=== PATIENT | male | born 1970 | race Caucasian/White ===

== ENCOUNTER 2017-01-25 17:32 | Emergency (ER) | payer MEDICARE, BC ==
[2017-01-25 17:41] VITALS: BP 148/63; PULSE 100; RESP 20; TEMP 98.4
--- NOTE | 2017-01-25 18:03 | ED ---
General Adult HPI - General Chief complaint: Recheck/Abnormal Lab/Rx Stated complaint: vomiting Time Seen by Provider: 01/25/17 17:42 Source: patient, RN notes reviewed Mode of arrival: ambulatory Limitations: no limitations - History of Present Illness Initial comments: Patient 46-year-old male who presents emergency room today with a chief complaint of bleeding coming from the dialysis site. Patient does admit that he had a dialysis port put in 4 days ago. States he had episode of vomiting this morning because he tried to eat something past. He states the dialysis site began bleeding. She does admit that he put extra gauze on top. Came here to the emergency room. Patient denies any other complaints or symptoms states nausea was only because he try to eat too fast vomiting. States he is not nauseous at this time. Denies abdominal pain. Denies any other symptoms. Patient denies any recent fever, chills, shortness of breath, chest pain, back pain, abdominal pain, numbness or tingling, dysuria or hematuria, constipation or diarrhea, headaches or visual changes, or any other complaints. - Related Data Home Medications Medication Instructions Recorded Confirmed ALPRAZolam [Xanax] 0.25 mg PO HS 09/20/16 01/25/17 Clopidogrel [Plavix] 75 mg PO HS 09/20/16 01/25/17 Furosemide [Lasix] 80 mg PO HS 09/20/16 01/25/17 HYDROcodone/APAP 7.5-325MG [[place] 1 tab PO DIRECTED PRN 09/20/16 01/25/17 7.5-325] Levothyroxine Sodium [Synthroid] 100 mcg PO HS 09/20/16 01/25/17 Warfarin [Coumadin] 7.5 mg PO DAILY 09/20/16 01/25/17 Metoprolol Tartrate [Lopressor] 25 mg PO DIRECTED 09/24/16 01/25/17 Simvastatin [Zocor] 80 mg PO HS 09/24/16 01/25/17 Previous Rx's Medication Instructions Recorded Nitroglycerin Sl Tabs [Nitrostat] 0.4 mg SUBLINGUAL Q5M PRN #100 tab 09/24/16 Allergies Allergy/AdvReac Type Severity Reaction Status Date / Time grapefruit Allergy Rash/Hives Verified 01/25/17 17:41 shellfish derived [Shellfish] Allergy Swelling Verified 01/25/17 17:41 Review of Systems ROS Statement: Those systems with pertinent positive or pertinent negative responses have been documented in the HPI. ROS Other: All systems not noted in ROS Statement are negative. Past Medical History Past Medical History: Renal Disease Additional Past Medical History / Comment(s): SEE DR ANDERSON'S H&P, DIALYSIS MWF, STATES BEING EVALUATED FOR KIDNEY TRANSPLANT History of Any Multi-Drug Resistant Organisms: None Reported Past Surgical History: Heart Catheterization Additional Past Surgical History / Comment(s): FISTULA/GRAFT RT ARM Past Anesthesia/Blood Transfusion Reactions: No Reported Reaction Past Psychological History: No Psychological Hx Reported Smoking Status: Former smoker Past Alcohol Use History: None Reported Additional Past Alcohol Use History / Comment(s): QUIT SMOKING 1999, SMOKED 1/2 PPD FROM AGE 17 Past Drug Use History: None Reported - Past Family History Mother Family Medical History: Cancer Father Family Medical History: Myocardial Infarction ([place]) Additional Family Medical History / Comment(s): AT AGE 46 General Exam - General Exam Comments Initial Comments: General: The patient is awake and alert, in no distress, and does not appear acutely ill. Eye: Pupils are equal, round and reactive to light, extra-ocular movements are intact. No nystagmus. There is normal conjunctiva bilaterally. No signs of icterus. Ears, nose, mouth and throat: There are moist mucous membranes and no oral lesions. Neck: The neck is supple, there is no tenderness or JVD. Cardiovascular: There is a regular rate and rhythm. No murmur, rub or gallop is appreciated. Respiratory: Lungs are clear to auscultation, respirations are non-labored, breath sounds are equal. No wheezes, stridor, rales, or rhonchi. Musculoskeletal: Normal ROM, no tenderness. Strength 5/5. Sensation intact. Pulses equal bilaterally 2+. Neurological: A&O x 3. CN II-XII intact, There are no obvious motor or sensory deficits. Coordination appears grossly intact. Speech is normal. Skin: Skin is warm and dry and no rashes or lesions are noted. No active bleeding coming from dialysis site. Psychiatric: Cooperative, appropriate mood & affect, normal judgment. Limitations: no limitations Course Vital Signs 01/25/17 17:39 Temperature 98.4 F Pulse Rate 100 Respiratory 20 Rate Blood Pressure 148/63 O2 Sat by Pulse 100 Oximetry Medical Decision Making - Medical Decision Making Patient's urinalysis site was cleaned here in the emergency room saline. There is no active bleeding. Patient's site was redressed by nursing staff. Patient discharged home. Disposition Clinical Impression: Encounter for wound re-check Disposition: HOME SELF-CARE Condition: Good Instructions: Acute Wound Care (ED) Additional Instructions: Please return to emergency room if any increase or worsening symptoms as discussed. Time of Disposition: 18:02
[2017-01-25] MEDS ORDERED: GELATIN SPONGE,ABSORB (SMALL) 1 EACH SPONGE TOPICAL STA (18:22)
== END 2017-01-25 18:25 | disposition home or self-care (01) ==
LOC: EC 17:32
DX: Z48.01 Encounter for change or removal of surgical wound dressing (principal); R11.10 Vomiting, unspecified; N28.9 Disorder of kidney and ureter, unspecified; Z87.891 Personal history of nicotine dependence; Z79.01 Long term (current) use of anticoagulants; Z79.899 Other long term (current) drug therapy; Z91.013 Allergy to seafood; Z91.018 Allergy to other foods
CPT/HCPCS: 99283

== ENCOUNTER → 2017-09-22 | Outpatient (CLI) | payer MEDICARE, BC | END | disposition home or self-care (01) | LOC: LABWHC1 06:49 | PROVIDERS: ATTEND Nurse Practitioner | DX: Z94.0 Kidney transplant status (principal) | CPT/HCPCS: 36415 ==

== ENCOUNTER → 2018-01-26 | Outpatient (CLI) | payer MEDICARE, BC ==
[2018-01-26 10:11] LABS: Basophils % (A) 0 %; Eosinophils # (A) 0.1 k/uL (0-0.7); Eosinophils % (A) 1 %; HCT 43.1 % (39.0-53.0); HGB 13.2 gm/dL (13.0-17.5); Hypochromasia Slight; Lymphocytes # (A) 0.6 k/uL (1.0-4.8); Lymphocytes % (A) 7 %; MCH 27.3 pg (25.0-35.0); MCHC 30.6 g/dL (31.0-37.0); MCV 89.2 fL (80.0-100.0); Mean Platelet Volume 7.9; Monocytes % (A) 11 %; Neutrophils % (A) 79 %; Platelet Count 306 k/uL (150-450); RBC 4.83 m/uL (4.30-5.90); WBC 8.9 k/uL (3.8-10.6)
[2018-01-26 10:28] LABS: Potassium 4.8 mmol/L (3.5-5.1)
[2018-01-26 21:58] LABS: Hemoglobin A1C 6.8 % (4.0-6.0)
== END | disposition home or self-care (01) ==
LOC: LABWHC1 08:27
PROVIDERS: ATTEND Nurse Practitioner
DX: E09.9 Drug or chemical induced diabetes mellitus without complications (principal)
CPT/HCPCS: 36415; 82043; 82565; 82570; 82947; 83036; 84132; 85025

== ENCOUNTER → 2018-02-04 | Outpatient (CLI) | payer MEDICARE, BC ==
[2018-02-04 09:12] LABS: Basophils % (A) 1 %; Eosinophils # (A) 0.2 k/uL (0-0.7); Eosinophils % (A) 3 %; HCT 42.8 % (39.0-53.0); HGB 13.4 gm/dL (13.0-17.5); Hypochromasia Slight; Lymphocytes # (A) 0.8 k/uL (1.0-4.8); Lymphocytes % (A) 11 %; MCH 27.8 pg (25.0-35.0); MCHC 31.4 g/dL (31.0-37.0); MCV 88.7 fL (80.0-100.0); Mean Platelet Volume 7.8; Monocytes # (A) 0.6 k/uL (0-1.0); Monocytes % (A) 9 %; Neutrophils # (A) 5.4 k/uL (1.3-7.7); Neutrophils % (A) 75 %; Platelet Count 270 k/uL (150-450); RBC 4.82 m/uL (4.30-5.90); RDW 15.8 % (11.5-15.5); WBC 7.1 k/uL (3.8-10.6)
[2018-02-04 09:15] LABS: INR 1.1 (<1.2); Partial Thromboplastin Time 23.9 sec (22.0-30.0); Prothrombin Time 10.3 sec (9.0-12.0)
[2018-02-04 09:27] LABS: Calcium 10.5 mg/dL (8.4-10.2); Magnesium 1.8 mg/dL (1.6-2.3); Phosphorus 3.2 mg/dL (2.5-4.5); Potassium 4.7 mmol/L (3.5-5.1)
== END ==
LOC: LABWHC1 08:39
PROVIDERS: ATTEND Internal Medicine Nephrology
DX: Z94.0 Kidney transplant status (principal); Z79.01 Long term (current) use of anticoagulants
CPT/HCPCS: 36415; 80048; 80197; 83735; 84100; 85025; 85610; 85730; 87799

== ENCOUNTER → 2018-05-04 | Outpatient (CLI) | payer MEDICARE, BC ==
[2018-05-04 08:56] LABS: Basophils % (A) 1 %; Eosinophils # (A) 0.3 k/uL (0-0.7); Eosinophils % (A) 4 %; HCT 39.3 % (39.0-53.0); HGB 12.6 gm/dL (13.0-17.5); Lymphocytes # (A) 0.5 k/uL (1.0-4.8); Lymphocytes % (A) 7 %; MCHC 32.1 g/dL (31.0-37.0); MCV 90.5 fL (80.0-100.0); Mean Platelet Volume 7.4; Monocytes # (A) 0.7 k/uL (0-1.0); Monocytes % (A) 8 %; Neutrophils # (A) 6.5 k/uL (1.3-7.7); Neutrophils % (A) 79 %; Platelet Count 232 k/uL (150-450); RBC 4.34 m/uL (4.30-5.90); WBC 8.3 k/uL (3.8-10.6)
[2018-05-04 09:24] LABS: Potassium 4.9 mmol/L (3.5-5.1)
[2018-05-04 21:23] LABS: Hemoglobin A1C 6.4 % (4.0-6.0)
== END | disposition home or self-care (01) ==
LOC: LABWHC1 11:12
PROVIDERS: ATTEND Nurse Practitioner
DX: E09.9 Drug or chemical induced diabetes mellitus without complications (principal); E03.9 Hypothyroidism, unspecified
CPT/HCPCS: 36415; 82043; 82565; 82570; 82947; 83036; 84132; 84443; 85025

== ENCOUNTER → 2018-06-01 | Outpatient (CLI) | payer MEDICARE, BC | END | disposition home or self-care (01) | LOC: LABWHC1 08:26 | DX: Z48.22 Encounter for aftercare following kidney transplant (principal); Z94.0 Kidney transplant status ==

== ENCOUNTER → 2019-03-30 | Outpatient (CLI) | payer MEDICARE, BC | END | disposition home or self-care (01) | LOC: LABWHC1 08:36 | DX: Z53.9 Procedure and treatment not carried out, unspecified reason (principal) ==

== ENCOUNTER → 2019-04-10 | Outpatient (CLI) | payer MEDICARE, BC ==
[2019-04-10 08:40] LABS: Basophils # (A) 0.1 k/uL (0-0.2); Basophils % (A) 1 %; Eosinophils # (A) 0.3 k/uL (0-0.7); Eosinophils % (A) 4 %; HCT 46.6 % (39.0-53.0); HGB 14.5 gm/dL (13.0-17.5); Lymphocytes # (A) 0.9 k/uL (1.0-4.8); Lymphocytes % (A) 13 %; MCH 28.4 pg (25.0-35.0); MCHC 31.2 g/dL (31.0-37.0); MCV 91.1 fL (80.0-100.0); Mean Platelet Volume 7.3; Monocytes # (A) 0.5 k/uL (0-1.0); Monocytes % (A) 7 %; Neutrophils # (A) 5.1 k/uL (1.3-7.7); Neutrophils % (A) 72 %; Platelet Count 260 k/uL (150-450); RBC 5.11 m/uL (4.30-5.90); RDW 13.7 % (11.5-15.5)
[2019-04-10 17:10] LABS: African American GFR (CKD) 50.8 (60.0-200.0); Potassium 4.6 mmol/L (3.5-5.5)
== END | disposition home or self-care (01) ==
LOC: LABWHC1 08:06
DX: D84.9 Immunodeficiency, unspecified (principal); Z94.0 Kidney transplant status; Z79.899 Other long term (current) drug therapy
CPT/HCPCS: 36415; 82565; 82947; 84132; 85025

== ENCOUNTER → 2019-06-01 | Outpatient (CLI) | payer MEDICARE, BC ==
[2019-06-01 09:20] LABS: Basophils # (A) 0.1 k/uL (0-0.2); Basophils % (A) 1 %; Eosinophils # (A) 0.4 k/uL (0-0.7); Eosinophils % (A) 6 %; HCT 47.8 % (39.0-53.0); HGB 15.1 gm/dL (13.0-17.5); Lymphocytes % (A) 14 %; MCH 28.9 pg (25.0-35.0); MCHC 31.6 g/dL (31.0-37.0); MCV 91.5 fL (80.0-100.0); Mean Platelet Volume 7.3; Monocytes # (A) 0.7 k/uL (0-1.0); Monocytes % (A) 10 %; Neutrophils % (A) 68 %; Platelet Count 286 k/uL (150-450); RBC 5.23 m/uL (4.30-5.90); WBC 7.3 k/uL (3.8-10.6)
[2019-06-01 15:39] LABS: African American GFR (CKD) 54.4 (60.0-200.0); Potassium 4.9 mmol/L (3.5-5.5)
== END | disposition home or self-care (01) ==
LOC: LABWHC1 08:19
PROVIDERS: ATTEND Nurse Practitioner Primary Care
DX: D84.9 Immunodeficiency, unspecified (principal); Z94.0 Kidney transplant status; Z79.899 Other long term (current) drug therapy
CPT/HCPCS: 36415; 82565; 82947; 84132; 85025

== ENCOUNTER → 2019-08-04 | Outpatient (CLI) | payer MEDICARE, BC ==
[2019-08-04 09:43] LABS: Basophils # (A) 0.1 k/uL (0-0.2); Basophils % (A) 1 %; Eosinophils # (A) 0.2 k/uL (0-0.7); Eosinophils % (A) 2 %; HCT 49.2 % (39.0-53.0); HGB 15.4 gm/dL (13.0-17.5); Lymphocytes # (A) 0.8 k/uL (1.0-4.8); Lymphocytes % (A) 9 %; MCH 28.8 pg (25.0-35.0); MCHC 31.3 g/dL (31.0-37.0); MCV 92.2 fL (80.0-100.0); Monocytes # (A) 0.7 k/uL (0-1.0); Monocytes % (A) 8 %; Neutrophils # (A) 6.7 k/uL (1.3-7.7); Neutrophils % (A) 79 %; Platelet Count 287 k/uL (150-450); RBC 5.34 m/uL (4.30-5.90); RDW 13.6 % (11.5-15.5); WBC 8.5 k/uL (3.8-10.6)
[2019-08-04 16:10] LABS: African American GFR (CKD) 58.2 (60.0-200.0); Potassium 4.6 mmol/L (3.5-5.5)
== END | disposition home or self-care (01) ==
LOC: LABWHC1 08:42
PROVIDERS: ATTEND Nurse Practitioner Primary Care
DX: D84.9 Immunodeficiency, unspecified (principal); Z94.0 Kidney transplant status; Z79.899 Other long term (current) drug therapy
CPT/HCPCS: 36415; 82565; 82947; 84132; 85025

== ENCOUNTER → 2020-04-17 | Outpatient (CLI) | payer MEDICARE, BC ==
[2020-04-17 09:18] LABS: Basophils # (A) 0.1 k/uL (0-0.2); Basophils % (A) 1 %; Eosinophils # (A) 0.3 k/uL (0-0.7); Eosinophils % (A) 4 %; HCT 46.4 % (39.0-53.0); HGB 15.1 gm/dL (13.0-17.5); Lymphocytes # (A) 0.9 k/uL (1.0-4.8); Lymphocytes % (A) 9 %; MCH 30.4 pg (25.0-35.0); MCHC 32.6 g/dL (31.0-37.0); MCV 93.2 fL (80.0-100.0); Monocytes # (A) 0.8 k/uL (0-1.0); Monocytes % (A) 8 %; Neutrophils # (A) 7.1 k/uL (1.3-7.7); Neutrophils % (A) 77 %; Platelet Count 260 k/uL (150-450); RBC 4.99 m/uL (4.30-5.90); RDW 13.2 % (11.5-15.5); WBC 9.2 k/uL (3.8-10.6)
[2020-04-17 15:35] LABS: African American GFR (CKD) 54.1 (60.0-200.0); Non-African American GFR(CKD) 46.6 (60.0-200.0); Potassium 4.6 mmol/L (3.5-5.5)
[2020-04-17 18:15] LABS: Urine Creatinine 71.4 mg/dL
== END | disposition home or self-care (01) ==
LOC: LABWHC1 08:12
PROVIDERS: ATTEND Nurse Practitioner Primary Care
DX: D84.9 Immunodeficiency, unspecified (principal); Z94.0 Kidney transplant status; Z79.899 Other long term (current) drug therapy
CPT/HCPCS: 36415; 82043; 82565; 82570; 82947; 84132; 85025

== ENCOUNTER → 2020-07-20 | Outpatient (CLI) | payer MEDICARE, BC ==
[2020-07-20 09:11] LABS: Basophils # (A) 0.1 k/uL (0-0.2); Basophils % (A) 1 %; Eosinophils # (A) 0.3 k/uL (0-0.7); Eosinophils % (A) 3 %; HCT 45.1 % (39.0-53.0); Lymphocytes # (A) 1.1 k/uL (1.0-4.8); Lymphocytes % (A) 12 %; MCH 29.1 pg (25.0-35.0); MCHC 31.1 g/dL (31.0-37.0); MCV 93.7 fL (80.0-100.0); Mean Platelet Volume 7.6; Monocytes # (A) 0.7 k/uL (0-1.0); Monocytes % (A) 8 %; Neutrophils # (A) 7.1 k/uL (1.3-7.7); Neutrophils % (A) 75 %; Platelet Count 293 k/uL (150-450); RBC 4.81 m/uL (4.30-5.90); RDW 13.6 % (11.5-15.5); WBC 9.5 k/uL (3.8-10.6)
[2020-07-20 16:10] LABS: African American GFR (CKD) 50.5 (60.0-200.0); Non-African American GFR(CKD) 43.5 (60.0-200.0); Potassium 4.5 mmol/L (3.5-5.5)
[2020-07-20 18:54] LABS: Urine Creatinine 62.8 mg/dL
== END | disposition home or self-care (01) ==
LOC: LABWHC1 07:57
PROVIDERS: ATTEND Nurse Practitioner Primary Care
DX: D84.9 Immunodeficiency, unspecified (principal); Z79.899 Other long term (current) drug therapy; Z94.0 Kidney transplant status
CPT/HCPCS: 36415; 82043; 82565; 82570; 82947; 84132; 85025

== ENCOUNTER → 2020-11-10 | Outpatient (CLI) | payer BC, MEDICARE | END | disposition home or self-care (01) | LOC: LABWHC1 08:29 | PROVIDERS: ATTEND Nurse Practitioner Primary Care | DX: Z53.9 Procedure and treatment not carried out, unspecified reason (principal) ==

== ENCOUNTER → 2020-12-19 | Outpatient (CLI) | payer BC, MEDICARE ==
[2020-12-19 15:13] LABS: Basophils # (A) 0.06 X 10*3/uL (0.00-0.10); Basophils % (A) 0.9 %; Eosinophils # (A) 0.24 X 10*3/uL (0.04-0.35); Eosinophils % (A) 3.5 %; HCT 47.7 % (39.6-50.0); HGB 14.8 g/dL (13.0-17.0); Lymphocytes # (A) 0.94 X 10*3/uL (0.90-5.00); Lymphocytes % (A) 13.7 %; MCH 27.6 pg (27.0-32.0); Mean Platelet Volume 10.4 fL (9.5-12.2); Monocytes # (A) 0.89 X 10*3/uL (0.20-1.00); Neutrophils % (A) 68.5 %; Platelet Count 240 X 10*3/uL (140-440); RBC 5.36 X 10*6/uL (4.40-5.60); RDW 14.4 % (11.5-14.5); WBC 6.86 X 10*3/uL (4.50-10.00)
[2020-12-19 16:20] LABS: African American GFR (CKD) 53.7 (60.0-200.0); Albumin 4.8 g/dL (3.80-4.90); Albumin/Globulin Ratio 2.4 (1.60-3.17); Anion Gap 8.4 mmol/L (4.00-12.00); BUN/Creat Ratio 17.06 Ratio (12.00-20.00); Calcium 10.6 mg/dL (8.7-10.3); Carbon Dioxide 20.6 mmol/L (21.6-31.8); Chol/HDL Ratio 2.83; LDL Cholesterol,Calculated 54.6 mg/dL (0.0-131.0); Magnesium 1.6 mg/dL (1.5-2.4); Non-African American GFR(CKD) 46.3 (60.0-200.0); Potassium 4.5 mmol/L (3.5-5.5); Total Bilirubin 0.7 mg/dL (0.3-1.2); Total Protein 6.8 g/dL (6.2-8.2); VLDL Calculation 31.4 mg/dL (5.00-40.00)
[2020-12-19 20:41] LABS: Hemoglobin A1C 7.8 % (4.0-6.0)
== END | disposition home or self-care (01) ==
LOC: LABWHC1 07:59
PROVIDERS: ATTEND Nurse Practitioner Primary Care
DX: D84.9 Immunodeficiency, unspecified (principal); Z79.899 Other long term (current) drug therapy; Z94.0 Kidney transplant status
CPT/HCPCS: 36415; 80053; 80061; 82306; 83036; 83735; 83970; 85025

== ENCOUNTER → 2021-02-02 | Outpatient (CLI) | payer BC, MEDICARE ==
[2021-02-03 03:04] LABS: African American GFR (CKD) 37.3 (60.0-200.0); Albumin 4.7 g/dL (3.80-4.90); Albumin/Globulin Ratio 2.04 (1.60-3.17); BUN/Creat Ratio 17.83 Ratio (12.00-20.00); Calcium 9.6 mg/dL (8.7-10.3); Globulin 2.3 g/dL (1.6-3.3); Non-African American GFR(CKD) 32.1 (60.0-200.0); Potassium 4.8 mmol/L (3.5-5.5); Total Bilirubin 0.4 mg/dL (0.3-1.2)
== END | disposition home or self-care (01) ==
LOC: LABWHC1 08:08
PROVIDERS: ATTEND Nurse Practitioner Family
DX: I10 Essential (primary) hypertension (principal); E09.9 Drug or chemical induced diabetes mellitus without complications
CPT/HCPCS: 36415; 80053; 83036

== ENCOUNTER → 2021-06-23 | Outpatient (CLI) | payer BC, MEDICARE ==
[2021-06-23 22:09] LABS: African American GFR (CKD) 53.7 (60.0-200.0); Albumin 4.7 g/dL (3.80-4.90); Albumin/Globulin Ratio 2.04 (1.60-3.17); BUN/Creat Ratio 19.41 Ratio (12.00-20.00); Calcium 10.2 mg/dL (8.7-10.3); Globulin 2.3 g/dL (1.6-3.3); Non-African American GFR(CKD) 46.3 (60.0-200.0); Potassium 4.3 mmol/L (3.5-5.5); Total Bilirubin 0.4 mg/dL (0.3-1.2)
== END | disposition home or self-care (01) ==
LOC: LABWHC1 09:00
PROVIDERS: ATTEND Nurse Practitioner Family
DX: N17.9 Acute kidney failure, unspecified (principal); N18.32 Chronic kidney disease, stage 3b; D63.1 Anemia in chronic kidney disease; N25.81 Secondary hyperparathyroidism of renal origin; D84.9 Immunodeficiency, unspecified; E55.9 Vitamin D deficiency, unspecified; Z94.0 Kidney transplant status
CPT/HCPCS: 36415; 80053

== ENCOUNTER → 2021-12-12 | Outpatient (CLI) | payer MEDICARE, OTHER ==
--- NOTE | 2021-12-12 22:16 | CT ---
EXAMINATION TYPE: High-resolution CT chest wo con DATE OF EXAM: 12/12/2021 INDICATION: SOB, h/o covid CT DLP: 1030.2 mGy.cm Automated Exposure Control for Dose Reduction was Utilized. TECHNIQUE AND CONTRAST: CT scan of the chest as per high-resolution protocol without IV contrast administration in the supine and prone positions. COMPARISON: CT dated 10/30/2017 FINDINGS: Scattered bilateral areas of groundglass opacities most evident seen in the upper and midlung zones w ith minimal scattered peripheral fibrotic changes (mainly seen in the right upper lung lobe. Thick at electasis is seen in the lateral aspect of the left lower lung zone. No definite centrilobular nodule s, septal thickening, bronchiectasis, basal subpleural pulmonary reticulations, cystic changes or hon eycombing. Patent trachea and main bronchi. No pleural or pericardial effusion. No gross cardiomegaly. The pulmo nary trunk measures up to 3.5 cm suggestive of pulmonary hypertension. Scattered arterial and coronar y atherosclerotic calcifications. No pathologically enlarged lymph nodes in the chest. Right-sided venous catheter, likely representing dialysis catheter with the tip is seen at the superi or aspect of the right atrium. Gastric band seen at the gastroesophageal junction. Markedly atrophic [place] kidneys. Degenerative changes of the thoracic spine. No aggressive bone lesion. IMPRESSION: Interstitial lung disease demonstrating features suggestive of alternative diagnosis other than UIP. This could represent sequela of previous infection, connective-tissue disorder, hypersensitivity pneu monitis or less likely sarcoidosis among other pulmonary abnormalities. Recommend clinical correlatio n, correlation with pulmonary function tests and further workup. Further pulmonology consultation can be also considered. The described pulmonary changes were not appreciated in 2018 CT scan.
== END | disposition home or self-care (01) ==
LOC: RADCTMAIN 17:08
PROVIDERS: ATTEND Internal Medicine Critical Care Medicine
DX: J84.9 Interstitial pulmonary disease, unspecified (principal)
CPT/HCPCS: 71250

== ENCOUNTER → 2023-03-26 | Outpatient (CLI) | payer BC, MEDICARE ==
[2023-03-26 09:37] LABS: African American GFR (CKD) 29 (>60 ml/min/1.73 sqM); Anion Gap 12 mmol/L; Blood Urea Nitrogen 52 mg/dL (9-20); Calcium 10.3 mg/dL (8.4-10.2); Carbon Dioxide 18 mmol/L (22-30); Chloride 109 mmol/L (98-107); Glucose 192 mg/dL (74-99); Non-African American GFR(CKD) 25 (>60 ml/min/1.73 sqM); Potassium 5.6 mmol/L (3.5-5.1); Sodium 139 mmol/L (137-145)
[2023-03-26 10:31] LABS: Basophils % (A) 0 %; Eosinophils # (A) 0.1 k/uL (0-0.7); Eosinophils % (A) 1 %; HGB 15.6 gm/dL (13.0-17.5); Hypochromasia Marked; Lymphocytes # (A) 0.7 k/uL (1.0-4.8); Lymphocytes % (A) 9 %; MCH 27.4 pg (25.0-35.0); MCHC 29.9 g/dL (31.0-37.0); MCV 91.6 fL (80.0-100.0); Mean Platelet Volume 9.8; Monocytes # (A) 0.5 k/uL (0-1.0); Monocytes % (A) 7 %; Neutrophils # (A) 6.1 k/uL (1.3-7.7); Neutrophils % (A) 81 %; Platelet Count 178 k/uL (150-450); RBC 5.68 m/uL (4.30-5.90); RDW 15.8 % (11.5-15.5); WBC 7.5 k/uL (3.8-10.6)
[2023-03-27 14:30] LABS: Tacrolimus (FK506) 7.6 ng/mL (5.0-20.0)
== END | disposition home or self-care (01) ==
LOC: LABWHC1 08:18
PROVIDERS: ATTEND Family Medicine
DX: D84.821 Immunodeficiency due to drugs (principal); Z94.0 Kidney transplant status; Z79.899 Other long term (current) drug therapy
CPT/HCPCS: 36415; 80048; 80197; 82043; 82570; 82784; 85025

== ENCOUNTER → 2023-05-09 | Outpatient (CLI) | payer BC, MEDICARE ==
[2023-05-09 16:09] LABS: Basophils # (A) 0.07 X 10*3/uL (0.00-0.10); Basophils % (A) 0.8 %; Eosinophils # (A) 0.23 X 10*3/uL (0.04-0.35); Eosinophils % (A) 2.6 %; HCT 53.8 % (37.2-46.3); HGB 16.6 d/dL (12.0-15.0); Lymphocytes # (A) 0.98 X 10*3/uL (0.90-5.00); Lymphocytes % (A) 10.9 %; MCH 28.1 pg (27.0-32.0); MCHC 30.9 d/dL (32.0-37.0); MCV 91.2 FL (80.0-97.0); Mean Platelet Volume 10.5 FL (9.5-12.2); Monocytes % (A) 12.2 %; NRBC Per 100 WBC 0 X 10*3/uL (0.00-0.01); Neutrophils # (A) 6.58 X 10*3/uL (1.80-7.70); Neutrophils % (A) 73.1 %; Platelet Count 190 X 10*3/uL (140-440); RDW 16.7 % (11.5-14.5)
[2023-05-09 17:07] LABS: BUN/Creat Ratio 11.96 Ratio (12.00-20.00); Blood Urea Nitrogen 33.5 mg/dL (9.0-27.0); Calcium 10.6 mg/dL (8.7-10.3); Carbon Dioxide 14.6 mmol/L (21.6-31.8); Chloride 113 mmol/L (96-109); Glucose 67 mg/dL (70-110); Potassium 4.9 mmol/L (3.5-5.5); Sodium 142 mmol/L (135-145)
[2023-05-09 18:48] LABS: Urine Creatinine 91.6 mg/dL (28.0-217.0)
[2023-05-12 13:14] LABS: BK Virus DNA PCR, Qualitative DETECTED (Not detected); BKV DNA (PCR), Quant <125 Copies/mL (<125); LOG BKV Copies/mL <2.10 (<2.10)
[2023-05-12 13:27] LABS: Tacrolimus (FK506) 8.5 ng/mL (5.0-20.0)
== END | disposition home or self-care (01) ==
LOC: LABWHC1 08:05
PROVIDERS: ATTEND Nurse Practitioner Family
DX: Z51.81 Encounter for therapeutic drug level monitoring (principal); D84.821 Immunodeficiency due to drugs; Z79.899 Other long term (current) drug therapy; Z94.0 Kidney transplant status
CPT/HCPCS: 36415; 80048; 80197; 82043; 82570; 82784; 85025

== ENCOUNTER → 2023-10-29 | Outpatient (CLI) | payer BC, MEDICARE ==
[2023-10-30 13:14] LABS: BK Virus DNA PCR, Qualitative DETECTED (Not detected); LOG BKV Copies/mL 3.26 (<2.10)
== END | disposition home or self-care (01) ==
LOC: LABWHC1 15:14
DX: D84.821 Immunodeficiency due to drugs (principal); Z94.0 Kidney transplant status; Z79.899 Other long term (current) drug therapy
CPT/HCPCS: 36415

== ENCOUNTER 2023-12-14 14:51 | Emergency (ER) | payer BC, MEDICARE ==
--- NOTE | 2023-12-14 15:07 | ED ---
Syncope HPI - General Chief Complaint: Syncope Stated Complaint: light headed/faint Time Seen by Provider: 12/14/23 15:05 Source: patient, RN notes reviewed, old records reviewed, Caregiver Mode of arrival: ambulatory Limitations: no limitations - History of Present Illness Initial Comments: This is a 53-year-old male to the ER for evaluation of a syncopal event. This event occurred just prior to arrival. Patient been having some increasing shortness of breath requiring more oxygen patient is on oxygen secondary to lung damage from coronavirus. Patient also has a renal transplant history of renal transplant with some increasing shortness of breath especially with exertion. His patient does admit to lower extremity swelling and edema. Patient is denying any fevers. He does admit to shortness of breath here in the emergency department and occasional chest pain MD Complaint: loss of consciousness, collapsed -: hour(s) Prodromal Symptoms: none Description of Event: tonic-clonic movements, post-event confusion -: second(s) Witnessed: yes - by bystander Injuries Sustained Associated with Event: None Current Symptoms: none History: previous syncopal episode Context: during exertion Treatments Prior to Arrival: none - Related Data Home Medications Medication Instructions Recorded Confirmed Levothyroxine Sodium [Synthroid] 100 mcg PO HS 09/20/16 12/16/23 Acetaminophen [Tylenol] 1,000 mg PO Q6H PRN 10/30/17 12/16/23 mycophenolate mofetiL [Cellcept] 250 mg PO BID 10/30/17 12/16/23 predniSONE 5 mg PO DAILY 10/30/17 12/16/23 Cetirizine HCl [Zyrtec] 10 mg PO DAILY 12/14/23 12/16/23 Insulin Glargine,Hum.rec.anlog 50 units SQ HS 12/14/23 12/16/23 [Lantus Solostar Pen] Losartan [Cozaar] 50 mg PO HS 12/14/23 12/16/23 Montelukast [Singulair] 10 mg PO HS 12/14/23 12/16/23 Rosuvastatin Calcium [Crestor] 40 mg PO HS 12/14/23 12/16/23 Semaglutide [Rybelsus] 7 mg PO DAILY 12/14/23 12/16/23 Sertraline [Zoloft] 25 mg PO HS 12/14/23 12/16/23 Tacrolimus [Prograf] 1 mg PO BID 12/14/23 12/16/23 Amoxicillin 500mg Tab 2,000 mg PO ONCE 12/16/23 12/16/23 Isosorbide Mononitrate ER [Imdur] 30 mg PO DIRECTED 12/16/23 12/16/23 Nitroglycerin Sl Tabs [Nitrostat] 0.4 mg SL Q5M PRN 12/16/23 12/16/23 Previous Rx's Medication Instructions Recorded Apixaban [Eliquis] 2.5 mg PO BID #60 tab 12/19/23 Sodium Bicarbonate Tab 650 mg PO BID #30 tab 12/19/23 Allergies Allergy/AdvReac Type Severity Reaction Status Date / Time grapefruit Allergy Rash/Hives Verified 12/16/23 12:36 shellfish derived [Shellfish] Allergy Swelling Verified 12/16/23 12:36 Review of Systems ROS Statement: Those systems with pertinent positive or pertinent negative responses have been documented in the HPI. ROS Other: All systems not noted in ROS Statement are negative. Past Medical History Past Medical History: Coronary Artery Disease (CAD), Renal Disease, Thyroid Disorder Additional Past Medical History / Comment(s): Renal failure post-kidney transplantation, previous history of dialysis for a total of 12 years followed by kidney transplantation, hypothyroidism, chronic stage III kidney failure post transplantation, nonocclusive coronary artery disease and the patient a cardiac catheterization on 09/24/2016 that showed 40-50% lesion in the distal circumflex otherwise the rest of the coronary arteries were all within normal limits. History of Any Multi-Drug Resistant Organisms: None Reported Past Surgical History: Heart Catheterization, Orthopedic Surgery Additional Past Surgical History / Comment(s): FISTULA/GRAFT RT ARM, kidney transplant in July of 2017, Left hip Past Anesthesia/Blood Transfusion Reactions: No Reported Reaction Past Psychological History: No Psychological Hx Reported Smoking Status: Former smoker Past Alcohol Use History: None Reported Past Drug Use History: None Reported - Past Family History Mother Family Medical History: Cancer Father Family Medical History: Myocardial Infarction ([place]) Additional Family Medical History / Comment(s): AT AGE 46 General Exam Limitations: no limitations General appearance: alert, in no apparent distress Head exam: Present: atraumatic, normocephalic, normal inspection Eye exam: Present: normal appearance, PERRL, EOMI. Absent: scleral icterus, conjunctival injection, periorbital swelling ENT exam: Present: normal exam, mucous membranes moist Neck exam: Present: normal inspection. Absent: tenderness, meningismus, lymphadenopathy Respiratory exam: Present: normal lung sounds bilaterally. Absent: respiratory distress, wheezes, rales, rhonchi, stridor Cardiovascular Exam: Present: regular rate, normal rhythm, normal heart sounds. Absent: systolic murmur, diastolic murmur, rubs, gallop, clicks GI/Abdominal exam: Present: soft, normal bowel sounds. Absent: distended, tenderness, guarding, rebound, rigid Extremities exam: Present: normal inspection, full ROM, normal capillary refill. Absent: tenderness, pedal edema, joint swelling, calf tenderness Back exam: Present: normal inspection Neurological exam: Present: alert, oriented X3, CN II-XII intact Psychiatric exam: Present: normal affect, normal mood Skin exam: Present: warm, dry, intact, normal color. Absent: rash Course Vital Signs 12/14/23 12/14/23 12/14/23 15:00 15:12 16:04 Temperature 97.8 F Pulse Rate 71 90 71 Respiratory 22 16 16 Rate Blood Pressure 93/55 115/68 O2 Sat by Pulse 85 L 92 L 92 L Oximetry 12/14/23 12/14/23 12/14/23 17:00 17:21 17:31 Temperature Pulse Rate 68 76 68 Respiratory 12 Rate Blood Pressure 115/68 O2 Sat by Pulse 91 L Oximetry 12/14/23 18:00 Temperature Pulse Rate 79 Respiratory 21 Rate Blood Pressure 116/78 O2 Sat by Pulse 91 L Oximetry - Reevaluation(s) Reevaluation #1: 12/14/23 18:25 Medical records reviewed Reevaluation #2: 12/14/23 18:25 Patient symptoms improved with supplemental oxygen Reevaluation #3: 12/14/23 18:25 Patient informed of results and questions answered Patient refused further evaluation in the hospital at this time Reevaluation #4: Was pt. sent in by a medical professional or institution (, PA, OWNER ORAL SURGEON, urgent care, hospital, or snf...) When possible be specific @ -no Did you speak to anyone other than the patient for history (EMS, parent, family, police, friend...)? What history was obtained from this source @ -no Did you review nursing and triage notes (agree or disagree)? Why? @ -agree Are old charts reviewed (outside hosp., previous admission, EMS record, old EKG, old radiological studies, urgent care reports/EKG's, snf records)? Re port findings @ -yes Differential Diagnosis (chest pain, altered mental status, abdominal pain women, abdominal pain men, vaginal bleeding, weakness, fever, dyspnea, syncope, headache, dizziness, GI bleed, back pain, seizure, CVA, palpatations, mental health, musculoskeletal)? @ -prior EKG interpreted by me (3pts min.). @ -yes X-rays interpreted by me (1pt min.). @ -yes n positive for CHF CT interpreted by me (1pt min.). @ -no U/S interpreted by me (1pt. min.). @ -no What testing was considered but not performed or refused? (CT, X-rays, U/S, labs)? Why? @ -none What meds were considered but not given or refused? Why? @ -none Did you discuss the management of the patient with other professionals (professionals i.e. , PA, OWNER ORAL SURGEON, lab, RT, psych nurse, social director, workforce staffing advisor, teacher, aeronautical engineering officer, case specialist)? Give summary @ -no Was smoking cessation discussed for >3mins.? @ -no Was critical care preformed (if so, how long)? @ -yes31 Were there social determinants of health that impacted care today? How? (Homelessness, low income, unemployed, alcoholism, drug addiction, transportation, low edu. Level, literacy, decrease access to med. care, penitentiary, rehab)? @ -none Was there de-escalation of care discussed even if they declined (Discuss DNR or withdrawal of care, Hospice)? DNR status @ -no What co-morbidities impacted this encounter? (DM, HTN, Smoking, COPD, CAD, Ca ncer, CVA, ARF, Chemo, Hep., AIDS, mental health diagnosis, sleep apnea, morbid obesity)? @ -none Was patient admitted / discharged? Hospital course, mention meds given and route, prescriptions, significant lab abnormalities, going to OR and other pertinent info. @ - 53 male to the ER for evaluation patient will be admitted for syncopal event, CHF contributing to hypoxia as well as underlying lung damage from coronavirus. Patient will continue supplemental oxygen admit for cardiology evaluation regarding elevated troponin with chronic renal failure renal transplant and CHF Discharge Undiagnosed new problem with uncertain prognosis? @ -no Drug Therapy requiring intensive monitoring for toxicity (Heparin, Nitro, Insulin, Cardizem)? @ -no Were any procedures done? @ -no Diagnosis/symptom? @ -Syncope hypoxia chest pain Acute, or Chronic, or Acute on Chronic? @ -Acute Uncomplicated (without systemic symptoms) or Complicated (systemic symptoms)? @ -Complicated Side effects of treatment? @ -no Exacerbation, Progression, or Severe Exacerbation? @ -exacerbation Poses a threat to life or bodily function? How? (Chest pain, [place], [place], pneumonia, PE, COPD, DKA, ARF, appy, cholecystitis, CVA, Diverticulitis, Homicidal, Suicidal, threat to staff... and all critical care pts) @ -yes with significant hypoxia Reevaluation #5: Differential Syncope: Valvular disease, hypertrophic cardiomyopathy, pulmonary embolism, tamponade, tachycardia, bradycardia, [place], hypovolemia, hemorrhage, dissection, anemia, intracranial hemorrhage, seizure, hypoglycemia, carbon monoxide poisoning, this is not meant to be an all-inclusive list. Differential Dyspnea: Coronary syndrome, arrhythmia, tamponade, asthma, COPD, pulmonary embolism, pneumonia, pneumothorax, pulmonary effusion, anaphylaxis, diabetic ketoacidosis, flailed chest, pulmonary contusion, diaphragmatic rupture, anemia, neuromuscular, this is not meant to be an all-inclusive list. - Consultations Consultation #1: Spoke with admitting who agrees to admit this patient EKG Findings - EKG Comments: EKG Findings:: EKG is sinus 86 CO 170 QRS 104 QTc 408 - EKG Results: EKG: interpreted by ERMD Medical Decision Making - Medical Decision Making 53 male to the ER for evaluation patient will be admitted for syncopal event, CHF contributing to hypoxia as well as underlying lung damage from coronavirus. Patient will continue supplemental oxygen admit for cardiology evaluation regarding elevated troponin with chronic renal failure renal transplant and CHF - Lab Data Result diagrams: 12/14/23 16:45 12/14/23 16:45 Lab Results 12/14/23 12/14/23 12/14/23 Range/Units 15:11 15:11 16:45 WBC 10.4 (3.8-10.6) k/uL RBC 5.79 (4.30-5.90) m/uL Hgb 17.1 (13.0-17.5) gm/dL Hct 56.0 H (39.0-53.0) % MCV 96.7 (80.0-100.0) fL MCH 29.4 (25.0-35.0) pg MCHC 30.5 L (31.0-37.0) g/dL RDW 15.4 (11.5-15.5) % Plt Count 125 L (150-450) k/uL MPV 9.1 Neutrophils % 84 % Lymphocytes % 7 % Monocytes % 7 % Eosinophils % 1 % Basophils % 1 % Neutrophils # 8.8 H (1.3-7.7) k/uL Lymphocytes # 0.7 L (1.0-4.8) k/uL Monocytes # 0.7 (0-1.0) k/uL Eosinophils # 0.1 (0-0.7) k/uL Basophils # 0.1 (0-0.2) k/uL Hypochromasia Moderate PT 13.3 H (10.0-12.5) sec INR 1.3 H (<1.2) APTT 25.9 (22.0-30.0) sec Sodium (137-145) mmol/L Potassium (3.5-5.1) mmol/L Chloride (98-107) mmol/L Carbon Dioxide (22-30) mmol/L Anion Gap mmol/L BUN (9-20) mg/dL Creatinine (0.66-1.25) mg/dL Est GFR (CKD-EPI)AfAm (>60 ml/min/1.73 sqM) Est GFR (CKD-EPI)NonAf (>60 ml/min/1.73 sqM) Glucose (74-99) mg/dL Calcium (8.4-10.2) mg/dL Magnesium (1.6-2.3) mg/dL Total Bilirubin (0.2-1.3) mg/dL AST (17-59) U/L ALT (4-49) U/L Alkaline Phosphatase (38-126) U/L Troponin I 0.085 H* (0.000-0.034) ng/mL NT-Pro-B Natriuret Pep pg/mL Total Protein (6.3-8.2) g/dL Albumin (3.5-5.0) g/dL 12/14/23 Range/Units 16:45 WBC (3.8-10.6) k/uL RBC (4.30-5.90) m/uL Hgb (13.0-17.5) gm/dL Hct (39.0-53.0) % MCV (80.0-100.0) fL MCH (25.0-35.0) pg MCHC (31.0-37.0) g/dL RDW (11.5-15.5) % Plt Count (150-450) k/uL MPV Neutrophils % % Lymphocytes % % Monocytes % % Eosinophils % % Basophils % % Neutrophils # (1.3-7.7) k/uL Lymphocytes # (1.0-4.8) k/uL Monocytes # (0-1.0) k/uL Eosinophils # (0-0.7) k/uL Basophils # (0-0.2) k/uL Hypochromasia PT (10.0-12.5) sec INR (<1.2) APTT (22.0-30.0) sec Sodium 142 (137-145) mmol/L Potassium 5.6 H (3.5-5.1) mmol/L Chloride 116 H (98-107) mmol/L Carbon Dioxide 15 L (22-30) mmol/L Anion Gap 11 mmol/L BUN 45 H (9-20) mg/dL Creatinine 3.01 H (0.66-1.25) mg/dL Est GFR (CKD-EPI)AfAm 26 (>60 ml/min/1.73 sqM) Est GFR (CKD-EPI)NonAf 23 (>60 ml/min/1.73 sqM) Glucose 99 (74-99) mg/dL Calcium 10.8 H (8.4-10.2) mg/dL Magnesium 1.8 (1.6-2.3) mg/dL Total Bilirubin 1.3 (0.2-1.3) mg/dL AST 39 (17-59) U/L ALT 28 (4-49) U/L Alkaline Phosphatase 107 (38-126) U/L Troponin I (0.000-0.034) ng/mL NT-Pro-B Natriuret Pep 27985 pg/mL Total Protein 7.3 (6.3-8.2) g/dL Albumin 4.6 (3.5-5.0) g/dL - EKG Data -: EKG Interpreted by Me (EKG repeat sinus 81 CO 131 QRS 104 QTc 420) - Radiology Data Radiology results: report reviewed (Chest x-ray is positive for CHF), image reviewed Critical Care Time Critical Care Time: Yes Total Critical Care Time: 31 Disposition Clinical Impression: Syncope, Hypoxia, ARF (acute renal failure) Disposition: HOME SELF-CARE Condition: Fair Is patient prescribed a controlled substance at d/c from ED?: No Referrals: Nonstaff,Physician [Primary Care Provider] - 1-2 days Time of Disposition: 18:25
[2023-12-14 15:26] VITALS: TEMP 97.8
[2023-12-14] MEDS: methylPREDNISolone SOD SUCCI 125 MG/2 ML VIAL IV STA (16:18)
[2023-12-14] MEDS: SODIUM CHLORIDE 0.9% 1,000 ML IV STA (16:19)
--- NOTE | 2023-12-14 16:22 | XR ---
EXAMINATION TYPE: XR chest 1V portable DATE OF EXAM: 12/14/2023 Comparison: 01/28/2022 Clinical History: 53-year-old male sob Findings: Right-sided large bore hemodialysis catheter with tip at the cavoatrial junction. Heart mildly enlarg ed. Mild interstitial density. There is a trace left pleural effusion suggested. Lap band device note d. Impression: Correlate for mild pulmonary vascular congestion/fluid overload state. Trace left pleural effusion. N o pulmonary edema.
[2023-12-14 16:32] LABS: INR 1.3 (<1.2); Partial Thromboplastin Time 25.9 sec (22.0-30.0); Prothrombin Time 13.3 sec (10.0-12.5)
[2023-12-14 17:03] LABS: Basophils # (A) 0.1 k/uL (0-0.2); Basophils % (A) 1 %; Eosinophils # (A) 0.1 k/uL (0-0.7); Eosinophils % (A) 1 %; HGB 17.1 gm/dL (13.0-17.5); Hypochromasia Moderate; Lymphocytes # (A) 0.7 k/uL (1.0-4.8); Lymphocytes % (A) 7 %; MCH 29.4 pg (25.0-35.0); MCHC 30.5 g/dL (31.0-37.0); MCV 96.7 fL (80.0-100.0); Mean Platelet Volume 9.1; Monocytes # (A) 0.7 k/uL (0-1.0); Monocytes % (A) 7 %; Neutrophils # (A) 8.8 k/uL (1.3-7.7); Neutrophils % (A) 84 %; Platelet Count 125 k/uL (150-450); RBC 5.79 m/uL (4.30-5.90); RDW 15.4 % (11.5-15.5); WBC 10.4 k/uL (3.8-10.6)
[2023-12-14 17:13] LABS: ALT 28 U/L (4-49); AST 39 U/L (17-59); African American GFR (CKD) 26 (>60 ml/min/1.73 sqM); Albumin 4.6 g/dL (3.5-5.0); Alkaline Phosphatase 107 U/L (38-126); Anion Gap 11 mmol/L; Blood Urea Nitrogen 45 mg/dL (9-20); Calcium 10.8 mg/dL (8.4-10.2); Carbon Dioxide 15 mmol/L (22-30); Chloride 116 mmol/L (98-107); Glucose 99 mg/dL (74-99); Magnesium 1.8 mg/dL (1.6-2.3); Non-African American GFR(CKD) 23 (>60 ml/min/1.73 sqM); Potassium 5.6 mmol/L (3.5-5.1); Sodium 142 mmol/L (137-145); Total Bilirubin 1.3 mg/dL (0.2-1.3); Total Protein 7.3 g/dL (6.3-8.2)
[2023-12-14] MEDS: IPRATROPIUM-ALBUTEROL 3 ML NEB INHALATION STA (17:21)
[2023-12-14 17:22] LABS: NT-Pro-B-Type Natriuretic Pept 11900 pg/mL
[2023-12-14] MEDS ORDERED: NALOXONE 0.4 MG/ML 1 ML VIAL IV PRN (18:15)
[2023-12-14] MEDS ORDERED: ONDANSETRON 4 MG/2 ML VIAL IVP PRN (18:15)
[2023-12-14] MEDS ORDERED: MORPHINE SULFATE 4 MG/ML SYRINGE IV PRN (18:15)
[2023-12-14] MEDS: SODIUM CHLORIDE 0.9% 1,000 ML IV SCH (19:13)
[2023-12-14 19:40] VITALS: BP 116/78; PULSE 79; RESP 21
== END 2023-12-14 19:25 | disposition home or self-care (01) ==
LOC: EC 14:51 → 3SCARD 18:24 → UNDOADMIN 18:24 → EC 19:25
DX: N17.9 Acute kidney failure, unspecified (principal); R09.02 Hypoxemia; R55 Syncope and collapse; Z87.891 Personal history of nicotine dependence; Z91.013 Allergy to seafood; Z88.8 Allergy status to other drugs, medicaments and biological substances
CPT/HCPCS: 99285; 96374; 96361; 36415; 94640; 93005; 83880; 80053; 83735; 84484; 85025; 85610; 85730; 71045; J2930

== ENCOUNTER 2023-12-16 09:10 | Inpatient (IN) | payer BC, MEDICARE ==
[2023-12-16 10:21] LABS: Basophils # (A) 0.1 k/uL (0-0.2); Basophils % (A) 1 %; Eosinophils # (A) 0.2 k/uL (0-0.7); Eosinophils % (A) 2 %; HCT 54.9 % (39.0-53.0); HGB 17.6 gm/dL (13.0-17.5); Hypochromasia Moderate; Lymphocytes % (A) 10 %; MCH 30.7 pg (25.0-35.0); MCV 95.7 fL (80.0-100.0); Mean Platelet Volume 9.5; Monocytes % (A) 10 %; Neutrophils # (A) 7.7 k/uL (1.3-7.7); Neutrophils % (A) 75 %; Platelet Count 137 k/uL (150-450); RBC 5.74 m/uL (4.30-5.90); RDW 15.7 % (11.5-15.5); WBC 10.3 k/uL (3.8-10.6)
[2023-12-16 10:31] LABS: INR 1.2 (<1.2); Prothrombin Time 12.9 sec (10.0-12.5)
--- NOTE | 2023-12-16 10:31 | ED ---
General Adult HPI - General Chief complaint: Shortness of Breath Stated complaint: sent by PCP-Heart related Time Seen by Provider: 12/16/23 09:22 Source: patient, RN notes reviewed, old records reviewed Mode of arrival: ambulatory Limitations: no limitations - History of Present Illness Initial comments: Patient is a 53-year-old male who presents emergency department complaining of shortness of breath. Patient has also had chest tightness. Currently has no chest tightness but has been on and off over the last week or so. Patient has been on 3 L nasal cannula cannula chronically since COVID infection and typically saturates between 88 and 91%. Has noticed increased shortness of breath and had a syncopal episode on Friday. Left AGAINST MEDICAL ADVICE at that time despite ischemic findings on EKG as well as troponin elevation. Had already had a follow-up appoint with cardiology today, and Dr. Cabrera evaluated the patient and sent him here for inpatient workup. EKG today at the office was unchanged from the EKG from Friday, with slight ST segment depressions in III, aVF is too close to T wave inversions throughout the precordial leads. Patient also had slight ST segment elevation in aVL and minimal in I. This was all seen on EKGs from [address] Cabrera contacted me and sent the patient in for admission for cardiology evaluation, initiation of heparin, echo, as well as pulmonology and nephrology consult. Currently patient is resting comfortably. Has a history of kidney transplant. Has no chest tightness currently. Has his normal shortness of breath. No other acute complaints at this time. Presents for admission at cardiology's request, Dr. Cheng. - Related Data Home Medications Medication Instructions Recorded Confirmed Levothyroxine Sodium [Synthroid] 100 mcg PO HS 09/20/16 12/16/23 Acetaminophen [Tylenol] 1,000 mg PO Q6H PRN 10/30/17 12/16/23 mycophenolate mofetiL [Cellcept] 250 mg PO BID 10/30/17 12/16/23 predniSONE 5 mg PO DAILY 10/30/17 12/16/23 Cetirizine HCl [Zyrtec] 10 mg PO DAILY 12/14/23 12/16/23 Insulin Glargine,Hum.rec.anlog 50 units SQ HS 12/14/23 12/16/23 [Lantus Solostar Pen] Losartan [Cozaar] 50 mg PO HS 12/14/23 12/16/23 Montelukast [Singulair] 10 mg PO HS 12/14/23 12/16/23 Rosuvastatin Calcium [Crestor] 40 mg PO HS 12/14/23 12/16/23 Semaglutide [Rybelsus] 7 mg PO DAILY 12/14/23 12/16/23 Sertraline [Zoloft] 25 mg PO HS 12/14/23 12/16/23 Tacrolimus [Prograf] 1 mg PO BID 12/14/23 12/16/23 Amoxicillin 500mg Tab 2,000 mg PO ONCE 12/16/23 12/16/23 Isosorbide Mononitrate ER [Imdur] 30 mg PO DIRECTED 12/16/23 12/16/23 Nitroglycerin Sl Tabs [Nitrostat] 0.4 mg SL Q5M PRN 12/16/23 12/16/23 Allergies Allergy/AdvReac Type Severity Reaction Status Date / Time grapefruit Allergy Rash/Hives Verified 12/16/23 12:36 shellfish derived [Shellfish] Allergy Swelling Verified 12/16/23 12:36 Review of Systems ROS Statement: Those systems with pertinent positive or pertinent negative responses have been documented in the HPI. Review of Systems: CONST: Denies fever EYES: Denies blurry vision ENT: Denies nasal congestion C/V: Denies Chest pain RESP: Denies shortness of breath GI: Denies abdominal pain : Denies dysuria SKIN: Denies rash. MSK: Denies joint pain. NEURO: Denies headache ROS Other: All systems not noted in ROS Statement are negative. Past Medical History Past Medical History: Coronary Artery Disease (CAD), Renal Disease, Thyroid Disorder Additional Past Medical History / Comment(s): Renal failure post-kidney transplantation, previous history of dialysis for a total of 12 years followed by kidney transplantation, hypothyroidism, chronic stage III kidney failure post transplantation, nonocclusive coronary artery disease and the patient a cardiac catheterization on 09/24/2016 that showed 40-50% lesion in the distal cir cumflex otherwise the rest of the coronary arteries were all within normal limits. History of Any Multi-Drug Resistant Organisms: None Reported Past Surgical History: Heart Catheterization, Orthopedic Surgery Additional Past Surgical History / Comment(s): FISTULA/GRAFT RT ARM, kidney transplant in July of 2017, Left hip Past Anesthesia/Blood Transfusion Reactions: No Reported Reaction Past Psychological History: No Psychological Hx Reported Smoking Status: Former smoker Past Alcohol Use History: None Reported Past Drug Use History: None Reported - Past Family History Mother Family Medical History: Cancer Father Family Medical History: Myocardial Infarction ([place]) Additional Family Medical History / Comment(s): AT AGE 46 General Exam - General Exam Comments Initial Comments: General: Appears in no acute distress. HEAD: Normal with no signs of head trauma. EYES: PERRLA, EOMI, conjunctiva normal, no discharge. ENT: Hearing grossly intact, normal oropharynx. RESPIRATORY: Mildly coarse breath sounds. Chronic hypoxia on baseline 3 L nasal cannula. No significant increased work of breathing. C/V: Regular rate and rhythm. S1 and S2 auscultated, mild symmetrical lower extremity pitting edema, peripheral pulses 2+ and intact throughout ABD: Abd is soft, nontender, nondistended EXT: Normal range of motion, no obvious deformity SKIN: No rashes or lesions observed on exposed skin. NEURO: Alert and oriented x 4. Limitations: no limitations Course Vital Signs 12/16/23 12/16/23 12/16/23 09:12 09:14 12:07 Temperature 97.9 F Pulse Rate 92 71 Respiratory 22 20 Rate Blood Pressure 122/72 104/73 O2 Sat by Pulse 84 L 91 L 93 L Oximetry Medical Decision Making - Medical Decision Making Was pt. sent in by a medical professional or institution (, PA, HOME HEALTH PHYSICAL THERAPIST, urgent care, hospital, or senior living...) When possible be specific @ -Yes, sent in by cardiology Dr. Cheng. Did you speak to anyone other than the patient for history (EMS, parent, family, police, friend...)? What history was obtained from this source @ -Spoke with Dr. Cheng of cardiology. We reviewed recent EKGs that showed the slight ST segment elevations in aVL as well as I as well as T wave inversions in the inferior and lateral leads that appear to be unchanged from EKGs from December 14, 2023. He is requesting pulmonology, nephrology, cardiology consult with heparin initiation for ACS as well as stat echo. Did you review nursing and triage notes (agree or disagree)? Why? @ -I reviewed and agree with nursing and triage notes Were old charts reviewed (outside hosp., previous admission, EMS record, old EKG, old radiological studies, urgent care reports/EKG's, senior living records)? Report findings @ -Old charts reviewed Differential Diagnosis (chest pain, altered mental status, abdominal pain women, abdominal pain men, vaginal bleeding, weakness, fever, dyspnea, syncope, headache, dizziness, GI bleed, back pain, seizure, CVA, palpatations, mental health, musculoskeletal)? @ -Differential Chest Pain: Stable Angina, Unstable Angina, STEMI, NSTEMI Aortic Dissection, Pneumothorax, Musculoskeletal, Esophageal Spasm GERD, Cholecystitis, Pancreatitis, Zoster, thi s is not meant to be an all-inclusive list. EKG interpreted by me (3pts min.). @ -As above X-rays interpreted by me (1pt min.). @ -Chest x-ray shows cardiomegaly and pulmonary vascular congestion. CT interpreted by me (1pt min.). @ -Brain CT reveals no obvious acute intracranial process. U/S interpreted by me (1pt. min.). @ -None done What testing was considered but not performed or refused? (CT, X-rays, U/S, labs)? Why? @ -None What meds were considered but not given or refused? Why? @ -None Did you discuss the management of the patient with other professionals (professionals i.e. , PA, HOME HEALTH PHYSICAL THERAPIST, lab, RT, psych nurse, social media content specialist, dining manager, teacher, sanitation officer, outsole caser)? Give summary @ -Spoke with Dr. Cheng of cardiology who called ahead for the patient to discuss plan.I did call him back to compare EKG findings today to compare to what he saw at the office this morning. We reviewed recent EKGs that showed the slight ST segment elevations in aVL as well as I as well as T wave inversions in the inferior and lateral leads that appear to be unchanged from EKGs from December 14, 2023. He is requesting pulmonology, nephrology, cardiology consult with heparin initiation for ACS as well as stat echo. Was smoking cessation discussed for >3mins.? @ -No Was critical care preformed (if so, how long)? @ -Yes, 36 minutes Were there social determinants of health that impacted care today? How? (Homelessness, low income, unemployed, alcoholism, drug addiction, transportati on, low edu. Level, literacy, decrease access to med. care, custodial, rehab)? @ -No Was there de-escalation of care discussed even if they declined (Discuss DNR or withdrawal of care, Hospice)? DNR status @ -No What co-morbidities impacted this encounter? (DM, HTN, Smoking, COPD, CAD, Cancer, CVA, ARF, Chemo, Hep., AIDS, mental health diagnosis, sleep apnea, morbid obesity)? @ -CKD, kidney transplant, chronic hypoxic respiratory failure on 3 L nasal cannula oxygen Was patient admitted / discharged? Hospital course, mention meds given and route, prescriptions, significant lab abnormalities, going to OR and other pertinent info. @ -Based on the patient's presentation and physical exam, presents emergency department for admission. Was sent in by his bulldozer mechanic, Dr. Cabrera for cardiac workup over concern for possible blockage. Has been having intermittent chest tightness as well as shortness of breath over the last week or so. Was seen on December 13 and had an elevated troponin, elevated BNP, as well as ischemic findings on EKG. Patient left AMA at that time. Ischemic findings at that time and EKG consisted of slight ST segment elevation in I, aVL, as well as slight depression in III. Patient also had T wave inversion in the inferior leads and lateral precordial leads. Presented to his bulldozer mechanic this morning and Dr. Cabrera saw similar changes on EKG there, and after we obtained EKG here I spoke with Dr. Philip over the phone to compare those findings he was in agreement that t his seems stable from findings seen on Friday with no acute or dynamic changes since Friday but this does appear to be more acute as most recent EKGs are from before 2019 in our chart. He is requesting admission for the patient with initiation of IV heparin, stat echo, cardiology, nephrology, pulmonology consults. I discussed this with patient he was in agreement this plan. Will repeat cardiopulmonary labs. Due to the syncopal episode on Friday we will also obtain a CT brain prior to initiation of heparin and aspirin. Patient was in agreement this plan. Currently asymptomatic and resting comfortably. Patient has chronic hypoxia on 3 L nasal cannula from 88 to 91% where he is at curren tly. As stated above, EKG redemonstrates changes seen from December 13 with ischemic changes but no dynamic changes from December 13 or earlier this morning after comparison and discussion with cardiology Dr. Cheng. Brain CT showed no obvious acute intracranial process or bleed and therefore heparin and aspirin were initiated. Chest x-ray shows no obvious acute cardiopulmonary process. Patient's laboratory studies remarkable for an elevated troponin of 0.631. BNP is 17,000. Creatinine is 3.29 with a history of CKD. Slightly worse than previous baseline from December 13. At this time, patient is resting comfortably with stable vital signs at his normal baseline on 3 L nasal cannula he will be admitted to the hospital for cardiology evaluation. Echo is still pending. Patient in agreement with this plan. I spoke with the admitting physician, Dr. Jama who accepted the admission. Dr. Cheng did call nursing staff and he was updated the patient's troponin. Cardiology Dr. Cheng consulted, as well as nephrology and pulmonology as was requested. Stat echo is still pending at time of admission. Undiagnosed new problem with uncertain prognosis? @ -No Drug Therapy requiring intensive monitoring for toxicity (Heparin, Nitro, Insulin, Cardizem)? @ -No Were any procedures done? @ -No Diagnosis/symptom? @ -Elevated troponin, ACS, CKD with history of renal transplant Acute, or Chronic, or Acute on Chronic? @ -Acute Uncomplicated (without systemic symptoms) or Complicated (systemic symptoms)? @ -Complicated Side effects of treatment? @ -None Exacerbation, Progression, or Severe Exacerbation] @ -No Poses a threat to life or bodily function? @ -Potentially, yes Diagnosis/symptom? @ -Chronic hypoxic respiratory failure Acute, or Chronic, or Acute on Chronic? @ -Chronic Uncomplicated (without systemic symptoms) or Complicated (systemic symptoms)? @ -Complicated Side effects of treatment? @ -None Exacerbation, Progression, or Severe Exacerbation] @ -No Poses a threat to life or bodily function? @ -No - Lab Data Result diagrams: 12/16/23 09:47 12/16/23 11:19 Lab Results 12/16/23 12/16/23 12/16/23 Range/Units 09:47 09:47 09:47 WBC 10.3 (3.8-10.6) k/uL RBC 5.74 (4.30-5.90) m/uL Hgb 17.6 H (13.0-17.5) gm/dL Hct 54.9 H (39.0-53.0) % MCV 95.7 (80.0-100.0) fL MCH 30.7 (25.0-35.0) pg MCHC 32.0 (31.0-37.0) g/dL RDW 15.7 H (11.5-15.5) % Plt Count 137 L (150-450) k/uL MPV 9.5 Neutrophils % 75 % Lymphocytes % 10 % Monocytes % 10 % Eosinophils % 2 % Basophils % 1 % Neutrophils # 7.7 (1.3-7.7) k/uL Lymphocytes # 1.0 (1.0-4.8) k/uL Monocytes # 1.0 (0-1.0) k/uL Eosinophils # 0.2 (0-0.7) k/uL Basophils # 0.1 (0-0.2) k/uL Hypochromasia Moderate PT 12.9 H (10.0-12.5) sec INR 1.2 H (<1.2) APTT 23.9 (22.0-30.0) sec Troponin I 0.631 H* (0.000-0.034) ng/mL - EKG Data -: EKG Interpreted by Me EKG Comments: 12-lead Electrocardiogram Interpretation Note EKG was reviewed and interpreted by myself. 12-lead ECG performed at 0921 is interpreted by me as revealing normal sinus rhythm at a rate of 80 beats per minute. Right axis deviation. Right bundle branch block. [place] interval is 157 ms, QRS duration is 121 ms, QTc is 399 ms. Patient has redemonstrated T wave inversions in leads III, aVF as well as the precordial leads. Has redemonstrated ST segment mild depression in lead III as well as slight ST segment elevations in aVL and I.. There were no obvious acute ST or T wave abnormalities to suggest myocardial ischemia or injury. R wave progression across the precordium was satisfactory. Compared with EKG from December 13 as well as compared with EKG over the phone with Dr. Cheng from earlier today. Unchanged from those times. Does seem to be more acute as we have no recent EKGs in the system, however no obvious dynamic changes the last 2 days. Critical Care Time Critical Care Time: Yes Total Critical Care Time: 36 Disposition Clinical Impression: ACS (acute coronary syndrome), Chronic hypoxic respiratory failure, Elevated troponin, CKD (chronic kidney disease) Disposition: ADMITTED IP TO THIS HOSP Condition: Stable Time of Disposition: 11:25
[2023-12-16 10:32] LABS: Partial Thromboplastin Time 23.9 sec (22.0-30.0)
--- NOTE | 2023-12-16 10:32 | CT ---
EXAMINATION TYPE: CT brain wo con CT DLP: 1186.4 mGycm, Automated exposure control for dose reduction was used. DATE OF EXAM: 12/16/2023 10:24 AM COMPARISON: None. CLINICAL INDICATION:Male, 53 years old with history of recent fall, clearance for heparin, Recent fal l, clearance for Heparin TECHNIQUE: Brain: Axial CT images of the brain were obtained with coronal and sagittal reformats created and rev iewed. Contrast used: None. Oral contrast used: None. FINDINGS: Brain: Extra-axial spaces: No abnormal extra-axial fluid collections. Ventricular system: Within normal limits Cerebral parenchyma: No acute intraparenchymal hemorrhage or mass effect. The leon-white junction is well differentiated. Cerebellum: Unremarkable. Mass effect: No evidence of midline shift. Intracranial vasculature: unremarkable Soft tissues: Normal. Calvarium/osseous structures: No depressed skull fracture. Paranasal sinuses and mastoid air cells: Mild scattered paranasal sinus disease. Visualized orbits: Orbital contents are intact. IMPRESSION: No acute intracranial process.
[2023-12-16] MEDS ORDERED: NALOXONE 0.4 MG/ML 1 ML VIAL IV PRN ×2 (11:19→11:21)
[2023-12-16 11:33] LABS: ALT 47 U/L (4-49); AST 58 U/L (17-59); African American GFR (CKD) 24 (>60 ml/min/1.73 sqM); Albumin 4.2 g/dL (3.5-5.0); Alkaline Phosphatase 95 U/L (38-126); Anion Gap 11 mmol/L; Blood Urea Nitrogen 60 mg/dL (9-20); Calcium 10.3 mg/dL (8.4-10.2); Carbon Dioxide 15 mmol/L (22-30); Chloride 116 mmol/L (98-107); Glucose 124 mg/dL (74-99); Lipase 465 U/L (23-300); Magnesium 1.9 mg/dL (1.6-2.3); Non-African American GFR(CKD) 20 (>60 ml/min/1.73 sqM); Potassium 5.1 mmol/L (3.5-5.1); Sodium 142 mmol/L (137-145); Total Bilirubin 0.8 mg/dL (0.2-1.3); Total Protein 6.8 g/dL (6.3-8.2)
--- NOTE | 2023-12-16 11:38 | XR ---
EXAMINATION TYPE: XR chest 2V DATE OF EXAM: 12/16/2023 COMPARISON: 12/14/2023 HISTORY: 53-year-old male with heart breathing, chest pain TECHNIQUE: PA and lateral views FINDINGS: Right-sided hemodialysis catheter with tip at the cavoatrial junction. Heart mildly enlarged. Mild va scular dominance and interstitial density along with a small left pleural effusion. IMPRESSION: Mild cardiomegaly and possible mild pulmonary vascular congestion. Small left pleural effusion.
[2023-12-16 11:42] LABS: NT-Pro-B-Type Natriuretic Pept 17500 pg/mL
[2023-12-16] MEDS: ASPIRIN 81 MG PO STA (12:01)
[2023-12-16] MEDS: HEPARIN SODIUM 1,000 UN/ML (10ML VL) IV ONE (12:05)
[2023-12-16] MEDS: HEPARIN SOD,PORK IN 0.45% NACL 25,000 UNIT in 0.45% NACL 1 250ML.BAG IV SCH (12:06)
[2023-12-16] MEDS: FUROSEMIDE 10 MG/ML 4 ML VIAL IV STA (12:10)
--- NOTE | 2023-12-16 12:34 | CA ---
Transthoracic Echo Report Name: Abdoul Soliz Age: 53 Gender: M : 1970 Exam Date: 12/16/2023 11:29 Exam Location: [facility] Ht (in): 67 Wt (lb): 233 Ordering Physician: Tolu Rich MD Attending/Referring Phys: Digital Marketing Executive Deidra Rico RDCS Procedure CPT: Indications: ACS. Stat per Dr. Cheng Cardiac Hx: Technical Quality: Fair Contrast 1: Total Dose (mL): Contrast 2: Total Dose (mL): MEASUREMENTS (Male / Female) Normal Values 2D ECHO LV Diastolic Diameter PLAX 3.8 cm 4.2 - 5.9 / 3.9 - 5.3 cm LV Systolic Diameter PLAX 2.6 cm IVS Diastolic Thickness 1.4 cm 0.6 - 1.0 / 0.6 - 0.9 cm LVPW Diastolic Thickness 1.2 cm 0.6 - 1.0 / 0.6 - 0.9 cm LV Relative Wall Thickness 0.7 RV Internal Dim ED PLAX 4.7 cm M-MODE Aortic Root Diameter MM 3.3 cm DOPPLER AV Peak Velocity 128.4 cm/s AV Peak Gradient 6.6 mmHg Mitral E Point Velocity 88.7 cm/s Mitral A Point Velocity 66.1 cm/s Mitral E to A Ratio 1.3 MV Deceleration Time 187.3 ms MV E' Velocity 4.2 cm/s Mitral E to MV E' Ratio 21.0 TR Peak Velocity 288.4 cm/s TR Peak Gradient 33.3 mmHg Right Ventricular Systolic Press 43.7 mmHg FINDINGS Left Ventricle Left ventricular ejection fraction is estimated at 60-65 %. Small left ventricular cavity. Moderately increased septal wall thickness. Right Ventricle Severe right ventricular dilatation. Mild pulmonary hypertension. Reduced right ventricular global systolic function. Right Atrium Right atrium not well visualized. Left Atrium Normal left atrial size. Mitral Valve Mitral annular calcification. No mitral stenosis, regurgitation or prolapse. Aortic Valve Trileaflet aortic valve. No aortic valve stenosis or regurgitation. Tricuspid Valve Tricuspid valve not well visualized. Mild tricuspid regurgitation. Pulmonic Valve Pulmonic valve not well visualized. No pulmonic regurgitation. Pericardium No pericardial effusion. Aorta Normal size aortic root and proximal ascending aorta. CONCLUSIONS Hyperdynamic LV systolic function with EF between 60-65% and left ventricular hypertrophy Severe RV dilated patient with decreased RV systolic function as well Mild pulmonary hypertension. Poorly visualized intracardiac valves The study overall technically is very difficult No pericardial effusion Previewed by: Dr. Aldo Raya MD (Electronically Signed) Final Date: 16 December 2023 12:33
[2023-12-16] MEDS ORDERED: ACETAMINOPHEN TAB 500 MG TAB PO PRN (12:58)
--- NOTE | 2023-12-16 13:12 | P.NPCON ---
History of Present Illness - Reason for Consult chronic renal failure - History of Present Illness Reason for consultation: Renal transplant management and chronic kidney disease History of present illness: Patient is a 53-year-old male seen in renal consultation for chronic kidney disease and renal transplant management. Patient received kidney transplant in July 2017 at [facility]. Patient states his antirejection medications and renal functions were monitored closely by [facility]. Patient was on dialysis for over 10 years prior to receiving kidney transplant. He is currently maintained on tacrolimus, mycophenolate as well as prednisone outpatient. Patient also sees urologist for hematuria. Patient states about a month ago his dose of losartan was increased and since then he has been feeling progressively short of breath. He denies history of coronary artery disease. Denies nausea vomiting or diarrhea. Patient states he was diagnosed with COVID in 2021 and at that time required temporary hemodialysis. Patient was seen by cardiology and was sent to the hospital due to concern for acute coronary syndrome. Cardiac catheterization is being considered. Patient has history of diabetes which she developed after receiving kidney transplant. Blood pressure stable. He is cu rrently on 2 L nasal cannula. Oral intake fair. Vital signs are stable. General: No acute distress. HEENT: Head exam is unremarkable. On nasal cannula. LUNGS: No audible rhonchi or wheezes. HEART: Rate and Rhythm are regular. ABDOMEN: Obese. EXTREMITITES: No edema. Past Medical History Past Medical History: Coronary Artery Disease (CAD), Renal Disease, Thyroid Disorder Additional Past Medical History / Comment(s): Renal failure post-kidney transplantation, previous history of dialysis for a total of 12 years followed by kidney transplantation, hypothyroidism, chronic stage III kidney failure post transplantation, nonocclusive coronary artery disease and the patient a cardiac catheterization on 09/24/2016 that showed 40-50% lesion in the distal circumflex otherwise the rest of the coronary arteries were all within normal limits. History of Any Multi-Drug Resistant Organisms: None Reported Past Surgical History: Heart Catheterization, Orthopedic Surgery Additional Past Surgical History / Comment(s): FISTULA/GRAFT RT ARM, kidney transplant in July of 2017, Left hip Past Anesthesia/Blood Transfusion Reactions: No Reported Reaction Past Psychological History: No Psychological Hx Reported Smoking Status: Former smoker Past Alcohol Use History: None Reported Past Drug Use History: None Reported - Past Family History Mother Family Medical History: Cancer Father Family Medical History: Myocardial Infarction ([place]) Additional Family Medical History / Comment(s): AT AGE 46 Medications and Allergies Home Medications Medication Instructions Recorded Confirmed Type Levothyroxine Sodium [Synthroid] 100 mcg PO HS 09/20/16 12/16/23 History Acetaminophen [Tylenol] 1,000 mg PO Q6H PRN 10/30/17 12/16/23 History mycophenolate mofetiL [Cellcept] 250 mg PO BID 10/30/17 12/16/23 History predniSONE 5 mg PO DAILY 10/30/17 12/16/23 History Cetirizine HCl [Zyrtec] 10 mg PO DAILY 12/14/23 12/16/23 History Insulin Glargine,Hum.rec.anlog 50 units SQ HS 12/14/23 12/16/23 History [Lantus Solostar Pen] Losartan [Cozaar] 50 mg PO HS 12/14/23 12/16/23 History Montelukast [Singulair] 10 mg PO HS 12/14/23 12/16/23 History Rosuvastatin Calcium [Crestor] 40 mg PO HS 12/14/23 12/16/23 History Semaglutide [Rybelsus] 7 mg PO DAILY 12/14/23 12/16/23 History Sertraline [Zoloft] 25 mg PO HS 12/14/23 12/16/23 History Tacrolimus [Prograf] 1 mg PO BID 12/14/23 12/16/23 History Amoxicillin 500mg Tab 2,000 mg PO ONCE 12/16/23 12/16/23 History Isosorbide Mononitrate ER [Imdur] 30 mg PO DIRECTED 12/16/23 12/16/23 History Nitroglycerin Sl Tabs [Nitrostat] 0.4 mg SL Q5M PRN 12/16/23 12/16/23 History Allergies Allergy/AdvReac Type Severity Reaction Status Date / Time grapefruit Allergy Rash/Hives Verified 12/16/23 12:36 shellfish derived [Shellfish] Allergy Swelling Verified 12/16/23 12:36 Physical Exam Vitals: Vital Signs Temp Pulse Resp BP Pulse Ox 12/16/23 12:07 71 20 104/73 93 L 12/16/23 09:14 91 L 12/16/23 09:12 97.9 F 92 22 122/72 84 L Intake and Output 12/15/23 12/16/23 12/16/23 22:59 06:59 14:59 Other: Weight 105.687 kg Results - Lab Results Most recent lab results Calcium 10.3 mg/dL (8.4-10.2) H 12/16/23 11:19 Magnesium 1.9 mg/dL (1.6-2.3) 12/16/23 11:19 12/16/23 09:47 12/16/23 11:19 Assessment and Plan Plan: Assessment: 1. Chronic kidney disease stage IV with baseline creatinine near 3. Patient follows at [facility]. Etiology is long-term CNI use as well as ATN requiring renal replacement therapy in 2021. 2. Status post renal transplant in July 2017 at [facility]. 3. Acute coronary syndrome maintained on heparin drip. 4. Metabolic acidosis secondary to chronic kidney disease. 5. Diabetes mellitus. 6. Mild hypercalcemia. Likely from vitamin D supplementation and milk intake. 7. Preserved ejection fraction with severe RV dilation and mild pulmonary hypertension noted on echocardiogram. 8. Mild volume overload. Status post IV Lasix given today. Plan: Decrease dose of losartan to 25 mg once daily. Hold for systolic blood pressure less than 115. Check urinalysis. Check renal ultrasound. 2 g sodium bicarb IV push now. Add oral bicarb. Maintain home antirejection medications. Check a.m. Prograf level. Continue to monitor renal function and urine output. Discussed risk of worsening renal function, potentially requiring renal replacement therapy postcardiac catheterization. Patient understands and is agreeable to proceed. Will start IV hydration with normal saline at 75 cc an hour 6 to 8 hours prior to cardiac catheterization and continue for 6 to 8 hours post catheterization. Monitor volume status closely. Thank you for the consultation. I will continue to follow the patient with you during his hospital stay.
[2023-12-16] MEDS ORDERED: DEXTROSE 50% SYRINGE 50 ML IVP PRN (13:17)
[2023-12-16] MEDS ORDERED: CALCIUM CARBONATE 500 MG CHEWABLE PO PRN (13:20)
[2023-12-16] MEDS ORDERED: ALPRAZolam 0.25 MG TAB PO PRN ×2 (13:20→13:44)
[2023-12-16] MEDS ORDERED: LACTULOSE 20 GM/30 ML CUP PO PRN (13:20)
[2023-12-16] MEDS ORDERED: MELATONIN 3 MG TABLET PO PRN (13:20)
[2023-12-16] MEDS ORDERED: ONDANSETRON 4 MG/2 ML VIAL IVP PRN (13:20)
[2023-12-16] MEDS ORDERED: NITROGLYCERIN SL TABS 0.4 MG TAB SUBLINGUAL PRN (13:44)
[2023-12-16] MEDS ORDERED: ALPRAZolam 0.5 MG TAB PO PRN (13:44)
[2023-12-16 14:02] LABS: Glucose,Whole Blood 97 mg/dL (70-110)
[2023-12-16] MEDS: INSULIN ASPART (NovoLOG) 100 UNIT/ML VIAL SQ SCH (14:02)
[2023-12-16] MEDS: ISOSORBIDE MONONITRATE ER 30 MG TAB.ER.24H PO SCH (14:07)
[2023-12-16] MEDS: SODIUM BICARBONATE TAB 650 MG TAB PO SCH (14:26)
[2023-12-16] MEDS: SODIUM BICARB 8.4% 50 ML SYR (1 MEQ/ML) IV STA (14:42)
[2023-12-16 16:14] LABS: Appearance,Urine Clear (Clear); Bilirubin,Urine Negative (Negative); Blood,Urine Trace (Negative); Color,Urine Colorless; Glucose,Urine (UA) Negative (Negative); Ketones,Urine Negative (Negative); Leukocyte Esterase,Urine Negative (Negative); Mucus,Urine Rare /hpf; Nitrite,Urine Negative (Negative); Protein,Urine Negative (Negative); RBC,Urine <1 /hpf (0-5); Specific Gravity,Urine 1.007 (1.001-1.035); Squamous Epithelial Cell,Urine <1 /hpf (0-4); Urobilinogen,Urine <2.0 mg/dL (<2.0); WBC,Urine 2 /hpf (0-5)
--- NOTE | 2023-12-16 16:59 | P.HPIM ---
History of Present Illness H&P Date: 12/16/23 Chief Complaint: Chest pressure Pleasant 53-year-old patient who follows with Dr. Ballard. Patient is accompanied by his in the ER. In 2017 patient underwent renal transplant at [facility]. Follows up with the transplant physician there. Does not remember the name. Patient previously had cardiac catheterization, in 2016 was told has had about 40 to 50% lesion in dist al circumflex. About a month ago patient's dose of losartan was changed. Patient also has 3 L of oxygen at home. From COVID. And has been told he also has long COVID. Patient's baseline creatinine runs around 3.2. Patient for last few days been having chest pressure off and on. Accompanied by some shortness of breath. 2 days ago patient had and the had gone to see an RV show. He also felt some pressure that she made him sit down. When they were walking out she turned around patient had passed out. At that time blood pressure was noted to be low. Patient did not appointment with search and rescue officer Dr. Zuleika Cheng. Will send the patient to the ER for further workup. Review of systems: GEN.: Tired EYES: None HEENT: None NECK: None RESPIRATORY: None CARDIOVASCULAR: As above e GASTROINTESTINAL: None GENITOURINARY: None MUSCULOSKELETAL: None LYMPHATICS: None HEMATOLOGICAL: None PSYCHIATRY: None NEUROLOGICAL: None Social history: Lives with . Smoked half a pack a day from age 17 and stopped in 1998. No alcohol. Physical examination: VITAL SIGNS: 97.9, 92, 22, 122 x 72, 93% on 2 L GENERAL: BMI 36.5, reclining bed awake not in distress. EYES: Pupils equal. Conjunctiva nicole l. HEENT: External appearance of nose and ears normal, oral cavity grossly normal. NECK: JVD not raised; masses not palpable. HEART: First and second heart sounds are normal; no edema. LUNGS: Respiratory rate normal; decreased breath sounds n. ABDOMEN: Soft, nontender, liver spleen not palpable, no masses palpable. PSYCH: Alert and oriented x3; mood and affect nicole l. MUSCULOSKELETAL:No Clubbing/cyanosis;muscles-grossly intact NEUROLOGICAL: Cranial nerves grossly intact; no facial asymmetry, power and sensation grossly intact. LYMPHATICS: No lymph nodes palpable in the axilla and neck INVESTIGATIONS, reviewed in the clinical context: December 16, 2023: White count 10.3 hemoglobin 7.6 platelets 137 sodium 142 potassium 5.1 chloride 116 bicarb 15 BUN 60 creatinine 3.29 Troponin I 0.631, 0.849 EKG tracing personally reviewed by me-normal sinus rhythm. Right bundle marya block pattern. ST/T wave changes in inferolateral leads. Chest x-ray film personally reviewed by me-cardiomegaly 2D echocardiogram: EF 60 to 65%. Severe right ventricle dilatation. Assessment plan: -Recurrent anterior chest wall pain. EKG changes of left T waves in leads inferolateral. Troponin positive though in the setting of renal failure. Telemetry. Cardiology consulted. -Chronic kidney disease in a renal transplant patient. Stage III Baseline creatinine runs in 3.2 -Renal transplant in 2017 at [facility]. Prednisone 5 mg a day. CellCept to 50 mg twice daily. Prograf 1 mg p.o. twice daily. -Coronary artery disease, known to be nonobstructive from a cardiac cath in 2015. -Metabolic acidosis from chronic kidney disease Add sodium bicarbonate -Chronic hypoxic respiratory failure, from previous COVID infection 3 L of oxygen at home -Hypothyroid Synthroid 100 mcg a day -Diabetes mellitus type 2, chronically on insulin Insulin Lantus 15 subcu nightly. Follow sliding scale with sliding scale insulin. Semaglutide -Hyperlipidemia Crestor -Depression otherwise specified Zoloft 25 mg nightly Care was discussed with the patient and at the bedside. Questions answe red. Consultation to nephrology, cardiology, pulmonary. Past Medical History Past Medical History: Coronary Artery Disease (CAD), Renal Disease, Thyroid Disorder Additional Past Medical History / Comment(s): Renal failure post-kidney transplantation, previous history of dialysis for a total of 12 years followed by kidney transplantation, hypothyroidism, chronic stage III kidney failure post transplantation, nonocclusive coronary artery disease and the patient a cardiac catheterization on 09/24/2016 that showed 40-50% lesion in the distal circumflex otherwise the rest of the coronary arteries were all within normal limits. History of Any Multi-Drug Resistant Organisms: None Reported Past Surgical History: Heart Catheterization, Orthopedic Surgery Additional Past Surgical History / Comment(s): FISTULA/GRAFT RT ARM, kidney transplant in July of 2017, Left hip Past Anesthesia/Blood Transfusion Reactions: No Reported Reaction Past Psychological History: No Psychological Hx Reported Smoking Status: Former smoker Past Alcohol Use History: None Reported Past Drug Use History: None Reported - Past Family History Mother Family Medical History: Cancer Father Family Medical History: Myocardial Infarction ([place]) Additional Family Medical History / Comment(s): AT AGE 46 Medications and Allergies Home Medications Medication Instructions Recorded Confirmed Type Levothyroxine Sodium [Synthroid] 100 mcg PO HS 09/20/16 12/16/23 History Acetaminophen [Tylenol] 1,000 mg PO Q6H PRN 10/30/17 12/16/23 History mycophenolate mofetiL [Cellcept] 250 mg PO BID 10/30/17 12/16/23 History predniSONE 5 mg PO DAILY 10/30/17 12/16/23 History Cetirizine HCl [Zyrtec] 10 mg PO DAILY 12/14/23 12/16/23 History Insulin Glargine,Hum.rec.anlog 50 units SQ HS 12/14/23 12/16/23 History [Lantus Solostar Pen] Losartan [Cozaar] 50 mg PO HS 12/14/23 12/16/23 History Montelukast [Singulair] 10 mg PO HS 12/14/23 12/16/23 History Rosuvastatin Calcium [Crestor] 40 mg PO HS 12/14/23 12/16/23 History Semaglutide [Rybelsus] 7 mg PO DAILY 12/14/23 12/16/23 History Sertraline [Zoloft] 25 mg PO HS 12/14/23 12/16/23 History Tacrolimus [Prograf] 1 mg PO BID 12/14/23 12/16/23 History Amoxicillin 500mg Tab 2,000 mg PO ONCE 12/16/23 12/16/23 History Isosorbide Mononitrate ER [Imdur] 30 mg PO DIRECTED 12/16/23 12/16/23 History Nitroglycerin Sl Tabs [Nitrostat] 0.4 mg SL Q5M PRN 12/16/23 12/16/23 History Allergies Allergy/AdvReac Type Severity Reaction Status Date / Time grapefruit Allergy Rash/Hives Verified 12/16/23 12:36 shellfish derived [Shellfish] Allergy Swelling Verified 12/16/23 12:36 Physical Exam Vitals: Vital Signs Temp Pulse Resp BP Pulse Ox 12/16/23 15:48 64 16 119/64 97 12/16/23 12:07 71 20 104/73 93 L 12/16/23 09:14 91 L 12/16/23 09:12 97.9 F 92 22 122/72 84 L Intake and Output 12/16/23 12/16/23 12/16/23 06:59 14:59 22:59 Other: Weight 105.687 kg Results CBC & Chem 7: 12/16/23 09:47 12/16/23 11:19 Labs: Abnormal Lab Results - Last 24 Hours (Table) 12/16/23 12/16/23 12/16/23 Range/Units 09:47 09:47 09:47 Hgb 17.6 H (13.0-17.5) gm/dL Hct 54.9 H (39.0-53.0) % RDW 15.7 H (11.5-15.5) % Plt Count 137 L (150-450) k/uL PT 12.9 H (10.0-12.5) sec INR 1.2 H (<1.2) Chloride (98-107) mmol/L Carbon Dioxide (22-30) mmol/L BUN (9-20) mg/dL Creatinine (0.66-1.25) mg/dL Glucose (74-99) mg/dL Calcium (8.4-10.2) mg/dL Troponin I 0.631 H* (0.000-0.034) ng/mL Lipase (23-300) U/L Urine Blood (Negative) Urine Mucus (None) /hpf 12/16/23 12/16/23 12/16/23 Range/Units 11:19 12:07 14:50 Hgb (13.0-17.5) gm/dL Hct (39.0-53.0) % RDW (11.5-15.5) % Plt Count (150-450) k/uL PT (10.0-12.5) sec INR (<1.2) Chloride 116 H (98-107) mmol/L Carbon Dioxide 15 L (22-30) mmol/L BUN 60 H (9-20) mg/dL Creatinine 3.29 H (0.66-1.25) mg/dL Glucose 124 H (74-99) mg/dL Calcium 10.3 H (8.4-10.2) mg/dL Troponin I 0.849 H* (0.000-0.034) ng/mL Lipase 465 H (23-300) U/L Urine Blood Trace H (Negative) Urine Mucus Rare H (None) /hpf
[2023-12-16 17:10] LABS: Glucose,Whole Blood 174 mg/dL (70-110)
[2023-12-16 20:26] LABS: Glucose,Whole Blood 127 mg/dL (70-110)
[2023-12-16] MEDS ORDERED: LOSARTAN 50 MG TAB PO SCH (21:00)
[2023-12-16] MEDS: LEVOTHYROXINE 100 MCG TAB PO SCH (21:49)
[2023-12-16] MEDS: ATORVASTATIN 80 MG TAB PO SCH (21:49)
[2023-12-16] MEDS: SERTRALINE 25 MG TAB PO SCH (21:49)
[2023-12-16] MEDS: MONTELUKAST 10 MG TAB PO SCH (21:49)
[2023-12-16] MEDS: INSULIN DETEMIR (LEVEMIR) 100 UNIT/ML SYR SQ SCH (21:49)
[2023-12-16] MEDS: TACROLIMUS 1 MG CAP PO SCH (21:52)
[2023-12-16] MEDS: LOSARTAN 25 MG TAB PO SCH (21:53)
[2023-12-17] MEDS: SODIUM CHLORIDE 0.9% 1,000 ML IV SCH (00:12)
[2023-12-17] MEDS ORDERED: IPRATROPIUM-ALBUTEROL 3 ML NEB INHALATION PRN (03:10)
--- NOTE | 2023-12-17 03:16 | P.CNPUL ---
History of Present Illness Consult date: 12/17/23 Requesting physician: Tolu Rich Reason for consult: dyspnea Chief complaint: Intermittent chest pain/pressure and associated acute on chronic dyspnea History of present illness: I am seeing this patient, a 53-year-old white male, in new consultation today 12/17/2023 after he presented with complaints of intermittent chest pressure/substernal pain over the last week. He had associated acute on chronic shortness of breath. He is chronically maintained on 3 L/min nasal cannula while at home. He has had a history of COVID-pneumonia and post-inflammatory pulmonary fibrosis. Patient does follow in the pulmonary office with Dr. Caldwell. His primary care provider is a nurse practitioner, Jaye Watson, out of Dr. Ballard office. Patient also has other medical comorbidities including n onocclusive coronary artery disease, hypertension, hyperlipidemia, renal failure requiring hemodialysis for 12 years followed by a kidney transplant, hypothyroidism. Of note, the patient did have a ER visit 3 days ago for syncopal episode. The patient may have left AGAINST MEDICAL ADVICE, however, patient denies this.. He returns to the emergency room yesterday morning after being directed by his job order clerk. He reports substernal chest pressure that has been intermittent over the last week. Chest pain typically lasts 5 to 30 minutes. It is nonradiating. It happens without predilection to activity or at rest. No associated nausea or diaphoresis. Serial troponins are elevated and trending up, most recent result 1. EKG on arrival shows normal sinus rhythm with T wave inversion in the precordial leads and minimal ST depression in III, aVF. He was started on a heparin infusion per protocol. Denies any further episodes of syncope. Denies heart palpitations. Cardiology was consulted. He does become short of breath with these events. He denies any infectious symptoms such as change in his chronic cough, sputum production, fevers, myalgias. Echocardiogram done on arrival shows a preserved left ventricular ejection fraction estimated at 60 to 65%, LVH, and there is severe RV dilation with mild pulmonary hypertension. He is currently sitting up in bed, on 2 L/min nasal cannula, in no acute distress. Chest x-ray on arrival mild cardiomegaly, possible mild pulmonary vascular congestion is difficult to exclude with chronic changes. There is a small left pleural effusion. Patient denies any orthopnea, PND, or lower extremity swelling. CBC on arrival unremarkable. No leukocytosis. BMP on arrival: Sodium 142, potassium 5.1, chloride 116, serum bicarb 15, BUN 60, creatinine 3.29, glucose 124. Patient is maintained on a combination of Prograf, CellCept, and prednisone 5 mg daily to prevent renal rejection. Baseline creatinine appears to be around 2.5-2.7. Normal saline is infusing at 75 mL/h. NT proBNP was elevated at 17,500. Vital signs are stable. Review of Systems REVIEW OF SYSTEMS: CONSTITUTIONAL: Denies any recent significant weight loss or weight gain, fatigue, malaise, fevers. EYES: Denies change in vision. EARS, NOSE, MOUTH, THROAT: Denies headaches, denies sore throat. CARDIOVASCULAR: See HPI. RESPIRATORY: See HPI GASTROINTESTINAL: Denies change in appetite, abdominal pain, nausea and vomiting, or diarrhea GENITOURINARY: Denies hematuria, denies infections. MUSKULOSKELETAL: Denies pain, denies swelling. INTEGUMENTARY: Denies rash, denies eczema. NEUROLOGICAL: Denies recent memory loss, no recent seizure activity. PSYCHIATRIC: Denies anxiety, denies depression. HEMATOLOGIC/LYMPHATIC: Denies anemia, denies enlarged lymph node Past Medical History Past Medical History: Coronary Artery Disease (CAD), Renal Disease, Thyroid Disorder Additional Past Medical History / Comment(s): Renal failure post-kidney transplantation, previous history of dialysis for a total of 12 years followed by kidney transplantation, hypothyroidism, chronic stage III kidney failure post transplantation, nonocclusive coronary artery disease and the patient a cardiac catheterization on 09/24/2016 that showed 40-50% lesion in the distal circumflex otherwise the rest of the coronary arteries were all within normal limits. History of Any Multi-Drug Resistant Organisms: None Reported Past Surgical History: Heart Catheterization, Orthopedic Surgery Additional Past Surgical History / Comment(s): FISTULA/GRAFT RT ARM, kidney transplant in July of 2017, Left hip Past Anesthesia/Blood Transfusion Reactions: No Reported Reaction Past Psychological History: No Psychological Hx Reported Smoking Status: Former smoker Past Alcohol Use History: None Reported Additional Past Alcohol Use History / Comment(s): QUIT SMOKING 1998, SMOKED 1/2 PPD FROM AGE 17 Past Drug Use History: None Reported - Past Family History Mother Family Medical History: Cancer Father Family Medical History: Myocardial Infarction ([place]) Additional Family Medical History / Comment(s): AT AGE 46 Medications and Allergies Home Medications Medication Instructions Recorded Confirmed Type Levothyroxine Sodium [Synthroid] 100 mcg PO HS 09/20/16 12/16/23 History Acetaminophen [Tylenol] 1,000 mg PO Q6H PRN 10/30/17 12/16/23 History mycophenolate mofetiL [Cellcept] 250 mg PO BID 10/30/17 12/16/23 History predniSONE 5 mg PO DAILY 10/30/17 12/16/23 History Cetirizine HCl [Zyrtec] 10 mg PO DAILY 12/14/23 12/16/23 History Insulin Glargine,Hum.rec.anlog 50 units SQ HS 12/14/23 12/16/23 History [Lantus Solostar Pen] Losartan [Cozaar] 50 mg PO HS 12/14/23 12/16/23 History Montelukast [Singulair] 10 mg PO HS 12/14/23 12/16/23 History Rosuvastatin Calcium [Crestor] 40 mg PO HS 12/14/23 12/16/23 History Semaglutide [Rybelsus] 7 mg PO DAILY 12/14/23 12/16/23 History Sertraline [Zoloft] 25 mg PO HS 12/14/23 12/16/23 History Tacrolimus [Prograf] 1 mg PO BID 12/14/23 12/16/23 History Amoxicillin 500mg Tab 2,000 mg PO ONCE 12/16/23 12/16/23 History Isosorbide Mononitrate ER [Imdur] 30 mg PO DIRECTED 12/16/23 12/16/23 History Nitroglycerin Sl Tabs [Nitrostat] 0.4 mg SL Q5M PRN 12/16/23 12/16/23 History Allergies Allergy/AdvReac Type Severity Reaction Status Date / Time grapefruit Allergy Rash/Hives Verified 12/16/23 12:36 shellfish derived [Shellfish] Allergy Swelling Verified 12/16/23 12:36 Physical Exam Vitals: Vital Signs Temp Pulse Pulse Pulse Resp BP BP 12/16/23 23:03 85 18 114/74 12/16/23 21:59 97.3 F L 85 18 100/72 12/16/23 19:49 97.5 F L 70 18 120/80 12/16/23 18:59 98.1 F 81 16 124/81 12/16/23 17:55 86 18 105/65 12/16/23 15:48 64 16 119/64 12/16/23 12:07 71 20 104/73 12/16/23 09:14 12/16/23 09:12 97.9 F 92 22 122/72 Pulse Ox 12/16/23 23:03 90 L 12/16/23 21:59 91 L 12/16/23 19:49 93 L 12/16/23 18:59 92 L 12/16/23 17:55 89 L 12/16/23 15:48 97 12/16/23 12:07 93 L 12/16/23 09:14 91 L 12/16/23 09:12 84 L Intake and Output 12/16/23 12/16/23 12/17/23 14:59 22:59 06:59 Other: Voiding Method Toilet Urinal Weight 105.687 kg 105.687 kg GENERAL EXAM: Alert, 53-year-old obese white male, comfortable in no apparent distress. HEAD: Normocephalic and atraumatic EYES: Normal reaction of pupils, equal size. NOSE: Clear with pink turbinates. THROAT: No erythema or exudates. NECK: No masses, no JVD. CHEST: No chest wall deformity. LUNGS: Equal air entry with no crackles, wheeze, rhonchi or dullness. On 2 L/min nasal cannula. No conversational dyspnea or accessory muscle use while at rest. CVS: S1 and S2 normal with no audible murmur, regular rhythm. No extra heart sounds ABDOMEN: No hepatosplenomegaly, active bowel sounds, no guarding or rigidity. SPINE: No scoliosis or deformity SKIN: No rashes CENTRAL NERVOUS SYSTEM: No focal deficits, tone is normal in all 4 extremities. EXTREMITIES: There is no peripheral edema, clubbing, or cyanosis. Peripheral pulses are intact. Results - Laboratory Findings CBC and BMP: 12/16/23 09:47 12/16/23 11:19 PT/INR, D-dimer PT 12.9 sec (10.0-12.5) H 12/16/23 09:47 INR 1.2 (<1.2) H 12/16/23 09:47 Abnormal lab findings: Abnormal Labs 12/16/23 12/16/23 12/16/23 09:47 09:47 09:47 Hgb 17.6 H Hct 54.9 H RDW 15.7 H Plt Count 137 L PT 12.9 H INR 1.2 H APTT Chloride Carbon Dioxide BUN Creatinine Glucose POC Glucose (mg/dL) Calcium Troponin I 0.631 H* Lipase Urine Blood Urine Mucus 12/16/23 12/16/23 12/16/23 11:19 12:07 14:50 Hgb Hct RDW Plt Count PT INR APTT Chloride 116 H Carbon Dioxide 15 L BUN 60 H Creatinine 3.29 H Glucose 124 H POC Glucose (mg/dL) Calcium 10.3 H Troponin I 0.849 H* Lipase 465 H Urine Blood Trace H Urine Mucus Rare H 12/16/23 12/16/23 12/16/23 17:02 18:00 18:00 Hgb Hct RDW Plt Count PT INR APTT 49.3 H Chloride Carbon Dioxide BUN Creatinine Glucose POC Glucose (mg/dL) 174 H Calcium Troponin I 1.010 H* Lipase Urine Blood Urine Mucus 12/16/23 20:24 Hgb Hct RDW Plt Count PT INR APTT Chloride Carbon Dioxide BUN Creatinine Glucose POC Glucose (mg/dL) 127 H Calcium Troponin I Lipase Urine Blood Urine Mucus - Diagnostic Findings Chest x-ray: image reviewed Assessment and Plan Assessment: Chest pain and elevated troponins, rule out non-ST elevation [place] Recent syncopal episode History of COVID-pneumonia and postinflammatory pulmonary fibrosis Chronic hypoxemic respiratory failure, secondary to above, normally maintained on 3 L/min nasal cannula. Acute on chronic kidney disease History of previous renal transplant, maintained on a combination of Prograf, CellCept, and prednisone outpatient History of end-stage renal disease, requiring hemodialysis in the past History of coronary artery disease, with previous cardiac catheterization showing a 40% nonocclusive lesion in the circumflex coronary artery History of hyperlipidemia History of hypertension History of diabetes mellitus, insulin-dependent History of hypothyroidism Obesity, with a BMI of 36.5 kg/m Plan: Patient's medications, labs, chest x-ray reviewed Continue supplemental oxygen, currently on 2 L/min nasal cannula Will add as needed DuoNebs. Patient is currently on IV heparin per protocol. No current chest pain. Serial troponins noted. Awaiting further recommendations from cardiology. Patient is receiving IV hydration in the form of normal saline at 75 mL/h. Antirejection medications have been resumed. Avoid nephrotoxic agents. Nephrology is also following. We will continue to follow, and additional recommendations are forthcoming I have personally seen and examined the patient, performed the documentation and the assessment and plan as written. Number of minutes spent on the visit:20 Time with Patient: Greater than 30
[2023-12-17] MEDS: ATORVASTATIN 80 MG TAB PO ONE (05:27)
[2023-12-17] MEDS: ASPIRIN 325 MG TAB PO ONE (05:27)
[2023-12-17] MEDS: predniSONE 5 MG TAB PO SCH (05:27)
[2023-12-17 06:19] LABS: Glucose,Whole Blood 54 mg/dL (70-110)
[2023-12-17] MEDS: DEXTROSE 50% SYRINGE 50 ML IVP PRN (06:28)
[2023-12-17 06:50] LABS: Glucose,Whole Blood 99 mg/dL (70-110)
[2023-12-17] MEDS ORDERED: HEPARIN SODIUM,PORCINE 10,000 UNIT in SODIUM CHLORIDE 0.9% 1,000 ML IRRIGATION PRN (07:00)
[2023-12-17] MEDS ORDERED: HEPARIN SODIUM,PORCINE (1 ML) 2,500 UNIT in SODIUM CHLORIDE 0.9% 250 ML IRRIGATION PRN (07:00)
[2023-12-17] MEDS ORDERED: VERAPAMIL 2.5 MG/ML 2 ML AMP ONE (07:19)
[2023-12-17] MEDS ORDERED: LIDOCAINE 1% INJ 10MG/ML (20 ML MDV) ONE (07:19)
[2023-12-17] MEDS ORDERED: fentaNYL (PF) 50 MCG/ML 2 ML AMP ONE (07:19)
[2023-12-17] MEDS ORDERED: HEPARIN SODIUM 1,000 UN/ML (10ML VL) ONE (07:19)
[2023-12-17] MEDS: LIDOCAINE 2% (PF) 20 MG/ML 5 ML VIAL SQ ONE (07:35)
[2023-12-17] MEDS: IOPAMIDOL-370 100ML BTL INTRATHECA ONE (07:51)
[2023-12-17] MEDS: SODIUM CHLORIDE 0.9% 1,000 ML IV ONE (07:53)
[2023-12-17] MEDS ORDERED: RX INFO: IV CONTRAST WAS GIVEN 1 EACH MISC MISCELLANE PRN (08:06)
--- NOTE | 2023-12-17 09:00 | CC ---
CARDIAC CATHETERIZATION REPORT INDICATIONS: Abdoul is a 53-year-old gentleman, who presented to us recently with acute non-ST- segment elevation AK and had extensive ST-T wave changes suggestive of ischemia. The patient was admitted to hospital with a diagnosis of unstable angina and was advised to undergo cardiac catheterization. He has history of end-stage renal disease and has had kidney transplant and is currently on immunosuppressants. The patient has severe underlying lung disease and is on home O2. An echocardiogram revealed normal LV systolic function with severely dilated right ventricle and RV systolic dysfunction. PROCEDURE NOTE: After obtaining informed consent, left heart catheterization and coronary angiogram were performed via the right femoral artery using standard Sameera catheters. The patient tolerated the procedure well without any obvious immediate complications. A femoral angiogram was performed and Angio-Seal was deployed for hemostasis. The patient had conscious sedation. Total sedation time was 20 minutes. FINDINGS: Hemodynamics: 1. Left ventricular end-diastolic pressure is 15 mm. There is no significant gradient across the aortic valve. 2. Left ventriculogram: Left ventriculogram is not performed. 3. Angiographic data: a.Right coronary artery: Right coronary artery is a large dominant vessel that has diffuse disease involving PLV branch, which seems unchanged compared to prior echocardiogram. Left main coronary artery is a short vessel and is free of stenosis, divides into circumflex coronary artery and LAD, circumflex coronary artery and its branches. Left anterior descending coronary artery and its branches are free of significant stenosis. CONCLUSIONS: No new significant obstructive disease is noted in these coronary arteries. The angiographic data does not explain the patient's clinical presentation or EKG changes. I am going to obtain a V/Q scan to rule out pulmonary embolism if a D-dimer is elevated. MMODL / IJN: [id number] /
--- NOTE | 2023-12-17 09:05 | US ---
EXAMINATION TYPE: US kidneys/renal and bladder DATE OF EXAM: 12/16/2023 COMPARISON: US 2015 CLINICAL INDICATION: Male, 53 years old with history of ERIN; EXAM MEASUREMENTS: Right Kidney: 6.4 x 3.3 x 3.5 cm Left Kidney: 8.4 x 3.7 x 4.0 cm Right Kidney: atrophic Left Kidney: atrophic Bladder: wnl Bilateral Jets seen: no Right pelvis transplant kidney: wnl, no hydronephrosis. IMPRESSION: 1. Atrophied [place] kidneys. 2. Right pelvic transplant kidney shows no specific abnormality.
[2023-12-17 09:57] LABS: Basophils % (A) 0 %; Eosinophils # (A) 0.2 k/uL (0-0.7); Eosinophils % (A) 2 %; HCT 50.6 % (39.0-53.0); HGB 15.9 gm/dL (13.0-17.5); Hypochromasia Slight; Lymphocytes # (A) 0.6 k/uL (1.0-4.8); Lymphocytes % (A) 7 %; MCH 29.7 pg (25.0-35.0); MCHC 31.4 g/dL (31.0-37.0); MCV 94.7 fL (80.0-100.0); Mean Platelet Volume 9.3; Monocytes # (A) 0.9 k/uL (0-1.0); Monocytes % (A) 10 %; Neutrophils # (A) 7.5 k/uL (1.3-7.7); Neutrophils % (A) 80 %; Platelet Count 119 k/uL (150-450); RBC 5.35 m/uL (4.30-5.90); RDW 15.6 % (11.5-15.5); WBC 9.4 k/uL (3.8-10.6)
[2023-12-17 10:13] LABS: ALT 38 U/L (4-49); AST 52 U/L (17-59); African American GFR (CKD) 24 (>60 ml/min/1.73 sqM); Albumin 3.9 g/dL (3.5-5.0); Alkaline Phosphatase 95 U/L (38-126); Anion Gap 13 mmol/L; Blood Urea Nitrogen 66 mg/dL (9-20); Carbon Dioxide 15 mmol/L (22-30); Chloride 115 mmol/L (98-107); Glucose 71 mg/dL (74-99); Magnesium 1.7 mg/dL (1.6-2.3); Non-African American GFR(CKD) 20 (>60 ml/min/1.73 sqM); Potassium 4.4 mmol/L (3.5-5.1); Sodium 143 mmol/L (137-145); Total Bilirubin 1.2 mg/dL (0.2-1.3); Total Protein 6.4 g/dL (6.3-8.2)
[2023-12-17 10:15] LABS: INR 1.2 (<1.2); Prothrombin Time 12.9 sec (10.0-12.5)
[2023-12-17 11:20] LABS: Glucose,Whole Blood 248 mg/dL (70-110)
[2023-12-17] MEDS: SODIUM BICARB 8.4% 50 ML SYR (1 MEQ/ML) IV STA (11:56)
--- NOTE | 2023-12-17 12:09 | P.PN ---
Subjective Patient is seen in follow-up for renal transplant management and chronic kidney disease. Renal function stable. Underwent cardiac catheterization this morning with no intervention. Denies chest pain or shortness of breath. Vital signs are stable. General: No acute distress. HEENT: Head exam is unremarkable. On nasal cannula. LUNGS: No audible rhonchi or wheezes. HEART: Rate and Rhythm are regular. ABDOMEN: Obese, nontender. EXTREMITITES: No edema. Objective - Vital Signs Vital signs: Vital Signs Temp 97.5 F L 12/17/23 08:00 Pulse 80 12/17/23 08:00 Resp 18 12/17/23 08:00 BP 126/65 12/17/23 08:00 Pulse Ox 90 L 12/17/23 08:18 FiO2 Intake & Output 12/16/23 12/17/23 12/17/23 18:59 06:59 18:59 Intake Total 100 Output Total 1100 Balance -1100 100 Weight 105.687 kg 104.5 kg Intake: IV 100 Output: Urine 1100 Other: Voiding Method Toilet Urinal - Labs CBC & Chem 7: 12/17/23 09:31 12/17/23 09:31 Labs: Abnormal Lab Results - Last 24 Hours (Table) 12/16/23 12/16/23 12/16/23 Range/Units 12:07 14:50 17:02 RDW (11.5-15.5) % Plt Count (150-450) k/uL Lymphocytes # (1.0-4.8) k/uL PT (10.0-12.5) sec INR (<1.2) APTT (22.0-30.0) sec D-Dimer (<0.60) mg/L FEU Chloride (98-107) mmol/L Carbon Dioxide (22-30) mmol/L BUN (9-20) mg/dL Creatinine (0.66-1.25) mg/dL Glucose (74-99) mg/dL POC Glucose (mg/dL) 174 H (70-110) mg/dL Troponin I 0.849 H* (0.000-0.034) ng/mL Urine Blood Trace H (Negative) Urine Mucus Rare H (None) /hpf 12/16/23 12/16/23 12/16/23 Range/Units 18:00 18:00 20:24 RDW (11.5-15.5) % Plt Count (150-450) k/uL Lymphocytes # (1.0-4.8) k/uL PT (10.0-12.5) sec INR (<1.2) APTT 49.3 H (22.0-30.0) sec D-Dimer (<0.60) mg/L FEU Chloride (98-107) mmol/L Carbon Dioxide (22-30) mmol/L BUN (9-20) mg/dL Creatinine (0.66-1.25) mg/dL Glucose (74-99) mg/dL POC Glucose (mg/dL) 127 H (70-110) mg/dL Troponin I 1.010 H* (0.000-0.034) ng/mL Urine Blood (Negative) Urine Mucus (None) /hpf 12/17/23 12/17/23 12/17/23 Range/Units 06:17 09:31 09:31 RDW 15.6 H (11.5-15.5) % Plt Count 119 L (150-450) k/uL Lymphocytes # 0.6 L (1.0-4.8) k/uL PT 12.9 H (10.0-12.5) sec INR 1.2 H (<1.2) APTT (22.0-30.0) sec D-Dimer 1.56 H (<0.60) mg/L FEU Chloride (98-107) mmol/L Carbon Dioxide (22-30) mmol/L BUN (9-20) mg/dL Creatinine (0.66-1.25) mg/dL Glucose (74-99) mg/dL POC Glucose (mg/dL) 54 L (70-110) mg/dL Troponin I (0.000-0.034) ng/mL Urine Blood (Negative) Urine Mucus (None) /hpf 12/17/23 12/17/23 Range/Units 09:31 11:17 RDW (11.5-15.5) % Plt Count (150-450) k/uL Lymphocytes # (1.0-4.8) k/uL PT (10.0-12.5) sec INR (<1.2) APTT (22.0-30.0) sec D-Dimer (<0.60) mg/L FEU Chloride 115 H (98-107) mmol/L Carbon Dioxide 15 L (22-30) mmol/L BUN 66 H (9-20) mg/dL Creatinine 3.29 H (0.66-1.25) mg/dL Glucose 71 L (74-99) mg/dL POC Glucose (mg/dL) 248 H (70-110) mg/dL Troponin I (0.000-0.034) ng/mL Urine Blood (Negative) Urine Mucus (None) /hpf Assessment and Plan Plan: Assessment: 1. Chronic kidney disease stage IV with baseline creatinine near 3. Patient follows at [facility]. Etiology is long-term CNI use as well as ATN requiring renal replacement therapy in 2021. UA benign. No hydronephrosis noted on kidney ultrasound. 2. Status post renal transplant in July 2017 at [facility]. 3. Acute coronary syndrome status postcardiac catheterization today with no intervention. VQ scan pending. 4. Metabolic acidosis secondary to chronic kidney disease and IV fluids. On oral bicarb. 5. Diabetes mellitus. 6. Mild hypercalcemia. Likely from vitamin D supplementation and milk intake. Improved. 7. Preserved ejection fraction with severe RV dilation and mild pulmonary hypertension noted on echocardiogram. 8. Mild volume overload. Improved. Plan: Hold losartan for systolic blood pressure less than 115. Hep-Lock IV fluids at 1 PM. 2 A of sodium bicarb IV push today. Maintain home antirejection medications. Check a.m. Prograf level. The 1 drawn this morning is not accurate as it was given after patient received the medication. Continue to monitor renal function and urine output. Continue to monitor for contrast associated acute kidney injury.
--- NOTE | 2023-12-17 13:10 | P.PN ---
Subjective Progress Note Date: 12/17/23 Pleasant 53-year-old patient who follows with Dr. Ballard. Patient is accompanied by his in the ER. In 2017 patient underwent renal transplant at [facility]. Follows up with the transplant physician there. Does not remember the name. Patient previously had cardiac catheterization, in 2016 was told has had about 40 to 50% lesion in distal circumflex. About a month ago patient's dose of losartan was changed. Patient also has 3 L of oxygen at home. From COVID. And has been told he also has long COVID. Patient's baseline creatinine runs around 3.2. Patient for last few days been having chest pressure off and on. Accompanied by some shortness of breath. 2 days ago patient had and the had gone to see an RV show. He also felt some pressure that she made him sit down. When they were walking out she turned around patient had passed out. At that time blood pressure was noted to be low. Patient did not appointment with baseball club manager Dr. Zuleika Cheng. Will send the patient to the ER for further workup. 12/16. Patient seen and examined. Currently laying comfortably in the bed. Patient seen after cardiac cath. Denies any chest pain at this time. Denies any nausea or vomiting REVIEW OF SYSTEMS: CONSTITUTIONAL: No fever, no malaise,. CARDIOVASCULAR: No chest pain, no palpitations, no syncope. PULMONARY: No shortness of breath, no cough, GASTROINTESTINAL: No diarrhea, no nausea, no vomiting, no abdominal pain. NEUROLOGICAL: No headaches, no weakness, PHYSICAL EXAMINATION: GENERAL: The patient is alert and oriented x3, not in any acute distress. Well developed, well nourished. HEENT: Pupils are round and equally reacting to light. EOMI. No scleral icterus. No conjunctival pallor. Normocephalic, atraumatic. No pharyngeal erythema. No thyromegaly. CARDIOVASCULAR: S1 and S2 present. No murmurs, rubs, or gallops. PULMONARY: Chest is clear to auscultation, no wheezing or crackles. ABDOMEN: Soft, nontender, nondistended, normoactive bowel sounds. No palpable or ganomegaly. MUSCULOSKELETAL: No joint swelling or deformity. EXTREMITIES: No cyanosis, clubbing, or pedal edema. NEUROLOGICAL: Gross neurological examination did not reveal any focal deficits. SKIN: No rashes. Assessment and plan Chest pain and elevated troponins, rule out non-ST elevation [place] syncopal episode History of COVID-pneumonia and postinflammatory pulmonary fibrosis Chronic hypoxemic respiratory failure Acute on chronic kidney disease History of previous renal transplant, maintained on a combination of Prograf, CellCept, and prednisone outpatient History of end-stage renal disease, requiring hemodialysis in the past History of coronary artery disease, with previous cardiac catheterization showing a 40% nonocclusive lesion in the circumflex coronary artery hyperlipidemia hypertension History of diabetes mellitus, insulin-dependent History of hypothyroidism Obesity, with a BMI of 36.5 kg/m Monitor vital signs Monitor CBC Monitor CMP Continue telemetry monitoring Continue oxygen supplementation Continue breathing treatments Continue pharmacy to dose heparin S/p cardiac cath showing no new significant obstructive coronary disease, cardiology ordered VQ scan Continue CellCept, Prograf, prednisone. Continue IV hydration Continue oral sodium bicarb Cardiology following Nephrology following Labs and medication were reviewed.. Continue same treatment. Continue with symptomatic treatment. Resume home medication. Monitor labs and vitals. DVT and GI prophylaxis. Further recommendations as per clinical course of the patient Dictation was produced using [employer] dictation software. please excuse any grammatical, word or spelling errors. Objective - Vital Signs Vital signs: Vital Signs Temp 97.6 F 12/17/23 04:24 Pulse 73 12/17/23 04:24 Resp 18 12/17/23 04:24 BP 131/82 12/17/23 04:24 Pulse Ox 90 L 12/17/23 08:18 FiO2 Intake & Output 12/16/23 12/17/23 12/17/23 18:59 06:59 18:59 Intake Total 100 Output Total 1100 Balance -1100 100 Weight 105.687 kg 104.5 kg Intake: IV 100 Output: Urine 1100 Other: Voiding Method Toilet Urinal - Labs CBC & Chem 7: 12/17/23 09:31 12/17/23 09:31 Labs: Abnormal Lab Results - Last 24 Hours (Table) 12/16/23 12/16/23 12/16/23 Range/Units 09:47 09:47 09:47 Hgb 17.6 H (13.0-17.5) gm/dL Hct 54.9 H (39.0-53.0) % RDW 15.7 H (11.5-15.5) % Plt Count 137 L (150-450) k/uL PT 12.9 H (10.0-12.5) sec INR 1.2 H (<1.2) APTT (22.0-30.0) sec Chloride (98-107) mmol/L Carbon Dioxide (22-30) mmol/L BUN (9-20) mg/dL Creatinine (0.66-1.25) mg/dL Glucose (74-99) mg/dL POC Glucose (mg/dL) (70-110) mg/dL Calcium (8.4-10.2) mg/dL Troponin I 0.631 H* (0.000-0.034) ng/mL Lipase (23-300) U/L Urine Blood (Negative) Urine Mucus (None) /hpf 12/16/23 12/16/23 12/16/23 Range/Units 11:19 12:07 14:50 Hgb (13.0-17.5) gm/dL Hct (39.0-53.0) % RDW (11.5-15.5) % Plt Count (150-450) k/uL PT (10.0-12.5) sec INR (<1.2) APTT (22.0-30.0) sec Chloride 116 H (98-107) mmol/L Carbon Dioxide 15 L (22-30) mmol/L BUN 60 H (9-20) mg/dL Creatinine 3.29 H (0.66-1.25) mg/dL Glucose 124 H (74-99) mg/dL POC Glucose (mg/dL) (70-110) mg/dL Calcium 10.3 H (8.4-10.2) mg/dL Troponin I 0.849 H* (0.000-0.034) ng/mL Lipase 465 H (23-300) U/L Urine Blood Trace H (Negative) Urine Mucus Rare H (None) /hpf 12/16/23 12/16/23 12/16/23 Range/Units 17:02 18:00 18:00 Hgb (13.0-17.5) gm/dL Hct (39.0-53.0) % RDW (11.5-15.5) % Plt Count (150-450) k/uL PT (10.0-12.5) sec INR (<1.2) APTT 49.3 H (22.0-30.0) sec Chloride (98-107) mmol/L Carbon Dioxide (22-30) mmol/L BUN (9-20) mg/dL Creatinine (0.66-1.25) mg/dL Glucose (74-99) mg/dL POC Glucose (mg/dL) 174 H (70-110) mg/dL Calcium (8.4-10.2) mg/dL Troponin I 1.010 H* (0.000-0.034) ng/mL Lipase (23-300) U/L Urine Blood (Negative) Urine Mucus (None) /hpf 12/16/23 12/17/23 Range/Units 20:24 06:17 Hgb (13.0-17.5) gm/dL Hct (39.0-53.0) % RDW (11.5-15.5) % Plt Count (150-450) k/uL PT (10.0-12.5) sec INR (<1.2) APTT (22.0-30.0) sec Chloride (98-107) mmol/L Carbon Dioxide (22-30) mmol/L BUN (9-20) mg/dL Creatinine (0.66-1.25) mg/dL Glucose (74-99) mg/dL POC Glucose (mg/dL) 127 H 54 L (70-110) mg/dL Calcium (8.4-10.2) mg/dL Troponin I (0.000-0.034) ng/mL Lipase (23-300) U/L Urine Blood (Negative) Urine Mucus (None) /hpf
--- NOTE | 2023-12-17 14:12 | P.PN ---
Subjective Progress Note Date: 12/17/23 History of present illness: This is a 53-year-old male patient of Dr. Zuleika Cheng with past medical history of mild nonobstructive coronary artery disease on cardiac catheterization 2014, end-stage renal disease status post kidney transplant at [facility], hypertension, dyslipidemia. Patient presented for an appointment with Dr. Zuleika Cheng on 12/16/2023. Patient suffers from COVID in 2020 and developed respi ratory failure after that currently on home O2 because of pulmonary fibrosis. He had been having on and off episodes of chest pain for the past 4 weeks. EKG performed in the office revealed T wave inversions in the inferior lateral leads and right ventricular hypertrophy. Due to patient's symptoms and EKG changes, patient was directly sent to the emergency center to be admitted to the hospital started on IV heparin and consult with nephrology with plan for cardiac catheterization. Cardiac catheterization was performed this morning which revealed no obstructive coronary artery disease. Stat D-dimer was then ordered which came back elevated at 1.56 and a stat VQ scan ordered. Laboratory studies today revealed INR 1.2, platelet count 119. BUN 66 creatinine 3.29, sodium 143, potassium 4.4, CO2 15. Troponins were 0.631, 0.849, 1.01. Echocardiogram reveals EF of 60 to 65%. Hyperdynamic LV systolic function. Severe RV dilated decreased RV systolic function. Mild pulmonary hypertension. Poorly visualized intracardiac valves. Physical examination: Gen: This is a 53-year-old male in no acute distress. VS: reviewed HEENT: Head is atraumatic, normocephalic. Pupils equal, round. Sclerae is anicteric. NECK: Supple. No JVD. LUNGS: Clear to auscultation. No wheezes or rhonchi. No intercostal retractions. HEART: Regular rate and rhythm. No murmur. ABDOMEN: Soft No tenderness. Right groin no hematoma. EXTREMITIES: No pedal edema. No calf tenderness. NEUROLOGICAL: Patient is awake, alert and oriented x3. Assessment: Chest pain, abnormal EKG, elevated troponins of unclear etiology Elevated D-dimer, rule out pulmonary embolism Hypertension Hyperlipidemia End-stage renal disease status post transplant Chronic kidney disease stage IV Metabolic acidosis Diabetes mellitus type 2 Thrombocytopenia Plan: Continue current cardiac medications Patient will be resumed on heparin until results of V/Q VQ scan has been reported Further recommendations to follow based upon clinical course Thank you kindly for this consultation. Nurse practitioner note has been reviewed, I agree with documented findings and plan of care. Patient was seen and examined. Objective - Vital Signs Vital signs: Vital Signs Temp 97.5 F L 12/17/23 08:00 Pulse 80 12/17/23 08:00 Resp 18 12/17/23 08:00 BP 126/65 12/17/23 08:00 Pulse Ox 90 L 12/17/23 08:18 FiO2 Intake & Output 12/16/23 12/17/23 12/17/23 18:59 06:59 18:59 Intake Total 100 Output Total 1100 Balance -1100 100 Weight 105.687 kg 104.5 kg Intake: IV 100 Output: Urine 1100 Other: Voiding Method Toilet Urinal - Labs CBC & Chem 7: 12/17/23 09:31 12/17/23 09:31 Labs: Abnormal Lab Results - Last 24 Hours (Table) 12/16/23 12/16/23 12/16/23 Range/Units 12:07 14:50 17:02 RDW (11.5-15.5) % Plt Count (150-450) k/uL Lymphocytes # (1.0-4.8) k/uL PT (10.0-12.5) sec INR (<1.2) APTT (22.0-30.0) sec D-Dimer (<0.60) mg/L FEU Chloride (98-107) mmol/L Carbon Dioxide (22-30) mmol/L BUN (9-20) mg/dL Creatinine (0.66-1.25) mg/dL Glucose (74-99) mg/dL POC Glucose (mg/dL) 174 H (70-110) mg/dL Troponin I 0.849 H* (0.000-0.034) ng/mL Urine Blood Trace H (Negative) Urine Mucus Rare H (None) /hpf 12/16/23 12/16/23 12/16/23 Range/Units 18:00 18:00 20:24 RDW (11.5-15.5) % Plt Count (150-450) k/uL Lymphocytes # (1.0-4.8) k/uL PT (10.0-12.5) sec INR (<1.2) APTT 49.3 H (22.0-30.0) sec D-Dimer (<0.60) mg/L FEU Chloride (98-107) mmol/L Carbon Dioxide (22-30) mmol/L BUN (9-20) mg/dL Creatinine (0.66-1.25) mg/dL Glucose (74-99) mg/dL POC Glucose (mg/dL) 127 H (70-110) mg/dL Troponin I 1.010 H* (0.000-0.034) ng/mL Urine Blood (Negative) Urine Mucus (None) /hpf 12/17/23 12/17/23 12/17/23 Range/Units 06:17 09:31 09:31 RDW 15.6 H (11.5-15.5) % Plt Count 119 L (150-450) k/uL Lymphocytes # 0.6 L (1.0-4.8) k/uL PT 12.9 H (10.0-12.5) sec INR 1.2 H (<1.2) APTT (22.0-30.0) sec D-Dimer 1.56 H (<0.60) mg/L FEU Chloride (98-107) mmol/L Carbon Dioxide (22-30) mmol/L BUN (9-20) mg/dL Creatinine (0.66-1.25) mg/dL Glucose (74-99) mg/dL POC Glucose (mg/dL) 54 L (70-110) mg/dL Troponin I (0.000-0.034) ng/mL Urine Blood (Negative) Urine Mucus (None) /hpf 12/17/23 12/17/23 Range/Units 09:31 11:17 RDW (11.5-15.5) % Plt Count (150-450) k/uL Lymphocytes # (1.0-4.8) k/uL PT (10.0-12.5) sec INR (<1.2) APTT (22.0-30.0) sec D-Dimer (<0.60) mg/L FEU Chloride 115 H (98-107) mmol/L Carbon Dioxide 15 L (22-30) mmol/L BUN 66 H (9-20) mg/dL Creatinine 3.29 H (0.66-1.25) mg/dL Glucose 71 L (74-99) mg/dL POC Glucose (mg/dL) 248 H (70-110) mg/dL Troponin I (0.000-0.034) ng/mL Urine Blood (Negative) Urine Mucus (None) /hpf
--- NOTE | 2023-12-17 15:39 | NM ---
EXAMINATION TYPE: NM pul vent and perfuse DATE OF EXAM: 12/17/2023 CLINICAL INDICATION: Male, 53 years old with history of EKG changes, elevated trops, normal Coronarie s; Comparison: Prior radiograph TECHNIQUE: Utilizing inhalation of 40.3 mCi Tc 99m DTPA aerosol and intravenous injection of 4.1 mCi of Tc 99m MAA, ventilation and perfusion images are acquired post injection in multiple projections. FINDINGS: Mild heterogeneity of ventilation and perfusion in the lungs. However, there is a moderate sized mism atched perfusion defect involving the lateral base of the left lung on the LPO perfusion image. No ot her mismatched perfusion defect is seen. IMPRESSION: Intermediate probability for pulmonary embolus by PIOPED criteria.
[2023-12-17 16:12] LABS: Glucose,Whole Blood 91 mg/dL (70-110)
[2023-12-17] MEDS ORDERED: HEPARIN SODIUM 1,000 UN/ML (10ML VL) IV PRN (17:26)
[2023-12-17] MEDS: Semaglutide [Rybelsus] 7 MG Tablet PO SCH (17:39)
[2023-12-17] MEDS: HEPARIN SOD,PORK IN 0.45% NACL 25,000 UNIT in 0.45% NACL 1 250ML.BAG IV SCH (18:09)
[2023-12-17 20:18] LABS: Glucose,Whole Blood 93 mg/dL (70-110)
[2023-12-17] MEDS: HEPARIN SODIUM 1,000 UN/ML (10ML VL) IV PRN (20:25)
[2023-12-18 06:03] LABS: Glucose,Whole Blood 59 mg/dL (70-110)
[2023-12-18 06:25] LABS: Glucose,Whole Blood 64 mg/dL (70-110)
[2023-12-18 06:39] LABS: Glucose,Whole Blood 98 mg/dL (70-110)
[2023-12-18 08:33] LABS: Basophils # (A) 0.1 k/uL (0-0.2); Basophils % (A) 1 %; Eosinophils # (A) 0.4 k/uL (0-0.7); Eosinophils % (A) 6 %; HCT 47.7 % (39.0-53.0); HGB 15.1 gm/dL (13.0-17.5); Hypochromasia Slight; Lymphocytes % (A) 16 %; MCH 30.1 pg (25.0-35.0); MCHC 31.7 g/dL (31.0-37.0); MCV 94.9 fL (80.0-100.0); Mean Platelet Volume 9.2; Monocytes # (A) 0.7 k/uL (0-1.0); Monocytes % (A) 10 %; Neutrophils # (A) 4.3 k/uL (1.3-7.7); Neutrophils % (A) 65 %; Platelet Count 119 k/uL (150-450); RBC 5.03 m/uL (4.30-5.90); RDW 15.6 % (11.5-15.5); WBC 6.6 k/uL (3.8-10.6)
[2023-12-18 08:46] LABS: ALT 32 U/L (4-49); AST 43 U/L (17-59); African American GFR (CKD) 25 (>60 ml/min/1.73 sqM); Albumin 3.5 g/dL (3.5-5.0); Alkaline Phosphatase 88 U/L (38-126); Anion Gap 9 mmol/L; Blood Urea Nitrogen 60 mg/dL (9-20); Calcium 9.4 mg/dL (8.4-10.2); Carbon Dioxide 17 mmol/L (22-30); Chloride 114 mmol/L (98-107); Glucose 117 mg/dL (74-99); Magnesium 1.6 mg/dL (1.6-2.3); Non-African American GFR(CKD) 22 (>60 ml/min/1.73 sqM); Potassium 4.1 mmol/L (3.5-5.1); Sodium 140 mmol/L (137-145); Total Bilirubin 0.9 mg/dL (0.2-1.3); Total Protein 5.8 g/dL (6.3-8.2)
[2023-12-18 11:18] LABS: Glucose,Whole Blood 97 mg/dL (70-110)
--- NOTE | 2023-12-18 12:14 | P.PN ---
Subjective Progress Note Date: 12/18/23 I am seeing this patient, a 53-year-old white male, in new consultation today 12/17/2023 after he presented with complaints of intermittent chest pressure/substernal pain over the last week. He had associated acute on chronic shortness of breath. He is chronically maintained on 3 L/min nasal cannula whi le at home. He has had a history of COVID-pneumonia and post-inflammatory pulmonary fibrosis. Patient does follow in the pulmonary office with Dr. Caldwell. His primary care provider is a nurse practitioner, Jaye Watson, out of Dr. Ballard office. Patient also has other medical comorbidities including nonocclusive coronary artery disease, hypertension, hyperlipidemia, renal failure requiring hemodialysis for 12 years followed by a kidney transplant, hypothyroidism. Of note, the patient did have a ER visit 3 days ago for syncopal episode. The patient may have left AGAINST MEDICAL ADVICE, however, patient denies this.. He returns to the emergency room yesterday morning after being directed by his fuel cell builder. He reports substernal chest pressure that has been intermittent over the last week. Chest pain typically lasts 5 to 30 minutes. It is nonradiating. It happens without predilection to activity or at rest. No associated nausea or diaphoresis. Serial troponins are elevated and trending up, most recent result 1. EKG on arrival shows normal sinus rhythm with T wave inversion in the precordial leads and minimal ST depression in III, aVF. He was started on a heparin infusion per protocol. Denies any further episodes of syncope. Denies heart palpitations. Cardiology was consulted. He does become short of breath with these events. He denies any infectious symptoms such as change in his chronic cough, sputum production, fevers, myalgias. Echocardiogram done on arrival shows a preserved left ventricular ejection fraction estimated at 60 to 65%, LVH, and there is severe RV dilation with mild pulmonary hypertension. He is currently sitting up in bed, on 2 L/min nasal cannula, in no acute distress. Chest x-ray on arrival mild cardiomegaly, possible mild pulmonary vascular congestion is difficult to exclude with chronic changes. There is a small left pleural effusion. Patient denies any orthopnea, PND, or lower extremity swelling. CBC on arrival unremarkable. No leukocytosis. BMP on arrival: Sodium 142, potassium 5.1, chloride 116, serum bicarb 15, BUN 60, creatinine 3.29, glucose 124. Patient is maintained on a combination of Prograf, CellCept, and prednisone 5 mg daily to prevent renal rejection. Baseline creatinine appears to be around 2.5-2.7. Normal saline is infusing at 75 mL/h. NT proBNP was elevated at 17,500. Vital signs are stable. The patient is seen today December 18, 2023 in follow-up on the selective care unit. He is currently resting comfortably in bed. Awake and alert in no acute distress. Maintaining O2 saturations in the 90s on 4 L/min per nasal cannula. He is continued on a heparin drip. VQ scan was read as intermediate probability for pulmonary embolus. White count 6.6. Hemoglobin 15.1. Platelets 119. Sodium 140. Potassium 4.1. Bicarb 17. BUN 60. Creatinine 3.10. Glucose 117. Objective - Vital Signs Vital signs: Vital Signs Temp 97.4 F L 12/18/23 09:14 Pulse 71 12/18/23 12:06 Resp 18 12/18/23 12:06 BP 113/74 12/18/23 12:06 Pulse Ox 90 L 12/18/23 12:06 FiO2 Intake & Output 12/17/23 12/18/23 12/18/23 18:59 06:59 18:59 Intake Total 210 94.598 768 Output Total 300 500 450 Balance -90 -405.402 318 Intake: IV 100 Intake, IV Titration 94.598 Amount Heparin Sod,Pork in 0.45% 94.598 NaCl 25,000 unit In 0.45 % NaCl 1 250ml.bag @ 9. 569 UNITS/KG/HR 10 mls/hr IV .Q24H [facility] Rx#: [id number] Oral 110 768 Output: Urine 300 500 450 Other: Voiding Method Toilet Urinal Urinal - Exam GENERAL EXAM: Alert, very pleasant 53-year-old male, on 4 L nasal cannula, comfortable in no apparent distress. HEAD: Normocephalic and atraumatic EYES: Normal reaction of pupils, equal size. NOSE: Clear with pink turbinates. THROAT: No erythema or exudates. NECK: No masses, no JVD. CHEST: No chest wall deformity. LUNGS: Equal air entry with no crackles, wheeze, rhonchi or dullness. No conversational dyspnea. CVS: S1 and S2 normal with no audible murmur, regular rhythm. No extra heart sounds ABDOMEN: No hepatosplenomegaly, active bowel sounds, no guarding or rigidity. SPINE: No scoliosis or deformity SKIN: No rashes CENTRAL NERVOUS SYSTEM: No focal deficits, tone is normal in all 4 extremities. EXTREMITIES: There is no peripheral edema, clubbing, or cyanosis. Peripheral p ulses are intact. - Labs CBC & Chem 7: 12/18/23 08:20 12/18/23 08:20 Labs: Abnormal Lab Results - Last 24 Hours (Table) 12/17/23 12/18/23 12/18/23 Range/Units 19:11 00:01 06:01 RDW (11.5-15.5) % Plt Count (150-450) k/uL APTT 32.7 H 125.7 H* (22.0-30.0) sec Chloride (98-107) mmol/L Carbon Dioxide (22-30) mmol/L BUN (9-20) mg/dL Creatinine (0.66-1.25) mg/dL Glucose (74-99) mg/dL POC Glucose (mg/dL) 59 L (70-110) mg/dL Total Protein (6.3-8.2) g/dL 12/18/23 12/18/23 12/18/23 Range/Units 06:20 08:20 08:20 RDW 15.6 H (11.5-15.5) % Plt Count 119 L (150-450) k/uL APTT (22.0-30.0) sec Chloride 114 H (98-107) mmol/L Carbon Dioxide 17 L (22-30) mmol/L BUN 60 H (9-20) mg/dL Creatinine 3.10 H (0.66-1.25) mg/dL Glucose 117 H (74-99) mg/dL POC Glucose (mg/dL) 64 L (70-110) mg/dL Total Protein 5.8 L (6.3-8.2) g/dL 12/18/23 Range/Units 08:20 RDW (11.5-15.5) % Plt Count (150-450) k/uL APTT 64.0 H (22.0-30.0) sec Chloride (98-107) mmol/L Carbon Dioxide (22-30) mmol/L BUN (9-20) mg/dL Creatinine (0.66-1.25) mg/dL Glucose (74-99) mg/dL POC Glucose (mg/dL) (70-110) mg/dL Total Protein (6.3-8.2) g/dL Assessment and Plan Assessment: Chest pain and elevated troponins, rule out non-ST elevation MO. Cardiac catheterization revealed no new significant obstructive disease noted in the coronary arteries Recent syncopal episode History of COVID-pneumonia and postinflammatory pulmonary fibrosis Chronic hypoxemic respiratory failure, secondary to above, normally maintained on 3 L/min nasal cannula. Acute on chronic kidney disease History of previous renal transplant, maintained on a combination of Prograf, CellCept, and prednisone outpatient History of end-stage renal disease, requiring hemodialysis in the past History of coronary artery disease, with previous cardiac catheterization showing a 40% nonocclusive lesion in the circumflex coronary artery History of hyperlipidemia History of hypertension History of diabetes mellitus, insulin-dependent History of hypothyroidism Obesity, with a BMI of 36.5 kg/m Plan: The patient was seen and evaluated VQ scan, labs and medications reviewed Obtain Doppler of the bilateral lower extremities Continue heparin drip for now Titrate down the FiO2 as tolerated Increase his activity as tolerated We will continue to follow I have personally seen and examined the patient, performed the documentation and the assessment and plan as written. Number of minutes spent on the visit: 10.
--- NOTE | 2023-12-18 12:23 | P.PN ---
Subjective Patient is seen in follow-up for renal transplant management and chronic kidney disease. Renal function stable. Underwent cardiac catheterization December 17, 2023 with no intervention. Denies chest pain or shortness of breath. No active complaints at this time. Vital signs are stable. General: No acute distress. HEENT: Head exam is unremarkable. On nasal cannula. LUNGS: No audible rhonchi or wheezes. HEART: Rate and Rhythm are regular. ABDOMEN: Obese, nontender. EXTREMITITES: No edema. Objective - Vital Signs Vital signs: Vital Signs Temp 97.4 F L 12/18/23 09:14 Pulse 71 12/18/23 12:06 Resp 18 12/18/23 12:06 BP 113/74 12/18/23 12:06 Pulse Ox 90 L 12/18/23 12:06 FiO2 Intake & Output 12/17/23 12/18/23 12/18/23 18:59 06:59 18:59 Intake Total 210 94.598 768 Output Total 300 500 450 Balance -90 -405.402 318 Intake: IV 100 Intake, IV Titration 94.598 Amount Heparin Sod,Pork in 0.45% 94.598 NaCl 25,000 unit In 0.45 % NaCl 1 250ml.bag @ 9. 569 UNITS/KG/HR 10 mls/hr IV .Q24H [facility] Rx#: [id number] Oral 110 768 Output: Urine 300 500 450 Other: Voiding Method Toilet Urinal Urinal - Labs CBC & Chem 7: 12/18/23 08:20 12/18/23 08:20 Labs: Abnormal Lab Results - Last 24 Hours (Table) 12/17/23 12/18/23 12/18/23 Range/Units 19:11 00:01 06:01 RDW (11.5-15.5) % Plt Count (150-450) k/uL APTT 32.7 H 125.7 H* (22.0-30.0) sec Chloride (98-107) mmol/L Carbon Dioxide (22-30) mmol/L BUN (9-20) mg/dL Creatinine (0.66-1.25) mg/dL Glucose (74-99) mg/dL POC Glucose (mg/dL) 59 L (70-110) mg/dL Total Protein (6.3-8.2) g/dL 12/18/23 12/18/23 12/18/23 Range/Units 06:20 08:20 08:20 RDW 15.6 H (11.5-15.5) % Plt Count 119 L (150-450) k/uL APTT (22.0-30.0) sec Chloride 114 H (98-107) mmol/L Carbon Dioxide 17 L (22-30) mmol/L BUN 60 H (9-20) mg/dL Creatinine 3.10 H (0.66-1.25) mg/dL Glucose 117 H (74-99) mg/dL POC Glucose (mg/dL) 64 L (70-110) mg/dL Total Protein 5.8 L (6.3-8.2) g/dL 12/18/23 Range/Units 08:20 RDW (11.5-15.5) % Plt Count (150-450) k/uL APTT 64.0 H (22.0-30.0) sec Chloride (98-107) mmol/L Carbon Dioxide (22-30) mmol/L BUN (9-20) mg/dL Creatinine (0.66-1.25) mg/dL Glucose (74-99) mg/dL POC Glucose (mg/dL) (70-110) mg/dL Total Protein (6.3-8.2) g/dL Assessment and Plan Plan: Assessment: 1. Chronic kidney disease stage IV with baseline creatinine near 3. Patient follows at [facility]. Etiology is long-term CNI use as well as ATN requiring renal replacement therapy in 2021. UA benign. No hydronephrosis noted on kidney ultrasound. 2. Status post renal transplant in July 2017 at [facility]. 3. Acute coronary syndrome status postcardiac catheterization today with no in tervention. VQ scan pending. 4. Metabolic acidosis secondary to chronic kidney disease and IV fluids. On oral bicarb. 5. Diabetes mellitus. 6. Mild hypercalcemia. Likely from vitamin D supplementation and milk intake. Improved. 7. Preserved ejection fraction with severe RV dilation and mild pulmonary hypertension noted on echocardiogram. 8. Mild volume overload. Improved. Plan: Hold losartan for systolic blood pressure less than 115. Increase bicarb frequency to 3 times daily. Maintain home antirejection medications. Follow-up a.m. Prograf level. Level drawn December 17, 2023 not accurate as it was drawn after the medication was given. Will wait for this morning's lab to result. Continue to monitor renal function and urine output. Continue to monitor for contrast associated acute kidney injury. Patient and family wish to avoid any further IV contrast at this time unless absolutely necessary. Discussed with primary team.
--- NOTE | 2023-12-18 13:17 | P.PN ---
Subjective Progress Note Date: 12/18/23 Pleasant 53-year-old patient who follows with Dr. Ballard. Patient is accompanied by his in the ER. In 2017 patient underwent renal transplant at [facility]. Follows up with the transplant physician there. Does not remember the name. Patient previously had cardiac catheterization, in 2016 was told has had about 40 to 50% lesion in distal circumflex. About a month ago patient's dose of losartan was changed. Patient also has 3 L of oxygen at home. From COVID. And has been told he also has long COVID. Patient's baseline creatinine runs around 3.2. Patient for last few days been having chest pressure off and on. Accompanied by some shortness of breath. 2 days ago patient had and the had gone to see an RV show. He also felt some pressure that she made him sit down. When they were walking out she turned around patient had passed out. At that time blood pressure was noted to be low. Patient did not appointment with analysis engineer Dr. Zuleika Cheng. Will send the patient to the ER for further workup. 12/16. Patient seen and examined. Currently laying comfortably in the bed. Patient seen after cardiac cath. Denies any chest pain at this time. Denies any nausea or vomiting 12/17. Patient seen and examined. Lab work done today showed WBC 8.6, hemoglobin 15.5, platelet count 119, sodium 140, potassium 4.1, BUN 60, creatinine 3.1. Denies any chest pain. Complaining of epistaxis this morning REVIEW OF SYSTEMS: CONSTITUTIONAL: No fever, no malaise,. CARDIOVASCULAR: No chest pain, no palpitations, no syncope. PULMONARY: No shortness of breath, no cough, GASTROINTESTINAL: No diarrhea, no nausea, no vomiting, no abdominal pain. NEUROLOGICAL: No headaches, no weakness, PHYSICAL EXAMINATION: GENERAL: The patient is alert and oriented x3, not in any acute distress. Well developed, well nourished. HEENT: Pupils are round and equally reacting to light. EOMI. No scleral icterus. No conjunctival pallor. Normocephalic, atraumatic. No pharyngeal erythema. No thyromegaly. CARDIOVASCULAR: S1 and S2 present. No murmurs, rubs, or gallops. PULMONARY: Chest is clear to auscultation, no wheezing or crackles. ABDOMEN: Soft, nontender, nondistended, normoactive bowel sounds. No palpable organomegaly. MUSCULOSKELETAL: No joint swelling or deformity. EXTREMITIES: No cyanosis, clubbing, or pedal edema. NEUROLOGICAL: Gross neurological examination did not reveal any focal deficits. SKIN: No rashes. Assessment and plan Chest pain and elevated troponins, rule out non-ST elevation NE syncopal episode History of COVID-pneumonia and postinflammatory pulmonary fibrosis Chronic hypoxemic respiratory failure Acute on chronic kidney disease History of previous renal transplant, maintained on a combination of Prograf, CellCept, and prednisone outpatient History of end-stage renal disease, requiring hemodialysis in the past History of coronary artery disease, with previous cardiac catheterization showing a 40% nonocclusive lesion in the circumflex coronary artery hyperlipidemia hypertension History of diabetes mellitus, insulin-dependent History of hypothyroidism Obesity, with a BMI of 36.5 kg/m Monitor vital signs Monitor CBC Monitor CMP Continue telemetry monitoring Continue oxygen supplementation Continue breathing treatments VQ scan done showed intermediate probability for PE S/p cardiac cath showing no new significant obstructive coronary disease Ultrasound of lower extremities ordered. Continue pharmacy with heparin for now Continue CellCept, Prograf, prednisone. Continue oral sodium bicarb Cardiology following Nephrology following Pulmonary following Labs and medication were reviewed.. Continue same treatment. Continue with symptomatic treatment. Resume home medication. Monitor labs and vitals. DVT and GI prophylaxis. Further recommendations as per clinical course of the patient Dictation was produced using [employer] dictation software. please excuse any grammatical, word or spelling errors. Objective - Vital Signs Vital signs: Vital Signs Temp 97.4 F L 12/18/23 09:14 Pulse 77 12/18/23 09:14 Resp 15 12/18/23 09:14 BP 110/52 12/18/23 09:14 Pulse Ox 92 L 12/18/23 10:15 FiO2 Intake & Output 12/17/23 12/18/23 12/18/23 18:59 06:59 18:59 Intake Total 210 94.598 110 Output Total 300 500 Balance -90 -405.402 110 Intake: IV 100 Intake, IV Titration 94.598 Amount Heparin Sod,Pork in 0.45% 94.598 NaCl 25,000 unit In 0.45 % NaCl 1 250ml.bag @ 9. 569 UNITS/KG/HR 10 mls/hr IV .Q24H [facility] Rx#: [id number] Oral 110 110 Output: Urine 300 500 Other: Voiding Method Toilet Urinal Urinal - Labs CBC & Chem 7: 12/18/23 08:20 12/18/23 08:20 Labs: Abnormal Lab Results - Last 24 Hours (Table) 12/17/23 12/17/23 12/18/23 Range/Units 11:17 19:11 00:01 RDW (11.5-15.5) % Plt Count (150-450) k/uL APTT 32.7 H 125.7 H* (22.0-30.0) sec Chloride (98-107) mmol/L Carbon Dioxide (22-30) mmol/L BUN (9-20) mg/dL Creatinine (0.66-1.25) mg/dL Glucose (74-99) mg/dL POC Glucose (mg/dL) 248 H (70-110) mg/dL Total Protein (6.3-8.2) g/dL 12/18/23 12/18/23 12/18/23 Range/Units 06:01 06:20 08:20 RDW (11.5-15.5) % Plt Count (150-450) k/uL APTT (22.0-30.0) sec Chloride 114 H (98-107) mmol/L Carbon Dioxide 17 L (22-30) mmol/L BUN 60 H (9-20) mg/dL Creatinine 3.10 H (0.66-1.25) mg/dL Glucose 117 H (74-99) mg/dL POC Glucose (mg/dL) 59 L 64 L (70-110) mg/dL Total Protein 5.8 L (6.3-8.2) g/dL 12/18/23 12/18/23 Range/Units 08:20 08:20 RDW 15.6 H (11.5-15.5) % Plt Count 119 L (150-450) k/uL APTT 64.0 H (22.0-30.0) sec Chloride (98-107) mmol/L Carbon Dioxide (22-30) mmol/L BUN (9-20) mg/dL Creatinine (0.66-1.25) mg/dL Glucose (74-99) mg/dL POC Glucose (mg/dL) (70-110) mg/dL Total Protein (6.3-8.2) g/dL
--- NOTE | 2023-12-18 14:12 | P.PN ---
Subjective Progress Note Date: 12/18/23 History of present illness: This is a 53-year-old male patient of Dr. Zuleika Cheng with past medical history of mild nonobstructive coronary artery disease on cardiac catheterization 2014, end-stage renal disease status post kidney transplant at [facility], hypertension, dyslipidemia. Patient presented for an appointment with Dr. Zuleika Cheng on 12/16/2023. Patient suffers from COVID in 2020 and developed respi ratory failure after that currently on home O2 because of pulmonary fibrosis. He had been having on and off episodes of chest pain for the past 4 weeks. EKG performed in the office revealed T wave inversions in the inferior lateral leads and right ventricular hypertrophy. Due to patient's symptoms and EKG changes, patient was directly sent to the emergency center to be admitted to the hospital started on IV heparin and consult with nephrology with plan for cardiac catheterization. Cardiac catheterization was performed this morning which revealed no obstructive coronary artery disease. Stat D-dimer was then ordered which came back elevated at 1.56 and a stat VQ scan ordered. Laboratory studies today revealed INR 1.2, platelet count 119. BUN 66 creatinine 3.29, sodium 143, potassium 4.4, CO2 15. Troponins were 0.631, 0.849, 1.01. Echocardiogram reveals EF of 60 to 65%. Hyperdynamic LV systolic function. Severe RV dilated decreased RV systolic function. Mild pulmonary hypertension. Poorly visualized intracardiac valves. 12/17 VQ scan reveals intermediate risk. Duplex ordered of the bilateral lower extremities and report remains pending. Blood pressure 113/74, heart rate 71, pulse ox 90 to 92% on 4 L nasal cannula. Repeat blood work reveals WBC 6.6, hemoglobin 15.1, platelet count 119. BUN 60 creatinine 3.1. Patient is also followed by pulmonary medicine and nephrology. Physical examination: Gen: This is a 53-year-old male in no acute distress. VS: reviewed HEENT: Head is atraumatic, normocephalic. Pupils equal, round. Sclerae is anicteric. NECK: Supple. No JVD. LUNGS: Clear to auscultation. No wheezes or rhonchi. No intercostal retractions. HEART: Regular rate and rhythm. No murmur. ABDOMEN: Soft No tenderness. Right groin no hematoma. EXTREMITIES: No pedal edema. No calf tenderness. NEUROLOGICAL: Patient is awake, alert and oriented x3. Assessment: Chest pain, abnormal EKG, elevated troponins of unclear etiology Elevated D-dimer, rule out pulmonary embolism Hypertension Hyperlipidemia End-stage renal disease status post transplant Chronic kidney disease stage IV Metabolic acidosis Diabetes mellitus type 2 Thrombocytopenia Plan: Continue current cardiac medications Parameters in place for holding losartan for systolic blood pressure less than 115 per nephrology Discontinue heparin drip and start patient on Eliquis 2.5 mg twice daily Patient is cleared for discharge cardiology and may follow-up with Dr. Cheng in 1 to 2 weeks. Nurse practitioner note has been reviewed, I agree with documented findings and plan of care. Patient was seen and examined. Objective - Vital Signs Vital signs: Vital Signs Temp 97.4 F L 12/18/23 09:14 Pulse 71 12/18/23 12:06 Resp 18 12/18/23 12:06 BP 113/74 12/18/23 12:06 Pulse Ox 90 L 12/18/23 12:06 FiO2 Intake & Output 12/17/23 12/18/23 12/18/23 18:59 06:59 18:59 Intake Total 210 94.598 768 Output Total 300 500 450 Balance -90 -405.402 318 Intake: IV 100 Intake, IV Titration 94.598 Amount Heparin Sod,Pork in 0.45% 94.598 NaCl 25,000 unit In 0.45 % NaCl 1 250ml.bag @ 9. 569 UNITS/KG/HR 10 mls/hr IV .Q24H [facility] Rx#: [id number] Oral 110 768 Output: Urine 300 500 450 Other: Voiding Method Toilet Urinal Urinal - Labs CBC & Chem 7: 12/18/23 08:20 12/18/23 08:20 Labs: Abnormal Lab Results - Last 24 Hours (Table) 12/17/23 12/18/23 12/18/23 Range/Units 19:11 00:01 06:01 RDW (11.5-15.5) % Plt Count (150-450) k/uL APTT 32.7 H 125.7 H* (22.0-30.0) sec Chloride (98-107) mmol/L Carbon Dioxide (22-30) mmol/L BUN (9-20) mg/dL Creatinine (0.66-1.25) mg/dL Glucose (74-99) mg/dL POC Glucose (mg/dL) 59 L (70-110) mg/dL Total Protein (6.3-8.2) g/dL 12/18/23 12/18/23 12/18/23 Range/Units 06:20 08:20 08:20 RDW 15.6 H (11.5-15.5) % Plt Count 119 L (150-450) k/uL APTT (22.0-30.0) sec Chloride 114 H (98-107) mmol/L Carbon Dioxide 17 L (22-30) mmol/L BUN 60 H (9-20) mg/dL Creatinine 3.10 H (0.66-1.25) mg/dL Glucose 117 H (74-99) mg/dL POC Glucose (mg/dL) 64 L (70-110) mg/dL Total Protein 5.8 L (6.3-8.2) g/dL 12/18/23 Range/Units 08:20 RDW (11.5-15.5) % Plt Count (150-450) k/uL APTT 64.0 H (22.0-30.0) sec Chloride (98-107) mmol/L Carbon Dioxide (22-30) mmol/L BUN (9-20) mg/dL Creatinine (0.66-1.25) mg/dL Glucose (74-99) mg/dL POC Glucose (mg/dL) (70-110) mg/dL Total Protein (6.3-8.2) g/dL
--- NOTE | 2023-12-18 14:45 | US ---
EXAMINATION TYPE: US venous doppler duplex LE DATE OF EXAM: 12/18/2023 9:49 AM COMPARISON: US 2018 CLINICAL INDICATION: Male, 53 years old with history of ? PE; Patient on blood thinners SIDE PERFORMED: Bilateral TECHNIQUE: The lower extremity deep venous system is examined utilizing real time linear array sonog lloyd with graded compression, doppler sonography and color-flow sonography. Ssrs Report Developer notes: Exam done portable VESSELS IMAGED: Common Femoral Vein Deep Femoral Vein Greater Saphenous Vein * Femoral Vein Popliteal Vein Small Saphenous Vein * Proximal Calf Veins (* superficial vessels) Right Leg: Appears negative for DVT Left Leg: Appears negative for DVT IMPRESSION: No evidence for DVT within the bilateral lower extremities imaged from the groin to the upper calves.
[2023-12-18] MEDS: APIXABAN 2.5 MG TABLET PO SCH (14:46)
[2023-12-18 16:17] LABS: Glucose,Whole Blood 114 mg/dL (70-110)
[2023-12-18 19:50] LABS: Glucose,Whole Blood 133 mg/dL (70-110)
[2023-12-19 06:20] LABS: Glucose,Whole Blood 41 mg/dL (70-110)
[2023-12-19 06:37] LABS: Glucose,Whole Blood 75 mg/dL (70-110)
[2023-12-19 09:46] VITALS: BP 108/67; PULSE 84; RESP 16; TEMP 97.4
--- NOTE | 2023-12-19 10:00 | P.PN ---
Subjective Patient is seen in follow-up for renal transplant management and chronic kidney disease. Renal function stable this admission. Underwent cardiac c atheterization December 17, 2023 with no intervention. Denies chest pain or shortness of breath. No active complaints at this time. Vital signs are stable. General: No acute distress. HEENT: Head exam is unremarkable. On nasal cannula. LUNGS: No audible rhonchi or wheezes. HEART: Rate and Rhythm are regular. ABDOMEN: Obese, nontender. EXTREMITITES: No edema. Objective - Vital Signs Vital signs: Vital Signs Temp 97.4 F L 12/19/23 09:16 Pulse 84 12/19/23 09:16 Resp 16 12/19/23 09:16 BP 108/67 12/19/23 09:16 Pulse Ox 89 L 12/19/23 09:16 FiO2 Intake & Output 12/18/23 12/19/23 12/19/23 18:59 06:59 18:59 Intake Total 1078 550 0 Output Total 950 Balance 128 550 0 Intake: IV 10 Invasive Line 2 10 Oral 1078 540 0 Output: Urine 950 Other: Voiding Method Urinal Urinal # Voids 2 - Labs CBC & Chem 7: 12/18/23 08:20 12/18/23 08:20 Labs: Abnormal Lab Results - Last 24 Hours (Table) 12/18/23 12/18/23 12/19/23 Range/Units 16:16 19:49 06:15 POC Glucose (mg/dL) 114 H 133 H 41 L (70-110) mg/dL Assessment and Plan Plan: Assessment: 1. Chronic kidney disease stage IV with baseline creatinine near 3. Patient follows at [facility]. Etiology is long-term CNI use as well as ATN requiring renal replacement therapy in 2021. UA benign. No hydronephrosis noted on kidney ultrasound. 2. Status post renal transplant in July 2017 at [facility]. 3. Acute coronary syndrome status postcardiac catheterization today with no intervention. VQ scan pending. 4. Metabolic acidosis secondary to chronic kidney disease and IV fluids. On oral bicarb. 5. Diabetes mellitus. 6. Mild hypercalcemia. Likely from vitamin D supplementation and milk intake. Improved. 7. Preserved ejection fraction with severe RV dilation and mild pulmonary hypertension noted on echocardiogram. 8. Mild volume overload. Improved. Plan: Hold losartan for systolic blood pressure less than 115. Maintain home antirejection medications. Follow-up a.m. Prograf level. Level of 10.8 drawn December 17, 2023 not accurate as it was drawn after the medication was given. Will wait for December 17 tacrolimus level to result. Continue to monitor renal function and urine output. Continue to monitor for contrast associated acute kidney injury. Started on Eliquis due to intermediate probability of PE. Patient refused IV contrast dye exposure to undergo CTA.
--- NOTE | 2023-12-19 10:08 | P.DS ---
Providers Date of admission: 12/16/23 11:19 Expected date of discharge: 12/19/23 Attending physician: Tad Jama Consults: 12/16/23 11:19 Consult Physician Urgent Consulting Provider: Jose M Cheng Consult Reason/Comments: ACS Do you want consulting provider notified?: Already Contacted 12/16/23 11:21 Consult Physician Routine Consulting Provider: Chavo Caldwell Consult Reason/Comments: chronic hypoxic resp failure Do you want consulting provider notified?: Yes Consult Physician Routine Consulting Provider: Warren Chavez Consult Reason/Comments: CKD Do you want consulting provider notified?: Yes Primary care physician: [facility] Course: Discharge diagnoses; Chest pain and elevated troponins, rule out non-ST elevation IN syncopal episode History of COVID-pneumonia and postinflammatory pulmonary fibrosis Chronic hypoxemic respiratory failure Acute on chronic kidney disease History of previous renal transplant, maintained on a combination of Prograf, CellCept, and prednisone outpatient History of end-stage renal disease, requiring hemodialysis in the past History of coronary artery disease, with previous cardiac catheterization showing a 40% nonocclusive lesion in the circumflex coronary artery hyperlipidemia hypertension History of diabetes mellitus, insulin-dependent History of hypothyroidism Obesity, with a BMI of 36.5 kg/m Hospital course; Pleasant 53-year-old patient who follows with Dr. Ballard. Patient is accompanied by his in the ER. In 2016 patient underwent renal transplant at [facility]. Follows up with the transplant physician there. Does not remember the name. Patient previously had cardiac catheterization, in 2016 was told has had about 40 to 50% lesion in distal circumflex. About a month ago patient's dose of losartan was changed. Patient also has 3 L of oxygen at home. From COVID. And has been told he also has long COVID. Patient's baseline creatinine runs around 3.2. Patient for last few days been having chest pressure off and on. Accompanied by some shortness of breath. 2 days ago patient had and the had gone to see an RV show. He also felt some pressure that she made him sit down. When they were walking out she turned around patient had passed out. At that time blood pressure was noted to be low. Patient did not appointment with television equipment operator Dr. Zuleika Cheng. Will send the patient to the ER for further workup. 12/16. Patient seen and examined. Currently laying comfortably in the bed. Patient seen after cardiac cath. Denies any chest pain at this time. Denies any nausea or vomiting 12/17. Patient seen and examined. Lab work done today showed WBC 8.6, hemoglobin 15.5, platelet count 119, sodium 140, potassium 4.1, BUN 60, creatinine 3.1. Denies any chest pain. Complaining of epistaxis this morning. VQ scan done showed intermediate probability for PE.S/p cardiac cath showing no new significant obstructive coronary disease.Ultrasound of lower extremities ordered. 12/18. Patient seen and examined. Ultrasound lower extremity negative for DVT. Cardiology stopped heparin and started patient on Eliquis 2.5 twice daily. Outpatient follow-up with cardiology, pulmonary and nephrology. Being discharged stable condition PHYSICAL EXAMINATION: GENERAL: The patient is alert and oriented x3, not in any acute distress. Well developed, well nourished. HEENT: Pupils are round and equally reacting to light. EOMI. No scleral icterus. No conjunctival pallor. Normocephalic, atraumatic. No pharyngeal erythema. No thyromegaly. CARDIOVASCULAR: S1 and S2 present. No murmurs, rubs, or gallops. PULMONARY: Chest is clear to auscultation, no wheezing or crackles. ABDOMEN: Soft, nontender, nondistended, normoactive bowel sounds. No palpable organomegaly. MUSCULOSKELETAL: No joint swelling or deformity. EXTREMITIES: No cyanosis, clubbing, or pedal edema. NEUROLOGICAL: Gross neurological examination did not reveal any focal deficits. SKIN: No rashes. Dictation was produced using e[employer] dictation software. please excuse any grammatical, word or spelling errors. Patient Condition at Discharge: Stable Plan - Discharge Summary Discharge Rx Participant: No New Discharge Prescriptions: New Apixaban [Eliquis] 2.5 mg PO BID #60 tab Sodium Bicarbonate Tab 650 mg PO BID #30 tab Continue Levothyroxine Sodium [Synthroid] 100 mcg PO HS Acetaminophen [Tylenol] 1,000 mg PO Q6H PRN PRN Reason: Fever And/ Or Pain mycophenolate mofetiL [Cellcept] 250 mg PO BID predniSONE 5 mg PO DAILY Montelukast [Singulair] 10 mg PO HS Losartan [Cozaar] 50 mg PO HS Cetirizine HCl [Zyrtec] 10 mg PO DAILY Rosuvastatin Calcium [Crestor] 40 mg PO HS Isosorbide Mononitrate ER [Imdur] 30 mg PO DIRECTED Nitroglycerin Sl Tabs [Nitrostat] 0.4 mg SL Q5M PRN PRN Reason: Chest Pain Sertraline [Zoloft] 25 mg PO HS Semaglutide [Rybelsus] 7 mg PO DAILY Insulin Glargine,Hum.rec.anlog [Lantus Solostar Pen] 50 units SQ HS Tacrolimus [Prograf] 1 mg PO BID Amoxicillin 500mg Tab 2,000 mg PO ONCE Discharge Medication List Levothyroxine Sodium [Synthroid] 100 mcg PO HS 09/20/16 [History] Acetaminophen [Tylenol] 1,000 mg PO Q6H PRN 10/30/17 [History] mycophenolate mofetiL [Cellcept] 250 mg PO BID 10/30/17 [History] predniSONE 5 mg PO DAILY 10/30/17 [History] Cetirizine HCl [Zyrtec] 10 mg PO DAILY 12/14/23 [History] Insulin Glargine,Hum.rec.anlog [Lantus Solostar Pen] 50 units SQ HS 12/14/23 [History] Losartan [Cozaar] 50 mg PO HS 12/14/23 [History] Montelukast [Singulair] 10 mg PO HS 12/14/23 [History] Rosuvastatin Calcium [Crestor] 40 mg PO HS 12/14/23 [History] Semaglutide [Rybelsus] 7 mg PO DAILY 12/14/23 [History] Sertraline [Zoloft] 25 mg PO HS 12/14/23 [History] Tacrolimus [Prograf] 1 mg PO BID 12/14/23 [History] Amoxicillin 500mg Tab 2,000 mg PO ONCE 12/16/23 [History] Isosorbide Mononitrate ER [Imdur] 30 mg PO DIRECTED 12/16/23 [History] Nitroglycerin Sl Tabs [Nitrostat] 0.4 mg SL Q5M PRN 12/16/23 [History] Apixaban [Eliquis] 2.5 mg PO BID #60 tab 12/19/23 [Rx] Sodium Bicarbonate Tab 650 mg PO BID #30 tab 12/19/23 [Rx] Follow up Appointment(s)/Referral(s): Og Ballard MD [Primary Care Provider] - 1-2 days Chavo Caldwell DO [Doctor of Osteopathic Medicine] - 1 Week Jose M Cheng MD [STAFF PHYSICIAN] - 1 Week Discharge Disposition: HOME SELF-CARE
[2023-12-19 11:23] LABS: African American GFR (CKD) 25 (>60 ml/min/1.73 sqM); Anion Gap 12 mmol/L; Blood Urea Nitrogen 59 mg/dL (9-20); Calcium 10.1 mg/dL (8.4-10.2); Carbon Dioxide 19 mmol/L (22-30); Chloride 110 mmol/L (98-107); Glucose 134 mg/dL (74-99); Non-African American GFR(CKD) 22 (>60 ml/min/1.73 sqM); Potassium 3.9 mmol/L (3.5-5.1); Sodium 141 mmol/L (137-145)
--- NOTE | 2023-12-19 11:35 | P.PN ---
Subjective Progress Note Date: 12/19/23 Principal diagnosis: Shortness of breath and chest pain. I am seeing this patient, a 53-year-old white male, in new consultation today 12/17/2023 after he presented with complaints of intermittent chest pressure/substernal pain over the last week. He had associated acute on chronic shortness of breath. He is chronically maintained on 3 L/min nasal cannula while at home. He has had a history of COVID-pneumonia and post-inflammatory pulmonary fibrosis. Patient does follow in the pulmonary office with Dr. Caldwell. His primary care provider is a nurse practitioner, Jaye Watson, out of Dr. Ballard office. Patient also has other medical comorbidities including nonocclusive coronary artery disease, hypertension, hyperlipidemia, renal failure requiring hemodialysis for 12 years followed by a kidney transplant, hypothyroidism. Of note, the patient did have a ER visit 3 days ago for syncopal episode. The patient may have left AGAINST MEDICAL ADVICE, however, patient denies this.. He returns to the emergency room yesterday morning after being directed by his coo. He reports substernal chest pressure that has been intermittent over the last week. Chest pain typically lasts 5 to 30 minutes. It is nonradiating. It happens without predilection to activity or at rest. No associated nausea or diaphoresis. Serial troponins are elevated and trending up, most recent result 1. EKG on arrival shows normal sinus rhythm with T wave inversion in the precordial leads and minimal ST depression in III, aVF. He was started on a heparin infusion per protocol. Denies any further episodes of syncope. Denies heart palpitations. Cardiology was consulted. He does become short of breath with these events. He denies any infectious symptoms such as change in his chronic cough, sputum production, fevers, myalgias. Echocardiogram done on arrival shows a preserved left ventricular ejection fraction estimated at 60 to 65%, LVH, and there is severe RV dilation w ith mild pulmonary hypertension. He is currently sitting up in bed, on 2 L/min nasal cannula, in no acute distress. Chest x-ray on arrival mild cardiomegaly, possible mild pulmonary vascular congestion is difficult to exclude with chronic changes. There is a small left pleural effusion. Patient denies any orthopnea, PND, or lower extremity swelling. CBC on arrival unremarkable. No leukocytosi s. BMP on arrival: Sodium 142, potassium 5.1, chloride 116, serum bicarb 15, BUN 60, creatinine 3.29, glucose 124. Patient is maintained on a combination of Prograf, CellCept, and prednisone 5 mg daily to prevent renal rejection. Baseline creatinine appears to be around 2.5-2.7. Normal saline is infusing at 75 mL/h. NT proBNP was elevated at 17,500. Vital signs are stable. The patient is seen today December 18, 2023 in follow-up on the selective care unit. He is currently resting comfortably in bed. Awake and alert in no acute distress. Maintaining O2 saturations in the 90s on 4 L/min per nasal cannula. He is continued on a heparin drip. VQ scan was read as intermediate probability for pulmonary embolus. White count 6.6. Hemoglobin 15.1. Platelets 119. Sodium 140. Potassium 4.1. Bicarb 17. BUN 60. Creatinine 3.10. Glucose 117. Progress note dated December 19, 2023. This is a 53-year-old male who is seen today in room 384. The patient was admitted with a diagnosis of chest pain, rule out acute chest syndrome. His catheterization, revealed no obstructive disease, and, the patient had a ventilation/perfusion scan that was indeterminate. There was an area of mismat ch noted on the VQ scan. Dopplers of the lower extremities were negative. He continues on 3 L of oxygen. He was on IV heparin yesterday. He has been transitioned to Eliquis, today, at 2.5 mg twice a day. He has an appointment to see me in the office this next . Unfortunately, I do not believe that we have proven pulmonary embolism, nor have we ruled that out. We should treat him for about 3 months, on the Eliquis. Current laboratory data includes a sodium 141, potassium 3.9, chlorides 110, CO2 19, BUN 59, creatinine 3.12. Glucose is 134. Calcium is 10.1. Objective - Vital Signs Vital signs: Vital Signs Temp 97.4 F L 12/19/23 09:16 Pulse 84 12/19/23 09:16 Resp 16 12/19/23 09:16 BP 108/67 12/19/23 09:16 Pulse Ox 89 L 12/19/23 09:16 FiO2 Intake & Output 12/18/23 12/19/23 12/19/23 18:59 06:59 18:59 Intake Total 1078 550 0 Output Total 950 Balance 128 550 0 Intake: IV 10 Invasive Line 2 10 Oral 1078 540 0 Output: Urine 950 Other: Voiding Method Urinal Urinal # Voids 2 - Exam No acute distress, oriented 3. Currently on 3 L of oxygen. No conversational dyspnea or use of accessory muscles. HEENT examination is grossly unremarkable. Mucous membranes are moist. No oral lesions. Neck supple. Full range of motion. No adenopathy thyromegaly or neck vein di stention. Cardiovascular examination reveals regular rhythm rate. S1-S2 normal. No S3 or S4. No discernible murmur noted. Heart rate 84 bpm. Lungs reveal mild scattered wheezes. No rhonchi or crackles. Breath sounds are equal. 3 L saturation is 90 to 91%. Abdomen soft bowel sounds are heard. No masses or tenderness. Extremities are intact. No cyanosis clubbing or edema. Skin is without rash or lesion. Neurologic examination is brief but nonfocal. - Labs CBC & Chem 7: 12/18/23 08:20 12/19/23 10:26 Labs: Abnormal Lab Results - Last 24 Hours (Table) 12/18/23 12/18/23 12/19/23 Range/Units 16:16 19:49 06:15 Chloride (98-107) mmol/L Carbon Dioxide (22-30) mmol/L BUN (9-20) mg/dL Creatinine (0.66-1.25) mg/dL Glucose (74-99) mg/dL POC Glucose (mg/dL) 114 H 133 H 41 L (70-110) mg/dL 12/19/23 Range/Units 10:26 Chloride 110 H (98-107) mmol/L Carbon Dioxide 19 L (22-30) mmol/L BUN 59 H (9-20) mg/dL Creatinine 3.12 H (0.66-1.25) mg/dL Glucose 134 H (74-99) mg/dL POC Glucose (mg/dL) (70-110) mg/dL Assessment and Plan Assessment: Chest pain and elevated troponins, rule out non-ST elevation MA. Cardiac catheterization revealed no new significant obstructive disease noted in the coronary arteries. Recent syncopal episode. Possible pulmonary embolism, based on his indeterminate ventilation/perfusion lung scan. History of COVID-pneumonia and postinflammatory pulmonary fibrosis. Chronic hypoxemic respiratory failure, secondary to above, normally maintained on 3 L/min nasal cannula. Acute on chronic kidney disease. History of previous renal transplant, maintained on a combination of Prograf, CellCept, and prednisone. History of end-stage renal disease, requiring hemodialysis. History of coronary artery disease, with previous cardiac catheterization showing a 40% nonocclusive lesion in the circumflex coronary artery. History of hyperlipidemia. History of hypertension. History of diabetes mellitus, insulin-dependent. History of hypothyroidism. Obesity, with a BMI of 36.5 kg/m. Plan: Plan dated December 19, 2023. The patient was on IV heparin yesterday. Dopplers of the lower extremities were negative. The patient's ventilation/perfusion lung scan, was indeterminate, for pulmonary embolism. I told the patient today that we have not proven pulmonary embolism, nor have we ruled it out. The patient will stay on Eliquis for 3 months. Additional recommendations and suggestions are forthcoming. Labs, x- rays, and medications are reviewed. The patient's prognosis is guarded. We well see him in the office, later next week. Time with Patient: Less than 30
--- NOTE | 2023-12-19 14:08 | P.PN ---
Subjective Progress Note Date: 12/19/23 History of present illness: This is a 53-year-old male patient of Dr. Zuleika Cheng with past medical history of mild nonobstructive coronary artery disease on cardiac catheterization 2014, end-stage renal disease status post kidney transplant at [facility], hypertension, dyslipidemia. Patient presented for an appointment with Dr. Zuleika Cheng on 12/16/2023. Patient suffers from COVID in 2020 and developed respi ratory failure after that currently on home O2 because of pulmonary fibrosis. He had been having on and off episodes of chest pain for the past 4 weeks. EKG performed in the office revealed T wave inversions in the inferior lateral leads and right ventricular hypertrophy. Due to patient's symptoms and EKG changes, patient was directly sent to the emergency center to be admitted to the hospital started on IV heparin and consult with nephrology with plan for cardiac catheterization. Cardiac catheterization was performed this morning which revealed no obstructive coronary artery disease. Stat D-dimer was then ordered which came back elevated at 1.56 and a stat VQ scan ordered. Laboratory studies today revealed INR 1.2, platelet count 119. BUN 66 creatinine 3.29, sodium 143, potassium 4.4, CO2 15. Troponins were 0.631, 0.849, 1.01. Echocardiogram reveals EF of 60 to 65%. Hyperdynamic LV systolic function. Severe RV dilated decreased RV systolic function. Mild pulmonary hypertension. Poorly visualized intracardiac valves. 12/17 VQ scan reveals intermediate risk. Duplex ordered of the bilateral lower extremities and report remains pending. Blood pressure 113/74, heart rate 71, pulse ox 90 to 92% on 4 L nasal cannula. Repeat blood work reveals WBC 6.6, hemoglobin 15.1, platelet count 119. BUN 60 creatinine 3.1. Patient is also followed by pulmonary medicine and nephrology. 12/18 Venous Doppler of the lower extremities negative for DVT. Yesterday, we started patient on Eliquis and discontinued heparin drip. He denies having any chest pain or shortness of breath today. Blood pressure 108/67, heart rate 84, pulse ox 89% on 3 L nasal cannula. Repeat blood work reveals sodium 141, potassium 3.9, BUN 59, creatinine 3.12. Physical examination: Gen: This is a 53-year-old male in no acute distress. VS: reviewed HEENT: Head is atraumatic, normocephalic. Pupils equal, round. Sclerae is anicteric. NECK: Supple. No JVD. LUNGS: Clear to auscultation. No wheezes or rhonchi. No intercostal retractions. HEART: Regular rate and rhythm. No murmur. ABDOMEN: Soft No tenderness. Right groin no hematoma. EXTREMITIES: No pedal edema. No calf tenderness. NEUROLOGICAL: Patient is awake, alert and oriented x3. Assessment: Chest pain, abnormal EKG, elevated troponins of unclear etiology Elevated D-dimer, rule out pulmonary embolism Hypertension Hyperlipidemia End-stage renal disease status post transplant Chronic kidney disease stage IV Metabolic acidosis Diabetes mellitus type 2 Thrombocytopenia Plan: Continue current cardiac medications Continue patient on Eliquis 2.5 mg twice daily Patient is cleared for discharge cardiology and may follow-up with Dr. Cheng in 1 to 2 weeks. Nurse practitioner note has been reviewed, I agree with documented findings and plan of care. Patient was seen and examined. Objective - Vital Signs Vital signs: Vital Signs Temp 97.4 F L 12/19/23 09:16 Pulse 84 12/19/23 09:16 Resp 16 12/19/23 09:16 BP 108/67 12/19/23 09:16 Pulse Ox 89 L 12/19/23 09:16 FiO2 Intake & Output 12/18/23 12/19/23 12/19/23 18:59 06:59 18:59 Intake Total 1078 550 0 Output Total 950 Balance 128 550 0 Intake: IV 10 Invasive Line 2 10 Oral 1078 540 0 Output: Urine 950 Other: Voiding Method Urinal Urinal # Voids 2 - Labs CBC & Chem 7: 12/18/23 08:20 12/19/23 10:26 Labs: Abnormal Lab Results - Last 24 Hours (Table) 12/18/23 12/18/23 12/19/23 Range/Units 16:16 19:49 06:15 POC Glucose (mg/dL) 114 H 133 H 41 L (70-110) mg/dL
--- NOTE | 2023-12-23 12:35 | CDI ---
Documentation Clarification Form Date: 12/23/2023 12:12:31 PM From: Georgette Allison Admit Date: 12/16/2023 11:19:00 AM Patient Name: Abdoul Soliz Visit Number: [id number] Discharge Date: 12/19/2023 11:38:00 AM ATTENTION: The Clinical Documentation Specialists (CDI) and [facility] Coding Staff appreciate your assistance in clarifying documentation. Please respond to the clarification below the line at the bottom and electronically sign. The CDI & [facility] Coding staff will review the response and follow-up if needed. Please note: Queries are made part of the Legal Health Record. If you have any questions, please contact the author of this message via ITS. Dr. Stanislav Monahan Conflicting documentation has been found in the medical record. As discharging physician, please provide clarification regarding the following conditions being ruled in or ruled out. Patient was sent over by his PCP for shortness of breath and a heart related condition. Per Dr Rich He has been experiencing chest tightness on and off for over a week. He is on 3L NC chronically since he had COVID. He recently had a syncopal episode. EKG had a slight ST segment depression in III, aVF is too close to T wave inversions throughout the precordial leads. He also had a slight ST segment elevation in aVL and minimal in I. ED physician diagnosed the patient with Acute Coronary syndrome, Chronic Hypoxic Respiratory Failure, CKD, and elevated troponins. Nephrology: acute coronary syndrome - underwent cardiac cath 12/17/23 with no intervention Pulmonology: chest pain and elevated troponins, rule out NSTEMI. Cardiac cath revealed no new significant obstructive disease noted in the coronary arteries Cardiology: chest pain, abnormal EKG, elevated trops of unclear etiology Per the Discharge Summary: the patient has chest pain and elevated troponins, rule out non-ST elevation DC Clinical Indicators: Dopplers of the lower extremities were negative. The patients ventilation/perfusion lung scan was indeterminate for pulmonary embolism. It was suggested per Dr Caldwell to treat the patient with 3 months of Eliquis due to PE not being proven, but not being ruled out. Trops 12/15: 0.631, 0.849, 1.010 Treatment: initiated on IV heparin Please rule in or rule out the following diagnosis most appropriate: [ ] Elevated troponins due to [ ] NSTEMI POA [ x] NSTEMI type 2 secondary to Pulmonary Embolism [ ] NSTEMI ruled out [ ] Other (please specify) [ ] Unable to determine MTDD
== END 2023-12-19 11:38 | disposition home or self-care (01) | DRG 175 ==
LOC: EC 09:10 → SUPCPDRO 09:10 → 3SCARD 11:19
PROVIDERS: ADMIT Hospitalist; ATTEND Hospitalist
PROC: 05HF33Z Insertion of Infusion Device into Left Cephalic Vein, Percutaneous Approach (ICD-10-PCS; principal; 2023-12-17 07:30)
PROC: B2111ZZ Fluoroscopy of Multiple Coronary Arteries using Low Osmolar Contrast (ICD-10-PCS; principal; 2023-12-17 07:30)
PROC: 4A023N7 Measurement of Cardiac Sampling and Pressure, Left Heart, Percutaneous Approach (ICD-10-PCS; principal; 2023-12-17 07:30)
DX: I26.99 Other pulmonary embolism without acute cor pulmonale (principal); I21.A1 Myocardial infarction type 2; N17.0 Acute kidney failure with tubular necrosis; E87.20 Acidosis, unspecified; J96.11 Chronic respiratory failure with hypoxia; Z94.0 Kidney transplant status; N18.4 Chronic kidney disease, stage 4 (severe); I25.110 Atherosclerotic heart disease of native coronary artery with unstable angina pectoris; J84.10 Pulmonary fibrosis, unspecified; U09.9 Post COVID-19 condition, unspecified; E78.5 Hyperlipidemia, unspecified; E03.9 Hypothyroidism, unspecified; Z68.36 Body mass index [BMI] 36.0-36.9, adult; E83.52 Hypercalcemia; I27.20 Pulmonary hypertension, unspecified; R04.0 Epistaxis; I45.10 Unspecified right bundle-branch block; Z79.4 Long term (current) use of insulin; R79.89 Other specified abnormal findings of blood chemistry; E66.9 Obesity, unspecified; R31.9 Hematuria, unspecified; F32.A Depression, unspecified; E87.70 Fluid overload, unspecified; D69.6 Thrombocytopenia, unspecified; E11.22 Type 2 diabetes mellitus with diabetic chronic kidney disease; J44.9 Chronic obstructive pulmonary disease, unspecified; I12.9 Hypertensive chronic kidney disease with stage 1 through stage 4 chronic kidney disease, or unspecified chronic kidney disease; Z87.01 Personal history of pneumonia (recurrent); Z79.899 Other long term (current) drug therapy; Z99.81 Dependence on supplemental oxygen; Z87.891 Personal history of nicotine dependence; Z79.890 Hormone replacement therapy; Z79.624 Long term (current) use of inhibitors of nucleotide synthesis; Z79.52 Long term (current) use of systemic steroids
CPT/HCPCS: 36410; 36415; 70450; 71046; 76770; 76937; 78582; 80048; 80053; 80197; 81001; 83690; 83735; 83880; 84484; 85025; 85379; 85610; 85730; 93005; 93306; 93458; 93970; 94760; 96374; 96375; 99291

== ENCOUNTER 2024-03-31 11:19 | Inpatient (IN) | payer BC, MEDICARE ==
--- NOTE | 2024-03-31 12:18 | ED ---
General Adult HPI - General Chief complaint: Skin/Abscess/Foreign Body Stated complaint: Abd Pain Time Seen by Provider: 03/31/24 11:39 Source: patient Mode of arrival: wheelchair Limitations: no limitations - History of Present Illness Initial comments: Dictation was produced using [employer] dictation software. please excuse any grammatical, word or spelling errors. Chief Complaint: 53-year-old male with history of kidney transplant presents emergency department with fever and right lower quadrant plain History of Present Illness: Patient is a 53-year-old male he has past medical history of CAD kidney transplant performed several years ago at [facility] in [place]. Patient on multiple immunosuppressive medications. States that he is here today for several hours of right lower quadrant abdominal pain. Patient transplant working to some degree. He does not get dialysis. States that he feels a little febrile. Denies any nausea. No vomiting. No history of appendectomy. The ROS documented in this emergency department record has been reviewed and confirmed by me. Those systems with pertinent positive or negative responses have been documented in the HPI. All other systems are other negative and/or noncontributory. - Related Data Home Medications Medication Instructions Recorded Confirmed Levothyroxine Sodium [Synthroid] 100 mcg PO DAILY 09/20/16 03/31/24 Acetaminophen [Tylenol] 1,000 mg PO Q6H PRN 10/30/17 03/31/24 mycophenolate mofetiL [Cellcept] 250 mg PO BID 10/30/17 03/31/24 predniSONE 5 mg PO DAILY 10/30/17 03/31/24 Insulin Glargine,Hum.rec.anlog 1 dose SQ DIRECTED PRN 12/14/23 03/31/24 [Lantus Solostar Pen] Losartan [Cozaar] 50 mg PO HS 12/14/23 03/31/24 Montelukast [Singulair] 10 mg PO HS 12/14/23 03/31/24 Rosuvastatin Calcium [Crestor] 40 mg PO HS 12/14/23 03/31/24 Semaglutide [Rybelsus] 7 mg PO DAILY 12/14/23 03/31/24 Sertraline [Zoloft] 25 mg PO HS 12/14/23 03/31/24 Tacrolimus [Prograf] 1 mg PO DAILY 12/14/23 03/31/24 Nitroglycerin Sl Tabs [Nitrostat] 0.4 mg SL Q5M PRN 12/16/23 03/31/24 Cyanocobalamin [Vitamin B-12] 500 mcg PO DAILY 03/31/24 03/31/24 INSULIN ASPART (NovoLOG) [NovoLOG See Protocol SQ ACHS PRN 03/31/24 03/31/24 (formulary)] Sildenafil Citrate [Viagra] 100 mg PO DAILY PRN 03/31/24 03/31/24 Sodium Bicarbonate Tab 650 mg PO TID 03/31/24 03/31/24 Tacrolimus [Prograf] 0.5 mg PO HS 03/31/24 03/31/24 Previous Rx's Medication Instructions Recorded Apixaban [Eliquis] 2.5 mg PO BID #60 tab 12/19/23 Allergies Allergy/AdvReac Type Severity Reaction Status Date / Time grapefruit Allergy Rash/Hives Verified 03/31/24 13:09 shellfish derived [Shellfish] Allergy Swelling Verified 03/31/24 13:09 Review of Systems ROS Statement: Those systems with pertinent positive or pertinent negative responses have been documented in the HPI. ROS Other: All systems not noted in ROS Statement are negative. Past Medical History Past Medical History: Coronary Artery Disease (CAD), Renal Disease, Thyroid Disorder Additional Past Medical History / Comment(s): Renal failure post-kidney transplantation, previous history of dialysis for a total of 12 years followed by kidney transplantation, hypothyroidism, chronic stage III kidney failure post transplantation, nonocclusive coronary artery disease and the patient a cardiac catheterization on 09/24/2016 that showed 40-50% lesion in the distal cir cumflex otherwise the rest of the coronary arteries were all within normal limits. History of Any Multi-Drug Resistant Organisms: None Reported Past Surgical History: Heart Catheterization, Orthopedic Surgery Additional Past Surgical History / Comment(s): FISTULA/GRAFT RT ARM, kidney transplant in July of 2017, Left hip Past Anesthesia/Blood Transfusion Reactions: No Reported Reaction Past Psychological History: No Psychological Hx Reported Smoking Status: Former smoker Past Alcohol Use History: None Reported Past Drug Use History: None Reported - Past Family History Mother Family Medical History: Cancer Father Family Medical History: Myocardial Infarction ([place]) Additional Family Medical History / Comment(s): AT AGE 46 General Exam - General Exam Comments Initial Comments: PHYSICAL EXAM: General Impression: Alert and oriented x3, not in acute distress HEENT: Normocephalic atraumatic, extra-ocular movements intact, pupils equal and reactive to light bilaterally, mucous membranes moist. Cardiovascular: Heart regular rate and rhythm Chest: Able to complete full sentences, no retractions, no tachypnea Abdomen: abdomen soft, pain in McBurney's point, non-distended, no organomegaly Musculoskeletal: Pulses present and equal in all extremities, no peripheral edema Motor: no focal deficits noted Neurological: CN II-XII grossly intact, no focal motor or sensory deficits noted Skin: Intact with no visualized rashes Psych: Normal affect and mood Limitations: no limitations Course Vital Signs 03/31/24 03/31/24 11:35 11:50 Temperature 97.9 F Pulse Rate 75 73 Respiratory 16 20 Rate Blood Pressure 84/57 100/60 O2 Sat by Pulse 93 L Oximetry EKG Findings - EKG Comments: EKG Findings:: My EKG interpretation: Ventricular rate 77, sinus rhythm,. 160, QRS 108, QTc 399. No MT prolongation, no QTC prolongation, no ST or T-wave changes noted. EKG compared to December 18, 2023 showing no changes. Overall, this EKG is unremarkable Medical Decision Making - Medical Decision Making Was pt. sent in by a medical professional or institution (, PA, [employer], urgent care, hospital, or correction...) When possible be specific @ -No Did you speak to anyone other than the patient for history (EMS, parent, family, police, friend...)? What history was obtained from this source @ -Some history obtained from at the bedside states that patient has history of diverticulitis Did you review nursing and triage notes (agree or disagree)? Why? @ -I reviewed and agree with nursing and triage notes Were old charts reviewed (outside hosp., previous admission, EMS record, old EKG, old radiological studies, urgent care reports/EKG's, correction records)? Report findings @ -No old charts were reviewed Differential Diagnosis (chest pain, altered mental status, abdominal pain women, abdominal pain men, vaginal bleeding, musculoskeletal, weakness, fever, dyspnea, syncope, headache, dizziness, GI bleed, back pain, seizure, CVA, palpatations, mental health)? @ -Differential Abdominal Pain Men: Appendicitis, cholecystitis, diverticulosis, ischemic bowel, pancreatitis, hepatitis, UTI, gastroenteritis, AAA, incarcerated hernia, bowel obstruction, constipation, inflammatory bowel, hepatitis, peptic ulcer disease, splenic infarction, perforated viscus, testicular torsion, this is not meant to be an all-inclusive list EKG interpreted by me (3pts min.). @ -See above X-rays interpreted by me (1pt min.). @ -None done CT interpreted by me (1pt min.). @ -CT scan of the abdomen pelvis shows acute diverticulitis at the junction of the descending and sigmoid colon. No complicating factors noted. Possible ileus of the small bowel U/S interpreted by me (1pt. min.). @ -None done What testing was considered but not performed or refused? (CT, X-rays, U/S, labs)? Why? @ -None What meds were considered but not given or refused? Why? @ -None Was smoking cessation discussed for >3mins.? @ -No Were there social determinants of health that impacted care today? How? (Homelessness, low income, unemployed, alcoholism, drug addiction, transportation, low edu. Level, literacy, decrease access to med. care, usp, rehab)? @ -No Was there de-escalation of care discussed even if they declined (Discuss DNR or withdrawal of care, Hospice)? DNR status @ -No What co-morbidities impacted this encounter? (DM, HTN, Smoking, COPD, CAD, Cancer, CVA, ARF, Chemo, Hep., AIDS, mental health diagnosis, sleep apnea, morbid obesity)? @ -None Was patient admitted / discharged? Hospital course, mention meds given and route, prescriptions, significant lab abnormalities, going to OR and other pertinent info. @ -53-year-old male presents to the emergency department for acute onset abdominal pain. He has a history of diverticulitis. Patient is immunosuppressed taking multiple immunosuppressive medications for kidney transplant. Vital signs upon arrival shows initial blood pressure of 8457. Patient given IV fluids blood pressure 100/60. Patient states that his blood pressure is usually a little on the low side. Laboratory evaluation obtained. Leukocytosis 12.3. Hematocrit of 59.4. Metabolic panel shows acidosis with bicarb of 13. Creatinine of 3.04 with BUN of 44. Magnesium level 1.5. CT shows diverticulitis and ileus. Patient has history of renal suppression. Given his risk factors patient be admitted to the hospital for inpatient management of diverticulitis. Did you discuss the management of the patient with other professionals (professionals i.e. , PA, [employer], lab, RT, psych nurse, sexual assault social worker, hoop maker helper machine, teacher, risk control officer, keycase assembler)? Give summary @ -No Was critical care preformed (if so, how long)? @ -No Undiagnosed new problem with uncertain prognosis? @ -No Drug Therapy requiring intensive monitoring for toxicity (Heparin, Nitro, Insulin, Cardizem)? @ -No Were any procedures done? @ -No Diagnosis/symptom? Acute, or Chronic, or Acute on Chronic? Uncomplicated (without systemic symptoms) or Complicated (systemic symptoms)? @ -Diverticulitis Side effects of treatment? @ -No Exacerbation, Progression, or Severe Exacerbation? @ -No Poses a threat to life or bodily function? How? (Chest pain, [place], [place], pneumonia, PE, COPD, DKA, ARF, appy, cholecystitis, CVA, Diverticulitis, Homicidal, Suicidal, threat to staff... and all critical care pts) @ -yes - Lab Data Result diagrams: 03/31/24 11:57 03/31/24 11:57 Lab Results 03/31/24 03/31/24 03/31/24 Range/Units 11:57 11:57 11:57 WBC 12.3 H (3.8-10.6) k/uL RBC 5.95 H (4.30-5.90) m/uL Hgb 17.4 (13.0-17.5) gm/dL Hct 59.4 H* (39.0-53.0) % MCV 99.8 (80.0-100.0) fL MCH 29.2 (25.0-35.0) pg MCHC 29.2 L (31.0-37.0) g/dL RDW 15.1 (11.5-15.5) % Plt Count 124 L (150-450) k/uL MPV 10.0 Neutrophils % 85 % Lymphocytes % 4 % Monocytes % 8 % Eosinophils % 1 % Basophils % 1 % Neutrophils # 10.4 H (1.3-7.7) k/uL Lymphocytes # 0.5 L (1.0-4.8) k/uL Monocytes # 1.0 (0-1.0) k/uL Eosinophils # 0.2 (0-0.7) k/uL Basophils # 0.1 (0-0.2) k/uL Hypochromasia Marked Macrocytosis Slight Sodium 138 (137-145) mmol/L Potassium 5.6 H (3.5-5.1) mmol/L Chloride 113 H (98-107) mmol/L Carbon Dioxide 13 L (22-30) mmol/L Anion Gap 12 mmol/L BUN 44 H (9-20) mg/dL Creatinine 3.04 H (0.66-1.25) mg/dL Est GFR (CKD-EPI)AfAm 26 (>60 ml/min/1.73 sqM) Est GFR (CKD-EPI)NonAf 23 (>60 ml/min/1.73 sqM) Glucose 132 H (74-99) mg/dL Plasma Lactic Acid Lakhwinder 1.2 (0.7-2.0) mmol/L Calcium 11.1 H (8.4-10.2) mg/dL Magnesium 1.5 L (1.6-2.3) mg/dL Total Bilirubin 2.4 H (0.2-1.3) mg/dL AST 35 (17-59) U/L ALT 23 (4-49) U/L Alkaline Phosphatase 130 H (38-126) U/L Total Protein 7.4 (6.3-8.2) g/dL Albumin 4.9 (3.5-5.0) g/dL Disposition Clinical Impression: Diverticulitis Disposition: ADMITTED IP TO THIS [facility] Condition: Fair Referrals: None,Stated [REFERRING] - 1-2 days Decision Time: 13:49
[2024-03-31] MEDS: SODIUM CHLORIDE 0.9% 1,000 ML IV STA (12:19)
[2024-03-31 12:37] LABS: Basophils # (A) 0.1 k/uL (0-0.2); Basophils % (A) 1 %; Eosinophils # (A) 0.2 k/uL (0-0.7); Eosinophils % (A) 1 %; HGB 17.4 gm/dL (13.0-17.5); Hypochromasia Marked; Lymphocytes # (A) 0.5 k/uL (1.0-4.8); Lymphocytes % (A) 4 %; MCH 29.2 pg (25.0-35.0); MCHC 29.2 g/dL (31.0-37.0); MCV 99.8 fL (80.0-100.0); Macrocytosis Slight; Monocytes % (A) 8 %; Neutrophils # (A) 10.4 k/uL (1.3-7.7); Neutrophils % (A) 85 %; Platelet Count 124 k/uL (150-450); RBC 5.95 m/uL (4.30-5.90); RDW 15.1 % (11.5-15.5); WBC 12.3 k/uL (3.8-10.6)
--- NOTE | 2024-03-31 12:49 | CT ---
EXAMINATION TYPE: CT abdomen pelvis wo con DATE OF EXAM: 03/31/2024 COMPARISON: None HISTORY: 53-year-old male RLQ abdominal pain. Hx of renal disease and kidney transplant. CT DLP: 888.7 mGycm. Automated exposure control for dose reduction was used. TECHNIQUE: Contiguous axial scanning of the abdomen and pelvis without IV contrast. Coronal and sagit wilbert reconstructions performed. FINDINGS: Heart upper limits of normal in size with trace anterior basilar pericardial effusion. There is some patchy opacity at the periphery of the left base along with small effusion. Lap band device noted. Mild abdominal and moderate pelvic ascites. Nodular hepatic contour suggesting underlying cirrhosis. Tiny gallstone. No abnormal gallbladder dist ention. Mild generalized anasarca change. Adrenal glands, spleen, and pancreas show no gross abdomen body. No dilated small bowel or free air. Some prominent fluid-filled small bowel loops throughout the left side of the abdomen and lower abdomen. Transplant right lower quadrant kidney noted. Left-sided colonic diverticulosis. There is focal wall thickening and [id number] surrounding in flammatory fat stranding at the junction of the descending and sigmoid colon, axial image 94. Mild circumferential bladder wall thickening may be chronic for the patient. Moderate pelvic ascites. No pelvic lymphadenopathy seen. Bones: Moderate degenerative disc disease lower thoracic spine. IMPRESSION: 1. Exam positive for acute diverticulitis at the junction of the descending and sigmoid colon. Mild t o moderate inflammation. No abscess or free air. 2. The mild abdominal and moderate pelvic free fluid probably relates to fluid overload state given s ome generalized anasarca, cirrhotic morphology of the liver, and patient's right lower quadrant trans plant kidney. 3. Fluid-filled small bowel loops left side of the abdomen as well as the lower abdomen may reflect a mild secondary ileus. 4. Small left pleural effusion; fluid may be communicating with the abdominal space. Some adjacent pa tchy atelectasis versus infiltrate.
[2024-03-31 12:54] LABS: ALT 23 U/L (4-49); AST 35 U/L (17-59); African American GFR (CKD) 26 (>60 ml/min/1.73 sqM); Albumin 4.9 g/dL (3.5-5.0); Alkaline Phosphatase 130 U/L (38-126); Anion Gap 12 mmol/L; Blood Urea Nitrogen 44 mg/dL (9-20); Calcium 11.1 mg/dL (8.4-10.2); Carbon Dioxide 13 mmol/L (22-30); Chloride 113 mmol/L (98-107); Glucose 132 mg/dL (74-99); Magnesium 1.5 mg/dL (1.6-2.3); Non-African American GFR(CKD) 23 (>60 ml/min/1.73 sqM); Potassium 5.6 mmol/L (3.5-5.1); Sodium 138 mmol/L (137-145); Total Bilirubin 2.4 mg/dL (0.2-1.3); Total Protein 7.4 g/dL (6.3-8.2)
[2024-03-31 12:57] LABS: HCT 59.4 % (39.0-53.0)
[2024-03-31] MEDS: MORPHINE SULFATE 4 MG/ML SYRINGE IVP STA (13:33)
[2024-03-31] MEDS ORDERED: NALOXONE 0.4 MG/ML 1 ML VIAL IV PRN (13:46)
[2024-03-31 13:48] LABS: INR 1.3 (<1.2); Partial Thromboplastin Time 26.3 sec (22.0-30.0); Prothrombin Time 13.8 sec (10.0-12.5)
[2024-03-31 15:16] LABS: Glucose,Whole Blood 129 mg/dL (70-110)
[2024-03-31] MEDS: SODIUM CHLORIDE 0.9% 1,000 ML IV SCH (15:24)
[2024-03-31] MEDS: PIPERACILLIN-TAZOBACTAM 3.375 GM in SODIUM CHLORIDE 0.9% 100 ML IVPB SCH (15:25)
[2024-03-31] MEDS ORDERED: NON FORMULARY DRUG (Sildenafil Citrate [Viagra] 100 MG Tablet) PO PRN (16:21)
[2024-03-31] MEDS ORDERED: HYDROcodone/APAP 5-325MG 1 EACH TAB PO PRN (16:24)
--- NOTE | 2024-03-31 16:59 | XR ---
EXAMINATION TYPE: XR chest 1V portable DATE OF EXAM: 03/31/2024 Comparison: 12/16/2023 Clinical History: 53-year-old male CHF Findings: Heart mildly enlarged. Large bore hemodialysis catheter on the right side with tip at the cavoatrial junction. I'm going small left pleural effusion. No breann consolidation. Impression: Ongoing small left pleural effusion. There is mild cardiomegaly but no pulmonary edema.
[2024-03-31 17:18] LABS: Glucose,Whole Blood 151 mg/dL (70-110)
[2024-03-31] MEDS: ACETAMINOPHEN TAB 325 MG TAB PO PRN (17:33)
[2024-03-31] MEDS: APIXABAN 2.5 MG TABLET PO SCH (20:40)
[2024-03-31] MEDS: SERTRALINE 25 MG TAB PO SCH (20:41)
[2024-03-31] MEDS: MONTELUKAST 10 MG TAB PO SCH (20:41)
[2024-03-31] MEDS: ATORVASTATIN 80 MG TAB PO SCH (20:41)
[2024-03-31] MEDS: LOSARTAN 50 MG TAB PO SCH (20:42)
[2024-03-31] MEDS: TACROLIMUS 0.5 MG CAP PO SCH (20:42)
[2024-03-31] MEDS: SODIUM BICARBONATE TAB 650 MG TAB PO SCH (21:22)
[2024-03-31 21:53] LABS: Glucose,Whole Blood 178 mg/dL (70-110)
--- NOTE | 2024-03-31 22:45 | P.CONS ---
History of Present Illness - Reason for Consult Consult date: 03/31/24 Acute diverticulitis Requesting physician: Kortney Castillo - Chief Complaint Abdominal pain x 1 day - History of Present Illness Patient is a 53-year-old male with a past medical history significant for coronary artery disease renal failure post kidney transplant hypothyroidism former smoker presenting to the hospital with the left lower quadrant abdominal pain that apparently started the night before presentation to the hospital patient pain has been mostly sharp about 7 out of 10 without radiation associated nausea but no vomiting and patient did have some diarrhea with the symptoms the patient presented to hospital on arrival to the ER patient was afebrile and no fever have recorded subsequently patient was not tachycardic or hypotensive did have white count of 12.3 with a left shift BUN/creatinine has been mildly elevated liver enzymes are normal patient did have abdominal pelvis CT did shows diverticulitis at the junction of descending and sigmoid colon mild to moderate inflammation no abscess or free air patient was started on Zosyn admitted to the hospital infectious disease was consulted for further management of antibiotic therapy Past Medical History Past Medical History: Coronary Artery Disease (CAD), Renal Disease, Thyroid Disorder Additional Past Medical History / Comment(s): Renal failure post-kidney transplantation, previous history of dialysis for a total of 12 years followed by kidney transplantation, hypothyroidism, chronic stage III kidney failure post transplantation, nonocclusive coronary artery disease and the patient a cardiac catheterization on 09/24/2016 that showed 40-50% lesion in the distal circumflex otherwise the rest of the coronary arteries were all within normal limits. History of Any Multi-Drug Resistant Organisms: None Reported Past Surgical History: Heart Catheterization, Orthopedic Surgery Additional Past Surgical History / Comment(s): FISTULA/GRAFT RT ARM, kidney transplant in July of 2017, Left hip Past Anesthesia/Blood Transfusion Reactions: No Reported Reaction Past Psychological History: No Psychological Hx Reported Smoking Status: Former smoker Past Alcohol Use History: None Reported Past Drug Use History: None Reported - Past Family History Mother Family Medical History: Cancer Father Family Medical History: Myocardial Infarction ([place]) Additional Family Medical History / Comment(s): AT AGE 46 Medications and Allergies Home Medications Medication Instructions Recorded Confirmed Type Levothyroxine Sodium [Synthroid] 100 mcg PO DAILY 09/20/16 03/31/24 History Acetaminophen [Tylenol] 1,000 mg PO Q6H PRN 10/30/17 03/31/24 History mycophenolate mofetiL [Cellcept] 250 mg PO BID 10/30/17 03/31/24 History predniSONE 5 mg PO DAILY 10/30/17 03/31/24 History Insulin Glargine,Hum.rec.anlog 1 dose SQ DIRECTED PRN 12/14/23 03/31/24 History [Lantus Solostar Pen] Losartan [Cozaar] 50 mg PO HS 12/14/23 03/31/24 History Montelukast [Singulair] 10 mg PO HS 12/14/23 03/31/24 History Rosuvastatin Calcium [Crestor] 40 mg PO HS 12/14/23 03/31/24 History Semaglutide [Rybelsus] 7 mg PO DAILY 12/14/23 03/31/24 History Sertraline [Zoloft] 25 mg PO HS 12/14/23 03/31/24 History Tacrolimus [Prograf] 1 mg PO DAILY 12/14/23 03/31/24 History Nitroglycerin Sl Tabs [Nitrostat] 0.4 mg SL Q5M PRN 12/16/23 03/31/24 History Apixaban [Eliquis] 2.5 mg PO BID #60 tab 12/19/23 03/31/24 Rx Cyanocobalamin [Vitamin B-12] 500 mcg PO DAILY 03/31/24 03/31/24 History INSULIN ASPART (NovoLOG) [NovoLOG See Protocol SQ ACHS PRN 03/31/24 03/31/24 History (formulary)] Sildenafil Citrate [Viagra] 100 mg PO DAILY PRN 03/31/24 03/31/24 History Sodium Bicarbonate Tab 650 mg PO TID 03/31/24 03/31/24 History Tacrolimus [Prograf] 0.5 mg PO HS 03/31/24 03/31/24 History Allergies Allergy/AdvReac Type Severity Reaction Status Date / Time grapefruit Allergy Rash/Hives Verified 03/31/24 13:09 shellfish derived [Shellfish] Allergy Swelling Verified 03/31/24 13:09 Physical Exam Vitals: Vital Signs Temp Pulse Resp BP Pulse Ox 03/31/24 14:00 73 23 112/59 03/31/24 13:30 72 16 107/86 03/31/24 11:50 73 20 100/60 03/31/24 11:35 97.9 F 75 16 84/57 93 L Intake and Output 03/31/24 03/31/24 03/31/24 06:59 14:59 22:59 Other: Weight 97.976 kg Results CBC & Chem 7: 03/31/24 11:57 03/31/24 11:57 Labs: Abnormal Lab Results - Last 24 Hours (Table) 03/31/24 03/31/24 03/31/24 Range/Units 11:57 11:57 13:30 WBC 12.3 H (3.8-10.6) k/uL RBC 5.95 H (4.30-5.90) m/uL Hct 59.4 H* (39.0-53.0) % MCHC 29.2 L (31.0-37.0) g/dL Plt Count 124 L (150-450) k/uL Neutrophils # 10.4 H (1.3-7.7) k/uL Lymphocytes # 0.5 L (1.0-4.8) k/uL PT 13.8 H (10.0-12.5) sec INR 1.3 H (<1.2) Potassium 5.6 H (3.5-5.1) mmol/L Chloride 113 H (98-107) mmol/L Carbon Dioxide 13 L (22-30) mmol/L BUN 44 H (9-20) mg/dL Creatinine 3.04 H (0.66-1.25) mg/dL Glucose 132 H (74-99) mg/dL POC Glucose (mg/dL) (70-110) mg/dL Calcium 11.1 H (8.4-10.2) mg/dL Magnesium 1.5 L (1.6-2.3) mg/dL Total Bilirubin 2.4 H (0.2-1.3) mg/dL Alkaline Phosphatase 130 H (38-126) U/L 03/31/24 Range/Units 15:15 WBC (3.8-10.6) k/uL RBC (4.30-5.90) m/uL Hct (39.0-53.0) % MCHC (31.0-37.0) g/dL Plt Count (150-450) k/uL Neutrophils # (1.3-7.7) k/uL Lymphocytes # (1.0-4.8) k/uL PT (10.0-12.5) sec INR (<1.2) Potassium (3.5-5.1) mmol/L Chloride (98-107) mmol/L Carbon Dioxide (22-30) mmol/L BUN (9-20) mg/dL Creatinine (0.66-1.25) mg/dL Glucose (74-99) mg/dL POC Glucose (mg/dL) 129 H (70-110) mg/dL Calcium (8.4-10.2) mg/dL Magnesium (1.6-2.3) mg/dL Total Bilirubin (0.2-1.3) mg/dL Alkaline Phosphatase (38-126) U/L Assessment and Plan (1) Acute diverticulitis Current Visit: Yes Status: Acute Code(s): K57.92 - DVTRCLI OF INTEST, PART UNSP, W/O PERF OR ABSCESS W/O BLEED SNOMED Code(s): 253027519 (2) History of renal transplant Current Visit: No Status: Acute Code(s): Z94.0 - KIDNEY TRANSPLANT STATUS SNOMED Code(s): 641618801 (3) Immunocompromised Current Visit: No Status: Acute Code(s): D84.9 - IMMUNODEFICIENCY, UNSPECIFIED SNOMED Code(s): 881843725 (4) Leukocytosis Current Visit: No Status: Acute Code(s): D72.829 - ELEVATED WHITE BLOOD CELL COUNT, UNSPECIFIED SNOMED Code(s): 619298947 Plan: 1patient presented hospital with the left lower quadrant abdominal pain of 1 day duration in this patient has been diagnosed with acute diverticulitis did not mention any evidence of perforation or abscess we will need to cover for the enteric gram-negative to be the likely pathogen 2-patient with renal sufficiency high risk of nephrotoxicity 3-patient also immunocompromise because of his immunosuppressive medication posttransplant 4-we will recommend Zosyn 3.375 g every 8 hours along with bowel rest We will follow on clinical condition and cultures to further adjust medication if needed Thank you for this consultation we will follow the patient along with you Dictation was produced using [employer] software. please excuse any grammatical, word or spelling errors.
--- NOTE | 2024-04-01 00:34 | HP ---
HISTORY AND PHYSICAL CHIEF COMPLAINT: Fever and right lower quadrant abdominal pain. HISTORY OF PRESENT ILLNESS: This is a 53-year-old gentleman with a past medical history of multiple medical problems including kidney transplant, history of hemodialysis, stage III kidney failure, and post COVID pulmonary fibrosis necessitating oxygen, was complaining of fever and right lower quadrant abdominal pain. The patient came to [facility], was found to have elevated white count, and CT scan of the abdomen and pelvis showed features of acute diverticulitis at the junction of the descending and sigmoid colon and some pelvic fluid was also noted. Patient was admitted to further evaluation and treatment. There is no history of any fever, rigors, chills at this time. PAST MEDICAL HISTORY: History of renal failure, dialysis, and as well as transplantation as mentioned earlier, the rest of the history and chart also reviewed. HOME MEDICATIONS: Reviewed and include Zoloft, dose and rest of medications noted. ALLERGIES: Grape fruit. FAMILY HISTORY: History of cancer in the family. SOCIAL HISTORY: Previous history of smoking. REVIEW OF SYSTEMS: Fourteen-point review is negative except as mentioned earlier. PHYSICAL EXAMINATION: VITAL SIGNS: Pulse 73, blood pressure 112/59, respirations 20. HEENT: Conjunctivae normal. NECK: No jugular venous distention. CARDIOVASCULAR: S1, S2. RESPIRATIONS: Diminished at the bases. No rhonchi. No crackles. ABDOMEN: Soft, obese. Mild diffuse tenderness in the lower part present. No guarding. No rigidity. No mass palpable. No ascites. LEGS: No swelling. LABS: Reviewed. ASSESSMENT: 1. Acute diverticulitis involving the descending and sigmoid colon. 2. Mild to moderate pelvic fluid, possibly secondary to fluid overload. 3. Chronic kidney disease, stage III. 4. History of renal failure and transplantation. 5. Hypomagnesemia. 6. Elevated WBC. 7. History of CAD. 8. Multiple complex medical issues. RECOMMENDATIONS AND DISCUSSION: This 53-year-old gentleman presented with multiple complex medical issues. We will monitor the patient closely. I would recommend broad-spectrum IV antibiotics, cultures, and surgical evaluation, otherwise, resume the home medications once they are confirmed. The prognosis is guarded because of multiple complex medical issues. I would also recommend nephrology consultation also. Further recommendations to follow. See orders for details. MMODL / IJN: [id number] /
[2024-04-01] MEDS: HYDROmorphone 0.5 MG/0.5 ML SYRINGE IVP PRN (04:22)
[2024-04-01] MEDS: LEVOTHYROXINE 100 MCG TAB PO SCH (05:32)
[2024-04-01 07:28] LABS: Glucose,Whole Blood 123 mg/dL (70-110)
[2024-04-01] MEDS: CYANOCOBALAMIN 500 MCG TAB PO SCH (08:52)
[2024-04-01] MEDS: predniSONE 5 MG TAB PO SCH (08:52)
[2024-04-01] MEDS: TACROLIMUS 1 MG CAP PO SCH (08:53)
[2024-04-01] MEDS: Semaglutide [Rybelsus] 7 MG Tablet PO SCH (08:54)
[2024-04-01] MEDS ORDERED: ONDANSETRON 4 MG/2 ML VIAL IVP PRN (09:30)
[2024-04-01 10:30] LABS: Basophils # (A) 0.04 X 10*3/uL (0.00-0.10); Basophils % (A) 0.3 %; Eosinophils # (A) 0.09 X 10*3/uL (0.04-0.35); Eosinophils % (A) 0.7 %; HCT 52.1 % (37.2-46.3); HGB 15.4 g/dL (12.0-15.0); Lymphocytes # (A) 0.59 X 10*3/uL (0.90-5.00); Lymphocytes % (A) 4.5 %; MCH 29.1 pg (27.0-32.0); MCHC 29.6 g/dL (32.0-37.0); MCV 98.3 FL (80.0-97.0); Mean Platelet Volume 12.7 FL (9.5-12.2); Monocytes # (A) 1.54 X 10*3/uL (0.20-1.00); Monocytes % (A) 11.9 %; NRBC Per 100 WBC 0 X 10*3/uL (0.00-0.01); Neutrophils # (A) 10.66 X 10*3/uL (1.80-7.70); Neutrophils % (A) 82.1 %; Platelet Count 140 X 10*3/uL (140-440); RDW 15.9 % (11.5-14.5); WBC 12.98 X 10*3/uL (4.50-10.00)
[2024-04-01 10:47] LABS: BUN/Creat Ratio 14.16 Ratio (12.00-20.00); Blood Urea Nitrogen 52.4 mg/dL (9.0-27.0); Carbon Dioxide 13.3 mmol/L (21.6-31.8); Chloride 110 mmol/L (96-109); Glucose 131 mg/dL (70-110); Potassium 6.3 mmol/L (3.5-5.5); Sodium 137 mmol/L (135-145)
[2024-04-01 12:06] LABS: Glucose,Whole Blood 182 mg/dL (70-110)
--- NOTE | 2024-04-01 13:05 | P.NPCON ---
History of Present Illness - Reason for Consult acute renal failure - History of Present Illness Patient is a 53-year-old male with history of end-stage renal disease status post donor transplant at [facility] in July 2017. Currently maintained on tacrolimus CellCept and prednisone. baseline creatinine around 3 mg/dL. Patient is admitted to the hospital with complaints of abdominal pain and diarrhea. Patient has also had nausea and decreased oral intake. Serum creatinine was 3.0 on admission yesterday and has increased to 3.[address] of the abdomen shows evidence of diverticulitis. Blood pressure has been low with systolic in the 90s. Patient states she has been voiding. Review of Systems as per HPI Past Medical History Past Medical History: Coronary Artery Disease (CAD), Renal Disease, Thyroid Disorder Additional Past Medical History / Comment(s): Renal failure post-kidney transpla ntation, previous history of dialysis for a total of 12 years followed by kidney transplantation, hypothyroidism, chronic stage III kidney failure post transplantation, nonocclusive coronary artery disease and the patient a cardiac catheterization on 09/24/2016 that showed 40-50% lesion in the distal circumflex otherwise the rest of the coronary arteries were all within normal limits. History of Any Multi-Drug Resistant Organisms: None Reported Past Surgical History: Heart Catheterization, Orthopedic Surgery Additional Past Surgical History / Comment(s): FISTULA/GRAFT RT ARM, kidney transplant in July of 2017, Left hip Past Anesthesia/Blood Transfusion Reactions: No Reported Reaction Past Psychological History: No Psychological Hx Reported Smoking Status: Former smoker Past Alcohol Use History: None Reported Past Drug Use History: None Reported - Past Family History Mother Family Medical History: Cancer Father Family Medical History: Myocardial Infarction ([place]) Additional Family Medical History / Comment(s): AT AGE 46 Medications and Allergies Home Medications Medication Instructions Recorded Confirmed Type Levothyroxine Sodium [Synthroid] 100 mcg PO DAILY 09/20/16 03/31/24 History Acetaminophen [Tylenol] 1,000 mg PO Q6H PRN 10/30/17 03/31/24 History mycophenolate mofetiL [Cellcept] 250 mg PO BID 10/30/17 03/31/24 History predniSONE 5 mg PO DAILY 10/30/17 03/31/24 History Insulin Glargine,Hum.rec.anlog 1 dose SQ DIRECTED PRN 12/14/23 03/31/24 History [Lantus Solostar Pen] Losartan [Cozaar] 50 mg PO HS 12/14/23 03/31/24 History Montelukast [Singulair] 10 mg PO HS 12/14/23 03/31/24 History Rosuvastatin Calcium [Crestor] 40 mg PO HS 12/14/23 03/31/24 History Semaglutide [Rybelsus] 7 mg PO DAILY 12/14/23 03/31/24 History Sertraline [Zoloft] 25 mg PO HS 12/14/23 03/31/24 History Tacrolimus [Prograf] 1 mg PO DAILY 12/14/23 03/31/24 History Nitroglycerin Sl Tabs [Nitrostat] 0.4 mg SL Q5M PRN 12/16/23 03/31/24 History Apixaban [Eliquis] 2.5 mg PO BID #60 tab 12/19/23 03/31/24 Rx Cyanocobalamin [Vitamin B-12] 500 mcg PO DAILY 03/31/24 03/31/24 History INSULIN ASPART (NovoLOG) [NovoLOG See Protocol SQ ACHS PRN 03/31/24 03/31/24 History (formulary)] Sildenafil Citrate [Viagra] 100 mg PO DAILY PRN 03/31/24 03/31/24 History Sodium Bicarbonate Tab 650 mg PO TID 03/31/24 03/31/24 History Tacrolimus [Prograf] 0.5 mg PO HS 03/31/24 03/31/24 History Allergies Allergy/AdvReac Type Severity Reaction Status Date / Time grapefruit Allergy Rash/Hives Verified 03/31/24 13:09 shellfish derived [Shellfish] Allergy Swelling Verified 03/31/24 13:09 Physical Exam Vitals: Vital Signs Temp Pulse Pulse Resp BP BP Pulse Ox 04/01/24 07:58 98.9 F 67 18 120/88 95 04/01/24 02:00 97.5 F L 63 16 109/57 93 L 03/31/24 21:41 97.6 F 65 16 91/62 92 L 03/31/24 21:08 65 16 03/31/24 21:00 65 18 110/49 89 L 03/31/24 20:00 65 20 110/49 86 L 03/31/24 19:00 74 21 109/64 87 L 03/31/24 17:22 97.6 F 72 20 109/64 91 L 03/31/24 14:00 73 23 112/59 03/31/24 13:30 72 16 107/86 Intake and Output 03/31/24 04/01/24 04/01/24 22:59 06:59 14:59 Intake Total 840 Balance 840 Intake: Intake, IV Titration 300 Amount Piperacillin-Tazobactam 3 100 .375 gm In Sodium Chloride 0.9% 100 ml @ 25 mls/hr IVPB Q8HR JENNY Rx# :[id number] Sodium Chloride 0.9% 1, 200 000 ml @ 20 mls/hr IV . Q24H JENNY Rx#:[id number] Oral 540 Other: Voiding Method Toilet # Voids 2 Weight 97.976 kg patient is awake, comfortable, no acute distress. Examination of the heart S1 and S2 Examination of the lungs bilateral breath sounds are heard Abdomen is soft , mid abdomen tenderness Examination of lower extremities shows no edema [employer] exam grossly intact Results - Lab Results Most recent lab results Calcium 10.0 mg/dL (8.7-10.3) 04/01/24 06:19 Magnesium 1.5 mg/dL (1.6-2.3) L 03/31/24 11:57 04/01/24 06:19 04/01/24 06:19 Assessment and Plan Assessment: 1. 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 2. Status post donor transplant at [facility] in July 2017 maintained on Prograf CellCept and prednisone. 3.hyperkalemia associated with acute kidney injury and metabolic acidosis 4. Acute kidney injury secondary to hypotension and volume depletion and underlying infection. 5. Diverticulitis maintained on antibiotics. 6. Pulmonary fibrosis post Covid pneumonia, maintained on home oxygen Plan: Add IV bicarb DC Cozaar Treat hyperkalemia with insulin and D50. Check Prograf level in a.m. Continue current immunosuppression. Continue with antibiotics. Avoid nephrotoxic agents Repeat labs in a.m. Continue with oral sodium bicarb as well. Thank you for the consultation. We will continue to follow the patient with you during his hospitalization.
[2024-04-01] MEDS: DEXTROSE 5% IN WATER 1,000 ML with SODIUM BICARB (1 MEQ/ML) 150 ML IV SCH (13:29)
[2024-04-01] MEDS: SODIUM CHLORIDE 0.9% 1,000 ML IV ONE ×2 (13:55→17:38)
--- NOTE | 2024-04-01 14:24 | PN ---
PROGRESS NOTE DATE OF SERVICE: 04/01/2024 SUBJECTIVE: This 53-year-old gentleman admitted with acute diverticulitis, is being closely monitored. The patient has significant pelvic fluid also. The patient is immunosuppressed. The patient is on broad spectrum IV antibiotics. Abdomen is still distended. PAST MEDICAL HISTORY: Reviewed. REVIEW OF SYSTEMS: A 14-point review of systems is negative except as mentioned earlier. CURRENT MEDICATIONS: Reviewed include IV Zosyn, dose and rest of medications reviewed. OBJECTIVE: VITAL SIGNS: Pulse is 67, blood pressure 120/80, respirations 18. HEENT: Conjunctivae normal. CARDIOVASCULAR: S1, S2. RESPIRATIONS: Few scattered rhonchi. ABDOMEN: Soft, distended. Flanks are dull. No guarding. No rigidity. No masses palpable. LEGS: No swelling. NERVOUS SYSTEM: No focal deficits. LABORATORY DATA: Potassium 6.3, WBC 12.98, creatinine is 3.7, rest of the labs are noted. ASSESSMENT: 1. Acute diverticulitis involving the descending and sigmoid colon with severe abdominal pain. 2. Immunosuppressed. 3. Asfk-yh-aqzshlid pelvic fluid, possibly secondary to fluid overload. 4. Chronic kidney disease stage III. 5. Hyperkalemia. 6. History of renal failure and transplantation. 7. Hypomagnesemia. 8. Elevated WBC. 9. History of CAD. 10.Multiple complex medical issues. RECOMMENDATIONS: Recommended to continue current medications, continue symptomatic treatment. Otherwise, repeat labs. We will continue to monitor. Low-potassium diet, insulin, glucose regimen has been given. Guarded prognosis because of multiple complex medical issues. Further recommendations to follow. See orders for details. MMODL / IJN: [id number] /
[2024-04-01] MEDS: INSULIN REGULAR 100 UNIT/ML VIAL (IV) IV ONE (14:32)
[2024-04-01] MEDS: SODIUM BICARB 8.4% 50 ML SYR (1 MEQ/ML) IV STA (14:32)
[2024-04-01] MEDS: DEXTROSE 50% SYRINGE 50 ML IVP STA (14:32)
--- NOTE | 2024-04-01 14:47 | P.PN ---
Subjective Progress Note Date: 04/01/24 Principal diagnosis: Reason for follow-up is acute diverticulitis Patient is a 53-year-old male with a past medical history significant for coronary artery disease renal failure post kidney transplant hypothyroidism former smoker presenting to the hospital with the left lower quadrant abdominal pain, patient be diagnosed with acute diverticulitis did not mention any perforation or abscess admit to the hospital for IV antibiotic therapy. On today's evaluation that is 04/01/2024,the patient denies any fever or any chills, patient is breathing comfortably on 4 L current oxygen the patient denies chest pain shortness of breath and no significant cough, patient nausea vomiting or diarrhea and abdominal pain has decreased in intensity. Patient white count is 12.98 creatinine 3.7 potassium 6.3 being addressed by nephrology, cultures pending . Objective - Vital Signs Vital signs: Vital Signs Temp 97.4 F L 04/01/24 12:45 Pulse 65 04/01/24 12:45 Resp 24 04/01/24 12:45 BP 86/51 04/01/24 14:29 Pulse Ox 93 L 04/01/24 12:45 FiO2 Intake & Output 03/31/24 04/01/24 04/01/24 18:59 06:59 18:59 Intake Total 840 Balance 840 Weight 97.976 kg 97.976 kg Intake: Intake, IV Titration 300 Amount Piperacillin-Tazobactam 3 100 .375 gm In Sodium Chloride 0.9% 100 ml @ 25 mls/hr IVPB Q8HR JENNY Rx# :[id number] Sodium Chloride 0.9% 1, 200 000 ml @ 20 mls/hr IV . Q24H JENNY Rx#:[id number] Oral 540 Other: Voiding Method Toilet # Voids 2 - Exam GENERAL DESCRIPTION: Middle-age male lying in bed in no distress RESPIRATORY SYSTEM: Unlabored breathing , decreased breath sounds at bases HEART: S1 S2 regular rate and rhythm , ABDOMEN: Soft , no tenderness EXTREMITIES: No edema feet - Labs CBC & Chem 7: 04/01/24 06:19 04/01/24 06:19 Labs: Abnormal Lab Results - Last 24 Hours (Table) 03/31/24 03/31/24 03/31/24 Range/Units 15:15 17:16 21:52 WBC (4.50-10.00) X 10*3/uL RBC (4.10-5.20) X 10*6/uL Hgb (12.0-15.0) g/dL Hct (37.2-46.3) % MCV (80.0-97.0) FL MCHC (32.0-37.0) g/dL RDW (11.5-14.5) % MPV (9.5-12.2) FL Immature Gran # (0.00-0.04) X 10*3/uL Neutrophils # (1.80-7.70) X 10*3/uL Lymphocytes # (0.90-5.00) X 10*3/uL Monocytes # (0.20-1.00) X 10*3/uL Potassium (3.5-5.5) mmol/L Chloride (96-109) mmol/L Carbon Dioxide (21.6-31.8) mmol/L Anion Gap (4.00-12.00) mmol/L BUN (9.0-27.0) mg/dL Creatinine (0.6-1.5) mg/dL Est GFR (CKD-EPI) (>=60) Glucose (70-110) mg/dL POC Glucose (mg/dL) 129 H 151 H 178 H (70-110) mg/dL 04/01/24 04/01/24 04/01/24 Range/Units 06:19 06:19 07:21 WBC 12.98 H (4.50-10.00) X 10*3/uL RBC 5.30 H (4.10-5.20) X 10*6/uL Hgb 15.4 H (12.0-15.0) g/dL Hct 52.1 H (37.2-46.3) % MCV 98.3 H (80.0-97.0) FL MCHC 29.6 L (32.0-37.0) g/dL RDW 15.9 H (11.5-14.5) % MPV 12.7 H (9.5-12.2) FL Immature Gran # 0.06 H (0.00-0.04) X 10*3/uL Neutrophils # 10.66 H (1.80-7.70) X 10*3/uL Lymphocytes # 0.59 L (0.90-5.00) X 10*3/uL Monocytes # 1.54 H (0.20-1.00) X 10*3/uL Potassium 6.3 A* (3.5-5.5) mmol/L Chloride 110 H (96-109) mmol/L Carbon Dioxide 13.3 L (21.6-31.8) mmol/L Anion Gap 13.70 H (4.00-12.00) mmol/L BUN 52.4 H (9.0-27.0) mg/dL Creatinine 3.7 H (0.6-1.5) mg/dL Est GFR (CKD-EPI) 14 L (>=60) Glucose 131 H (70-110) mg/dL POC Glucose (mg/dL) 123 H (70-110) mg/dL 04/01/24 Range/Units 12:05 WBC (4.50-10.00) X 10*3/uL RBC (4.10-5.20) X 10*6/uL Hgb (12.0-15.0) g/dL Hct (37.2-46.3) % MCV (80.0-97.0) FL MCHC (32.0-37.0) g/dL RDW (11.5-14.5) % MPV (9.5-12.2) FL Immature Gran # (0.00-0.04) X 10*3/uL Neutrophils # (1.80-7.70) X 10*3/uL Lymphocytes # (0.90-5.00) X 10*3/uL Monocytes # (0.20-1.00) X 10*3/uL Potassium (3.5-5.5) mmol/L Chloride (96-109) mmol/L Carbon Dioxide (21.6-31.8) mmol/L Anion Gap (4.00-12.00) mmol/L BUN (9.0-27.0) mg/dL Creatinine (0.6-1.5) mg/dL Est GFR (CKD-EPI) (>=60) Glucose (70-110) mg/dL POC Glucose (mg/dL) 182 H (70-110) mg/dL Assessment and Plan (1) Acute diverticulitis Current Visit: Yes Status: Acute Code(s): K57.92 - DVTRCLI OF INTEST, PART UNSP, W/O PERF OR ABSCESS W/O BLEED SNOMED Code(s): 494000064 (2) History of renal transplant Current Visit: No Status: Acute Code(s): Z94.0 - KIDNEY TRANSPLANT STATUS SNOMED Code(s): 085537538 (3) Immunocompromised Current Visit: No Status: Acute Code(s): D84.9 - IMMUNODEFICIENCY, UNSPECIFIED SNOMED Code(s): 834626031 (4) Leukocytosis Current Visit: No Status: Acute Code(s): D72.829 - ELEVATED WHITE BLOOD CELL COUNT, UNSPECIFIED SNOMED Code(s): 187532892 Plan: 1patient presented hospital with the left lower quadrant abdominal pain of 1 day duration in this patient has been diagnosed with acute diverticulitis did not mention any evidence of perforation or abscess we will need to cover for the enteric gram-negative to be the likely pathogen 2-patient with renal sufficiency high risk of nephrotoxicity 3-patient also immunocompromise because of his immunosuppressive medication p osttransplant 4-patient to continue with Zosyn 3.375 g every 8 hours along with bowel rest and will watch his clinical course closely family the bedside question concern answered Dictation was produced using [employer] dictation software. please excuse any grammatical, word or spelling errors. Time with Patient: Less than 30
[2024-04-01] MEDS: SODIUM CHLORIDE 0.9% 500 ML 500 ML IV ONE (15:11)
[2024-04-01] MEDS: MIDODRINE 5 MG TAB PO SCH (15:31)
[2024-04-01 17:35] LABS: Glucose,Whole Blood 224 mg/dL (70-110)
[2024-04-01] MEDS: MIDODRINE 5 MG TAB PO STA (18:22)
[2024-04-01 20:14] LABS: Glucose,Whole Blood 206 mg/dL (70-110)
[2024-04-01] MEDS: HEPARIN SODIUM,PORCINE 5,000 UNIT/ML 1 ML VIAL SQ SCH (20:43)
--- NOTE | 2024-04-02 02:43 | CONS ---
CONSULTATION CHIEF COMPLAINT: Abdominal pain. HISTORY OF PRESENT ILLNESS: This is a 53-year-old male with a known history of a kidney transplant about 7 years ago and he is on immunosuppressant medications. He presents to the hospital with pain that is across the lower abdomen x7 days. The patient denies any nausea or vomiting. His stools have been loose. Denies any blood in his stools. Denies any fever, chills, or sweats. He does have a known history of diverticulitis about 7 to 8 years ago and it was managed with antibiotics. He reports his last colonoscopy was about 3 months ago and showed diverticulosis. The patient had a CT scan of abdomen and pelvis that had reported diverticulitis in the sigmoid and descending colon. The patient is on antibiotics. Surgical service consulted for diverticulitis. Other past surgical history does include lap band as well as a panniculectomy. He is on Eliquis for PE. REVIEW OF SYSTEMS: Please refer to HPI, otherwise unremarkable. PAST MEDICAL HISTORY: Coronary artery disease, PE, renal failure status post kidney transplant. PAST SURGICAL HISTORY: Lap band, panniculectomy, and kidney transplant. SOCIAL HISTORY: He denies any smoking or alcohol use. PHYSICAL EXAMINATION: VITALS: Stable. GENERAL: No acute distress. ABDOMEN: Soft, nondistended, mild tenderness across the lower abdomen. Looks like the patient has become hypotensive and has actually received 1.5 L fluid bolus. LABORATORY RESULTS: WBC 12.98, HGB 15.4, platelets 140, sodium 137, potassium 6.3, creatinine 3.7. IMAGING: CT scan abdomen and pelvis reports acute diverticulitis at the junction of the descending and sigmoid colon. [id number] inflammation. No abscess or free air. The abdominal and moderate pelvic free fluid probably related to fluid overload state given generalized anasarca. Fluid-filled small bowel loops on left side of the abdomen as well as at the lower abdomen may reflect mild secondary ileus. Small left pleural effusion. ASSESSMENT: 1. Acute diverticulitis of the descending and sigmoid colon. 2. History of kidney transplant. 3. Chronic kidney disease. 4. Hyperkalemia. 5. Pulmonary fibrosis history. PLAN: Downgrade diet to clear liquids. Continue antibiotics. Continue supportive care. Continue IV fluids. Continue to monitor patient closely. MMODL / IJN: [id number] /
[2024-04-02 07:13] LABS: Glucose,Whole Blood 132 mg/dL (70-110)
[2024-04-02 07:33] LABS: Basophils # (A) 0.1 k/uL (0-0.2); Basophils % (A) 1 %; Eosinophils # (A) 0.3 k/uL (0-0.7); Eosinophils % (A) 2 %; HCT 51.9 % (39.0-53.0); HGB 15.2 gm/dL (13.0-17.5); Hypochromasia Moderate; Lymphocytes # (A) 1.1 k/uL (1.0-4.8); Lymphocytes % (A) 9 %; MCH 29.2 pg (25.0-35.0); MCHC 29.2 g/dL (31.0-37.0); MCV 99.8 fL (80.0-100.0); Macrocytosis Slight; Mean Platelet Volume 10.7; Monocytes % (A) 9 %; Neutrophils # (A) 8.8 k/uL (1.3-7.7); Neutrophils % (A) 77 %; Platelet Count 117 k/uL (150-450); RBC 5.19 m/uL (4.30-5.90); RDW 15.1 % (11.5-15.5); WBC 11.5 k/uL (3.8-10.6)
[2024-04-02 10:08] LABS: ALT 18 U/L (8-44); AST 26 U/L (13-35); Albumin 3.8 g/dL (3.8-4.9); Albumin/Globulin Ratio 2.11 Ratio (1.60-3.17); Alkaline Phosphatase 90 U/L (41-126); BUN/Creat Ratio 11.02 Ratio (12.00-20.00); Calcium 9.2 mg/dL (8.7-10.3); Chloride 105 mmol/L (96-109); Globulin 1.8 g/dL (1.6-3.3); Glucose 144 mg/dL (70-110); Potassium 5.7 mmol/L (3.5-5.5); Sodium 134 mmol/L (135-145); Total Bilirubin 1.6 mg/dL (0.3-1.2); Total Protein 5.6 g/dL (6.2-8.2)
[2024-04-02 11:43] LABS: Glucose,Whole Blood 131 mg/dL (70-110)
[2024-04-02 12:28] LABS: Crenated RBC Present; Poikilocytosis (M) Present
[2024-04-02] MEDS: INSULIN REGULAR 100 UNIT/ML VIAL (IV) IV ONE (12:35)
[2024-04-02] MEDS: DEXTROSE 50% SYRINGE 50 ML IVP STA (12:37)
--- NOTE | 2024-04-02 13:44 | P.CNPUL ---
History of Present Illness Consult date: 04/02/24 Requesting physician: Kortney Castillo Reason for consult: dyspnea Chief complaint: Right lower quadrant abdominal pain History of present illness: This is a pleasant 53-year-old male patient with a known history of previous kidney transplant, hypothyroidism, mild coronary artery disease, hypothyroidism who presented here to the emergency room on 03/31/2024 with complaints of right lower quadrant abdominal pain and febrile illness. ET scan of the abdomen and pelvis revealed acute diverticulitis at the junction of the descending and sigmoid colon. Mild to moderate inflammation. No abscess or free air. Mild abdominal and moderate laded to fluid overload state given some generalized anasarca, cirrhotic morphology of the liver and patient's right lower quadrant transplant kidney. Fluid-filled small bowel loops most of the abdomen as well as lower abdomen may reflect mild secondary ileus. Small left pleural effusion. Chest x-ray reveals a small left pleural effusion. Mild cardiomegaly but no pulmonary edema. White count 11.5. Hemoglobin 15.2. Platelets 117. Sodium 134. Potassium 5.7. Bicarb 13. BUN 54. Creatinine 4.9. Issues with hypotension as well. He did have a syncopal episode this morning while up in the bathroom. He is seen today in consultation on the regular medical floor. He is awake and alert in no acute distress. He is maintaining O2 saturations in the 90s on 4 L/min per nasal cannula. He does have home oxygen at 3 L. He is receiving D5W with 3 A of bicarb at 80 MLS per hour. Antibiotics in the form of Zosyn. Review of Systems REVIEW OF SYSTEMS: CONSTITUTIONAL: Denies any recent significant weight loss or weight gain. EYES: Denies change in vision. EARS, NOSE, MOUTH, THROAT: Denies headaches, denies sore throat. CARDIOVASCULAR: Denies chest pain, palpitations or syncopal episodes. RESPIRATORY: Denies shortness of breath, cough, congestion or hemoptysis. GASTROINTESTINAL: Positive for right lower quadrant abdominal pain GENITOURINARY: Denies hematuria, denies infections. MUSKULOSKELETAL: Denies pain, denies swelling. INTEGUMENTARY: Denies rash, denies eczema. NEUROLOGICAL: Denies recent memory loss, no recent seizure activity. PSYCHIATRIC: Denies anxiety, denies depression. HEMATOLOGIC/LYMPHATIC: Denies anemia, denies enlarged lymph nodes. Past Medical History Past Medical History: Coronary Artery Disease (CAD), Renal Disease, Thyroid Disorder Additional Past Medical History / Comment(s): Renal failure post-kidney transplantation, previous history of dialysis for a total of 12 years followed by kidney transplantation, hypothyroidism, chronic stage III kidney failure post transplantation, nonocclusive coronary artery disease and the patient a cardiac catheterization on 09/24/2016 that showed 40-50% lesion in the distal circumflex otherwise the rest of the coronary arteries were all within normal limits. History of Any Multi-Drug Resistant Organisms: None Reported Past Surgical History: Heart Catheterization, Orthopedic Surgery Additional Past Surgical History / Comment(s): FISTULA/GRAFT RT ARM, kidney transplant in July of 2017, Left hip Past Anesthesia/Blood Transfusion Reactions: No Reported Reaction Past Psychological History: No Psychological Hx Reported Smoking Status: Former smoker Past Alcohol Use History: None Reported Past Drug Use History: None Reported - Past Family History Mother Family Medical History: Cancer Father Family Medical History: Myocardial Infarction ([place]) Additional Family Medical History / Comment(s): AT AGE 46 Medications and Allergies Home Medications Medication Instructions Recorded Confirmed Type Levothyroxine Sodium [Synthroid] 100 mcg PO DAILY 09/20/16 03/31/24 History Acetaminophen [Tylenol] 1,000 mg PO Q6H PRN 10/30/17 03/31/24 History mycophenolate mofetiL [Cellcept] 250 mg PO BID 10/30/17 03/31/24 History predniSONE 5 mg PO DAILY 10/30/17 03/31/24 History Insulin Glargine,Hum.rec.anlog 1 dose SQ DIRECTED PRN 12/14/23 03/31/24 History [Lantus Solostar Pen] Losartan [Cozaar] 50 mg PO HS 12/14/23 03/31/24 History Montelukast [Singulair] 10 mg PO HS 12/14/23 03/31/24 History Rosuvastatin Calcium [Crestor] 40 mg PO HS 12/14/23 03/31/24 History Semaglutide [Rybelsus] 7 mg PO DAILY 12/14/23 03/31/24 History Sertraline [Zoloft] 25 mg PO HS 12/14/23 03/31/24 History Tacrolimus [Prograf] 1 mg PO DAILY 12/14/23 03/31/24 History Nitroglycerin Sl Tabs [Nitrostat] 0.4 mg SL Q5M PRN 12/16/23 03/31/24 History Apixaban [Eliquis] 2.5 mg PO BID #60 tab 12/19/23 03/31/24 Rx Cyanocobalamin [Vitamin B-12] 500 mcg PO DAILY 03/31/24 03/31/24 History INSULIN ASPART (NovoLOG) [NovoLOG See Protocol SQ ACHS PRN 03/31/24 03/31/24 History (formulary)] Sildenafil Citrate [Viagra] 100 mg PO DAILY PRN 03/31/24 03/31/24 History Sodium Bicarbonate Tab 650 mg PO TID 03/31/24 03/31/24 History Tacrolimus [Prograf] 0.5 mg PO HS 03/31/24 03/31/24 History Allergies Allergy/AdvReac Type Severity Reaction Status Date / Time grapefruit Allergy Rash/Hives Verified 03/31/24 13:09 shellfish derived [Shellfish] Allergy Swelling Verified 03/31/24 13:09 Physical Exam Vitals: Vital Signs Temp Pulse Resp BP BP BP BP 04/02/24 13:06 135/58 04/02/24 12:32 89/45 04/02/24 11:43 97.4 F L 60 18 84/55 89/28 04/02/24 08:30 97.6 F 59 L 12 130/81 04/02/24 07:12 58 L 18 150/121 04/02/24 06:40 92/49 72/50 90/70 04/02/24 05:52 98.1 F 154 H 20 81/51 04/02/24 01:31 98.0 F 54 L 16 96/56 04/01/24 20:00 98.0 F 71 16 89/57 04/01/24 17:31 115/67 04/01/24 14:49 84/61 04/01/24 14:29 86/51 Pulse Ox 04/02/24 13:06 04/02/24 12:32 04/02/24 11:43 96 04/02/24 08:30 95 04/02/24 07:12 96 04/02/24 06:40 04/02/24 05:52 97 04/02/24 01:31 96 04/01/24 20:00 94 L 04/01/24 17:31 04/01/24 14:49 04/01/24 14:29 Intake and Output 04/01/24 04/02/24 04/02/24 22:59 06:59 14:59 Intake Total 2079 590 Balance 2079 590 Intake: Intake, IV Titration 2080 Amount Dextrose 5% in Water 1, 480 000 ml @ 80 mls/hr IV . [id number] JENNY with Sodium Bicarb (1 Meq/ml) 150 ml Rx#:[id number] Piperacillin-Tazobactam 3 100 .375 gm In Sodium Chloride 0.9% 100 ml @ 25 mls/hr IVPB Q8HR JENNY Rx# :[id number] Sodium Chloride 0.9% 1, 1000 000 ml @ 999 mls/hr IV . Q1H1M ONE Rx#:[id number] Sodium Chloride 0.9% 500 500 ml 500 ml @ 999 mls/hr IV .Q31M ONE Rx#:[id number] Oral 590 Other: Voiding Method Toilet # Voids 1 1 # Bowel Movements 1 1 GENERAL EXAM: Alert, pleasant 53-year-old male resting in bed, on 5 L nasal cannula, fairly comfortable in no apparent distress. HEAD: Normocephalic. EYES: Normal reaction of pupils, equal size. NOSE: Clear with pink turbinates. THROAT: No erythema or exudates. NECK: No masses, no JVD. CHEST: No chest wall deformity. LUNGS: Equal air entry with crackles in the left posterior base. CVS: S1 and S2 normal with no audible murmur, regular rhythm. ABDOMEN: Soft no hepatosplenomegaly, normal bowel sounds, no guarding or rigidi ty. SPINE: No scoliosis or deformity SKIN: No rashes CENTRAL NERVOUS SYSTEM: No focal deficits, tone is normal in all 4 extremities. EXTREMITIES: There is no peripheral edema. No clubbing, no cyanosis. Peripheral pulses are intact. Results - Laboratory Findings CBC and BMP: 04/02/24 06:49 04/02/24 04:30 PT/INR, D-dimer PT 13.8 sec (10.0-12.5) H 03/31/24 13:30 INR 1.3 (<1.2) H 03/31/24 13:30 Abnormal lab findings: Abnormal Labs 03/31/24 03/31/2424 11:57 11:57 13:30 WBC 12.3 H RBC 5.95 H Hgb Hct 59.4 H* MCV MCHC 29.2 L RDW Plt Count 124 L MPV Immature Gran # Neutrophils # 10.4 H Lymphocytes # 0.5 L Monocytes # PT 13.8 H INR 1.3 H Sodium Potassium 5.6 H Chloride 113 H Carbon Dioxide 13 L Anion Gap BUN 44 H Creatinine 3.04 H Est GFR (CKD-EPI) BUN/Creatinine Ratio Glucose 132 H POC Glucose (mg/dL) Calcium 11.1 H Magnesium 1.5 L Total Bilirubin 2.4 H Alkaline Phosphatase 130 H Total Protein 03/31/24 03/31/24 03/31/24 15:15 17:16 21:52 WBC RBC Hgb Hct MCV MCHC RDW Plt Count MPV Immature Gran # Neutrophils # Lymphocytes # Monocytes # PT INR Sodium Potassium Chloride Carbon Dioxide Anion Gap BUN Creatinine Est GFR (CKD-EPI) BUN/Creatinine Ratio Glucose POC Glucose (mg/dL) 129 H 151 H 178 H Calcium Magnesium Total Bilirubin Alkaline Phosphatase Total Protein 04/01/24 04/01/24 04/01/24 06:19 06:19 07:21 WBC 12.98 H RBC 5.30 H Hgb 15.4 H Hct 52.1 H MCV 98.3 H MCHC 29.6 L RDW 15.9 H Plt Count MPV 12.7 H Immature Gran # 0.06 H Neutrophils # 10.66 H Lymphocytes # 0.59 L Monocytes # 1.54 H PT INR Sodium Potassium 6.3 A* Chloride 110 H Carbon Dioxide 13.3 L Anion Gap 13.70 H BUN 52.4 H Creatinine 3.7 H Est GFR (CKD-EPI) 14 L BUN/Creatinine Ratio Glucose 131 H POC Glucose (mg/dL) 123 H Calcium Magnesium Total Bilirubin Alkaline Phosphatase Total Protein 04/01/24 04/01/24 04/01/24 12:05 17:20 20:13 WBC RBC Hgb Hct MCV MCHC RDW Plt Count MPV Immature Gran # Neutrophils # Lymphocytes # Monocytes # PT INR Sodium Potassium Chloride Carbon Dioxide Anion Gap BUN Creatinine Est GFR (CKD-EPI) BUN/Creatinine Ratio Glucose POC Glucose (mg/dL) 182 H 224 H 206 H Calcium Magnesium Total Bilirubin Alkaline Phosphatase Total Protein 04/02/24 04/02/24 04/02/24 04:30 06:49 07:11 WBC 11.5 H RBC Hgb Hct MCV MCHC 29.2 L RDW Plt Count 117 L MPV Immature Gran # Neutrophils # 8.8 H Lymphocytes # Monocytes # PT INR Sodium 134 L Potassium 5.7 H Chloride Carbon Dioxide 13.0 L Anion Gap 16.00 H BUN 54.0 H Creatinine 4.9 H Est GFR (CKD-EPI) 10 L BUN/Creatinine Ratio 11.02 L Glucose 144 H POC Glucose (mg/dL) 132 H Calcium Magnesium Total Bilirubin 1.6 H Alkaline Phosphatase Total Protein 5.6 L 04/02/24 11:41 WBC RBC Hgb Hct MCV MCHC RDW Plt Count MPV Immature Gran # Neutrophils # Lymphocytes # Monocytes # PT INR Sodium Potassium Chloride Carbon Dioxide Anion Gap BUN Creatinine Est GFR (CKD-EPI) BUN/Creatinine Ratio Glucose POC Glucose (mg/dL) 131 H Calcium Magnesium Total Bilirubin Alkaline Phosphatase Total Protein - Diagnostic Findings Chest x-ray: image reviewed Assessment and Plan Assessment: Acute right lower quadrant abdominal pain suspect secondary to mild abdominal and moderate pelvic free fluid possibly related to fluid overload state given some generalized anasarca, cirrhotic morphology liver and patient's right lower quadrant transplant kidney. Acute diverticulitis at the junction of the descending and sigmoid colon. Mild to moderate inflammation. No evidence of free air. Acute on chronic hypoxemic respiratory failure secondary to a small left pleural effusion and fluid accumulated in the abdominal space Acute on chronic chronic stage III kidney disease History of kidney transplant History of renal failure post kidney transplantation Hypothyroidism Mild coronary artery disease Former smoker Chronic obstructive pulmonary disease Hypertension Hyperlipidemia Plan: The patient was seen and evaluated CT scan, chest x-ray, labs and medications reviewed Recommend increase midodrine to 10 mg 3 times daily for hypotension Check a procalcitonin Continue bicarb drip Nephrology is consulted Heparin for DVT prophylaxis Titrate down the FiO2 as tolerated We will continue to follow and make further recommendations based on his clinical status I have personally seen and examined the patient, performed the documentation and the assessment and plan as written. Number of minutes spent on the visit: 20.
--- NOTE | 2024-04-02 14:54 | P.PN ---
Subjective Progress Note Date: 04/02/24 patient [place] stable. His diverticulitis has improved. On exam vital signs appear stable. Abdomen soft. There is mild left-sided pain. Resolving diverticulitis. Patient will remain on and IV antibiotics until Friday. Objective - Vital Signs Vital signs: Vital Signs Temp 97.4 F L 04/02/24 11:43 Pulse 60 04/02/24 11:43 Resp 18 04/02/24 11:43 BP 135/58 04/02/24 13:06 Pulse Ox 96 04/02/24 11:43 FiO2 Intake & Output 04/01/24 04/02/24 04/02/24 18:59 06:59 18:59 Intake Total 208 590 Balance 2079 590 Intake: Intake, IV Titration 2080 Amount Dextrose 5% in Water 1, 480 000 ml @ 80 mls/hr IV . [id number] JENNY with Sodium Bicarb (1 Meq/ml) 150 ml Rx#:[id number] Piperacillin-Tazobactam 3 100 .375 gm In Sodium Chloride 0.9% 100 ml @ 25 mls/hr IVPB Q8HR JENNY Rx# :[id number] Sodium Chloride 0.9% 1, 1000 000 ml @ 999 mls/hr IV . Q1H1M ONE Rx#:[id number] Sodium Chloride 0.9% 500 500 ml 500 ml @ 999 mls/hr IV .Q31M ONE Rx#:[id number] Oral 590 Other: Voiding Method Toilet # Voids 1 1 # Bowel Movements 1 1 - Labs CBC & Chem 7: 04/02/24 06:49 04/02/24 04:30 Labs: Abnormal Lab Results - Last 24 Hours (Table) 04/01/24 04/01/24 04/02/24 Range/Units 17:20 20:13 04:30 WBC (3.8-10.6) k/uL MCHC (31.0-37.0) g/dL Plt Count (150-450) k/uL Neutrophils # (1.3-7.7) k/uL Sodium 134 L (135-145) mmol/L Potassium 5.7 H (3.5-5.5) mmol/L Carbon Dioxide 13.0 L (21.6-31.8) mmol/L Anion Gap 16.00 H (4.00-12.00) mmol/L BUN 54.0 H (9.0-27.0) mg/dL Creatinine 4.9 H (0.6-1.5) mg/dL Est GFR (CKD-EPI) 10 L (>=60) BUN/Creatinine Ratio 11.02 L (12.00-20.00) Ratio Glucose 144 H (70-110) mg/dL POC Glucose (mg/dL) 224 H 206 H (70-110) mg/dL Total Bilirubin 1.6 H (0.3-1.2) mg/dL Total Protein 5.6 L (6.2-8.2) g/dL 04/02/24 04/02/24 04/02/24 Range/Units 06:49 07:11 11:41 WBC 11.5 H (3.8-10.6) k/uL MCHC 29.2 L (31.0-37.0) g/dL Plt Count 117 L (150-450) k/uL Neutrophils # 8.8 H (1.3-7.7) k/uL Sodium (135-145) mmol/L Potassium (3.5-5.5) mmol/L Carbon Dioxide (21.6-31.8) mmol/L Anion Gap (4.00-12.00) mmol/L BUN (9.0-27.0) mg/dL Creatinine (0.6-1.5) mg/dL Est GFR (CKD-EPI) (>=60) BUN/Creatinine Ratio (12.00-20.00) Ratio Glucose (70-110) mg/dL POC Glucose (mg/dL) 132 H 131 H (70-110) mg/dL Total Bilirubin (0.3-1.2) mg/dL Total Protein (6.2-8.2) g/dL Microbiology - Last 24 Hours (Table) 03/31/24 11:45 Blood Culture - Preliminary Blood
--- NOTE | 2024-04-02 16:34 | P.PN ---
Subjective Progress Note Date: 04/02/24 Principal diagnosis: Reason for follow-up is acute diverticulitis Patient is a 53-year-old male with a past medical history significant for coronary artery disease renal failure post kidney transplant hypothyroidism former smoker presenting to the hospital with the left lower quadrant abdominal pain, patient be diagnosed with acute diverticulitis did not mention any perforation or abscess admit to the hospital for IV antibiotic therapy. On today's evaluation that is 04/02/2024,the patient remains to be afebrile, patient is on room air not requiring supplemental oxygen and denies any shortness of breath no chest pain or cough.Patient denies having any nausea or vomiting, patient resolution of abdominal pain did have a bowel movement denies having any diarrhea. Patient white count is 11.5 creatinine is 4.9 Objective - Vital Signs Vital signs: Vital Signs Temp 97.6 F 04/02/24 08:30 Pulse 59 L 04/02/24 08:30 Resp 12 04/02/24 08:30 BP 130/81 04/02/24 08:30 Pulse Ox 95 04/02/24 08:30 FiO2 Intake & Output 04/01/24 04/02/24 04/02/24 18:59 06:59 18:59 Intake Total 2080 590 Balance 0 590 Intake: Intake, IV Titration 2080 Amount Dextrose 5% in Water 1, 480 000 ml @ 80 mls/hr IV . [id number] JENNY with Sodium Bicarb (1 Meq/ml) 150 ml Rx#:[id number] Piperacillin-Tazobactam 3 100 .375 gm In Sodium Chloride 0.9% 100 ml @ 25 mls/hr IVPB Q8HR JENNY Rx# :[id number] Sodium Chloride 0.9% 1, 1000 000 ml @ 999 mls/hr IV . Q1H1M ONE Rx#:[id number] Sodium Chloride 0.9% 500 500 ml 500 ml @ 999 mls/hr IV .Q31M ONE Rx#:[id number] Oral 590 Other: Voiding Method Toilet # Voids 1 1 # Bowel Movements 1 1 - Exam GENERAL DESCRIPTION: Middle-age male lying in bed in no distress RESPIRATORY SYSTEM: Unlabored breathing , decreased breath sounds at bases HEART: S1 S2 regular rate and rhythm , ABDOMEN: Soft , no tenderness EXTREMITIES: No edema feet - Labs CBC & Chem 7: 04/02/24 06:49 06/28/24 04:30 Labs: Abnormal Lab Results - Last 24 Hours (Table) 04/01/24 04/01/24 04/01/24 Range/Units 12:05 17:20 20:13 WBC (3.8-10.6) k/uL MCHC (31.0-37.0) g/dL Plt Count (150-450) k/uL Sodium (135-145) mmol/L Potassium (3.5-5.5) mmol/L Carbon Dioxide (21.6-31.8) mmol/L Anion Gap (4.00-12.00) mmol/L BUN (9.0-27.0) mg/dL Creatinine (0.6-1.5) mg/dL Est GFR (CKD-EPI) (>=60) BUN/Creatinine Ratio (12.00-20.00) Ratio Glucose (70-110) mg/dL POC Glucose (mg/dL) 182 H 224 H 206 H (70-110) mg/dL Total Bilirubin (0.3-1.2) mg/dL Total Protein (6.2-8.2) g/dL 04/02/24 04/02/24 04/02/24 Range/Units 04:30 06:49 07:11 WBC 11.5 H (3.8-10.6) k/uL MCHC 29.2 L (31.0-37.0) g/dL Plt Count 117 L (150-450) k/uL Sodium 134 L (135-145) mmol/L Potassium 5.7 H (3.5-5.5) mmol/L Carbon Dioxide 13.0 L (21.6-31.8) mmol/L Anion Gap 16.00 H (4.00-12.00) mmol/L BUN 54.0 H (9.0-27.0) mg/dL Creatinine 4.9 H (0.6-1.5) mg/dL Est GFR (CKD-EPI) 10 L (>=60) BUN/Creatinine Ratio 11.02 L (12.00-20.00) Ratio Glucose 144 H (70-110) mg/dL POC Glucose (mg/dL) 132 H (70-110) mg/dL Total Bilirubin 1.6 H (0.3-1.2) mg/dL Total Protein 5.6 L (6.2-8.2) g/dL 04/02/24 Range/Units 11:41 WBC (3.8-10.6) k/uL MCHC (31.0-37.0) g/dL Plt Count (150-450) k/uL Sodium (135-145) mmol/L Potassium (3.5-5.5) mmol/L Carbon Dioxide (21.6-31.8) mmol/L Anion Gap (4.00-12.00) mmol/L BUN (9.0-27.0) mg/dL Creatinine (0.6-1.5) mg/dL Est GFR (CKD-EPI) (>=60) BUN/Creatinine Ratio (12.00-20.00) Ratio Glucose (70-110) mg/dL POC Glucose (mg/dL) 131 H (70-110) mg/dL Total Bilirubin (0.3-1.2) mg/dL Total Protein (6.2-8.2) g/dL Microbiology - Last 24 Hours (Table) 03/31/24 11:45 Blood Culture - Preliminary Blood Assessment and Plan (1) Acute diverticulitis Current Visit: Yes Status: Acute Code(s): K57.92 - DVTRCLI OF INTEST, PART UNSP, W/O PERF OR ABSCESS W/O BLEED SNOMED Code(s): 429045199 (2) History of renal transplant Current Visit: No Status: Acute Code(s): Z94.0 - KIDNEY TRANSPLANT STATUS SNOMED Code(s): 423576872 (3) Immunocompromised Current Visit: No Status: Acute Code(s): D84.9 - IMMUNODEFICIENCY, UNSPECIFIED SNOMED Code(s): 188871832 (4) Leukocytosis Current Visit: No Status: Acute Code(s): D72.829 - ELEVATED WHITE BLOOD CELL COUNT, UNSPECIFIED SNOMED Code(s): 375266399 Plan: 1patient presented hospital with the left lower quadrant abdominal pain of 1 day duration in this patient has been diagnosed with acute diverticulitis did not mention any evidence of perforation or abscess we will need to cover for the enteric gram-negative to be the likely pathogen 2-patient with renal sufficiency high risk of nephrotoxicity 3-patient also immunocompromise because of his immunosuppressive medication posttransplant 4-patient did have improvement his abdominal pain remains to be afebrile, to continue with Zosyn 3.375 g every 8 hours along with bowel rest and monitor clinical course closely Dictation was produced using [employer] dictation software. please excuse any grammatical, word or spelling errors. Time with Patient: Less than 30
--- NOTE | 2024-04-02 17:01 | P.PN ---
Subjective Patient is seen for follow-up for acute kidney injury and chronic kidney disease with history of renal transplant. Baseline creatinine is around 3 to 3.3 mg/dL. Patient is admitted to the hospital with complaints of abdominal pain. He is currently being treated for diverticulitis. Patient states that he has not voided much today. Serum creatinine increased to 4.9 today. Blood pressure remains low with systolic in the 80s and 90s. Patient has received about 2 L of fluid bolus. He is maintained on IV bicarb. Objective - Vital Signs Vital signs: Vital Signs Temp 97.4 F L 04/02/24 11:43 Pulse 60 04/02/24 11:43 Resp 18 04/02/24 11:43 BP 135/58 04/02/24 13:06 Pulse Ox 96 04/02/24 11:43 FiO2 Intake & Output 04/01/24 04/02/24 04/02/24 18:59 06:59 18:59 Intake Total 208 590 Balance 2080 590 Intake: Intake, IV Titration 2080 Amount Dextrose 5% in Water 1, 480 000 ml @ 80 mls/hr IV . [id number] JENNY with Sodium Bicarb (1 Meq/ml) 150 ml Rx#:[id number] Piperacillin-Tazobactam 3 100 .375 gm In Sodium Chloride 0.9% 100 ml @ 25 mls/hr IVPB Q8HR JENNY Rx# :[id number] Sodium Chloride 0.9% 1, 1000 000 ml @ 999 mls/hr IV . Q1H1M ONE Rx#:[id number] Sodium Chloride 0.9% 500 500 ml 500 ml @ 999 mls/hr IV .Q31M ONE Rx#:[id number] Oral 590 Other: Voiding Method Toilet # Voids 1 1 # Bowel Movements 1 1 - Exam patient is awake, comfortable, no acute distress. 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 - Labs CBC & Chem 7: 04/02/24 06:49 04/02/24 04:30 Labs: Abnormal Lab Results - Last 24 Hours (Table) 04/01/24 04/01/24 04/02/24 Range/Units 17:20 20:13 04:30 WBC (3.8-10.6) k/uL MCHC (31.0-37.0) g/dL Plt Count (150-450) k/uL Neutrophils # (1.3-7.7) k/uL Sodium 134 L (135-145) mmol/L Potassium 5.7 H (3.5-5.5) mmol/L Carbon Dioxide 13.0 L (21.6-31.8) mmol/L Anion Gap 16.00 H (4.00-12.00) mmol/L BUN 54.0 H (9.0-27.0) mg/dL Creatinine 4.9 H (0.6-1.5) mg/dL Est GFR (CKD-EPI) 10 L (>=60) BUN/Creatinine Ratio 11.02 L (12.00-20.00) Ratio Glucose 144 H (70-110) mg/dL POC Glucose (mg/dL) 224 H 206 H (70-110) mg/dL Total Bilirubin 1.6 H (0.3-1.2) mg/dL Total Protein 5.6 L (6.2-8.2) g/dL 04/02/24 04/02/24 04/02/24 Range/Units 06:49 07:11 11:41 WBC 11.5 H (3.8-10.6) k/uL MCHC 29.2 L (31.0-37.0) g/dL Plt Count 117 L (150-450) k/uL Neutrophils # 8.8 H (1.3-7.7) k/uL Sodium (135-145) mmol/L Potassium (3.5-5.5) mmol/L Carbon Dioxide (21.6-31.8) mmol/L Anion Gap (4.00-12.00) mmol/L BUN (9.0-27.0) mg/dL Creatinine (0.6-1.5) mg/dL Est GFR (CKD-EPI) (>=60) BUN/Creatinine Ratio (12.00-20.00) Ratio Glucose (70-110) mg/dL POC Glucose (mg/dL) 132 H 131 H (70-110) mg/dL Total Bilirubin (0.3-1.2) mg/dL Total Protein (6.2-8.2) g/dL Microbiology - Last 24 Hours (Table) 03/31/24 11:45 Blood Culture - Preliminary Blood Assessment and Plan Assessment: 1. 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 Status post donor transplant at [facility] in July 2017 maintained on Prograf CellCept and prednisone. 3. Hyperkalemia associated with acute kidney injury and metabolic acidosis 4. Acute kidney injury secondary to hypotension and volume depletion and underlying infection. Rule out urine retention. 5. Diverticulitis maintained on antibiotics. 6. Pulmonary fibrosis post Covid pneumonia, maintained on home oxygen Plan: Switch to IV hydrocortisone Continue IV bicarb Repeat fluid bolus Check postvoid bladder scan. If patient remains hypotensive he will need to be transferred to the ICU for pressors. Treat hyperkalemia with insulin and D50. Follow-up on tacrolimus level drawn today. Switch to hydrocortisone IV Continue current immunosuppression. Continue with antibiotics. Avoid nephrotoxic agents Repeat labs in a.m. Continue with oral sodium bicarb as well.
[2024-04-02 17:04] LABS: Glucose,Whole Blood 165 mg/dL (70-110)
[2024-04-02] MEDS: HYDROCORTISONE SUCCINATE 100 MG/2 ML VIAL IV SCH (17:21)
[2024-04-02] MEDS: PIPERACILLIN-TAZOBACTAM 3.375 GM in SODIUM CHLORIDE 0.9% 100 ML IVPB SCH (20:01)
[2024-04-02 20:17] LABS: Glucose,Whole Blood 145 mg/dL (70-110)
--- NOTE | 2024-04-03 02:10 | PN ---
PROGRESS NOTE DATE OF SERVICE: 04/02/2024 SUBJECTIVE: This is a 53-year-old gentleman, who was admitted with acute diverticulitis. He is also immunosuppressed. The patient is on broad-spectrum IV antibiotics. Multiple consultants are following the patient closely. The patient also had hypotension. PAST MEDICAL HISTORY: Reviewed. REVIEW OF SYSTEMS: Fourteen-point review is negative except as mentioned earlier. CURRENT MEDICATIONS: Reviewed. IV Zosyn. PHYSICAL EXAMINATION: VITAL SIGNS: Pulse is 60, blood pressure 84/55, respirations 18. HEENT: Conjunctivae normal. NECK: No JVD. CARDIOVASCULAR: S1, S2. RESPIRATIONS: Breath sounds diminished at the bases. A few scattered rhonchi. ABDOMEN: Soft, nontender. No mass. LEGS: No edema. NERVOUS SYSTEM: Nonfocal. ASSESSMENT: 1. Acute diverticulitis involving the descending and sigmoid colon with severe abdominal pain. 2. Immunosuppressed. 3. Mild to moderate pelvic fluid, possibly secondary to fluid overload. 4. Chronic kidney disease, stage III. 5. Hyperkalemia. 6. History of renal failure and transplantation. 7. Hypomagnesemia. 8. Elevated WBC. 9. History of coronary artery disease. 10.Multiple complex medical issues. RECOMMENDATIONS AND DISCUSSION: Recommended to continue current medications, continue symptomatic treatment. I would recommend repeat labs. Monitor creatinine closely. Currently is 4.9. Monitor blood pressure closely. I would also recommend a followup chest x-ray tomorrow to look for any fluid overload. Strict I's and O's. Closely follow with Nephrology. Prognosis guarded. Further recommendations to follow. See orders for further details. MMODL / IJN: [id number] /
[2024-04-03 05:27] LABS: Glucose,Whole Blood 212 mg/dL (70-110)
[2024-04-03 05:42] LABS: Basophils % (A) 0 %; Eosinophils # (A) 0.1 k/uL (0-0.7); Eosinophils % (A) 1 %; HCT 53.7 % (39.0-53.0); HGB 15.8 gm/dL (13.0-17.5); Hypochromasia Marked; Lymphocytes # (A) 0.5 k/uL (1.0-4.8); Lymphocytes % (A) 5 %; MCH 29.9 pg (25.0-35.0); MCHC 29.5 g/dL (31.0-37.0); MCV 101.3 fL (80.0-100.0); Macrocytosis Slight; Monocytes # (A) 0.3 k/uL (0-1.0); Monocytes % (A) 3 %; Neutrophils # (A) 8.9 k/uL (1.3-7.7); Neutrophils % (A) 90 %; Platelet Count 118 k/uL (150-450); RDW 15.1 % (11.5-15.5); WBC 9.9 k/uL (3.8-10.6)
[2024-04-03 05:48] LABS: ALT 20 U/L (4-49); AST 33 U/L (17-59); African American GFR (CKD) 12 (>60 ml/min/1.73 sqM); Albumin 4.1 g/dL (3.5-5.0); Alkaline Phosphatase 86 U/L (38-126); Anion Gap 15 mmol/L; Blood Urea Nitrogen 58 mg/dL (9-20); Calcium 9.7 mg/dL (8.4-10.2); Carbon Dioxide 14 mmol/L (22-30); Chloride 104 mmol/L (98-107); Glucose 212 mg/dL (74-99); Non-African American GFR(CKD) 10 (>60 ml/min/1.73 sqM); Potassium 5.9 mmol/L (3.5-5.1); Sodium 133 mmol/L (137-145); Total Bilirubin 2.6 mg/dL (0.2-1.3); Total Protein 6.3 g/dL (6.3-8.2)
--- NOTE | 2024-04-03 05:53 | XR ---
EXAMINATION TYPE: XR chest 1V portable DATE OF EXAM: 04/03/2024 CLINICAL HISTORY: Difficulty breathing and CHF progress study. TECHNIQUE: Single AP portable upright view of the chest is obtained. COMPARISON: Chest x-ray from 3 days earlier FINDINGS: Stable large bore right internal jugular dialysis catheter. Diminished inspiration with mo re prominent moderate central vascular congestion on current study. Persistent cardiomegaly. Osseous structures are intact. IMPRESSION: Findings consistent with CHF exacerbation/fluid overload state are present as detailed ab ove and more prominent versus most recent prior.
[2024-04-03] MEDS: INSULIN ASPART (NovoLOG) 100 UNIT/ML VIAL SQ SCH (06:27)
[2024-04-03] MEDS: FUROSEMIDE 10 MG/ML 10 ML VIAL IV STA (07:53)
[2024-04-03] MEDS: SODIUM BICARB 8.4% 50 ML SYR (1 MEQ/ML) IV STA (07:53)
[2024-04-03] MEDS: SODIUM ZIRCONIUM CYCLOSILICATE 10 GM PACKET PO ONE (07:53)
[2024-04-03] MEDS: DEXTROSE 50% SYRINGE 50 ML IVP STA (07:53)
[2024-04-03] MEDS: MIDODRINE 5 MG TAB PO SCH (07:54)
[2024-04-03] MEDS: INSULIN REGULAR 100 UNIT/ML VIAL (IV) IV ONE (07:56)
--- NOTE | 2024-04-03 10:04 | P.PN ---
Subjective Patient is seen in follow-up for acute kidney injury on chronic kidney disease. Renal function worsening. Oliguric. Potassium remains elevated and also remains acidotic despite being on bicarb drip. Admits to loose bowel movements. Denies chest pain or shortness of breath. present at bedside. Vital signs are stable. General: No acute distress. HEENT: Head exam is unremarkable. On nasal cannula. LUNGS: No audible rhonchi or wheezes. HEART: Rate and Rhythm are regular. ABDOMEN: Obese, nontender. EXTREMITITES: No edema. Objective - Vital Signs Vital signs: Vital Signs Temp 97.8 F 04/03/24 07:48 Pulse 67 04/03/24 07:48 Resp 20 04/03/24 07:48 BP 101/53 04/03/24 07:48 Pulse Ox 91 L 04/03/24 07:48 FiO2 Intake & Output 04/02/24 04/03/24 04/03/24 18:59 06:59 18:59 Intake Total 660 Output Total 100 Balance -100 660 Weight 100.9 kg Intake: Oral 660 Output: Urine 100 Other: Voiding Method Toilet # Voids 1 0 # Bowel Movements 1 1 - Labs CBC & Chem 7: 04/03/24 05:00 04/03/24 05:00 Labs: Abnormal Lab Results - Last 24 Hours (Table) 04/02/24 04/02/24 04/02/24 Range/Units 04:30 06:49 11:41 Hct (39.0-53.0) % MCV (80.0-100.0) fL MCHC (31.0-37.0) g/dL Plt Count (150-450) k/uL Neutrophils # 8.8 H (1.3-7.7) k/uL Lymphocytes # (1.0-4.8) k/uL Sodium 134 L (135-145) mmol/L Potassium 5.7 H (3.5-5.5) mmol/L Carbon Dioxide 13.0 L (21.6-31.8) mmol/L Anion Gap 16.00 H (4.00-12.00) mmol/L BUN 54.0 H (9.0-27.0) mg/dL Creatinine 4.9 H (0.6-1.5) mg/dL Est GFR (CKD-EPI) 10 L (>=60) BUN/Creatinine Ratio 11.02 L (12.00-20.00) Ratio Glucose 144 H (70-110) mg/dL POC Glucose (mg/dL) 131 H (70-110) mg/dL Total Bilirubin 1.6 H (0.3-1.2) mg/dL Total Protein 5.6 L (6.2-8.2) g/dL 04/02/24 04/02/24 04/03/24 Range/Units 17:02 20:15 05:00 Hct 53.7 H (39.0-53.0) % MCV 101.3 H (80.0-100.0) fL MCHC 29.5 L (31.0-37.0) g/dL Plt Count 118 L (150-450) k/uL Neutrophils # 8.9 H (1.3-7.7) k/uL Lymphocytes # 0.5 L (1.0-4.8) k/uL Sodium (135-145) mmol/L Potassium (3.5-5.5) mmol/L Carbon Dioxide (21.6-31.8) mmol/L Anion Gap (4.00-12.00) mmol/L BUN (9.0-27.0) mg/dL Creatinine (0.6-1.5) mg/dL Est GFR (CKD-EPI) (>=60) BUN/Creatinine Ratio (12.00-20.00) Ratio Glucose (70-110) mg/dL POC Glucose (mg/dL) 165 H 145 H (70-110) mg/dL Total Bilirubin (0.3-1.2) mg/dL Total Protein (6.2-8.2) g/dL 04/03/24 04/03/24 Range/Units 05:00 05:26 Hct (39.0-53.0) % MCV (80.0-100.0) fL MCHC (31.0-37.0) g/dL Plt Count (150-450) k/uL Neutrophils # (1.3-7.7) k/uL Lymphocytes # (1.0-4.8) k/uL Sodium 133 L (135-145) mmol/L Potassium 5.9 H (3.5-5.5) mmol/L Carbon Dioxide 14 L (21.6-31.8) mmol/L Anion Gap (4.00-12.00) mmol/L BUN 58 H (9.0-27.0) mg/dL Creatinine 5.87 H (0.6-1.5) mg/dL Est GFR (CKD-EPI) (>=60) BUN/Creatinine Ratio (12.00-20.00) Ratio Glucose 212 H (70-110) mg/dL POC Glucose (mg/dL) 212 H (70-110) mg/dL Total Bilirubin 2.6 H (0.3-1.2) mg/dL Total Protein (6.2-8.2) g/dL Microbiology - Last 24 Hours (Table) 03/31/24 11:45 Blood Culture - Preliminary Blood Assessment and Plan Plan: Assessment: 1. Acute kidney injury secondary to ATN secondary to hypotension/severe sepsis. Creatinine 5.87 today. Oliguric. Bladder scan negative for retention. 2. 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 3. Status post donor transplant at [facility] in July 2017 maintained on Prograf, CellCept and prednisone. 4. Hyperkalemia secondary to acute kidney injury and metabolic acidosis. 5. Metabolic acidosis secondary to acute kidney injury and GI losses. 6. Pulmonary fibrosis post COVID-pneumonia maintained on home oxygen. 7. Diverticulitis maintained on antibiotics. 8. Diabetes mellitus. Plan: Maintain bicarb drip. Status post IV insulin with D50, sodium bicarb IV push, IV Lasix as well as Lokelma this morning. Repeat potassium level pending. Discussed at length with patient the need to initiate renal replacement therapy due to oliguria, hyperkalemia and acidosis. Patient and agreeable to start dialysis. Plan for first treatment today. Monitor for renal recovery. Consult vascular surgery for temporary dialysis catheter placement. I also discussed with him at length being transferred to transplant facility but they wish to stay here at this time. Follow-up Prograf level. Insert Garza catheter for strict I's and O's.
--- NOTE | 2024-04-03 10:39 | P.GSCN ---
History of Present Illness History of present illness: 53-year-old gentleman patient history of chronic renal failure. Patient has history of dialysis in the past patient also had a kidney transplant at [facility] patient has a history of COPD coronary artery disease consulted for placement of a dialysis catheter on examination neck is supple no bruit appreciated Chest is clear to the lung bases. Second sound present Abdomen is soft nontender Vascular femorals are 1+ patient had a right upper arm fortis graft placed in [place] which has been occluded Plan is placement of a dialysis catheter risk and complication discussed Past Medical History Past Medical History: Coronary Artery Disease (CAD), Renal Disease, Thyroid Disorder Additional Past Medical History / Comment(s): Renal failure post-kidney transplantation, previous history of dialysis for a total of 12 years followed by kidney transplantation, hypothyroidism, chronic stage III kidney failure post transplantation, nonocclusive coronary artery disease and the patient a cardiac catheterization on 09/24/2016 that showed 40-50% lesion in the distal circumflex otherwise the rest of the coronary arteries were all within normal limits. History of Any Multi-Drug Resistant Organisms: None Reported Past Surgical History: Heart Catheterization, Orthopedic Surgery Additional Past Surgical History / Comment(s): FISTULA/GRAFT RT ARM, kidney transplant in July of 2017, Left hip Past Anesthesia/Blood Transfusion Reactions: No Reported Reaction Past Psychological History: No Psychological Hx Reported Smoking Status: Former smoker Past Alcohol Use History: None Reported Past Drug Use History: None Reported - Past Family History Mother Family Medical History: Cancer Father Family Medical History: Myocardial Infarction ([place]) Additional Family Medical History / Comment(s): AT AGE 46 Medications and Allergies Home Medications Medication Instructions Recorded Confirmed Type Levothyroxine Sodium [Synthroid] 100 mcg PO DAILY 09/20/16 03/31/24 History Acetaminophen [Tylenol] 1,000 mg PO Q6H PRN 10/30/17 03/31/24 History mycophenolate mofetiL [Cellcept] 250 mg PO BID 10/30/17 03/31/24 History predniSONE 5 mg PO DAILY 10/30/17 03/31/24 History Insulin Glargine,Hum.rec.anlog 1 dose SQ DIRECTED PRN 12/14/23 03/31/24 History [Lantus Solostar Pen] Losartan [Cozaar] 50 mg PO HS 12/14/23 03/31/24 History Montelukast [Singulair] 10 mg PO HS 12/14/23 03/31/24 History Rosuvastatin Calcium [Crestor] 40 mg PO HS 12/14/23 03/31/24 History Semaglutide [Rybelsus] 7 mg PO DAILY 12/14/23 03/31/24 History Sertraline [Zoloft] 25 mg PO HS 12/14/23 03/31/24 History Tacrolimus [Prograf] 1 mg PO DAILY 12/14/23 03/31/24 History Nitroglycerin Sl Tabs [Nitrostat] 0.4 mg SL Q5M PRN 12/16/23 03/31/24 History Apixaban [Eliquis] 2.5 mg PO BID #60 tab 12/19/23 03/31/24 Rx Cyanocobalamin [Vitamin B-12] 500 mcg PO DAILY 03/31/24 03/31/24 History INSULIN ASPART (NovoLOG) [NovoLOG See Protocol SQ ACHS PRN 03/31/24 03/31/24 History (formulary)] Sildenafil Citrate [Viagra] 100 mg PO DAILY PRN 03/31/24 03/31/24 History Sodium Bicarbonate Tab 650 mg PO TID 03/31/24 03/31/24 History Tacrolimus [Prograf] 0.5 mg PO HS 03/31/24 03/31/24 History Allergies Allergy/AdvReac Type Severity Reaction Status Date / Time grapefruit Allergy Rash/Hives Verified 03/31/24 13:09 shellfish derived [Shellfish] Allergy Swelling Verified 03/31/24 13:09 Surgical - Exam Vital Signs Temp Pulse Resp BP Pulse Ox 97.9 F 75 16 84/57 93 L 03/31/24 11:35 03/31/24 11:35 03/31/24 11:35 03/31/24 11:35 03/31/24 11:35 Results - Labs 04/03/24 05:00 04/03/24 05:00 Abnormal Lab Results - Last 24 Hours (Table) 04/02/24 04/02/24 04/02/24 Range/Units 04:30 06:49 11:41 Hct (39.0-53.0) % MCV (80.0-100.0) fL MCHC (31.0-37.0) g/dL Plt Count (150-450) k/uL Neutrophils # 8.8 H (1.3-7.7) k/uL Lymphocytes # (1.0-4.8) k/uL Sodium 134 L (135-145) mmol/L Potassium 5.7 H (3.5-5.5) mmol/L Carbon Dioxide 13.0 L (21.6-31.8) mmol/L Anion Gap 16.00 H (4.00-12.00) mmol/L BUN 54.0 H (9.0-27.0) mg/dL Creatinine 4.9 H (0.6-1.5) mg/dL Est GFR (CKD-EPI) 10 L (>=60) BUN/Creatinine Ratio 11.02 L (12.00-20.00) Ratio Glucose 144 H (70-110) mg/dL POC Glucose (mg/dL) 131 H (70-110) mg/dL Total Bilirubin 1.6 H (0.3-1.2) mg/dL Total Protein 5.6 L (6.2-8.2) g/dL 04/02/24 04/02/24 04/03/24 Range/Units 17:02 20:15 05:00 Hct 53.7 H (39.0-53.0) % MCV 101.3 H (80.0-100.0) fL MCHC 29.5 L (31.0-37.0) g/dL Plt Count 118 L (150-450) k/uL Neutrophils # 8.9 H (1.3-7.7) k/uL Lymphocytes # 0.5 L (1.0-4.8) k/uL Sodium (135-145) mmol/L Potassium (3.5-5.5) mmol/L Carbon Dioxide (21.6-31.8) mmol/L Anion Gap (4.00-12.00) mmol/L BUN (9.0-27.0) mg/dL Creatinine (0.6-1.5) mg/dL Est GFR (CKD-EPI) (>=60) BUN/Creatinine Ratio (12.00-20.00) Ratio Glucose (70-110) mg/dL POC Glucose (mg/dL) 165 H 145 H (70-110) mg/dL Total Bilirubin (0.3-1.2) mg/dL Total Protein (6.2-8.2) g/dL 04/03/24 04/03/24 Range/Units 05:00 05:26 Hct (39.0-53.0) % MCV (80.0-100.0) fL MCHC (31.0-37.0) g/dL Plt Count (150-450) k/uL Neutrophils # (1.3-7.7) k/uL Lymphocytes # (1.0-4.8) k/uL Sodium 133 L (135-145) mmol/L Potassium 5.9 H (3.5-5.5) mmol/L Carbon Dioxide 14 L (21.6-31.8) mmol/L Anion Gap (4.00-12.00) mmol/L BUN 58 H (9.0-27.0) mg/dL Creatinine 5.87 H (0.6-1.5) mg/dL Est GFR (CKD-EPI) (>=60) BUN/Creatinine Ratio (12.00-20.00) Ratio Glucose 212 H (70-110) mg/dL POC Glucose (mg/dL) 212 H (70-110) mg/dL Total Bilirubin 2.6 H (0.3-1.2) mg/dL Total Protein (6.2-8.2) g/dL Microbiology - Last 24 Hours (Table) 03/31/24 11:45 Blood Culture - Preliminary Blood Diabetes panel 04/02/24 04/03/24 Range/Units 04:30 05:00 Sodium 134 L 133 L (135-145) mmol/L Potassium 5.7 H 5.9 H (3.5-5.5) mmol/L Chloride 105 104 (96-109) mmol/L Carbon Dioxide 13.0 L 14 L (21.6-31.8) mmol/L BUN 54.0 H 58 H (9.0-27.0) mg/dL Creatinine 4.9 H 5.87 H (0.6-1.5) mg/dL Glucose 144 H 212 H (70-110) mg/dL Calcium 9.2 9.7 (8.7-10.3) mg/dL AST 26 33 (13-35) U/L ALT 18 20 (8-44) U/L Alkaline Phosphatase 90 86 (41-126) U/L Total Protein 5.6 L 6.3 (6.2-8.2) g/dL Albumin 3.8 4.1 (3.8-4.9) g/dL Calcium panel 04/02/24 04/03/24 Range/Units 04:30 05:00 Calcium 9.2 9.7 (8.7-10.3) mg/dL Albumin 3.8 4.1 (3.8-4.9) g/dL Pituitary panel 04/02/24 04/03/24 Range/Units 04:30 05:00 Sodium 134 L 133 L (135-145) mmol/L Potassium 5.7 H 5.9 H (3.5-5.5) mmol/L Chloride 105 104 (96-109) mmol/L Carbon Dioxide 13.0 L 14 L (21.6-31.8) mmol/L BUN 54.0 H 58 H (9.0-27.0) mg/dL Creatinine 4.9 H 5.87 H (0.6-1.5) mg/dL Glucose 144 H 212 H (70-110) mg/dL Calcium 9.2 9.7 (8.7-10.3) mg/dL Adrenal panel 04/02/24 04/03/24 Range/Units 04:30 05:00 Sodium 134 L 133 L (135-145) mmol/L Potassium 5.7 H 5.9 H (3.5-5.5) mmol/L Chloride 105 104 (96-109) mmol/L Carbon Dioxide 13.0 L 14 L (21.6-31.8) mmol/L BUN 54.0 H 58 H (9.0-27.0) mg/dL Creatinine 4.9 H 5.87 H (0.6-1.5) mg/dL Glucose 144 H 212 H (70-110) mg/dL Calcium 9.2 9.7 (8.7-10.3) mg/dL Total Bilirubin 1.6 H 2.6 H (0.3-1.2) mg/dL AST 26 33 (13-35) U/L ALT 18 20 (8-44) U/L Alkaline Phosphatase 90 86 (41-126) U/L Total Protein 5.6 L 6.3 (6.2-8.2) g/dL Albumin 3.8 4.1 (3.8-4.9) g/dL
[2024-04-03] MEDS: SODIUM CHLORIDE 0.9% 500 ML 500 ML IV ONE (10:56)
[2024-04-03] MEDS: MIDAZOLAM 2 MG/2 ML VIAL IVP ONE (11:05)
[2024-04-03 11:08] LABS: Magnesium 1.5 mg/dL (1.6-2.3); Potassium 5.4 mmol/L (3.5-5.1)
[2024-04-03] MEDS: LIDOCAINE 1% INJ 10MG/ML (20 ML MDV) SQ ONE (11:08)
[2024-04-03] MEDS ORDERED: Magnesium Replacement Protocol 1 EACH MISC MISCELLANE PRN (11:24)
[2024-04-03] MEDS ORDERED: Potassium Replacement Protocol 1 EACH MISC MISCELLANE PRN (11:24)
--- NOTE | 2024-04-03 11:28 | P.PCN ---
Description of Procedure: Preop diagnosis acute chronic renal failure, kidney transplant failure right arm fistula is chronically occluded Postop same Procedure #1 inferior venacavogram 2. Is placement of a 30 cm dialysis catheter left femoral approach Procedure patient was brought to the [facility] Operator left and right groin was prepped and draped in Prest[place] manner this patient has history of kidney transplant failure patient also has a history of dialysis catheter placed in the past ultrasound-guided micropuncture introduced using 1% lidocaine and IV sedation to the left femoral vein micropuncture guide was passed and 4 Kyrgyz dilator advanced up the guidewire we used 10 cc of saline with 10 cc of dye with hand- injection venacavogram was performed left external and common iliac was found to be patent vena cava was found to be patent after that we passed the regular guidewire which was parked at the inferior vena cava dilators were advanced up the guidewire then replaced 30 cm dialysis catheter 3 lm flushed with heparin saline hep-locked secured with 3-0 nylon patient tarted the procedure well and transferred to the recovery room in satisfactory condition
[2024-04-03 11:39] LABS: Glucose,Whole Blood 199 mg/dL (70-110)
--- NOTE | 2024-04-03 12:26 | P.PN ---
Subjective Progress Note Date: 04/03/24 This is a pleasant 53-year-old male patient with a known history of previous kidney transplant, hypothyroidism, mild coronary artery disease, hypothyroidism who presented here to the emergency room on 03/31/2024 with complaints of right lower quadrant abdominal pain and febrile illness. ET scan of the abdomen and pelvis revealed acute diverticulitis at the junction of the descending and sigmoid colon. Mild to moderate inflammation. No abscess or free air. Mild abdominal and moderate laded to fluid overload state given some generalized anasarca, cirrhotic morphology of the liver and patient's right lower quadrant transplant kidney. Fluid-filled small bowel loops most of the abdomen as well as lower abdomen may reflect mild secondary ileus. Small left pleural effusion. Chest x-ray reveals a small left pleural effusion. Mild cardiomegaly but no pulmonary edema. White count 11.5. Hemoglobin 15.2. Platelets 117. Sodium 134. Potassium 5.7. Bicarb 13. BUN 54. Creatinine 4.9. Issues with hypotension as well. He did have a syncopal episode this morning while up in the bathroom. He is seen today in consultation on the regular medical floor. He is awake and alert in no acute distress. He is maintaining O2 saturations in the 90s on 4 L/min per nasal cannula. He does have home oxygen at 3 L. He is receiving D5W with 3 A of bicarb at 80 MLS per hour. Antibiotics in the form of Zosyn. The patient is seen today April 03, 2024 in follow-up on the selective care unit. He is currently sitting up at the bedside. Awake and alert in no acute distress. He is maintaining good O2 saturations in the 90s on 2 L/min per nasal cannula. He is afebrile. Hemodynamically stable. White count 9.9. Hemoglobin 15.8. Platelets 118. Sodium 133. Potassium 5.4. Bicarb 14. BUN 58. Creatinine 5.87. Glucose 212. He is on D5W with 3 A of bicarb at 80 MLS per hour. On sodium bicarbonate tablets. He remains on Solu-Cortef 100 mg IV every 8 hours. Heparin for DVT prophylaxis. Continued on tacrolimus and CellCept. Continued on antibiotics in the form of Zosyn. Procalcitonin pending. Objective - Vital Signs Vital signs: Vital Signs Temp 97.5 F L 04/03/24 11:35 Pulse 56 L 04/03/24 11:35 Resp 20 04/03/24 11:35 BP 115/64 04/03/24 11:35 Pulse Ox 92 L 04/03/24 11:35 FiO2 Intake & Output 04/02/24 04/03/24 04/03/24 18:59 06:59 18:59 Intake Total 710 Output Total 100 Balance -100 710 Weight 100.9 kg Intake: IV 50 Oral 660 Output: Urine 100 Other: Voiding Method Toilet # Voids 1 0 # Bowel Movements 1 1 1 - Exam GENERAL EXAM: Alert, pleasant 53-year-old male sitting up in bed, on 3 L nasal cannula, fairly comfortable in no apparent distress. HEAD: Normocephalic. EYES: Normal reaction of pupils, equal size. NOSE: Clear with pink turbinates. THROAT: No erythema or exudates. NECK: No masses, no JVD. CHEST: No chest wall deformity. LUNGS: Equal air entry with crackles in the left posterior base. CVS: S1 and S2 normal with no audible murmur, regular rhythm. ABDOMEN: Soft no hepatosplenomegaly, normal bowel sounds, no guarding or rigidity. SPINE: No scoliosis or deformity SKIN: No rashes CENTRAL NERVOUS SYSTEM: No focal deficits, tone is normal in all 4 extremities. EXTREMITIES: Right arm fistula chronically occluded. Temporary dialysis catheter placed in the left femoral vein. Peripheral pulses are intact. - Labs CBC & Chem 7: 04/03/24 05:00 04/03/24 10:32 Labs: Abnormal Lab Results - Last 24 Hours (Table) 04/02/24 04/02/24 04/02/24 Range/Units 04:30 06:49 17:02 Hct (39.0-53.0) % MCV (80.0-100.0) fL MCHC (31.0-37.0) g/dL Plt Count (150-450) k/uL Neutrophils # 8.8 H (1.3-7.7) k/uL Lymphocytes # (1.0-4.8) k/uL Sodium 134 L (135-145) mmol/L Potassium 5.7 H (3.5-5.5) mmol/L Carbon Dioxide 13.0 L (21.6-31.8) mmol/L Anion Gap 16.00 H (4.00-12.00) mmol/L BUN 54.0 H (9.0-27.0) mg/dL Creatinine 4.9 H (0.6-1.5) mg/dL Est GFR (CKD-EPI) 10 L (>=60) BUN/Creatinine Ratio 11.02 L (12.00-20.00) Ratio Glucose 144 H (70-110) mg/dL POC Glucose (mg/dL) 165 H (70-110) mg/dL Magnesium (1.6-2.3) mg/dL Total Bilirubin 1.6 H (0.3-1.2) mg/dL Total Protein 5.6 L (6.2-8.2) g/dL 04/02/24 04/03/24 04/03/24 Range/Units 20:15 05:00 05:00 Hct 53.7 H (39.0-53.0) % MCV 101.3 H (80.0-100.0) fL MCHC 29.5 L (31.0-37.0) g/dL Plt Count 118 L (150-450) k/uL Neutrophils # 8.9 H (1.3-7.7) k/uL Lymphocytes # 0.5 L (1.0-4.8) k/uL Sodium 133 L (135-145) mmol/L Potassium 5.9 H (3.5-5.5) mmol/L Carbon Dioxide 14 L (21.6-31.8) mmol/L Anion Gap (4.00-12.00) mmol/L BUN 58 H (9.0-27.0) mg/dL Creatinine 5.87 H (0.6-1.5) mg/dL Est GFR (CKD-EPI) (>=60) BUN/Creatinine Ratio (12.00-20.00) Ratio Glucose 212 H (70-110) mg/dL POC Glucose (mg/dL) 145 H (70-110) mg/dL Magnesium (1.6-2.3) mg/dL Total Bilirubin 2.6 H (0.3-1.2) mg/dL Total Protein (6.2-8.2) g/dL 04/03/24 04/03/24 04/03/24 Range/Units 05:26 10:32 11:38 Hct (39.0-53.0) % MCV (80.0-100.0) fL MCHC (31.0-37.0) g/dL Plt Count (150-450) k/uL Neutrophils # (1.3-7.7) k/uL Lymphocytes # (1.0-4.8) k/uL Sodium (135-145) mmol/L Potassium 5.4 H (3.5-5.5) mmol/L Carbon Dioxide (21.6-31.8) mmol/L Anion Gap (4.00-12.00) mmol/L BUN (9.0-27.0) mg/dL Creatinine (0.6-1.5) mg/dL Est GFR (CKD-EPI) (>=60) BUN/Creatinine Ratio (12.00-20.00) Ratio Glucose (70-110) mg/dL POC Glucose (mg/dL) 212 H 199 H (70-110) mg/dL Magnesium 1.5 L (1.6-2.3) mg/dL Total Bilirubin (0.3-1.2) mg/dL Total Protein (6.2-8.2) g/dL Microbiology - Last 24 Hours (Table) 03/31/24 11:45 Blood Culture - Preliminary Blood Assessment and Plan Assessment: Acute right lower quadrant abdominal pain suspect secondary to mild abdominal and moderate pelvic free fluid possibly related to fluid overload state given some generalized anasarca, cirrhotic morphology liver and patient's right lower quadrant transplant kidney Acute diverticulitis at the junction of the descending and sigmoid colon. Mild to moderate inflammation. No evidence of free air Acute on chronic hypoxemic respiratory failure secondary to a small left pleural effusion and fluid accumulated in the abdominal space Acute kidney injury on chronic stage IV kidney disease, temporary hemodialysis placed and to start hemodialysis today 04/03/2024 Hyperkalemia secondary to above, treated, current potassium 5.4 Metabolic acidosis secondary to above History of kidney transplant at the [facility] in July 2017, maintained on Prograf, CellCept and prednisone History of renal failure post kidney transplantation, chronic allograft nephropathy Former smoker Chronic obstructive pulmonary disease 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 Number of minutes spent on the visit: 10.
[2024-04-03 12:39] LABS: Magnesium 1.5 mg/dL (1.5-2.4); Phosphorus 4.9 mg/dL (2.4-5.1)
[2024-04-03] MEDS: MAGNESIUM SULFATE-D5W PMX 1 GM in DEXTROSE/WATER 1 100ML.BAG IVPB SCH (13:08)
--- NOTE | 2024-04-03 13:17 | IR ---
EXAMINATION TYPE: IR cvc insert non tunneled DATE OF EXAM: 04/03/2024 FLUOROSCOPY Fluoroscopy time of 0.8 minutes was used during left femoral catheter insertion. 125 image/s documen t/s the procedure. 2631.8 uGym2.
[2024-04-03] MEDS: LIDOCAINE 2% URO-JET JELLY 5 ML KIT URETHRAL ONE (14:16)
[2024-04-03 16:51] LABS: Glucose,Whole Blood 182 mg/dL (70-110)
[2024-04-03 20:12] LABS: Glucose,Whole Blood 250 mg/dL (70-110)
--- NOTE | 2024-04-03 21:16 | P.PN ---
Subjective Patient seen and evaluated at bedside. Tolerating clear liquid diet, denies abdominal pain, no overnight events. gen: nad cv: rrr pul: non labored breathing abd: soft, non distended, non tender to palpation, no guarding or rebound tenderness Objective - Vital Signs Vital signs: Vital Signs Temp 97.8 F 04/03/24 15:16 Pulse 83 04/03/24 18:49 Resp 18 04/03/24 15:50 BP 119/64 04/03/24 16:59 Pulse Ox 91 L 04/03/24 15:16 FiO2 Intake & Output 04/03/24 04/03/24 04/04/24 06:59 18:59 06:59 Intake Total 1590 Output Total 100 1400 Balance -100 190 Weight 100.9 kg Intake: IV 50 Oral 1140 Hemodialysis 400 Output: Urine 100 0 Hemodialysis 1400 Other: Voiding Method Toilet Indwelling Catheter # Voids 0 # Bowel Movements 1 1 - Labs CBC & Chem 7: 04/03/24 05:00 04/03/24 10:32 Labs: Abnormal Lab Results - Last 24 Hours (Table) 04/03/24 04/03/24 04/03/24 Range/Units 05:00 05:00 05:26 Hct 53.7 H (39.0-53.0) % MCV 101.3 H (80.0-100.0) fL MCHC 29.5 L (31.0-37.0) g/dL Plt Count 118 L (150-450) k/uL Neutrophils # 8.9 H (1.3-7.7) k/uL Lymphocytes # 0.5 L (1.0-4.8) k/uL Sodium 133 L (137-145) mmol/L Potassium 5.9 H (3.5-5.1) mmol/L Carbon Dioxide 14 L (22-30) mmol/L BUN 58 H (9-20) mg/dL Creatinine 5.87 H (0.66-1.25) mg/dL Glucose 212 H (74-99) mg/dL POC Glucose (mg/dL) 212 H (70-110) mg/dL Magnesium (1.6-2.3) mg/dL Total Bilirubin 2.6 H (0.2-1.3) mg/dL Cortisol 111.0 H (3.1-22.4) UG/DL 04/03/24 04/03/24 04/03/24 Range/Units 10:32 11:38 16:50 Hct (39.0-53.0) % MCV (80.0-100.0) fL MCHC (31.0-37.0) g/dL Plt Count (150-450) k/uL Neutrophils # (1.3-7.7) k/uL Lymphocytes # (1.0-4.8) k/uL Sodium (137-145) mmol/L Potassium 5.4 H (3.5-5.1) mmol/L Carbon Dioxide (22-30) mmol/L BUN (9-20) mg/dL Creatinine (0.66-1.25) mg/dL Glucose (74-99) mg/dL POC Glucose (mg/dL) 199 H 182 H (70-110) mg/dL Magnesium 1.5 L (1.6-2.3) mg/dL Total Bilirubin (0.2-1.3) mg/dL Cortisol (3.1-22.4) UG/DL 04/03/24 Range/Units 20:11 Hct (39.0-53.0) % MCV (80.0-100.0) fL MCHC (31.0-37.0) g/dL Plt Count (150-450) k/uL Neutrophils # (1.3-7.7) k/uL Lymphocytes # (1.0-4.8) k/uL Sodium (137-145) mmol/L Potassium (3.5-5.1) mmol/L Carbon Dioxide (22-30) mmol/L BUN (9-20) mg/dL Creatinine (0.66-1.25) mg/dL Glucose (74-99) mg/dL POC Glucose (mg/dL) 250 H (70-110) mg/dL Magnesium (1.6-2.3) mg/dL Total Bilirubin (0.2-1.3) mg/dL Cortisol (3.1-22.4) UG/DL Microbiology - Last 24 Hours (Table) 03/31/24 11:45 Blood Culture - Preliminary Blood Assessment and Plan Assessment: 53 yo male w/ resolving diverticulitis -continue abx -iv fluids -advance diet to regular Time with Patient: Greater than 30
--- NOTE | 2024-04-04 00:52 | PN ---
PROGRESS NOTE DATE OF SERVICE: 04/03/2024 SUBJECTIVE: This 53-year-old gentleman admitted with acute diverticulitis, is being closely monitored. He has acute on chronic renal failure, hemodialysis also being initiated. Multiple consultants are following the patient closely. Chest x-ray showed some fluid overload in the past. The patient has hypotension also. PAST MEDICAL HISTORY: Reviewed. REVIEW OF SYSTEMS: A 14-point review is negative except as mentioned above. CURRENT MEDICATIONS: Reviewed include [place], dose and rest of medications noted. PHYSICAL EXAMINATION: VITAL SIGNS: Pulse 56, blood pressure 150/60, respirations 20. CHEST: A few scattered rhonchi and crackles. ABDOMEN: Soft, obese. No guarding, no rigidity. LEGS: No edema, no swelling. NERVOUS SYSTEM: Nonfocal. LABORATORY DATA: Potassium 5.8, creatinine 5.87, cortisol was 111. ASSESSMENT: 1. Acute diverticulitis involving the descending and sigmoid colon with severe abdominal pain. 2. Immunosuppressed. 3. Acute on chronic renal failure, nearly started hemodialysis. 4. Mild-moderate pelvic fluid secondary to fluid overload. 5. Hyperkalemia. 6. History of renal failure and transplantation. 7. Hypomagnesemia. 8. Multiple complex medical issues. RECOMMENDATIONS: Recommended to continue current management, continue symptomatic treatment. Otherwise at this time we will monitor the patient closely. Continue the antibiotics. Cultures are negative so far. Continue the hemodialysis, control the potassium, and we will use Mag and potassium protocols also. Otherwise, IV antibiotics, guarded prognosis. Repeat labs. Further recommendations to follow. Repeat chest x-ray also tomorrow. Further recommendations to follow. I will evaluate the fluid status. MMODL / IJN: [id number] /
[2024-04-04 06:07] LABS: Glucose,Whole Blood 327 mg/dL (70-110)
[2024-04-04 08:36] LABS: African American GFR (CKD) 11 (>60 ml/min/1.73 sqM); Anion Gap 13 mmol/L; Blood Urea Nitrogen 55 mg/dL (9-20); Carbon Dioxide 23 mmol/L (22-30); Chloride 96 mmol/L (98-107); Glucose 312 mg/dL (74-99); Magnesium 1.7 mg/dL (1.6-2.3); Non-African American GFR(CKD) 9 (>60 ml/min/1.73 sqM); Phosphorus 4.7 mg/dL (2.5-4.5); Potassium 4.4 mmol/L (3.5-5.1); Sodium 132 mmol/L (137-145)
[2024-04-04] MEDS: MIDODRINE 5 MG TAB PO STA (08:36)
[2024-04-04 08:38] LABS: Basophils % (A) 0 %; Eosinophils % (A) 0 %; HCT 45.7 % (39.0-53.0); HGB 14.2 gm/dL (13.0-17.5); Lymphocytes # (A) 0.4 k/uL (1.0-4.8); Lymphocytes % (A) 3 %; MCH 30.1 pg (25.0-35.0); MCHC 31.2 g/dL (31.0-37.0); MCV 96.6 fL (80.0-100.0); Mean Platelet Volume 10.6; Monocytes # (A) 0.8 k/uL (0-1.0); Monocytes % (A) 8 %; Neutrophils # (A) 9.1 k/uL (1.3-7.7); Neutrophils % (A) 87 %; Platelet Count 111 k/uL (150-450); RBC 4.73 m/uL (4.30-5.90); RDW 15.2 % (11.5-15.5); WBC 10.4 k/uL (3.8-10.6)
--- NOTE | 2024-04-04 10:22 | P.PN ---
Subjective Progress Note Date: 04/04/24 Principal diagnosis: Abdominal pain. This is a pleasant 53-year-old male patient with a known history of previous kidney transplant, hypothyroidism, mild coronary artery disease, hypothyroidism who presented here to the emergency room on 03/31/2024 with complaints of right lower quadrant abdominal pain and febrile illness. ET scan of the abdomen and pelvis revealed acute diverticulitis at the junction of the descending and sigmoid colon. Mild to moderate inflammation. No abscess or free air. Mild abdominal and moderate laded to fluid overload state given some generalized anasarca, cirrhotic morphology of the liver and patient's right lower quadrant transplant kidney. Fluid-filled small bowel loops most of the abdomen as well as lower abdomen may reflect mild secondary ileus. Small left pleural effusion. Chest x-ray reveals a small left pleural effusion. Mild cardiomegaly but no pulmonary edema. White count 11.5. Hemoglobin 15.2. Platelets 117. Sodium 134. Potassium 5.7. Bicarb 13. BUN 54. Creatinine 4.9. Issues with hypotension as well. He did have a syncopal episode this morning while up in the bathroom. He is seen today in consultation on the regular medical floor. He is awake and alert in no acute distress. He is maintaining O2 saturations in the 90s on 4 L/min per nasal cannula. He does have home oxygen at 3 L. He is receiving D5W with 3 A of bicarb at 80 MLS per hour. Antibiotics in the form of Zosyn. The patient is seen today April 03, 2024 in follow-up on the selective care unit. He is currently sitting up at the bedside. Awake and alert in no acute distress. He is maintaining good O2 saturations in the 90s on 2 L/min per nasal cannula. He is afebrile. Hemodynamically stable. White count 9.9. Hemoglobin 15.8. Platelets 118. Sodium 133. Potassium 5.4. Bicarb 14. BUN 58. Creatinine 5.87. Glucose 212. He is on D5W with 3 A of bicarb at 80 MLS per hour. On sodium bicarbonate tablets. He remains on Solu-Cortef 100 mg IV every 8 hours. Heparin for DVT prophylaxis. Continued on tacrolimus and CellCept. Continued on antibiotics in the form of Zosyn. Procalcitonin pending. Progress note dated April 04, 2024. The patient is seen today in room 370. He continues on oxygen at 3 L. He is getting a sodium bicarbonate IV, through with 3 ampoules of sodium bicarbonate in D5W at 80 cc an hour. The patient did have hemodialysis yesterday, April 03, with 1 L being removed. Clinically, he is stable. He denies any respiratory issues at this time. Current labs include a white count 10.4, hemoglobin 14.2, hematocrit 45.7, and a platelet count of 111,000. Sodium 132, potassium 4.4, chlorides 96, CO2 23, anion gap 13, BUN 55, creatinine 6.21. Glucose is 312. Blood cultures are thus far negative. Chest x-ray shows borderline cardiomegaly, and mild pulmonary venous congestion. Objective - Vital Signs Vital signs: Vital Signs Temp 97.6 F 04/04/24 07:58 Pulse 61 04/04/24 07:58 Resp 20 04/04/24 07:58 BP 91/55 04/04/24 07:58 Pulse Ox 91 L 04/04/24 07:58 FiO2 Intake & Output 04/03/24 04/04/24 04/04/24 18:59 06:59 18:59 Intake Total 1590 Output Total 1400 Balance 190 Weight 102.8 kg Intake: IV 50 Oral 1140 Hemodialysis 400 Output: Urine 0 Hemodialysis 1400 Other: Voiding Method Indwelling Catheter Indwelling Catheter Indwelling Catheter # Bowel Movements 1 1 - Exam No acute distress, oriented 3. No respiratory distress. Currently on 3 L. HEENT examination is grossly unremarkable. Mucous membranes are moist. No oral lesions. Neck supple. Full range of motion. No adenopathy thyromegaly or neck vein distention. Cardiovascular examination reveals regular rhythm rate. S1-S2 normal. No S3 or S4. No discernible murmur noted. Heart sounds are distant. Heart rate 61 bpm. Lungs reveal mild scattered crackles. No wheezes or rhonchi. Breath sounds equal. 3 L saturation is 92%. Abdomen soft bowel sounds are heard. No masses or tenderness. Extremities are intact. No cyanosis clubbing or edema. Skin is without rash or lesion. Neurologic examination is brief but nonfocal. - Labs CBC & Chem 7: 04/04/24 07:05 04/04/24 07:05 Labs: Abnormal Lab Results - Last 24 Hours (Table) 04/03/24 04/03/24 04/03/24 Range/Units 05:00 10:32 11:38 Plt Count (150-450) k/uL Neutrophils # (1.3-7.7) k/uL Lymphocytes # (1.0-4.8) k/uL Sodium (137-145) mmol/L Potassium 5.4 H (3.5-5.1) mmol/L Chloride (98-107) mmol/L BUN (9-20) mg/dL Creatinine (0.66-1.25) mg/dL Glucose (74-99) mg/dL POC Glucose (mg/dL) 199 H (70-110) mg/dL Phosphorus (2.5-4.5) mg/dL Magnesium 1.5 L (1.6-2.3) mg/dL Cortisol 111.0 H (3.1-22.4) UG/DL 04/03/24 04/03/24 04/04/24 Range/Units 16:50 20:11 06:06 Plt Count (150-450) k/uL Neutrophils # (1.3-7.7) k/uL Lymphocytes # (1.0-4.8) k/uL Sodium (137-145) mmol/L Potassium (3.5-5.1) mmol/L Chloride (98-107) mmol/L BUN (9-20) mg/dL Creatinine (0.66-1.25) mg/dL Glucose (74-99) mg/dL POC Glucose (mg/dL) 182 H 250 H 327 H (70-110) mg/dL Phosphorus (2.5-4.5) mg/dL Magnesium (1.6-2.3) mg/dL Cortisol (3.1-22.4) UG/DL 04/04/24 04/04/24 Range/Units 07:05 07:05 Plt Count 111 L (150-450) k/uL Neutrophils # 9.1 H (1.3-7.7) k/uL Lymphocytes # 0.4 L (1.0-4.8) k/uL Sodium 132 L (137-145) mmol/L Potassium (3.5-5.1) mmol/L Chloride 96 L (98-107) mmol/L BUN 55 H (9-20) mg/dL Creatinine 6.21 H (0.66-1.25) mg/dL Glucose 312 H (74-99) mg/dL POC Glucose (mg/dL) (70-110) mg/dL Phosphorus 4.7 H (2.5-4.5) mg/dL Magnesium (1.6-2.3) mg/dL Cortisol (3.1-22.4) UG/DL Microbiology - Last 24 Hours (Table) 03/31/24 11:45 Blood Culture - Preliminary Blood Assessment and Plan Assessment: Acute right lower quadrant abdominal pain suspect secondary to mild abdominal and moderate pelvic free fluid possibly related to fluid overload state given some generalized anasarca, cirrhotic morphology liver and patient's right lower quadrant transplant kidney. Acute diverticulitis at the junction of the descending and sigmoid colon. Acute on chronic hypoxemic respiratory failure secondary to a small left pleural effusion and fluid accumulated in the abdominal space. Acute kidney injury on chronic stage IV kidney disease, temporary hemodialysis placed and to start hemodialysis today 04/03/2024. Hyperkalemia secondary to above. Metabolic acidosis secondary to above. History of kidney transplant at the [facility] in July 2017, maintained on Prograf, CellCept and prednisone. History of renal failure post kidney transplantation, chronic allograft nephropathy. Former smoker. Chronic obstructive pulmonary disease. 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 Hypertension. Hyperlipidemia. Hypothyroidism. Mild coronary artery disease. Plan: Plan dated April 04, 2024. The patient appears to be doing relatively well. We will continue to follow the patient, and make recommendations along the way. Labs, x-rays, and medications are reviewed. Procalcitonin level is currently pending. Tacrolimus level is 6.2. Cortisol level is 111. We will continue to follow, and make recommendations along the way. The patient's overall prognosis remains guarded. His abdominal pain, is much improved. The patient did have hemodialysis yesterday, with 1 L being removed. Time with Patient: Less than 30
--- NOTE | 2024-04-04 10:36 | P.PN ---
Subjective Patient is seen in follow-up for acute kidney injury on chronic kidney disease. Due to worsening renal function, oliguria, started on hemodialysis April 03, 2024. Has temporary femoral dialysis catheter. Still having loose bowel movements but improved compared to yesterday. Potassium level and acidosis both improved. present at bedside. Vital signs are stable. Blood pressure on the lower end. General: No acute distress. HEENT: Head exam is unremarkable. On nasal cannula. LUNGS: No audible rhonchi or wheezes. HEART: Rate and Rhythm are regular. ABDOMEN: Obese, nontender. EXTREMITITES: No edema. Objective - Vital Signs Vital signs: Vital Signs Temp 97.6 F 04/04/24 07:58 Pulse 61 04/04/24 07:58 Resp 20 04/04/24 07:58 BP 91/55 04/04/24 07:58 Pulse Ox 91 L 04/04/24 07:58 FiO2 Intake & Output 04/03/24 04/04/24 04/04/24 18:59 06:59 18:59 Intake Total 1590 Output Total 1400 Balance 190 Weight 102.8 kg Intake: IV 50 Oral 1140 Hemodialysis 400 Output: Urine 0 Hemodialysis 1400 Other: Voiding Method Indwelling Catheter Indwelling Catheter Indwelling Catheter # Bowel Movements 1 1 - Labs CBC & Chem 7: 04/04/24 07:05 04/04/24 07:05 Labs: Abnormal Lab Results - Last 24 Hours (Table) 04/03/24 04/03/24 04/03/24 Range/Units 05:00 10:32 11:38 Plt Count (150-450) k/uL Neutrophils # (1.3-7.7) k/uL Lymphocytes # (1.0-4.8) k/uL Sodium (137-145) mmol/L Potassium 5.4 H (3.5-5.1) mmol/L Chloride (98-107) mmol/L BUN (9-20) mg/dL Creatinine (0.66-1.25) mg/dL Glucose (74-99) mg/dL POC Glucose (mg/dL) 199 H (70-110) mg/dL Phosphorus (2.5-4.5) mg/dL Magnesium 1.5 L (1.6-2.3) mg/dL Cortisol 111.0 H (3.1-22.4) UG/DL 04/03/24 04/03/24 04/04/24 Range/Units 16:50 20:11 06:06 Plt Count (150-450) k/uL Neutrophils # (1.3-7.7) k/uL Lymphocytes # (1.0-4.8) k/uL Sodium (137-145) mmol/L Potassium (3.5-5.1) mmol/L Chloride (98-107) mmol/L BUN (9-20) mg/dL Creatinine (0.66-1.25) mg/dL Glucose (74-99) mg/dL POC Glucose (mg/dL) 182 H 250 H 327 H (70-110) mg/dL Phosphorus (2.5-4.5) mg/dL Magnesium (1.6-2.3) mg/dL Cortisol (3.1-22.4) UG/DL 04/04/24 04/04/24 Range/Units 07:05 07:05 Plt Count 111 L (150-450) k/uL Neutrophils # 9.1 H (1.3-7.7) k/uL Lymphocytes # 0.4 L (1.0-4.8) k/uL Sodium 132 L (137-145) mmol/L Potassium (3.5-5.1) mmol/L Chloride 96 L (98-107) mmol/L BUN 55 H (9-20) mg/dL Creatinine 6.21 H (0.66-1.25) mg/dL Glucose 312 H (74-99) mg/dL POC Glucose (mg/dL) (70-110) mg/dL Phosphorus 4.7 H (2.5-4.5) mg/dL Magnesium (1.6-2.3) mg/dL Cortisol (3.1-22.4) UG/DL Microbiology - Last 24 Hours (Table) 03/31/24 11:45 Blood Culture - Preliminary Blood Assessment and Plan Plan: Assessment: 1. Acute kidney injury secondary to ATN secondary to hypotension/severe sepsis. Creatinine 6.21 today. Oliguric. Bladder scan negative for retention. No hydronephrosis noted on CAT scan. 2. 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 3. Status post donor transplant at [facility] in July 2017 maintained on Prograf, CellCept and prednisone. 4. Hyperkalemia secondary to acute kidney injury and metabolic acidosis. Improved postdialysis. 5. Metabolic acidosis secondary to acute kidney injury and GI losses. Improved postdialysis. 6. Pulmonary fibrosis post COVID-pneumonia maintained on home oxygen. 7. Diverticulitis maintained on antibiotics. 8. Diabetes mellitus. 9. Hyperphosphatemia secondary to acute allograft dysfunction. Phosphorus level 4.7. 10. Fluid overload. Plan: Hep-Lock IV fluids. No response to urine output despite IV Lasix given April 03, 2024. Second treatment of hemodialysis tomorrow. Monitor for renal recovery. Prograf level 6.2 dated April 02, 2024. Maintain Garza catheter. Maintain midodrine. Hold for systolic blood pressure greater than 115. Patient now considering transfer to [facility]. Primary team notified.
--- NOTE | 2024-04-04 10:57 | XR ---
EXAM: XR chest 1V portable CLINICAL INDICATION:Male, 53 years old with history of chf; [facility] COMPARISON: 04/03/2024 TECHNIQUE: Chest single view. FINDINGS: Stable right chest large bore catheter with tip over the cavoatrial junction. Overall improved lung volumes with mild residual interstitial coarsening that may represent edema, pn eumonitis, or chronic changes. Similar mild blunting of the costophrenic angle suggestive of small ef fusions. No new or worsening infiltrate. No pneumothorax. Osseous structures appear grossly unchanged. The mediastinal silhouette demonstrates stable mild to moderate cardiomegaly. IMPRESSION: Cardiomegaly, with improved pulmonary aeration and decreased vascular congestion suggestive of improv ing CHF/fluid overload. Stable small effusions.
[2024-04-04 10:59] LABS: Hepatitis B Surface Antigen Nonreactive (Nonreactive)
[2024-04-04 11:28] LABS: Glucose,Whole Blood 369 mg/dL (70-110)
[2024-04-04 12:56] LABS: Hepatitis B Surface AB- Quant 77.3 mIU/mL
--- NOTE | 2024-04-04 13:59 | P.PN ---
Subjective Progress Note Date: 04/04/24 Principal diagnosis: Diverticulitis Patient denies abdominal pain. Tolerating diet. He is having bowel function. Unfortunately his kidney function has declined further and they are recommending transfer given his history of kidney transplant. Objective - Vital Signs Vital signs: Vital Signs Temp 97.6 F 04/04/24 07:58 Pulse 59 L 04/04/24 13:09 Resp 16 04/04/24 11:29 BP 101/63 04/04/24 11:29 Pulse Ox 90 L 04/04/24 11:29 FiO2 Intake & Output 04/03/24 04/04/24 04/04/24 18:59 06:59 18:59 Intake Total 1590 110 Output Total 1400 Balance 190 110 Weight 102.8 kg Intake: IV 50 Oral 1140 110 Hemodialysis 400 Output: Urine 0 Hemodialysis 1400 Other: Voiding Method Indwelling Catheter Indwelling Catheter Indwelling Catheter # Bowel Movements 1 1 1 - Exam Abdomen: Soft, nontender, nondistended - Labs CBC & Chem 7: 04/04/24 07:05 04/04/24 07:05 Labs: Abnormal Lab Results - Last 24 Hours (Table) 04/03/24 04/03/24 04/03/24 Range/Units 13:26 16:50 20:11 Plt Count (150-450) k/uL Neutrophils # (1.3-7.7) k/uL Lymphocytes # (1.0-4.8) k/uL Sodium (137-145) mmol/L Chloride (98-107) mmol/L BUN (9-20) mg/dL Creatinine (0.66-1.25) mg/dL Glucose (74-99) mg/dL POC Glucose (mg/dL) 182 H 250 H (70-110) mg/dL Phosphorus (2.5-4.5) mg/dL Hep Bs Antibody A (Negative) 04/04/24 04/04/24 04/04/24 Range/Units 06:06 07:05 07:05 Plt Count 111 L (150-450) k/uL Neutrophils # 9.1 H (1.3-7.7) k/uL Lymphocytes # 0.4 L (1.0-4.8) k/uL Sodium 132 L (137-145) mmol/L Chloride 96 L (98-107) mmol/L BUN 55 H (9-20) mg/dL Creatinine 6.21 H (0.66-1.25) mg/dL Glucose 312 H (74-99) mg/dL POC Glucose (mg/dL) 327 H (70-110) mg/dL Phosphorus 4.7 H (2.5-4.5) mg/dL Hep Bs Antibody (Negative) 04/04/24 Range/Units 11:25 Plt Count (150-450) k/uL Neutrophils # (1.3-7.7) k/uL Lymphocytes # (1.0-4.8) k/uL Sodium (137-145) mmol/L Chloride (98-107) mmol/L BUN (9-20) mg/dL Creatinine (0.66-1.25) mg/dL Glucose (74-99) mg/dL POC Glucose (mg/dL) 369 H (70-110) mg/dL Phosphorus (2.5-4.5) mg/dL Hep Bs Antibody (Negative) Microbiology - Last 24 Hours (Table) 03/31/24 11:45 Blood Culture - Preliminary Blood Assessment and Plan (1) Diverticulitis Narrative/Plan: Patient doing well as a pertains to his diverticulitis. Unfortunately his kidney function has declined. Awaiting transfer. No surgical intervention planned. Continue diet. Current Visit: Yes Status: Acute Code(s): K57.92 - DVTRCLI OF INTEST, PART UNSP, W/O PERF OR ABSCESS W/O BLEED SNOMED Code(s): 727398877
--- NOTE | 2024-04-04 15:44 | P.PN ---
Subjective Progress Note Date: 04/03/24 Principal diagnosis: Reason for follow-up is acute diverticulitis Patient is a 53-year-old male with a past medical history significant for coronary artery disease renal failure post kidney transplant hypothyroidism former smoker presenting to the hospital with the left lower quadrant abdominal pain, patient be diagnosed with acute diverticulitis did not mention any perforation or abscess admit to the hospital for IV antibiotic therapy. On today's evaluation that is Patient did have worsening of his kidney function vascular surgery has been consulted and the dialysis catheter has been placed in the left femoral area. On today's evaluation that is 04/03/2024, the patient continues to be afebrile, the patient is on room air and breathing comfortably, the Pt denies having any chest pain or cough, the patient denies having any abdominal pain no vomiting or any diarrhea. Patient white count is 9.9, creatinine is 5.87 blood culture has been negative Objective - Vital Signs Vital signs: Vital Signs Temp 97.5 F L 04/03/24 11:35 Pulse 56 L 04/03/24 14:01 Resp 20 04/03/24 11:35 BP 115/64 04/03/24 11:35 Pulse Ox 92 L 04/03/24 11:35 FiO2 Intake & Output 04/02/24 04/03/24 04/03/24 18:59 06:59 18:59 Intake Total 710 Output Total 100 0 Balance -100 710 Weight 100.9 kg Intake: IV 50 Oral 660 Output: Urine 100 0 Other: Voiding Method Toilet Indwelling Catheter # Voids 1 0 # Bowel Movements 1 1 1 - Exam GENERAL DESCRIPTION: Middle-age male lying in bed in no distress RESPIRATORY SYSTEM: Unlabored breathing , decreased breath sounds at bases HEART: S1 S2 regular rate and rhythm , ABDOMEN: Soft , no tenderness EXTREMITIES: No edema feet - Labs CBC & Chem 7: 04/03/24 05:00 04/03/24 10:32 Labs: Abnormal Lab Results - Last 24 Hours (Table) 04/02/24 04/02/24 04/03/24 Range/Units 17:02 20:15 05:00 Hct 53.7 H (39.0-53.0) % MCV 101.3 H (80.0-100.0) fL MCHC 29.5 L (31.0-37.0) g/dL Plt Count 118 L (150-450) k/uL Neutrophils # 8.9 H (1.3-7.7) k/uL Lymphocytes # 0.5 L (1.0-4.8) k/uL Sodium (137-145) mmol/L Potassium (3.5-5.1) mmol/L Carbon Dioxide (22-30) mmol/L BUN (9-20) mg/dL Creatinine (0.66-1.25) mg/dL Glucose (74-99) mg/dL POC Glucose (mg/dL) 165 H 145 H (70-110) mg/dL Magnesium (1.6-2.3) mg/dL Total Bilirubin (0.2-1.3) mg/dL Cortisol (3.1-22.4) UG/DL 04/03/24 04/03/24 04/03/24 Range/Units 05:00 05:26 10:32 Hct (39.0-53.0) % MCV (80.0-100.0) fL MCHC (31.0-37.0) g/dL Plt Count (150-450) k/uL Neutrophils # (1.3-7.7) k/uL Lymphocytes # (1.0-4.8) k/uL Sodium 133 L (137-145) mmol/L Potassium 5.9 H 5.4 H (3.5-5.1) mmol/L Carbon Dioxide 14 L (22-30) mmol/L BUN 58 H (9-20) mg/dL Creatinine 5.87 H (0.66-1.25) mg/dL Glucose 212 H (74-99) mg/dL POC Glucose (mg/dL) 212 H (70-110) mg/dL Magnesium 1.5 L (1.6-2.3) mg/dL Total Bilirubin 2.6 H (0.2-1.3) mg/dL Cortisol 111.0 H (3.1-22.4) UG/DL 04/03/24 Range/Units 11:38 Hct (39.0-53.0) % MCV (80.0-100.0) fL MCHC (31.0-37.0) g/dL Plt Count (150-450) k/uL Neutrophils # (1.3-7.7) k/uL Lymphocytes # (1.0-4.8) k/uL Sodium (137-145) mmol/L Potassium (3.5-5.1) mmol/L Carbon Dioxide (22-30) mmol/L BUN (9-20) mg/dL Creatinine (0.66-1.25) mg/dL Glucose (74-99) mg/dL POC Glucose (mg/dL) 199 H (70-110) mg/dL Magnesium (1.6-2.3) mg/dL Total Bilirubin (0.2-1.3) mg/dL Cortisol (3.1-22.4) UG/DL Microbiology - Last 24 Hours (Table) 03/31/24 11:45 Blood Culture - Preliminary Blood Assessment and Plan (1) Acute diverticulitis Current Visit: Yes Status: Acute Code(s): K57.92 - DVTRCLI OF INTEST, PART UNSP, W/O PERF OR ABSCESS W/O BLEED SNOMED Code(s): 120118027 (2) History of renal transplant Current Visit: No Status: Acute Code(s): Z94.0 - KIDNEY TRANSPLANT STATUS SNOMED Code(s): 094408894 (3) Immunocompromised Current Visit: No Status: Acute Code(s): D84.9 - IMMUNODEFICIENCY, UNSPECIFIED SNOMED Code(s): 288282366 (4) Leukocytosis Current Visit: No Status: Acute Code(s): D72.829 - ELEVATED WHITE BLOOD CELL COUNT, UNSPECIFIED SNOMED Code(s): 428272895 Plan: 1patient presented hospital with the left lower quadrant abdominal pain of 1 day duration in this patient has been diagnosed with acute diverticulitis did not mention any evidence of perforation or abscess we will need to cover for the enteric gram-negative to be the likely pathogen 2-patient did have worsening of his kidney function requiring dialysis catheter placement 3-patient also immunocompromise because of his immunosuppressive medication posttransplant 4-patient did have improvement his abdominal pain remains to be afebrile and did have normal white count, to continue with Zosyn and monitor clinical course closely Dictation was produced using [employer] dictation software. please excuse any grammatical, word or spelling errors. Time with Patient: Less than 30
--- NOTE | 2024-04-04 15:45 | P.PN ---
Subjective Progress Note Date: 04/04/24 Principal diagnosis: Reason for follow-up is acute diverticulitis Patient is a 53-year-old male with a past medical history significant for coronary artery disease renal failure post kidney transplant hypothyroidism former smoker presenting to the hospital with the left lower quadrant abdominal pain, patient be diagnosed with acute diverticulitis did not mention any perforation or abscess admit to the hospital for IV antibiotic therapy. On today's evaluation that is Patient did have worsening of his kidney function vascular surgery has been consulted and the dialysis catheter has been placed in the left femoral area. On today's evaluation that is 04/04/2024, Patient is afebrile patient is currently on 3 L nasal oxygen and denies having any shortness of breath, the patient denies any chest pain or cough, the patient denies any nausea vomiting did not have any abdominal pain and no diarrhea. Patient white count is 10.4, creatinine 6.1 blood culture has been negative Objective - Vital Signs Vital signs: Vital Signs Temp 97.6 F 04/04/24 07:58 Pulse 59 L 04/04/24 13:09 Resp 16 04/04/24 11:29 BP 101/63 04/04/24 11:29 Pulse Ox 90 L 04/04/24 11:29 FiO2 Intake & Output 04/03/24 04/04/24 04/04/24 18:59 06:59 18:59 Intake Total 1590 110 Output Total 1400 Balance 190 110 Weight 102.8 kg Intake: IV 50 Oral 1140 110 Hemodialysis 400 Output: Urine 0 Hemodialysis 1400 Other: Voiding Method Indwelling Catheter Indwelling Catheter Indwelling Catheter # Bowel Movements 1 1 1 - Exam GENERAL DESCRIPTION: Middle-age male lying in bed in no distress RESPIRATORY SYSTEM: Unlabored breathing , decreased breath sounds at bases HEART: S1 S2 regular rate and rhythm , ABDOMEN: Soft , no tenderness EXTREMITIES: No edema feet - Labs CBC & Chem 7: 04/04/24 07:05 04/04/24 07:05 Labs: Abnormal Lab Results - Last 24 Hours (Table) 04/03/24 04/03/24 04/03/24 Range/Units 13:26 16:50 20:11 Plt Count (150-450) k/uL Neutrophils # (1.3-7.7) k/uL Lymphocytes # (1.0-4.8) k/uL Sodium (137-145) mmol/L Chloride (98-107) mmol/L BUN (9-20) mg/dL Creatinine (0.66-1.25) mg/dL Glucose (74-99) mg/dL POC Glucose (mg/dL) 182 H 250 H (70-110) mg/dL Phosphorus (2.5-4.5) mg/dL Hep Bs Antibody A (Negative) 04/04/24 04/04/24 04/04/24 Range/Units 06:06 07:05 07:05 Plt Count 111 L (150-450) k/uL Neutrophils # 9.1 H (1.3-7.7) k/uL Lymphocytes # 0.4 L (1.0-4.8) k/uL Sodium 132 L (137-145) mmol/L Chloride 96 L (98-107) mmol/L BUN 55 H (9-20) mg/dL Creatinine 6.21 H (0.66-1.25) mg/dL Glucose 312 H (74-99) mg/dL POC Glucose (mg/dL) 327 H (70-110) mg/dL Phosphorus 4.7 H (2.5-4.5) mg/dL Hep Bs Antibody (Negative) 04/04/24 Range/Units 11:25 Plt Count (150-450) k/uL Neutrophils # (1.3-7.7) k/uL Lymphocytes # (1.0-4.8) k/uL Sodium (137-145) mmol/L Chloride (98-107) mmol/L BUN (9-20) mg/dL Creatinine (0.66-1.25) mg/dL Glucose (74-99) mg/dL POC Glucose (mg/dL) 369 H (70-110) mg/dL Phosphorus (2.5-4.5) mg/dL Hep Bs Antibody (Negative) Microbiology - Last 24 Hours (Table) 03/31/24 11:45 Blood Culture - Preliminary Blood Assessment and Plan (1) Acute diverticulitis Current Visit: Yes Status: Acute Code(s): K57.92 - DVTRCLI OF INTEST, PART UNSP, W/O PERF OR ABSCESS W/O BLEED SNOMED Code(s): 351396841 (2) History of renal transplant Current Visit: No Status: Acute Code(s): Z94.0 - KIDNEY TRANSPLANT STATUS SNOMED Code(s): 815060549 (3) Immunocompromised Current Visit: No Status: Acute Code(s): D84.9 - IMMUNODEFICIENCY, UNSPECIFIED SNOMED Code(s): 404185129 (4) Leukocytosis Current Visit: No Status: Acute Code(s): D72.829 - ELEVATED WHITE BLOOD CELL COUNT, UNSPECIFIED SNOMED Code(s): 718657590 Plan: 1patient presented hospital with the left lower quadrant abdominal pain of 1 day duration in this patient has been diagnosed with acute diverticulitis did not mention any evidence of perforation or abscess we will need to cover for the enteric gram-negative to be the likely pathogen 2-patient did have worsening of his kidney function requiring dialysis catheter placement 3-patient also immunocompromise because of his immunosuppressive medication posttransplant 4-patient is afebrile and did have normal white count and improvement his abdominal pain, patient to continue with Zosyn and monitor clinical course closely Dictation was produced using [employer] dictation software. please excuse any grammatical, word or spelling errors. Time with Patient: Less than 30
[2024-04-04 16:45] LABS: Glucose,Whole Blood 230 mg/dL (70-110)
[2024-04-04 19:52] LABS: Glucose,Whole Blood 221 mg/dL (70-110)
--- NOTE | 2024-04-05 03:39 | PN ---
PROGRESS NOTE DATE OF SERVICE: 04/04/2024 SUBJECTIVE: This is a 53-year-old gentleman, who was admitted with acute diverticulitis, is being closely monitored. The patient also had acute on chronic renal failure with worsening renal failure, hemodialysis is being initiated. At this time, the patient apparently was on transplant list at [facility], subsequently guarded, transferred from [facility]. Today's chest x-ray which I reviewed personally showed some cardiomegaly. Multiple consultants are following the patient. PAST MEDICAL HISTORY: Reviewed. REVIEW OF SYSTEMS: 14-point review is negative. CURRENT MEDICATIONS: Reviewed and include Solu-Cortef, rest of the medication noted. PHYSICAL EXAMINATION: VITAL SIGNS: Pulse is 59, blood pressure 108/60, respirations 16. HEENT: Conjunctivae normal. NECK: No JVD. CARDIOVASCULAR: S1, S2. RESPIRATIONS: Breath sounds diminished at the bases. A few scattered rhonchi. ABDOMEN: Soft, obese. Mild diffuse discomfort. LEGS: No edema. NERVOUS SYSTEM: Nonfocal. LABORATORY DATA: Creatinine 6.1, glucose noted. ASSESSMENT: 1. Acute diverticulitis involving the descending and sigmoid colon with severe abdominal pain. 2. Immunosuppressed. 3. Acute on chronic renal failure, newly started hemodialysis. 4. Recent renal transplantation. 5. Mild to moderate pelvic fluid secondary to fluid overload. 6. Hyperkalemia. 7. History of renal failure. 8. Hypomagnesemia. 9. Multiple complex medical issues. RECOMMENDATIONS: Recommend to continue current management and continue symptomatic treatment, otherwise, has also uncontrolled diabetes type 2. Otherwise, I would recommend repeat labs, and it is recommended the patient be transferred to tertiary care center. We will initiate transfer while talking to [facility], otherwise, the patient is on Solu- Cortef. The blood sugars are consistently elevated. I would recommend initiate long- acting insulin also in addition to the scale, otherwise, overall prognosis extremely guarded. Discussed with family at length and further recommendations to follow. The patient remains on broad-spectrum IV antibiotics and the cultures are negative so far. Infectious Disease also following the patient closely. MMODL / IJN: [id number] /
[2024-04-05 06:02] LABS: Glucose,Whole Blood 229 mg/dL (70-110)
--- NOTE | 2024-04-05 10:53 | P.PN ---
Subjective Patient is seen in follow-up for acute kidney injury on chronic kidney disease. Due to worsening renal function, oliguria, started on hemodialysis April 03, 2024. Has temporary femoral dialysis catheter. Overall feels better today. No active complaints. Remains oliguric. present at bedside. Vital signs are stable. General: No acute distress. HEENT: Head exam is unremarkable. On nasal cannula. LUNGS: No audible rhonchi or wheezes. HEART: Rate and Rhythm are regular. ABDOMEN: Obese, nontender. EXTREMITITES: No edema. Objective - Vital Signs Vital signs: Vital Signs Temp 97.9 F 04/05/24 09:49 Pulse 66 04/05/24 09:50 Resp 20 04/05/24 09:50 BP 104/63 04/05/24 09:49 Pulse Ox 93 L 04/05/24 09:49 FiO2 Intake & Output 04/04/24 04/05/24 04/05/24 18:59 06:59 18:59 Intake Total 110 540 Output Total 0 Balance 110 0 540 Weight 104.5 kg Intake: Oral 110 540 Output: Urine 0 Other: Voiding Method Indwelling Catheter Indwelling Catheter Indwelling Catheter # Bowel Movements 1 1 - Labs CBC & Chem 7: 04/04/24 07:05 04/04/24 07:05 Labs: Abnormal Lab Results - Last 24 Hours (Table) 04/03/24 04/04/24 04/04/24 Range/Units 13:26 11:25 16:36 POC Glucose (mg/dL) 369 H 230 H (70-110) mg/dL Hep Bs Antibody A (Negative) 04/04/24 04/05/24 Range/Units 19:51 06:00 POC Glucose (mg/dL) 221 H 229 H (70-110) mg/dL Hep Bs Antibody (Negative) Assessment and Plan Plan: Assessment: 1. Acute kidney injury secondary to ATN secondary to hypotension/severe sepsis. Creatinine 6.21 yesterday. Oliguric. Bladder scan negative for retention. No hydronephrosis noted on CAT scan. 2. 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 3. Status post donor transplant at [facility] in July 2017 maintained on Prograf, CellCept and prednisone. 4. Hyperkalemia secondary to acute kidney injury and metabolic acidosis. Improved postdialysis. 5. Metabolic acidosis secondary to acute kidney injury and GI losses. Improved postdialysis. 6. Pulmonary fibrosis post COVID-pneumonia maintained on home oxygen. 7. Diverticulitis maintained on antibiotics. 8. Diabetes mellitus. 9. Hyperphosphatemia secondary to acute allograft dysfunction. Phosphorus level 4.7. 10. Fluid overload. Plan: Second treatment of hemodialysis today. Third treatment tomorrow. No response to urine output despite IV Lasix given April 03, 2024. Monitor for renal recovery. Prograf level 6.2 dated April 02, 2024. Maintain Garza catheter. Maintain midodrine. Hold for systolic blood pressure greater than 115. Awaits transfer to transplant center.
[2024-04-05 11:13] LABS: Glucose,Whole Blood 241 mg/dL (70-110)
[2024-04-05 12:57] LABS: Basophils % (A) 0 %; Eosinophils # (A) 0.1 k/uL (0-0.7); Eosinophils % (A) 1 %; HCT 50.5 % (39.0-53.0); HGB 15.5 gm/dL (13.0-17.5); Hypochromasia Slight; Lymphocytes # (A) 0.5 k/uL (1.0-4.8); Lymphocytes % (A) 4 %; MCH 29.6 pg (25.0-35.0); MCHC 30.7 g/dL (31.0-37.0); MCV 96.4 fL (80.0-100.0); Mean Platelet Volume 10.9; Monocytes # (A) 0.9 k/uL (0-1.0); Monocytes % (A) 7 %; Neutrophils # (A) 11.3 k/uL (1.3-7.7); Neutrophils % (A) 87 %; Platelet Count 159 k/uL (150-450); RBC 5.24 m/uL (4.30-5.90); RDW 15.3 % (11.5-15.5); WBC 12.9 k/uL (3.8-10.6)
[2024-04-05 13:07] LABS: ALT 23 U/L (4-49); AST 44 U/L (17-59); African American GFR (CKD) 8 (>60 ml/min/1.73 sqM); Alkaline Phosphatase 82 U/L (38-126); Anion Gap 17 mmol/L; Blood Urea Nitrogen 76 mg/dL (9-20); Calcium 9.7 mg/dL (8.4-10.2); Carbon Dioxide 22 mmol/L (22-30); Chloride 96 mmol/L (98-107); Glucose 282 mg/dL (74-99); Magnesium 1.8 mg/dL (1.6-2.3); Non-African American GFR(CKD) 7 (>60 ml/min/1.73 sqM); Potassium 4.3 mmol/L (3.5-5.1); Sodium 135 mmol/L (137-145); Total Bilirubin 1.5 mg/dL (0.2-1.3); Total Protein 6.1 g/dL (6.3-8.2)
[2024-04-05 13:21] VITALS: BMI 37.1
--- NOTE | 2024-04-05 14:32 | P.PN ---
Subjective Progress Note Date: 04/05/24 CHIEF COMPLAINT: Diverticulitis HISTORY OF PRESENT ILLNESS: Patient denies any abdominal pain. He is tolerating diet. He is having bowel movements. They are looking at possibly transferring patient to you have been due to worsening kidney function and history of kidney transplant. However, [facility] has declined the transfer. Nephrology is following and patient has been getting hemodialysis. WBC is up at 12.9 creatinine is up to 8.23 PHYSICAL EXAM: VITAL SIGNS: Reviewed. GENERAL: Well-developed in no acute distress. ABDOMEN: Soft. Nondistended. Nontender. NEUROLOGIC: Alert and oriented. Cranial nerves II through XII grossly intact. ASSESSMENT: 1. Diverticulitis 2. History of kidney transplant PLAN: -Continue antibiotics -Continue regular diet -No surgical intervention planned Physician Child Adolescent Psychiatrist note has been reviewed by physician. Signing provider agrees with the documented findings, assessment, and plan of care. Objective - Vital Signs Vital signs: Vital Signs Temp 97.9 F 04/05/24 09:49 Pulse 58 L 04/05/24 13:56 Resp 20 04/05/24 13:56 BP 97/60 04/05/24 11:46 Pulse Ox 88 L 04/05/24 11:46 FiO2 Intake & Output 04/04/24 04/05/24 04/05/24 18:59 06:59 18:59 Intake Total 110 540 Output Total 0 Balance 110 0 540 Weight 104.5 kg 104.5 kg Intake: Oral 110 540 Output: Urine 0 Other: Voiding Method Indwelling Catheter Indwelling Catheter Indwelling Catheter # Bowel Movements 1 1 - Labs CBC & Chem 7: 04/05/24 12:44 04/05/24 12:44 Labs: Abnormal Lab Results - Last 24 Hours (Table) 04/02/24 04/04/24 04/04/24 Range/Units 04:30 16:36 19:51 WBC (3.8-10.6) k/uL MCHC (31.0-37.0) g/dL Neutrophils # (1.3-7.7) k/uL Lymphocytes # (1.0-4.8) k/uL Sodium (137-145) mmol/L Chloride (98-107) mmol/L BUN (9-20) mg/dL Creatinine (0.66-1.25) mg/dL Glucose (74-99) mg/dL POC Glucose (mg/dL) 230 H 221 H (70-110) mg/dL Total Bilirubin (0.2-1.3) mg/dL Total Protein (6.3-8.2) g/dL Procalcitonin 0.38 H (0.02-0.09) ng/mL 04/05/24 04/05/24 04/05/24 Range/Units 06:00 11:11 12:44 WBC 12.9 H (3.8-10.6) k/uL MCHC 30.7 L (31.0-37.0) g/dL Neutrophils # 11.3 H (1.3-7.7) k/uL Lymphocytes # 0.5 L (1.0-4.8) k/uL Sodium (137-145) mmol/L Chloride (98-107) mmol/L BUN (9-20) mg/dL Creatinine (0.66-1.25) mg/dL Glucose (74-99) mg/dL POC Glucose (mg/dL) 229 H 241 H (70-110) mg/dL Total Bilirubin (0.2-1.3) mg/dL Total Protein (6.3-8.2) g/dL Procalcitonin (0.02-0.09) ng/mL 04/05/24 Range/Units 12:44 WBC (3.8-10.6) k/uL MCHC (31.0-37.0) g/dL Neutrophils # (1.3-7.7) k/uL Lymphocytes # (1.0-4.8) k/uL Sodium 135 L (137-145) mmol/L Chloride 96 L (98-107) mmol/L BUN 76 H (9-20) mg/dL Creatinine 8.23 H* (0.66-1.25) mg/dL Glucose 282 H (74-99) mg/dL POC Glucose (mg/dL) (70-110) mg/dL Total Bilirubin 1.5 H (0.2-1.3) mg/dL Total Protein 6.1 L (6.3-8.2) g/dL Procalcitonin (0.02-0.09) ng/mL
[2024-04-05 16:17] LABS: Glucose,Whole Blood 271 mg/dL (70-110)
--- NOTE | 2024-04-05 20:48 | P.PN ---
Subjective Progress Note Date: 04/05/24 This is a pleasant 53-year-old male patient with a known history of previous kidney transplant, hypothyroidism, mild coronary artery disease, hypothyroidism who presented here to the emergency room on 03/31/2024 with complaints of right lower quadrant abdominal pain and febrile illness. ET scan of the abdomen and pelvis revealed acute diverticulitis at the junction of the descending and sigmoid colon. Mild to moderate inflammation. No abscess or free air. Mild abdominal and moderate laded to fluid overload state given some generalized anasarca, cirrhotic morphology of the liver and patient's right lower quadrant transplant kidney. Fluid-filled small bowel loops most of the abdomen as well as lower abdomen may reflect mild secondary ileus. Small left pleural effusion. Chest x-ray reveals a small left pleural effusion. Mild cardiomegaly but no pulmonary edema. White count 11.5. Hemoglobin 15.2. Platelets 117. Sodium 134. Potassium 5.7. Bicarb 13. BUN 54. Creatinine 4.9. Issues with hypotension as well. He did have a syncopal episode this morning while up in the bathroom. He is seen today in consultation on the regular medical floor. He is awake and alert in no acute distress. He is maintaining O2 saturations in the 90s on 4 L/min per nasal cannula. He does have home oxygen at 3 L. He is receiving D5W with 3 A of bicarb at 80 MLS per hour. Antibiotics in the form of Zosyn. The patient is seen today April 03, 2024 in follow-up on the selective care unit. He is currently sitting up at the bedside. Awake and alert in no acute distress. He is maintaining good O2 saturations in the 90s on 2 L/min per nasal cannula. He is afebrile. Hemodynamically stable. White count 9.9. Hemoglobin 15.8. Platelets 118. Sodium 133. Potassium 5.4. Bicarb 14. BUN 58. Creatinine 5.87. Glucose 212. He is on D5W with 3 A of bicarb at 80 MLS per hour. On sodium bicarbonate tablets. He remains on Solu-Cortef 100 mg IV every 8 hours. Heparin for DVT prophylaxis. Continued on tacrolimus and CellCept. Continued on antibiotics in the form of Zosyn. Procalcitonin pending. Progress note dated April 04, 2024. The patient is seen today in room 370. He continues on oxygen at 3 L. He is getting a sodium bicarbonate IV, through with 3 ampoules of sodium bicarbonate in D5W at 80 cc an hour. The patient did have hemodialysis yesterday, April 03, with 1 L being removed. Clinically, he is stable. He denies any respiratory issues at this time. Current labs include a white count 10.4, hemoglobin 14.2, hematocrit 45.7, and a platelet count of 111,000. Sodium 132, potassium 4.4, chlorides 96, CO2 23, anion gap 13, BUN 55, creatinine 6.21. Glucose is 312. Blood cultures are thus far negative. Chest x-ray shows borderline cardiomegaly, and mild pulmonary venous congestion. On 04/05/2024, the patient is resting comfortably in bed and the patient is under going hemodialysis. He is a recipient of renal transplant and the patient was hospitalized for acute diverticulitis. He remains on broad-spectrum antibiotics and the patient remains on IV Zosyn. The patient is also on a combination of Prograf and CellCept. He has been taken off the prednisone and the patient was switched to IV hydrocortisone 100 mg every 8 hours. No significant nausea vomiting or abdominal pain. The patient is currently on hemodialysis and nephrology on the case. sodium level is 135, WBC count 4.9 with a hemoglobin 13.5 and a platelet count of 159. All of the cultures have been negative. The general surgery is on the case. The patient is taking regular diet. No plans for any surgical intervention. Nephrology is also on the case and the patient will continue hemodialysis for now. He is not responding to IV Lasix and his urine output is quite diminished. Prograf level is at 6.2 from 04/02/2024. Garza catheter is in place. Objective - Vital Signs Vital signs: Vital Signs Temp 97.9 F 04/05/24 09:49 Pulse 58 L 04/05/24 13:56 Resp 20 04/05/24 13:56 BP 97/60 04/05/24 11:46 Pulse Ox 88 L 04/05/24 11:46 FiO2 Intake & Output 04/04/24 04/05/24 04/05/24 18:59 06:59 18:59 Intake Total 110 540 Output Total 0 Balance 110 0 540 Weight 104.5 kg 104.5 kg Intake: Oral 110 540 Output: Urine 0 Other: Voiding Method Indwelling Catheter Indwelling Catheter Indwelling Catheter # Bowel Movements 1 1 - Exam No acute distress, oriented 3. No respiratory distress. Currently on 3 L HEENT examination is grossly unremarkable. Mucous membranes are moist. No oral lesions. Neck supple. Full range of motion. No adenopathy thyromegaly or neck vein distention. Cardiovascular examination reveals regular rhythm rate. S1-S2 normal. No S3 or S4. No discernible murmur noted. Heart sounds are distant. Lungs reveal mild scattered crackles. No wheezes or rhonchi. Breath sounds equal. Abdomen soft bowel sounds are heard. No masses or tenderness. Extremities are intact. No cyanosis clubbing or edema. Skin is without rash or lesion. Neurologic examination is brief but nonfocal. - Labs CBC & Chem 7: 04/05/24 12:44 04/05/24 12:44 Labs: Abnormal Lab Results - Last 24 Hours (Table) 04/02/24 04/04/24 04/04/24 Range/Units 04:30 16:36 19:51 WBC (3.8-10.6) k/uL MCHC (31.0-37.0) g/dL Neutrophils # (1.3-7.7) k/uL Lymphocytes # (1.0-4.8) k/uL Sodium (137-145) mmol/L Chloride (98-107) mmol/L BUN (9-20) mg/dL Creatinine (0.66-1.25) mg/dL Glucose (74-99) mg/dL POC Glucose (mg/dL) 230 H 221 H (70-110) mg/dL Total Bilirubin (0.2-1.3) mg/dL Total Protein (6.3-8.2) g/dL Procalcitonin 0.38 H (0.02-0.09) ng/mL 04/05/24 04/05/24 04/05/24 Range/Units 06:00 11:11 12:44 WBC 12.9 H (3.8-10.6) k/uL MCHC 30.7 L (31.0-37.0) g/dL Neutrophils # 11.3 H (1.3-7.7) k/uL Lymphocytes # 0.5 L (1.0-4.8) k/uL Sodium (137-145) mmol/L Chloride (98-107) mmol/L BUN (9-20) mg/dL Creatinine (0.66-1.25) mg/dL Glucose (74-99) mg/dL POC Glucose (mg/dL) 229 H 241 H (70-110) mg/dL Total Bilirubin (0.2-1.3) mg/dL Total Protein (6.3-8.2) g/dL Procalcitonin (0.02-0.09) ng/mL 04/05/24 Range/Units 12:44 WBC (3.8-10.6) k/uL MCHC (31.0-37.0) g/dL Neutrophils # (1.3-7.7) k/uL Lymphocytes # (1.0-4.8) k/uL Sodium 135 L (137-145) mmol/L Chloride 96 L (98-107) mmol/L BUN 76 H (9-20) mg/dL Creatinine 8.23 H* (0.66-1.25) mg/dL Glucose 282 H (74-99) mg/dL POC Glucose (mg/dL) (70-110) mg/dL Total Bilirubin 1.5 H (0.2-1.3) mg/dL Total Protein 6.1 L (6.3-8.2) g/dL Procalcitonin (0.02-0.09) ng/mL Assessment and Plan Plan: Acute diverticulitis with secondary right lower quadrant abdominal pain suspect secondary to mild abdominal and moderate pelvic free fluid possibly related to fluid overload state given some generalized anasarca, cirrhotic morphology liver and patient's right lower quadrant transplant kidney. The patient is currently on IV Zosyn. Abdominal pain is subsided and the patient is tolerating regular diet. No signs of any ongoing septicemia. General surgery is on the case. Acute diverticulitis at the junction of the descending and sigmoid colon. Acute on chronic hypoxemic respiratory failure secondary to a small left pleural effusion and fluid accumulated in the abdominal space. Acute kidney injury on chronic stage IV kidney disease, temporary hemodialysis placed and to start hemodialysis today 04/03/2024. Hyperkalemia secondary to above, improved Metabolic acidosis secondary to above, improved History of kidney transplant at the [facility] in July 2017, maintained on Prograf, CellCept and prednisone. Prednisone has been discontinued and the patient is currently on stress dose hydrocortisone. History of renal failure post kidney transplantation, chronic allograft nephropathy. Former smoker. Chronic obstructive pulmonary disease. 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 Hypertension. Hyperlipidemia. Hypothyroidism. Mild coronary artery disease. Plan: Continue IV Zosyn Continue with suppressive agents with a combination of Prograf and CellCept Advance diet as tolerated and the patient's diet is regular Monitor immunosuppression level Continue hemodialysis per nephrology Nonresponsive to diuretics Respiratory status is stable and the patient is currently on 4 L of oxygen by nasal cannula and the most recent chest x-ray from yesterday shows cardiomegaly with improved pulmonary vascular congestion in addition and stable pleural effusions, small.
[2024-04-05 21:11] LABS: Glucose,Whole Blood 287 mg/dL (70-110)
[2024-04-06 05:54] LABS: Glucose,Whole Blood 258 mg/dL (70-110)
--- NOTE | 2024-04-06 06:26 | P.PN ---
Subjective Progress Note Date: 04/05/24 This is a 53-year-old male who was recently admitted with right lower quadrant pain along with fevers being closely monitored with multiple medical consultations. Patient is a kidney transplant patient at the [facility] in 2017 and noted to be on multiple immunosuppressive medications. Patient lexa carbajal had a CT abdomen pelvis done which showed acute diverticulitis at the junction of the descending and sigmoid colon with mild to moderate inflammation with no abscess or free air noted along with free pelvic fluid and volume load with some generalized anasarca with cirrhotic morphology of the liver along with some fluid-filled small bowel loops at the left side of the abdomen as well as left lower abdomen and small left pleural effusion. General surgery along with nephrology following as patient's kidney functions were elevated and continuously worsening has been started on hemodialysis this admission. Very little output of urine noted. Not responding to IV Lasix. Patient is maintaine d on antibiotics with infectious disease following in the form of Zosyn and being closely monitored. Discussion of the need for possible transfer for tertiary treatment center per nephrology as patient is a transplant patient to a transplant center and patient is refusing [facility] and family would like [facility]. Discussed with Dr. Leia Lynch attending at [facility] and reported they are at capacity and there is no immediate need or urgent need for transfer at this time as patient would be maintained on antibiotic therapy and close monitoring with hemodialysis, which is what he is currently undergoing here. Will discuss further with family Review of systems: Constitutional: No reports of fatigue, fever, or chills Cardiovascular: No reports of chest pain or palpitations Respiratory: No reports of shortness of breath or cough GI: No reports of nausea, no reports of vomiting, no diarrhea : No reports of dysuria or retention Neurovascular: reports of generalized weakness All medications have been reviewed Active Medications Acetaminophen (Acetaminophen Tab 325 Mg Tab) 650 mg PO Q6HR PRN PRN Reason: Mild Pain or Fever > 100.5 Last Admin: 04/05/24 17:54 Dose: 650 mg Hydrocodone Bitart/Acetaminophen (Hydrocodone/Apap 5-325mg 1 Each Tab) 1 each PO Q6HR PRN PRN Reason: Pain Atorvastatin Calcium (Atorvastatin 80 Mg Tab) 80 mg PO HS [facility] Last Admin: 04/05/24 21:11 Dose: 80 mg Cyanocobalamin (Cyanocobalamin 500 Mcg Tab) 500 mcg PO DAILY [facility] Last Admin: 04/05/24 09:28 Dose: 500 mcg Heparin Sodium (Porcine) (Heparin Sodium,Porcine 5,000 Unit/Ml 1 Ml Vial) 5,000 unit SQ Q12HR [facility] Last Admin: 04/05/24 21:10 Dose: 5,000 unit Hydrocortisone Sodium Succinate (Hydrocortisone Succinate 100 Mg/2 Ml Vial) 100 mg IV Q8HR [facility] Last Admin: 04/05/24 23:38 Dose: 100 mg Hydromorphone HCl (Hydromorphone 0.5 Mg/0.5 Ml Syringe) 0.5 mg IVP Q4HR PRN PRN Reason: Severe Pain (Scale 7 to 10) Last Admin: 04/01/24 11:22 Dose: 0.5 mg Sodium Chloride (Saline 0.9%) 1,000 mls @ 20 mls/hr IV .Q24H [facility] Last Admin: 04/05/24 21:00 Dose: Not Given Piperacillin Sod/Tazobactam (Sod 3.375 gm/ Sodium Chloride) 100 mls @ 25 mls/hr IVPB Q12HR [facility]; Protocol Last Admin: 04/05/24 21:10 Dose: 25 mls/hr Insulin Aspart (Insulin Aspart (Novolog) 100 Unit/Ml Vial) 0 unit SQ ACHS [facility]; Protocol Last Admin: 04/05/24 21:11 Dose: 6 unit Levothyroxine Sodium (Levothyroxine 100 Mcg Tab) 100 mcg PO DAILY@0630 [facility] Last Admin: 04/05/24 06:15 Dose: 100 mcg Midodrine (Midodrine 5 Mg Tab) 10 mg PO AC-TID [facility] Last Admin: 04/05/24 17:05 Dose: 10 mg Miscellaneous Information (Magnesium Replacement Protocol 1 Each Misc) 1 each MISCELLANE DAILY PRN; Protocol PRN Reason: Per Protocol Miscellaneous Information (Potassium Replacement Protocol 1 Each Misc) 1 each MISCELLANE DAILY PRN; Protocol PRN Reason: Per Protocol Montelukast Sodium (Montelukast 10 Mg Tab) 10 mg PO HS [facility] Last Admin: 04/05/24 21:11 Dose: 10 mg Mycophenolate Mofetil (Mycophenolate Mofetil 250 Mg Cap) 250 mg PO BID [facility] Last Admin: 04/05/24 21:11 Dose: 250 mg Naloxone HCl (Naloxone 0.4 Mg/Ml 1 Ml Vial) 0.2 mg IV Q2M PRN PRN Reason: Opioid Reversal Semaglutide [ Rybelsus] 7 Mg Tablet 7 mg PO DAILY [facility] Last Admin: 04/05/24 09:29 Dose: Not Given Ondansetron HCl (Ondansetron 4 Mg/2 Ml Vial) 4 mg IVP Q6HR PRN PRN Reason: Nausea And Vomiting Sertraline HCl (Sertraline 25 Mg Tab) 25 mg PO HS [facility] Last Admin: 04/05/24 21:10 Dose: 25 mg Sodium Bicarbonate (Sodium Bicarbonate Tab 650 Mg Tab) 650 mg PO TID [facility] Last Admin: 04/05/24 21:11 Dose: 650 mg Tacrolimus (Tacrolimus 0.5 Mg Cap) 0.5 mg PO HS [facility] Last Admin: 04/05/24 21:10 Dose: 0.5 mg Tacrolimus (Tacrolimus 1 Mg Cap) 1 mg PO DAILY [facility] Last Admin: 04/05/24 09:26 Dose: 1 mg PHYSICAL EXAMINATION: GENERAL: The patient is alert and oriented x4, Well developed, well nourished. Obese HEENT: Pupils are round and equally reacting to light. EOMI. no scleral icterus. No conjunctival pallor. Normocephalic, atraumatic. No pharyngeal erythema. No thyromegaly. CARDIOVASCULAR: S1 and S2 muffled PULMONARY: diminished breath sounds bilaterally with no wheezing or rhonchi noted. ABDOMEN: soft. Nontender on exam. obese. non-distended, normoactive bowel sounds. No palpable organomegaly. MUSCULOSKELETAL: No joint swelling or deformity. EXTREMITIES: No cyanosis, clubbing, or pedal edema. NEUROLOGICAL: Gross neurological examination did not reveal any focal deficits. Diffuse weakness SKIN: No rashes. Assessment: Acute diverticulitis involving the descending and sigmoid colon with severe abdominal pain Immunosuppressed History of renal transplant at [facility] Acute on chronic renal failure, newly started hemodialysis this admission Mild to moderate pelvic fluid secondary to fluid overload Hyperkalemia, improved Hypomagnesemia History of COPD, not in exacerbation Acute on chronic hypoxic respiratory failure secondary to pleural effusion and volume overload History of hypertension History of hyperlipidemia Obesity with a BMI of 36.9 GI prophylaxis DVT prophylaxis Full code Plan: Recommend to continue with current medications and management with multiple medical consultations following Nephrology following recommending possible transfer to tertiary treatment center as patient is a transplant patient maintained on multiple immunosuppressive's. Patient making very little urine and has been started on hemodialysis this admission Continue on antibiotics with infectious disease and general surgery following. Slowly advancing diet per surgery recommendations with no plans of surgical intervention at this time Continue monitoring intake and output closely Follow-up on repeat labs Discussed with [facility] Dr. Leia Lynch who has refused the transfer reporting they are at capacity and patient has no immediate need or urgent need for transfer for tertiary treatment at this time. Will discuss further with nephrology as well as family Due to multiple complex medical issues, prognosis is guarded The impression and plan of care has been dictated by Swetha Tripp, nurse practitioner as directed. Dr. Jonathan MD I have performed a history and examination and MDM of this patient, discussed the same with the dictator, and agree with the dictator's assessment and plan a s written ,documented as a scribe. Based on total visit time, I have performed more than 50% of the visit. Any additional findings or plans will be noted. Objective - Vital Signs Vital signs: Vital Signs Temp 97.9 F 04/05/24 09:49 Pulse 58 L 04/05/24 11:46 Resp 20 04/05/24 11:46 BP 97/60 04/05/24 11:46 Pulse Ox 88 L 04/05/24 11:46 FiO2 Intake & Output 04/04/24 04/05/24 04/05/24 18:59 06:59 18:59 Intake Total 110 540 Output Total 0 Balance 110 0 540 Weight 104.5 kg Intake: Oral 110 540 Output: Urine 0 Other: Voiding Method Indwelling Catheter Indwelling Catheter Indwelling Catheter # Bowel Movements 1 1 - Labs CBC & Chem 7: 04/05/24 12:44 04/05/24 12:44 Labs: Abnormal Lab Results - Last 24 Hours (Table) 04/02/24 04/03/24 04/04/24 Range/Units 04:30 13:26 16:36 POC Glucose (mg/dL) 230 H (70-110) mg/dL Procalcitonin 0.38 H (0.02-0.09) ng/mL Hep Bs Antibody A (Negative) 04/04/24 04/05/24 04/05/24 Range/Units 19:51 06:00 11:11 POC Glucose (mg/dL) 221 H 229 H 241 H (70-110) mg/dL Procalcitonin (0.02-0.09) ng/mL Hep Bs Antibody (Negative)
--- NOTE | 2024-04-06 10:15 | P.PN ---
Subjective Patient is seen in follow-up for acute kidney injury on chronic kidney disease. Due to worsening renal function, oliguria, started on hemodialysis April 03, 2024. Has temporary femoral dialysis catheter. Had a syncopal episode this morning. Blood pressure was noted to be normal. No evidence of hypoglycemia. Remains oliguric. present at bedside. Vital signs are stable. General: No acute distress. HEENT: Head exam is unremarkable. On nasal cannula. LUNGS: No audible rhonchi or wheezes. HEART: Rate and Rhythm are regular. ABDOMEN: Obese, nontender. EXTREMITITES: No edema. Objective - Vital Signs Vital signs: Vital Signs Temp 97.5 F L 04/06/24 09:00 Pulse 78 04/06/24 09:00 Resp 17 04/06/24 09:00 BP 134/69 04/06/24 09:00 Pulse Ox 100 04/06/24 09:00 FiO2 Intake & Output 04/05/24 04/06/24 04/06/24 18:59 06:59 18:59 Intake Total 1420 240 118 Output Total 1200 0 Balance 220 240 118 Weight 104.5 kg 103.8 kg Intake: Oral 1020 240 118 Hemodialysis 400 Output: Urine 0 0 Hemodialysis 1200 Other: Voiding Method Indwelling Catheter Indwelling Catheter Indwelling Catheter # Bowel Movements 1 - Labs CBC & Chem 7: 04/05/24 12:44 04/05/24 12:44 Labs: Abnormal Lab Results - Last 24 Hours (Table) 04/02/24 04/05/24 04/05/24 Range/Units 04:30 11:11 12:44 WBC 12.9 H (3.8-10.6) k/uL MCHC 30.7 L (31.0-37.0) g/dL Neutrophils # 11.3 H (1.3-7.7) k/uL Lymphocytes # 0.5 L (1.0-4.8) k/uL Sodium (137-145) mmol/L Chloride (98-107) mmol/L BUN (9-20) mg/dL Creatinine (0.66-1.25) mg/dL Glucose (74-99) mg/dL POC Glucose (mg/dL) 241 H (70-110) mg/dL Total Bilirubin (0.2-1.3) mg/dL Total Protein (6.3-8.2) g/dL Procalcitonin 0.38 H (0.02-0.09) ng/mL 04/05/24 04/05/24 04/05/24 Range/Units 12:44 16:15 21:03 WBC (3.8-10.6) k/uL MCHC (31.0-37.0) g/dL Neutrophils # (1.3-7.7) k/uL Lymphocytes # (1.0-4.8) k/uL Sodium 135 L (137-145) mmol/L Chloride 96 L (98-107) mmol/L BUN 76 H (9-20) mg/dL Creatinine 8.23 H* (0.66-1.25) mg/dL Glucose 282 H (74-99) mg/dL POC Glucose (mg/dL) 271 H 287 H (70-110) mg/dL Total Bilirubin 1.5 H (0.2-1.3) mg/dL Total Protein 6.1 L (6.3-8.2) g/dL Procalcitonin (0.02-0.09) ng/mL 04/06/24 Range/Units 05:48 WBC (3.8-10.6) k/uL MCHC (31.0-37.0) g/dL Neutrophils # (1.3-7.7) k/uL Lymphocytes # (1.0-4.8) k/uL Sodium (137-145) mmol/L Chloride (98-107) mmol/L BUN (9-20) mg/dL Creatinine (0.66-1.25) mg/dL Glucose (74-99) mg/dL POC Glucose (mg/dL) 258 H (70-110) mg/dL Total Bilirubin (0.2-1.3) mg/dL Total Protein (6.3-8.2) g/dL Procalcitonin (0.02-0.09) ng/mL Microbiology - Last 24 Hours (Table) 03/31/24 11:45 Blood Culture - Final Blood Assessment and Plan Plan: Assessment: 1. Acute kidney injury secondary to ATN secondary to hypotension/severe sepsis. Creatinine up to 8.23 yesterday. Oliguric. Bladder scan negative for retention. No hydronephrosis noted on CAT scan. 2. 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 3. Status post donor transplant at [facility] in July 2017 maintained on Prograf, CellCept and prednisone. 4. Hyperkalemia secondary to acute kidney injury and metabolic acidosis. Improved postdialysis. 5. Metabolic acidosis secondary to acute kidney injury and GI losses. Improved postdialysis. 6. Pulmonary fibrosis post COVID-pneumonia maintained on home oxygen. 7. Diverticulitis maintained on antibiotics. 8. Diabetes mellitus. 9. Hyperphosphatemia secondary to acute allograft dysfunction. Phosphorus level 4.7. 10. Fluid overload. Improving with ultrafiltration. Plan: Currently seen while undergoing hemodialysis. Another treatment tomorrow. No response to urine output despite IV Lasix given April 03, 2024. Monitor for renal recovery. Prograf level 6.2 dated April 02, 2024. Okay to DC Garza catheter. Vascular surgery will be notified for permacath placement and removal of temporary dialysis catheter. Maintain midodrine. Hold for systolic blood pressure greater than 115. manager customs to set up outpatient hemodialysis in [place]. Awaits transfer to transplant center. Denied at [facility]. Will try another facility.
[2024-04-06 11:39] LABS: Glucose,Whole Blood 255 mg/dL (70-110)
--- NOTE | 2024-04-06 12:35 | P.PN ---
Subjective Progress Note Date: 04/06/24 CHIEF COMPLAINT: Diverticulitis HISTORY OF PRESENT ILLNESS: Patient denies any abdominal pain. He is tolerating diet. He is having bowel movements. [facility] declined transfer. Patient getting hemodialysis. Patient followed closely by nephrology. PHYSICAL EXAM: VITAL SIGNS: Reviewed. GENERAL: Well-developed in no acute distress. ABDOMEN: Soft. Nondistended. Nontender. NEUROLOGIC: Alert and oriented. Cranial nerves II through XII grossly intact. ASSESSMENT: 1. Diverticulitis 2. History of kidney transplant PLAN: -Continue antibiotics -Continue regular diet -No surgical intervention planned Physician Gynecologist note has been reviewed by physician. Signing provider agrees with the documented findings, assessment, and plan of care. Objective - Vital Signs Vital signs: Vital Signs Temp 97.6 F 04/06/24 12:29 Pulse 60 04/06/24 12:29 Resp 18 04/06/24 12:29 BP 122/60 04/06/24 12:29 Pulse Ox 92 L 04/06/24 11:35 FiO2 Intake & Output 04/05/24 04/06/24 04/06/24 18:59 06:59 18:59 Intake Total 1420 240 518 Output Total 1200 0 1900 Balance 220 240 -1382 Weight 104.5 kg 103.8 kg Intake: Oral 1020 240 118 Hemodialysis 400 400 Output: Urine 0 0 Hemodialysis 1200 1900 Other: Voiding Method Indwelling Catheter Indwelling Catheter Indwelling Catheter # Bowel Movements 1 - Labs CBC & Chem 7: 04/05/24 12:44 04/05/24 12:44 Labs: Abnormal Lab Results - Last 24 Hours (Table) 04/05/24 04/05/24 04/05/24 Range/Units 12:44 12:44 16:15 WBC 12.9 H (3.8-10.6) k/uL MCHC 30.7 L (31.0-37.0) g/dL Neutrophils # 11.3 H (1.3-7.7) k/uL Lymphocytes # 0.5 L (1.0-4.8) k/uL Sodium 135 L (137-145) mmol/L Chloride 96 L (98-107) mmol/L BUN 76 H (9-20) mg/dL Creatinine 8.23 H* (0.66-1.25) mg/dL Glucose 282 H (74-99) mg/dL POC Glucose (mg/dL) 271 H (70-110) mg/dL Total Bilirubin 1.5 H (0.2-1.3) mg/dL Total Protein 6.1 L (6.3-8.2) g/dL 04/05/24 04/06/24 04/06/24 Range/Units 21:03 05:48 11:37 WBC (3.8-10.6) k/uL MCHC (31.0-37.0) g/dL Neutrophils # (1.3-7.7) k/uL Lymphocytes # (1.0-4.8) k/uL Sodium (137-145) mmol/L Chloride (98-107) mmol/L BUN (9-20) mg/dL Creatinine (0.66-1.25) mg/dL Glucose (74-99) mg/dL POC Glucose (mg/dL) 287 H 258 H 255 H (70-110) mg/dL Total Bilirubin (0.2-1.3) mg/dL Total Protein (6.3-8.2) g/dL Microbiology - Last 24 Hours (Table) 03/31/24 11:45 Blood Culture - Final Blood
--- NOTE | 2024-04-06 13:15 | P.PN ---
Subjective Progress Note Date: 04/06/24 This is a pleasant 53-year-old male patient with a known history of previous kidney transplant, hypothyroidism, mild coronary artery disease, hypothyroidism who presented here to the emergency room on 03/31/2024 with complaints of right lower quadrant abdominal pain and febrile illness. ET scan of the abdomen and pelvis revealed acute diverticulitis at the junction of the descending and sigmoid colon. Mild to moderate inflammation. No abscess or free air. Mild abdominal and moderate laded to fluid overload state given some generalized anasarca, cirrhotic morphology of the liver and patient's right lower quadrant transplant kidney. Fluid-filled small bowel loops most of the abdomen as well as lower abdomen may reflect mild secondary ileus. Small left pleural effusion. Chest x-ray reveals a small left pleural effusion. Mild cardiomegaly but no pulmonary edema. White count 11.5. Hemoglobin 15.2. Platelets 117. Sodium 134. Potassium 5.7. Bicarb 13. BUN 54. Creatinine 4.9. Issues with hypotension as well. He did have a syncopal episode this morning while up in the bathroom. He is seen today in consultation on the regular medical floor. He is awake and alert in no acute distress. He is maintaining O2 saturations in the 90s on 4 L/min per nasal cannula. He does have home oxygen at 3 L. He is receiving D5W with 3 A of bicarb at 80 MLS per hour. Antibiotics in the form of Zosyn. The patient is seen today April 03, 2024 in follow-up on the selective care unit. He is currently sitting up at the bedside. Awake and alert in no acute distress. He is maintaining good O2 saturations in the 90s on 2 L/min per nasal cannula. He is afebrile. Hemodynamically stable. White count 9.9. Hemoglobin 15.8. Platelets 118. Sodium 133. Potassium 5.4. Bicarb 14. BUN 58. Creatinine 5.87. Glucose 212. He is on D5W with 3 A of bicarb at 80 MLS per hour. On sodium bicarbonate tablets. He remains on Solu-Cortef 100 mg IV every 8 hours. Heparin for DVT prophylaxis. Continued on tacrolimus and CellCept. Continued on antibiotics in the form of Zosyn. Procalcitonin pending. Progress note dated April 04, 2024. The patient is seen today in room 370. He continues on oxygen at 3 L. He is getting a sodium bicarbonate IV, through with 3 ampoules of sodium bicarbonate in D5W at 80 cc an hour. The patient did have hemodialysis yesterday, April 03, with 1 L being removed. Clinically, he is stable. He denies any respiratory issues at this time. Current labs include a white count 10.4, hemoglobin 14.2, hematocrit 45.7, and a platelet count of 111,000. Sodium 132, potassium 4.4, chlorides 96, CO2 23, anion gap 13, BUN 55, creatinine 6.21. Glucose is 312. Blood cultures are thus far negative. Chest x-ray shows borderline cardiomegaly, and mild pulmonary venous congestion. On 04/05/2024, the patient is resting comfortably in bed and the patient is under going hemodialysis. He is a recipient of renal transplant and the patient was hospitalized for acute diverticulitis. He remains on broad-spectrum antibiotics and the patient remains on IV Zosyn. The patient is also on a combination of Prograf and CellCept. He has been taken off the prednisone and the patient was switched to IV hydrocortisone 100 mg every 8 hours. No significant nausea vomiting or abdominal pain. The patient is currently on hemodialysis and nephrology on the case. sodium level is 135, WBC count 4.9 with a hemoglobin 13.5 and a platelet count of 159. All of the cultures have been negative. The general surgery is on the case. The patient is taking regular diet. No plans for any surgical intervention. Nephrology is also on the case and the patient will continue hemodialysis for now. He is not responding to IV Lasix and his urine output is quite diminished. Prograf level is at 6.2 from 04/02/2024. Garza catheter is in place. On 04/06/2024, the patient is being seen for a follow-up. Patient is undergoing hemodialysis. No significant abdominal pain. Nephrology on the case. The patient and the family has made request to be transferred to another facility b ased on his renal transplantation status and ongoing renal failure. The patient has sustained an acute kidney injury on top of chronic kidney disease. Creatinine was quite elevated and the patient is currently on hemodialysis. The patient will have a permacath inserted today by vascular surgery. He is maintained on midodrine. BP is under adequate control. Electrolytes from yesterday were all stable. The patient currently is on 4 L of oxygen by nasal cannula with a pulse ox of 92%. Remains on IV Zosyn. Immunosuppressive agents are being managed by nephrology. Objective - Vital Signs Vital signs: Vital Signs Temp 97.5 F L 04/06/24 09:00 Pulse 78 04/06/24 09:00 Resp 17 04/06/24 09:00 BP 134/69 04/06/24 09:00 Pulse Ox 100 04/06/24 09:00 FiO2 Intake & Output 04/05/24 04/06/24 04/06/24 18:59 06:59 18:59 Intake Total 1420 240 118 Output Total 1200 0 Balance 220 240 118 Weight 104.5 kg 103.8 kg Intake: Oral 1020 240 118 Hemodialysis 400 Output: Urine 0 0 Hemodialysis 1200 Other: Voiding Method Indwelling Catheter Indwelling Catheter Indwelling Catheter # Bowel Movements 1 - Exam No acute distress, oriented 3. No respiratory distress. Currently on 4 L of oxygen by nasal cannula HEENT examination is grossly unremarkable. Mucous membranes are moist. No oral lesions. Neck supple. Full range of motion. No adenopathy thyromegaly or neck vein distention. Cardiovascular examination reveals regular rhythm rate. S1-S2 normal. No S3 or S4. No discernible murmur noted. Heart sounds are distant. Lungs reveal mild scattered crackles. No wheezes or rhonchi. Breath sounds equal. Abdomen soft bowel sounds are heard. No masses or tenderness. Extremities are intact. No cyanosis clubbing or edema. Skin is without rash or lesion. Neurologic examination is brief but nonfocal. - Labs CBC & Chem 7: 04/05/24 12:44 04/05/24 12:44 Labs: Abnormal Lab Results - Last 24 Hours (Table) 04/02/24 04/05/24 04/05/24 Range/Units 04:30 11:11 12:44 WBC 12.9 H (3.8-10.6) k/uL MCHC 30.7 L (31.0-37.0) g/dL Neutrophils # 11.3 H (1.3-7.7) k/uL Lymphocytes # 0.5 L (1.0-4.8) k/uL Sodium (137-145) mmol/L Chloride (98-107) mmol/L BUN (9-20) mg/dL Creatinine (0.66-1.25) mg/dL Glucose (74-99) mg/dL POC Glucose (mg/dL) 241 H (70-110) mg/dL Total Bilirubin (0.2-1.3) mg/dL Total Protein (6.3-8.2) g/dL Procalcitonin 0.38 H (0.02-0.09) ng/mL 04/05/24 04/05/24 04/05/24 Range/Units 12:44 16:15 21:03 WBC (3.8-10.6) k/uL MCHC (31.0-37.0) g/dL Neutrophils # (1.3-7.7) k/uL Lymphocytes # (1.0-4.8) k/uL Sodium 135 L (137-145) mmol/L Chloride 96 L (98-107) mmol/L BUN 76 H (9-20) mg/dL Creatinine 8.23 H* (0.66-1.25) mg/dL Glucose 282 H (74-99) mg/dL POC Glucose (mg/dL) 271 H 287 H (70-110) mg/dL Total Bilirubin 1.5 H (0.2-1.3) mg/dL Total Protein 6.1 L (6.3-8.2) g/dL Procalcitonin (0.02-0.09) ng/mL 04/06/24 Range/Units 05:48 WBC (3.8-10.6) k/uL MCHC (31.0-37.0) g/dL Neutrophils # (1.3-7.7) k/uL Lymphocytes # (1.0-4.8) k/uL Sodium (137-145) mmol/L Chloride (98-107) mmol/L BUN (9-20) mg/dL Creatinine (0.66-1.25) mg/dL Glucose (74-99) mg/dL POC Glucose (mg/dL) 258 H (70-110) mg/dL Total Bilirubin (0.2-1.3) mg/dL Total Protein (6.3-8.2) g/dL Procalcitonin (0.02-0.09) ng/mL Microbiology - Last 24 Hours (Table) 03/31/24 11:45 Blood Culture - Final Blood Assessment and Plan Plan: Acute diverticulitis with secondary right lower quadrant abdominal pain suspect secondary to mild abdominal and moderate pelvic free fluid possibly related to fluid overload state given some generalized anasarca, cirrhotic morphology liver and patient's right lower quadrant transplant kidney. The patient is currently on IV Zosyn. Abdominal pain is subsided and the patient is tolerating regular diet. No signs of any ongoing septicemia. General surgery is on the case. Acute diverticulitis at the junction of the descending and sigmoid colon. The patient remains on IV Zosyn. Acute on chronic hypoxemic respiratory failure secondary to a small left pleural effusion and fluid accumulated in the abdominal space. Currently on 40 Suboxone by nasal cannula Acute kidney injury on chronic stage IV kidney disease, temporary hemodialysis placed and to start hemodialysis today 04/03/2024. Patient is undergoing hemodialysis today and the permacath will be inserted Hyperkalemia secondary to above, improved Metabolic acidosis secondary to above, improved History of kidney transplant at the [facility] in July 2017, maintained on Prograf, CellCept and prednisone. Prednisone has been discontinued and the patient is currently on stress dose hydrocortisone. History of renal failure post kidney transplantation, chronic allograft nephropathy. Former smoker. Chronic obstructive pulmonary disease. 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 Hypertension. Hyperlipidemia. Hypothyroidism. Mild coronary artery disease. Plan: Continue IV Zosyn Continue with suppressive agents with a combination of Prograf and CellCept Permacath insertion today Advance diet as tolerated and the patient's diet is regular Monitor immunosuppression level Continue hemodialysis per nephrology Nonresponsive to diuretics Respiratory status is stable and the patient is currently on 4 L of oxygen by nasal cannula and the most recent chest x-ray from yesterday shows cardiomegaly with improved pulmonary vascular congestion in addition and stable pleural effusions, small. Will see this patient as needed.
--- NOTE | 2024-04-06 13:49 | P.PN ---
Subjective Progress Note Date: 04/06/24 This is a 53-year-old male who was recently admitted with right lower quadrant pain along with fevers being closely monitored with multiple medical consultations. Patient is a kidney transplant patient at the [facility] in 2017 and noted to be on multiple immunosuppressive medications. Patient lexa carbajal had a CT abdomen pelvis done which showed acute diverticulitis at the junction of the descending and sigmoid colon with mild to moderate inflammation with no abscess or free air noted along with free pelvic fluid and volume load with some generalized anasarca with cirrhotic morphology of the liver along with some fluid-filled small bowel loops at the left side of the abdomen as well as left lower abdomen and small left pleural effusion. General surgery along with nephrology following as patient's kidney functions were elevated and continuously worsening has been started on hemodialysis this admission. Very little output of urine noted. Not responding to IV Lasix. Patient is maintaine d on antibiotics with infectious disease following in the form of Zosyn and being closely monitored. Discussion of the need for possible transfer for tertiary [facility] per nephrology as patient is a transplant patient to a transplant center and patient is refusing [facility] and family would like [facility]. Discussed with Dr. Leia Lynch attending at [facility] and reported they are at capacity and there is no immediate need or urgent need for transfer at this time as patient would be maintained on antibiotic therapy and close monitoring with hemodialysis, which is what he is currently undergoing here. Will discuss further with family 04/06/2024 Patient seen and evaluated in follow-up today with nephrology, general surgery, infectious disease following. Patient per nephrology needs transfer to tertiary [facility] as he is a transplant patient and having renal failure requiring hemodialysis this admission. Patient received a temporary femoral cath and is continued on hemodialysis with continued volume overload. Kidney functions continue to be worsening and not making very much urine. [facility] has declined the patient along with [facility] and further discussed with patient's family and are agreeable to transfer to [facility]. Patient has been accepted by Dr. Reid at [facility] currently awaiting a bed. Family updated and made aware. Patient is afebrile with no reports of chest pain or worsening shortness of breath. Patient reports is tolerating diet with no reported nausea or vomiting. Review of systems: Constitutional: reports of fatigue, no fever, or chills Cardiovascular: No reports of chest pain or palpitations Respiratory: No reports of shortness of breath or cough GI: No reports of nausea, no reports of vomiting, no diarrhea : No reports of dysuria or retention Neurovascular: reports of generalized weakness All medications have been reviewed Active Medications Acetaminophen (Acetaminophen Tab 325 Mg Tab) 650 mg PO Q6HR PRN PRN Reason: Mild Pain or Fever > 100.5 Last Admin: 04/05/24 17:54 Dose: 650 mg Hydrocodone Bitart/Acetaminophen (Hydrocodone/Apap 5-325mg 1 Each Tab) 1 each PO Q6HR PRN PRN Reason: Pain Atorvastatin Calcium (Atorvastatin 80 Mg Tab) 80 mg PO HS [facility] Last Admin: 04/05/24 21:11 Dose: 80 mg Cyanocobalamin (Cyanocobalamin 500 Mcg Tab) 500 mcg PO DAILY [facility] Last Admin: 04/06/24 11:45 Dose: 500 mcg Heparin Sodium (Porcine) (Heparin Sodium,Porcine 5,000 Unit/Ml 1 Ml Vial) 5,000 unit SQ Q12HR [facility] Last Admin: 04/06/24 11:55 Dose: Not Given Hydrocortisone Sodium Succinate (Hydrocortisone Succinate 100 Mg/2 Ml Vial) 100 mg IV Q8HR [facility] Last Admin: 04/06/24 11:44 Dose: 100 mg Hydromorphone HCl (Hydromorphone 0.5 Mg/0.5 Ml Syringe) 0.5 mg IVP Q4HR PRN PRN Reason: Severe Pain (Scale 7 to 10) Last Admin: 04/01/24 11:22 Dose: 0.5 mg Sodium Chloride (Saline 0.9%) 1,000 mls @ 20 mls/hr IV .Q24H [facility] Last Admin: 04/05/24 21:00 Dose: Not Given Piperacillin Sod/Tazobactam (Sod 3.375 gm/ Sodium Chloride) 100 mls @ 25 mls/hr IVPB Q12HR [facility]; Protocol Last Admin: 04/06/24 11:44 Dose: 25 mls/hr Insulin Aspart (Insulin Aspart (Novolog) 100 Unit/Ml Vial) 0 unit SQ ACHS [facility]; Protocol Last Admin: 04/06/24 11:55 Dose: 6 unit Levothyroxine Sodium (Levothyroxine 100 Mcg Tab) 100 mcg PO DAILY@0630 [facility] Last Admin: 07/02/24 06:27 Dose: 100 mcg Midodrine (Midodrine 5 Mg Tab) 10 mg PO AC-TID [facility] Last Admin: 04/06/24 11:55 Dose: Not Given Miscellaneous Information (Magnesium Replacement Protocol 1 Each Misc) 1 each MISCELLANE DAILY PRN; Protocol PRN Reason: Per Protocol Miscellaneous Information (Potassium Replacement Protocol 1 Each Misc) 1 each MISCELLANE DAILY PRN; Protocol PRN Reason: Per Protocol Montelukast Sodium (Montelukast 10 Mg Tab) 10 mg PO [facility] Last Admin: 04/05/24 21:11 Dose: 10 mg Mycophenolate Mofetil (Mycophenolate Mofetil 250 Mg Cap) 250 mg PO BID [facility] Last Admin: 04/06/24 09:20 Dose: 250 mg Naloxone HCl (Naloxone 0.4 Mg/Ml 1 Ml Vial) 0.2 mg IV Q2M PRN PRN Reason: Opioid Reversal Semaglutide [ Rybelsus] 7 Mg Tablet 7 mg PO DAILY [facility] Last Admin: 04/06/24 11:40 Dose: Not Given Ondansetron HCl (Ondansetron 4 Mg/2 Ml Vial) 4 mg IVP Q6HR PRN PRN Reason: Nausea And Vomiting Sertraline HCl (Sertraline 25 Mg Tab) 25 mg PO [facility] Last Admin: 04/05/24 21:10 Dose: 25 mg Sodium Bicarbonate (Sodium Bicarbonate Tab 650 Mg Tab) 650 mg PO TID [facility] Last Admin: 04/06/24 11:45 Dose: 650 mg Tacrolimus (Tacrolimus 0.5 Mg Cap) 0.5 mg PO [facility] Last Admin: 04/05/24 21:10 Dose: 0.5 mg Tacrolimus (Tacrolimus 1 Mg Cap) 1 mg PO DAILY [facility] Last Admin: 04/06/24 09:20 Dose: 1 mg PHYSICAL EXAMINATION: GENERAL: The patient is alert and oriented x4, Well developed, well nourished. Obese HEENT: Pupils are round and equally reacting to light. EOMI. no scleral icterus. No conjunctival pallor. Normocephalic, atraumatic. No pharyngeal erythema. No thyromegaly. CARDIOVASCULAR: S1 and S2 muffled PULMONARY: diminished breath sounds bilaterally with no wheezing or rhonchi noted. ABDOMEN: soft. Nontender on exam. obese. non-distended, normoactive bowel sounds. No palpable organomegaly. MUSCULOSKELETAL: No joint swelling or deformity. EXTREMITIES: No cyanosis, clubbing, or pedal edema. NEUROLOGICAL: Gross neurological examination did not reveal any focal deficits. Diffuse weakness SKIN: No rashes. Assessment: Acute diverticulitis involving the descending and sigmoid colon with severe abdominal pain Immunosuppressed History of renal transplant at [facility] in 2016 Acute on chronic renal failure, newly started hemodialysis this admission 03/2024 Mild to moderate pelvic fluid secondary to fluid overload Hyperkalemia, improved Hypomagnesemia History of COPD, not in exacerbation Acute on chronic hypoxic respiratory failure secondary to pleural effusion and volume overload History of hypertension History of hyperlipidemia Obesity with a BMI of 36.9 GI prophylaxis DVT prophylaxis Full code Plan: Recommend to continue with current medications and management with multiple medical consultations following Nephrology following recommending possible transfer to tertiary treatment center as patient is a transplant patient maintained on multiple immunosuppressive's. Patient making very little urine and has been started on hemodialysis this admission. Patient does have a femoral temporary cath and also discussing setting up for outpatient dialysis. Continue on antibiotics with infectious disease and general surgery following. Slowly advancing diet per surgery recommendations with no plans of surgical intervention at this time Continue monitoring intake and output closely Follow-up on repeat labs Discussed with [facility] Dr. Leia Lynch who has refused the transfer reporting they are at capacity and patient has no immediate need or urgent need for transfer for tertiary treatment at this time. Attempted to contact [facility] for transfer and they have refused the transfer at this time. [facility] was called and left a message regarding recommendations and guidance regarding this transplant patient. After discussing with nephrology and family they are agreeable to [facility] in [place]. Transfer was initiated and patient has been accepted by Dr. Reid and currently awaiting a bed assignment. Due to multiple complex medical issues, prognosis is guarded The impression and plan of care has been dictated by nurse Nam pra ctitioner as directed. Dr. Jonathan MD I have performed a history and examination and MDM of this patient, discussed the same with the dictator, and agree with the dictator's assessment and plan as written ,documented as a scribe. Based on total visit time, I have performed more than 50% of the visit. Any additional findings or plans will be noted. Objective - Vital Signs Vital signs: Vital Signs Temp 97.6 F 04/06/24 12:29 Pulse 60 04/06/24 12:29 Resp 18 04/06/24 12:29 BP 122/60 04/06/24 12:29 Pulse Ox 92 L 04/06/24 11:35 FiO2 Intake & Output 04/05/24 04/06/24 04/06/24 18:59 06:59 18:59 Intake Total 1420 240 518 Output Total 1200 0 1900 Balance 220 240 -1382 Weight 104.5 kg 103.8 kg Intake: Oral 1020 240 118 Hemodialysis 400 400 Output: Urine 0 0 Hemodialysis 1200 1900 Other: Voiding Method Indwelling Catheter Indwelling Catheter Indwelling Catheter # Bowel Movements 1 - Labs CBC & Chem 7: 04/05/24 12:44 04/05/24 12:44 Labs: Abnormal Lab Results - Last 24 Hours (Table) 04/05/24 04/05/24 04/06/24 Range/Units 16:15 21:03 05:48 POC Glucose (mg/dL) 271 H 287 H 258 H (70-110) mg/dL 04/06/24 Range/Units 11:37 POC Glucose (mg/dL) 255 H (70-110) mg/dL Microbiology - Last 24 Hours (Table) 03/31/24 11:45 Blood Culture - Final Blood
--- NOTE | 2024-04-06 14:06 | CDI ---
Documentation Clarification Form Date: 04/06/2024 From: Sierra Cheney Phone: [phone] Admit Date: 03/31/2024 01:47:00 PM Patient Name: Abdoul Soliz Visit Number: [id number] Discharge Date: ATTENTION: The Clinical Documentation Specialists (CDI) and [facility] Coding Staff appreciate your assistance in clarifying documentation. Please respond to the clarification below the line at the bottom and electronically sign. The CDI & [facility] Coding staff will review the response and follow-up if needed. Please note: Queries are made part of the Legal Health Record. If you have any questions, please contact the author of this message via ITS. Dr. Kortney Castillo: Severe sepsis is documented in the Nephrology note 04/03 and in subsequent Nephrology notes which may lack sufficient clinical evidence/support in the medical record. As Attending Physician additional clarification is requested. History/Risk Factors: 53-year-old male with a history of kidney transplant, CKD3, who presented with fever and right lower quadrant pain found to have acute diverticulitis, ERIN and HD initiated Clinical Indicators: 03/31 Triage VS: 84/57, 97.9, 75, 16, 93% 3liters nasal cannula Nephrology PN, Assessment: "1. Acute kidney injury secondary to ATN secondary to hypotension/severe sepsis." 03/31-04/05 WBC: 12.3, 12.98, 11.5, 9.9, 10.4, 12.9 04/02 Blood Culture: No growth after 5 days 03/31 Lactic Acid: 1.2 04/02 Procalcitonin: 0.38 Treatment: Zosyn 3.375gram IV [id number] start 04/02 After work up and study, please clarify which diagnosis is most appropriate? [ ] Severe sepsis ruled out [ ] Severe sepsis treated prophylactically [ ] Severe sepsis is a valid diagnosis as evidence by the following: (Please add rationale): [ ] Non-Infectious SIRS due to (please specify) [ ] Non-infectious SIRS due to with organ dysfunction as evidenced by [list organ dysfunction] [ ] Other, please specify [ ] Unable to determine SIRS Criteria: 2 or more of the following may indicate SIRS Temperature < 96.8F (36C) or > 101.0F (38.3C) Heart Rate > 90 bpm Respiratory Rate > 20 breaths/min or PaCO2 < 32 mmHg White Blood Cell Count > 12,000 or < 4,000 cells/mm3 or > 10% bands Severe sepsis ruled out MTDD
--- NOTE | 2024-04-06 15:31 | P.PN ---
Subjective Progress Note Date: 04/05/24 Principal diagnosis: Reason for follow-up is acute diverticulitis Patient is a 53-year-old male with a past medical history significant for coronary artery disease renal failure post kidney transplant hypothyroidism former smoker presenting to the hospital with the left lower quadrant abdominal pain, patient be diagnosed with acute diverticulitis did not mention any perforation or abscess admit to the hospital for IV antibiotic therapy. On today's evaluation that is Patient did have worsening of his kidney function vascular surgery has been consulted and the dialysis catheter has been placed in the left femoral area. On today's evaluation that is 04/05/2024, patient has been afebrile, patient is breathing comfortably and is currently on 4 L nasal cannula oxygen patient denies having any significant cough no chest pain shortness of breath, patient denies nausea vomiting or diarrhea and no abdominal pain, no new symptoms Patient white count is 12.9 creatinine is 8.23 Objective - Vital Signs Vital signs: Vital Signs Temp 98.2 F 04/05/24 15:24 Pulse 55 L 04/05/24 15:24 Resp 20 04/05/24 15:24 BP 110/63 04/05/24 17:04 Pulse Ox 93 L 04/05/24 15:24 FiO2 Intake & Output 04/04/24 04/05/24 04/05/24 18:59 06:59 18:59 Intake Total 110 1020 Output Total 0 0 Balance 110 0 1020 Weight 104.5 kg 104.5 kg Intake: Oral 110 1020 Output: Urine 0 0 Other: Voiding Method Indwelling Catheter Indwelling Catheter Indwelling Catheter # Bowel Movements 1 1 - Exam GENERAL DESCRIPTION: Middle-age male lying in bed in no distress RESPIRATORY SYSTEM: Unlabored breathing , decreased breath sounds at bases HEART: S1 S2 regular rate and rhythm , ABDOMEN: Soft , no tenderness EXTREMITIES: No edema feet - Labs CBC & Chem 7: 04/05/24 12:44 04/05/24 12:44 Labs: Abnormal Lab Results - Last 24 Hours (Table) 04/02/24 04/04/24 04/05/24 Range/Units 04:30 19:51 06:00 WBC (3.8-10.6) k/uL MCHC (31.0-37.0) g/dL Neutrophils # (1.3-7.7) k/uL Lymphocytes # (1.0-4.8) k/uL Sodium (137-145) mmol/L Chloride (98-107) mmol/L BUN (9-20) mg/dL Creatinine (0.66-1.25) mg/dL Glucose (74-99) mg/dL POC Glucose (mg/dL) 221 H 229 H (70-110) mg/dL Total Bilirubin (0.2-1.3) mg/dL Total Protein (6.3-8.2) g/dL Procalcitonin 0.38 H (0.02-0.09) ng/mL 04/05/24 04/05/24 04/05/24 Range/Units 11:11 12:44 12:44 WBC 12.9 H (3.8-10.6) k/uL MCHC 30.7 L (31.0-37.0) g/dL Neutrophils # 11.3 H (1.3-7.7) k/uL Lymphocytes # 0.5 L (1.0-4.8) k/uL Sodium 135 L (137-145) mmol/L Chloride 96 L (98-107) mmol/L BUN 76 H (9-20) mg/dL Creatinine 8.23 H* (0.66-1.25) mg/dL Glucose 282 H (74-99) mg/dL POC Glucose (mg/dL) 241 H (70-110) mg/dL Total Bilirubin 1.5 H (0.2-1.3) mg/dL Total Protein 6.1 L (6.3-8.2) g/dL Procalcitonin (0.02-0.09) ng/mL 04/05/24 Range/Units 16:15 WBC (3.8-10.6) k/uL MCHC (31.0-37.0) g/dL Neutrophils # (1.3-7.7) k/uL Lymphocytes # (1.0-4.8) k/uL Sodium (137-145) mmol/L Chloride (98-107) mmol/L BUN (9-20) mg/dL Creatinine (0.66-1.25) mg/dL Glucose (74-99) mg/dL POC Glucose (mg/dL) 271 H (70-110) mg/dL Total Bilirubin (0.2-1.3) mg/dL Total Protein (6.3-8.2) g/dL Procalcitonin (0.02-0.09) ng/mL Microbiology - Last 24 Hours (Table) 03/31/24 11:45 Blood Culture - Final Blood Assessment and Plan (1) Acute diverticulitis Current Visit: Yes Status: Acute Code(s): K57.92 - DVTRCLI OF INTEST, PART UNSP, W/O PERF OR ABSCESS W/O BLEED SNOMED Code(s): 937439968 (2) History of renal transplant Current Visit: No Status: Acute Code(s): Z94.0 - KIDNEY TRANSPLANT STATUS SNOMED Code(s): 313053273 (3) Immunocompromised Current Visit: No Status: Acute Code(s): D84.9 - IMMUNODEFICIENCY, UNSPECIFIED SNOMED Code(s): 036397744 (4) Leukocytosis Current Visit: No Status: Acute Code(s): D72.829 - ELEVATED WHITE BLOOD CELL COUNT, UNSPECIFIED SNOMED Code(s): 976313349 Plan: 1patient presented hospital with the left lower quadrant abdominal pain of 1 day duration in this patient has been diagnosed with acute diverticulitis did not mention any evidence of perforation or abscess we will need to cover for the enteric gram-negative to be the likely pathogen 2-patient did have worsening of his kidney function requiring dialysis catheter placement and did have dialysis done 3-patient also immunocompromise because of his immunosuppressive medication posttransplant 4-patient is afebrile and did have normal white count slightly up today and we will monitor closely patient did have resolution of his abdominal pain continue with the Zosyn Dictation was produced using [employer]atch[employer] dictation software. please excuse any grammatical, word or spelling errors. Time with Patient: Less than 30
--- NOTE | 2024-04-06 15:33 | P.PN ---
Subjective Progress Note Date: 04/06/24 Principal diagnosis: Reason for follow-up is acute diverticulitis Patient is a 53-year-old male with a past medical history significant for coronary artery disease renal failure post kidney transplant hypothyroidism former smoker presenting to the hospital with the left lower quadrant abdominal pain, patient be diagnosed with acute diverticulitis did not mention any perforation or abscess admit to the hospital for IV antibiotic therapy. On today's evaluation that is Patient did have worsening of his kidney function vascular surgery has been consulted and the dialysis catheter has been placed in the left femoral area. On today's evaluation that is 04/06/2024, Patient is afebrile this morning and denies any chills, patient mention breathing comfortably and is currently on 4 L current oxygen, patient denies any chest pain occasional cough patient denies any abdominal pain no diarrhea no nausea no vomiting. No new labs were drawn today Objective - Vital Signs Vital signs: Vital Signs Temp 97.6 F 04/06/24 12:29 Pulse 60 04/06/24 12:29 Resp 18 04/06/24 12:29 BP 122/60 04/06/24 12:29 Pulse Ox 92 L 04/06/24 11:35 FiO2 Intake & Output 04/05/24 04/06/24 04/06/24 18:59 06:59 18:59 Intake Total 1420 240 518 Output Total 1200 0 1900 Balance 220 240 -1382 Weight 104.5 kg 103.8 kg Intake: Oral 1020 240 118 Hemodialysis 400 400 Output: Urine 0 0 Hemodialysis 1200 1900 Other: Voiding Method Indwelling Catheter Indwelling Catheter Indwelling Catheter # Bowel Movements 1 - Exam GENERAL DESCRIPTION: Middle-age male lying in bed in no distress RESPIRATORY SYSTEM: Unlabored breathing , decreased breath sounds at bases HEART: S1 S2 regular rate and rhythm , ABDOMEN: Soft , no tenderness EXTREMITIES: No edema feet - Labs CBC & Chem 7: 04/05/24 12:44 04/05/24 12:44 Labs: Abnormal Lab Results - Last 24 Hours (Table) 04/05/24 04/05/24 04/06/24 Range/Units 16:15 21:03 05:48 POC Glucose (mg/dL) 271 H 287 H 258 H (70-110) mg/dL 04/06/24 Range/Units 11:37 POC Glucose (mg/dL) 255 H (70-110) mg/dL Microbiology - Last 24 Hours (Table) 03/31/24 11:45 Blood Culture - Final Blood Assessment and Plan (1) Acute diverticulitis Current Visit: Yes Status: Acute Code(s): K57.92 - DVTRCLI OF INTEST, PART UNSP, W/O PERF OR ABSCESS W/O BLEED SNOMED Code(s): 457582895 (2) History of renal transplant Current Visit: No Status: Acute Code(s): Z94.0 - KIDNEY TRANSPLANT STATUS SNOMED Code(s): 301496447 (3) Immunocompromised Current Visit: No Status: Acute Code(s): D84.9 - IMMUNODEFICIENCY, UNSPECIFIED SNOMED Code(s): 831513423 (4) Leukocytosis Current Visit: No Status: Acute Code(s): D72.829 - ELEVATED WHITE BLOOD CELL COUNT, UNSPECIFIED SNOMED Code(s): 023055656 Plan: 1patient presented hospital with the left lower quadrant abdominal pain of 1 day duration in this patient has been diagnosed with acute diverticulitis did not mention any evidence of perforation or abscess we will need to cover for the enteric gram-negative to be the likely pathogen 2-patient did have worsening of his kidney function requiring dialysis catheter placement and did have dialysis done 3-patient also immunocompromise because of his immunosuppressive medication posttransplant 4-patient is afebrile and did have normal white count slightly up yesterday possibly related to Solu-Cortef, no CBC was done today we will repeat a CBC with a.m. lab and continue with the Zosyn at this point Dictation was produced using [employer] dictation software. please excuse any grammatical, word or spelling errors.
[2024-04-06 16:13] LABS: Glucose,Whole Blood 257 mg/dL (70-110)
[2024-04-06 16:32] LABS: African American GFR (CKD) 11 (>60 ml/min/1.73 sqM); Anion Gap 11 mmol/L; Blood Urea Nitrogen 49 mg/dL (9-20); Calcium 9.5 mg/dL (8.4-10.2); Carbon Dioxide 26 mmol/L (22-30); Chloride 101 mmol/L (98-107); Glucose 284 mg/dL (74-99); Magnesium 1.9 mg/dL (1.6-2.3); Non-African American GFR(CKD) 10 (>60 ml/min/1.73 sqM); Phosphorus 4.2 mg/dL (2.5-4.5); Potassium 3.9 mmol/L (3.5-5.1); Sodium 138 mmol/L (137-145)
[2024-04-06 20:27] LABS: Glucose,Whole Blood 339 mg/dL (70-110)
[2024-04-07 06:25] LABS: Glucose,Whole Blood 331 mg/dL (70-110)
[2024-04-07] MEDS: fentaNYL (PF) 50 MCG/1 ML VIAL IVP ONE ×4 (07:30→08:13)
[2024-04-07] MEDS: LIDOCAINE 1% INJ 10MG/ML (20 ML MDV) SQ ONE ×2 (07:30→07:36)
[2024-04-07] MEDS: MIDAZOLAM 2 MG/2 ML VIAL IVP ONE ×3 (07:30→08:24)
[2024-04-07] MEDS: IOPAMIDOL-250 100ML BTL IVP ONE (07:42)
[2024-04-07] MEDS: SODIUM CHLORIDE 0.9% 250 ML IV ONE (08:28)
[2024-04-07] MEDS: HEPARIN SODIUM,PORCINE (1 ML) 2,500 UNIT in SODIUM CHLORIDE 0.9% 250 ML IRRIGATION ONE (08:29)
[2024-04-07] MEDS: HEPARIN SODIUM 1,000 UN/ML (10ML VL) MISCELLANE ONE (08:34)
--- NOTE | 2024-04-07 09:57 | IR ---
EXAMINATION TYPE: IR cvc insert central tunneled DATE OF EXAM: 04/07/2024 COMPARISON: NONE HISTORY: Fluoroscopy time. Fluoroscopy was provided to the referring clinician.
[2024-04-07 11:43] LABS: Glucose,Whole Blood 215 mg/dL (70-110)
--- NOTE | 2024-04-07 12:14 | P.PN ---
Subjective Patient is seen in follow-up for acute kidney injury on chronic kidney disease. Due to worsening renal function, oliguria, started on hemodialysis April 03, 2024. Now has permanent femoral dialysis catheter. Tolerating dialysis well. No active complaints. present at bedside. Vital signs are stable. General: No acute distress. HEENT: Head exam is unremarkable. On nasal cannula. LUNGS: No audible rhonchi or wheezes. HEART: Rate and Rhythm are regular. ABDOMEN: Obese, nontender. EXTREMITITES: No edema. Objective - Vital Signs Vital signs: Vital Signs Temp 97.7 F 04/07/24 09:25 Pulse 52 L 04/07/24 09:25 Resp 18 04/07/24 09:25 BP 120/68 04/07/24 09:25 Pulse Ox 92 L 04/07/24 09:25 FiO2 Intake & Output 04/06/24 04/07/24 04/07/24 18:59 06:59 18:59 Intake Total 872 50 Output Total 1900 0 Balance -1028 0 50 Weight 103.9 kg Intake: IV 50 Oral 472 Hemodialysis 400 Output: Urine 0 Hemodialysis 1900 Other: Voiding Method Indwelling Catheter # Bowel Movements 1 - Labs CBC & Chem 7: 04/05/24 12:44 04/06/24 15:42 Labs: Abnormal Lab Results - Last 24 Hours (Table) 04/06/24 04/06/24 04/06/24 Range/Units 15:42 16:12 20:26 BUN 49 H (9-20) mg/dL Creatinine 6.03 H (0.66-1.25) mg/dL Glucose 284 H (74-99) mg/dL POC Glucose (mg/dL) 257 H 339 H (70-110) mg/dL 04/07/24 04/07/24 Range/Units 06:23 11:41 BUN (9-20) mg/dL Creatinine (0.66-1.25) mg/dL Glucose (74-99) mg/dL POC Glucose (mg/dL) 331 H 215 H (70-110) mg/dL Assessment and Plan Plan: Assessment: 1. Acute kidney injury secondary to ATN secondary to hypotension/severe sepsis. Creatinine up to 8.23 yesterday. Oliguric. Bladder scan negative for retention. No hydronephrosis noted on CAT scan. 2. 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 3. Status post donor transplant at [facility] in July 2017 maintained on Prograf, CellCept and prednisone. 4. Hyperkalemia secondary to acute kidney injury and metabolic acidosis. Improved postdialysis. 5. Metabolic acidosis secondary to acute kidney injury and GI losses. Improved postdialysis. 6. Pulmonary fibrosis post COVID-pneumonia maintained on home oxygen. 7. Diverticulitis maintained on antibiotics. 8. Diabetes mellitus. 9. Hyperphosphatemia secondary to acute allograft dysfunction. Phosphorus level 4.7. 10. Fluid overload. Improving with ultrafiltration. Plan: Currently seen while undergoing hemodialysis. No response to urine output despite IV Lasix given April 03, 2024. Monitor for renal recovery. Prograf level 6.2 dated April 02, 2024. Maintain midodrine. Hold for systolic blood pressure greater than 115. Patient will be maintained on Friday schedule hemodialysis outpatient. Currently has a permanent femoral catheter. If renal function does not recover over the next few weeks, then patient is interested in peritoneal dialysis. Patient and family want to go home and are refusing transfer to a transplant facility. They state they will follow-up with [facility] in the next couple of weeks.
--- NOTE | 2024-04-07 12:48 | OP ---
OPERATIVE REPORT DATE OF SERVICE : PREOPERATIVE DIAGNOSIS: Acute chronic renal failure. PROCEDURE PERFORMED: Placement of dialysis catheter, left jugular approach. DESCRIPTION OF PROCEDURE: This patient was brought to the labor arbitrator. This patient has a history of kidney transplant done in the past. The patient also has a right leg right IJ catheter placed in the past. Left side of the neck was prepped and drapes applied in a sterile manner. Ultrasound-guided micropuncture introduced in the left IJ and micropuncture guidewire was passed and 4-Thai sheath on top of the guidewire. A superior vena cavogram was performed. This patient has a HeRO catheter placed at [facility] in the past. The catheter is still on the inferior vena cava and the graft is occluded on the left side. This patient has a temporary catheter left femoral approach. We decided to go through the left femoral approach. Left leg was prepped and drapes applied in a sterile manner. 1% lidocaine infiltrated. A guidewire was passed from the temporary catheter which was parked at the inferior vena cava and a tunnel was created. Through the tunnel, we brought 44 cm dialysis catheter. A sheath was passed on the top of the guidewire through the left femoral approach and old catheter was removed and through that we placed a 44 cm dialysis catheter, tip of catheter is in the inferior vena cava, flushed with heparin saline and hep-locked, secured with 3-0 nylon, dressing applied. Patient tolerated the procedure well. Procedure performed, 1. Superior vena cavogram. 2. Placement of a 44-cm dialysis catheter left femoral approach and removal of the temporary femoral catheter left femoral approach. Dressing applied. Patient tolerated the procedure well. MMODL / IJN: [id number] /
--- NOTE | 2024-04-07 13:19 | P.PN ---
Subjective Progress Note Date: 04/07/24 CHIEF COMPLAINT: Diverticulitis HISTORY OF PRESENT ILLNESS: Patient denies any abdominal pain. He is tolerating diet. He is having bowel movements. Patient with history of kidney transplant and worsening renal function. Had to be restarted on hemodialysis. He is followed by nephrology. WBC up at 12 yesterday likely due to steroids. PHYSICAL EXAM: VITAL SIGNS: Reviewed. ABDOMEN: Soft. Nondistended. Nontender. ASSESSMENT: 1. Diverticulitis 2. History of kidney transplant PLAN: -Continue antibiotics per ID service -Continue regular diet -No surgical intervention planned -Surgical service will sign off. Please call with any questions or concerns. Physician Slip Sheeter note has been reviewed by physician. Signing provider agrees with the documented findings, assessment, and plan of care. Objective - Vital Signs Vital signs: Vital Signs Temp 97.7 F 04/07/24 09:25 Pulse 48 L 04/07/24 11:30 Resp 17 04/07/24 11:30 BP 116/57 04/07/24 11:30 Pulse Ox 93 L 04/07/24 11:30 FiO2 Intake & Output 04/06/24 04/07/24 04/07/24 18:59 06:59 18:59 Intake Total 872 50 Output Total 1900 0 Balance -1028 0 50 Weight 103.9 kg Intake: IV 50 Oral 472 Hemodialysis 400 Output: Urine 0 Hemodialysis 1900 Other: Voiding Method Indwelling Catheter # Bowel Movements 1 - Labs CBC & Chem 7: 04/05/24 12:44 04/06/24 15:42 Labs: Abnormal Lab Results - Last 24 Hours (Table) 04/06/24 04/06/24 04/06/24 Range/Units 15:42 16:12 20:26 BUN 49 H (9-20) mg/dL Creatinine 6.03 H (0.66-1.25) mg/dL Glucose 284 H (74-99) mg/dL POC Glucose (mg/dL) 257 H 339 H (70-110) mg/dL 04/07/24 04/07/24 Range/Units 06:23 11:41 BUN (9-20) mg/dL Creatinine (0.66-1.25) mg/dL Glucose (74-99) mg/dL POC Glucose (mg/dL) 331 H 215 H (70-110) mg/dL
[2024-04-07 14:33] VITALS: BP 140/63; PULSE 50; RESP 18; TEMP 98
--- NOTE | 2024-04-07 15:44 | P.DS ---
Providers Date of admission: 03/31/24 13:47 Expected date of discharge: 04/07/24 Attending physician: Kortney Castillo Consults: 03/31/24 16:23 Consult Physician Routine Consulting Provider: Lillian Robledo Consult Reason/Comments: crf Do you want consulting provider notified?: Yes 03/31/24 16:24 Consult Physician Routine Consulting Provider: Jf Rich Consult Reason/Comments: diverticultiis Do you want consulting provider notified?: Yes 04/01/24 15:06 Consult Physician Routine Consulting Provider: Chavo Caldwell Consult Reason/Comments: Hypotension Do you want consulting provider notified?: Yes 04/03/24 09:40 Consult Physician Urgent Consulting Provider: Jamie Jones Consult Reason/Comments: Temporary dialysis catheter placement Do you want consulting provider notified?: Yes Primary care physician: Physician Nonstaff Hospital Course: Final diagnosis Acute diverticulitis involving the descending and sigmoid colon with severe abdominal pain Sepsis, present on admission secondary to assessment #1 Immunosuppressed History of renal transplant at [facility] in 2017 Acute on chronic renal failure, newly started hemodialysis this admission 03/2024 Mild to moderate pelvic fluid secondary to fluid overload Hyperkalemia, improved Hypomagnesemia History of COPD, not in exacerbation Acute on chronic hypoxic respiratory failure secondary to pleural effusion and volume overload History of hypertension History of hyperlipidemia Obesity with a BMI of 36.9 GI prophylaxis DVT prophylaxis Full code Discharge disposition Patient is being discharged in a stable condition with guarded prognosis to home. Patient will follow-up with Jaye Carrasco NP in the outpatient setting upon discharge. Patient is to continue with hemodialysis as scheduled and next session being 04/08/2024. Patient to follow-up with nephrology outpatient as well as the [facility] outpatient. Total time taken is greater than 35 minutes. Hospital course This is a 53-year-old male who was recently admitted with abdominal pain with acute fevers with concerns of acute diverticulitis noted on imaging of the descending and sigmoid colon. Multiple medical consultations following including nephrology, infectious disease, vascular surgery. Patient had worsening kidney functions and is a renal transplant patient in 2017 at [facility]. Attempted to initiate tertiary treatment transfer although was refused at [facility] as well as [facility]. Contacted [facility] and awaiting return call and follow-up. Transfer was initiated for [facility] in [place] and family does not want to go there after further discussion. Patient is receiving a permanent cath for dialysis in the groin as the chest access was unsuccessful and is being arranged for outpatient dialysis to initiate on 04/08/2024 at 11 AM. Patient was maintained on Zosyn and will continue on Ceftin and Flagyl on discharge per ID recommendations and close outpatient follow-up. Patient tolerating hemodialysis and has been instructed to follow-up at the [facility] on discharge. Please refer to other consultation notes for further HPI. Patient will continue on 1 week course of oral Ceftin and Flagyl to complete the course. Recommend general surgery follow-up outpatient as well. Currently no reports of chest pain, shortness of breath, or palpitations. Patient is afebrile. No reports of nausea or vomiting and patient is tolerating diet. Patient will be discharged home today. Guarded prognosis Physical exam: Gen: This is a 53-year-old male who is awake, alert and oriented x 3, well- developed, well-nourished, obese, elderly appearing HEENT: Head is atraumatic, normocephalic. Pupils equal, round. Sclerae is anicteric. NECK: Supple. No JVD. No lymphadenopathy. No thyromegaly. LUNGS: Diminished breath sounds bilaterally otherwise clear to auscultation. No wheezes or rhonchi. No intercostal retractions. HEART: S1, S2 are muffled ABDOMEN: Soft. Obese bowel sounds are present. No masses. No tenderness. EXTREMITIES: No pedal edema. No calf tenderness. NEUROLOGICAL: Patient is awake, alert and oriented x3. Cranial nerves 2 through 12 are grossly intact. Please refer to medication reconciliation sheet for a list of medications. The impression and plan of care has been dictated by Swetha Tripp, Nurse Practitioner as directed. Dr. Jonathan MD I have performed a history and examination and MDM of this patient, discussed the same with the dictator, and agree with the dictator's assessment and plan as written ,documented as a scribe. Based on total visit time, I have performed more than 50% of the visit. Patient Condition at Discharge: Fair Plan - Discharge Summary Discharge Rx Participant: Yes New Discharge Prescriptions: New Midodrine [ProAmatine] 10 mg PO AC-TID #90 tab cefUROXime axetiL [Ceftin] 250 mg PO BID 14 Days #7 tab metroNIDAZOLE [Flagyl] 500 mg PO TID 7 Days #21 tab Continue Levothyroxine Sodium [Synthroid] 100 mcg PO DAILY Acetaminophen [Tylenol] 1,000 mg PO Q6H PRN PRN Reason: Fever And/ Or Pain mycophenolate mofetiL [Cellcept] 250 mg PO BID predniSONE 5 mg PO DAILY Montelukast [Singulair] 10 mg PO HS Rosuvastatin Calcium [Crestor] 40 mg PO HS Nitroglycerin Sl Tabs [Nitrostat] 0.4 mg SL Q5M PRN PRN Reason: Chest Pain Sildenafil Citrate [Viagra] 100 mg PO DAILY PRN PRN Reason: erectile dysfunction Sodium Bicarbonate Tab 650 mg PO TID Cyanocobalamin [Vitamin B-12] 500 mcg PO DAILY Sertraline [Zoloft] 25 mg PO HS Semaglutide [Rybelsus] 7 mg PO DAILY Insulin Glargine,Hum.rec.anlog [Lantus Solostar Pen] 1 dose SQ DIRECTED PRN PRN Reason: Blood Sugar - High Tacrolimus [Prograf] 1 mg PO DAILY Tacrolimus [Prograf] 0.5 mg PO HS INSULIN ASPART (NovoLOG) [NovoLOG (formulary)] See Protocol SQ ACHS PRN PRN Reason: blood sugar above 150 Apixaban [Eliquis] 2.5 mg PO BID #60 tab Discontinued Losartan [Cozaar] 50 mg PO HS Discharge Medication List Levothyroxine Sodium [Synthroid] 100 mcg PO DAILY 09/20/16 [History] Acetaminophen [Tylenol] 1,000 mg PO Q6H PRN 10/30/17 [History] mycophenolate mofetiL [Cellcept] 250 mg PO BID 10/30/17 [History] predniSONE 5 mg PO DAILY 10/30/17 [History] Insulin Glargine,Hum.rec.anlog [Lantus Solostar Pen] 1 dose SQ DIRECTED PRN 12/14/23 [History] Montelukast [Singulair] 10 mg PO HS 12/14/23 [History] Rosuvastatin Calcium [Crestor] 40 mg PO HS 12/14/23 [History] Semaglutide [Rybelsus] 7 mg PO DAILY 12/14/23 [History] Sertraline [Zoloft] 25 mg PO HS 12/14/23 [History] Tacrolimus [Prograf] 1 mg PO DAILY 12/14/23 [History] Nitroglycerin Sl Tabs [Nitrostat] 0.4 mg SL Q5M PRN 12/16/23 [History] Cyanocobalamin [Vitamin B-12] 500 mcg PO DAILY 03/31/24 [History] INSULIN ASPART (NovoLOG) [NovoLOG (formulary)] See Protocol SQ ACHS PRN 03/31/24 [History] Sildenafil Citrate [Viagra] 100 mg PO DAILY PRN 03/31/24 [History] Sodium Bicarbonate Tab 650 mg PO TID 03/31/24 [History] Tacrolimus [Prograf] 0.5 mg PO HS 03/31/24 [History] Apixaban [Eliquis] 2.5 mg PO BID #60 tab 04/07/24 [Rx] Midodrine [ProAmatine] 10 mg PO AC-TID #90 tab 04/07/24 [Rx] cefUROXime axetiL [Ceftin] 250 mg PO BID 14 Days #7 tab 04/07/24 [Rx] metroNIDAZOLE [Flagyl] 500 mg PO TID 7 Days #21 tab 04/07/24 [Rx] Follow up Appointment(s)/Referral(s): [facility] - 04/08/24 11:30 am (Please arrive a half hour early for paperwork. Your regular schedule it Friday, , Friday at 11:30AM) Jaye Carrasco NPC [REFERRING] - 1 Week Warren Chavez DO [STAFF PHYSICIAN] - 1 Week Javi Doss MD [STAFF PHYSICIAN] - 04/20/24 3:40 pm Patient Instructions/Handouts: Diverticulitis (DC) Activity/Diet/Wound Care/Special Instructions: Activity limited until follow-up Follow-up with primary care provider on discharge Follow-up with nephrology outpatient Continue with hemodialysis as scheduled with your next session being 04/08/2024 Follow-up with the [facility] outpatient Continue antibiotics until finished Discharge/Stand Alone Forms: Personal Clinical Review Nurse, Area PCPs Discharge Disposition: HOME SELF-CARE
[2024-04-07] MEDS: DESMOPRESSIN ACETATE 24 MCG in SODIUM CHLORIDE 0.9% 50 ML IVPB ONE (15:51)
--- NOTE | 2024-04-07 16:41 | P.PN ---
Subjective Progress Note Date: 04/07/24 Principal diagnosis: Reason for follow-up is acute diverticulitis Patient is a 53-year-old male with a past medical history significant for coronary artery disease renal failure post kidney transplant hypothyroidism former smoker presenting to the hospital with the left lower quadrant abdominal pain, patient be diagnosed with acute diverticulitis did not mention any perforation or abscess admit to the hospital for IV antibiotic therapy. On today's evaluation that is Patient did have worsening of his kidney function vascular surgery has been consulted and the dialysis catheter has been placed in the left femoral area. On today's evaluation that is 04/07/2024,the patient denies any fever or any chills, patient is breathing comfortably on 2 L nasal cannula oxygen, the patient denies chest pain shortness of breath and no significant cough, patient denies abdominal pain, no nausea vomiting or diarrhea. No new symptoms. No new lab has been obtained today blood culture negative Objective - Vital Signs Vital signs: Vital Signs Temp 98.0 F 04/07/24 12:50 Pulse 50 L 04/07/24 12:50 Resp 18 04/07/24 12:50 BP 140/63 04/07/24 12:50 Pulse Ox 93 L 04/07/24 11:30 FiO2 Intake & Output 04/06/24 04/07/24 04/07/24 18:59 06:59 18:59 Intake Total 872 630 Output Total 1900 0 2500 Balance -1028 0 -1870 Weight 103.9 kg Intake: IV 50 Oral 472 180 Hemodialysis 400 400 Output: Urine 0 Hemodialysis 1900 2500 Other: Voiding Method Indwelling Catheter # Voids 0 # Bowel Movements 1 - Exam GENERAL DESCRIPTION: Middle-age male lying in bed in no distress RESPIRATORY SYSTEM: Unlabored breathing , decreased breath sounds at bases HEART: S1 S2 regular rate and rhythm , ABDOMEN: Soft , no tenderness EXTREMITIES: No edema feet - Labs CBC & Chem 7: 04/05/24 12:44 04/06/24 15:42 Labs: Abnormal Lab Results - Last 24 Hours (Table) 04/06/24 04/07/24 04/07/24 Range/Units 20:26 06:23 11:41 POC Glucose (mg/dL) 339 H 331 H 215 H (70-110) mg/dL Assessment and Plan (1) Acute diverticulitis Status: Acute Code(s): K57.92 - DVTRCLI OF INTEST, PART UNSP, W/O PERF OR ABSCESS W/O BLEED SNOMED Code(s): 553862126 (2) History of renal transplant Status: Acute Code(s): Z94.0 - KIDNEY TRANSPLANT STATUS SNOMED Code(s): 424981660 (3) Immunocompromised Status: Acute Code(s): D84.9 - IMMUNODEFICIENCY, UNSPECIFIED SNOMED Code(s): 306140949 (4) Leukocytosis Status: Acute Code(s): D72.829 - ELEVATED WHITE BLOOD CELL COUNT, UNSPECIFIED SNOMED Code(s): 098037175 Plan: 1patient presented hospital with the left lower quadrant abdominal pain of 1 day duration in this patient has been diagnosed with acute diverticulitis did not mention any evidence of perforation or abscess we will need to cover for the enteric gram-negative to be the likely pathogen 2-patient did have worsening of his kidney function requiring dialysis catheter placement and did have dialysis done 3-patient also immunocompromise because of his immunosuppressive medication posttransplant 4-patient mention improvement in his abdominal symptoms has received adequate Zosyn as the patient has been cleared for discharge by admitting surgical team consider short course of oral Ceftin and Flagyl on discharge discussed with the VOCATIONAL TRAINING DIRECTOR for admitting team Dictation was produced using [employer] dictation software. please excuse any grammatical, word or spelling errors.
== END 2024-04-07 16:07 | disposition home or self-care (01) | DRG 871 ==
LOC: EC 11:19 → 5NMEDONC 13:47 → 3SCARD 04-02 17:59
PROVIDERS: ADMIT Hospitalist; ATTEND Hospitalist
PROC: 5A1D70Z Performance of Urinary Filtration, Intermittent, Less than 6 Hours Per Day (ICD-10-PCS; 2024-04-03)
PROC: 06HY33Z Insertion of Infusion Device into Lower Vein, Percutaneous Approach (ICD-10-PCS; principal; 2024-04-03 10:40)
PROC: 02HV33Z Insertion of Infusion Device into Superior Vena Cava, Percutaneous Approach (ICD-10-PCS; 2024-04-07)
DX: A41.9 Sepsis, unspecified organism (principal); J96.21 Acute and chronic respiratory failure with hypoxia; N17.0 Acute kidney failure with tubular necrosis; N18.6 End stage renal disease; T86.12 Kidney transplant failure; E87.20 Acidosis, unspecified; D84.821 Immunodeficiency due to drugs; T82.49XA Other complication of vascular dialysis catheter, initial encounter; I13.11 Hypertensive heart and chronic kidney disease without heart failure, with stage 5 chronic kidney disease, or end stage renal disease; K56.7 Ileus, unspecified; K57.32 Diverticulitis of large intestine without perforation or abscess without bleeding; J44.9 Chronic obstructive pulmonary disease, unspecified; Z99.2 Dependence on renal dialysis; J84.10 Pulmonary fibrosis, unspecified; E11.22 Type 2 diabetes mellitus with diabetic chronic kidney disease; E11.65 Type 2 diabetes mellitus with hyperglycemia; Z79.4 Long term (current) use of insulin; Z76.82 Awaiting organ transplant status; E83.39 Other disorders of phosphorus metabolism; I95.9 Hypotension, unspecified; Z99.81 Dependence on supplemental oxygen; E03.9 Hypothyroidism, unspecified; Z79.01 Long term (current) use of anticoagulants; Z68.36 Body mass index [BMI] 36.0-36.9, adult; E66.9 Obesity, unspecified; E78.5 Hyperlipidemia, unspecified; I25.10 Atherosclerotic heart disease of native coronary artery without angina pectoris; E83.42 Hypomagnesemia; E87.5 Hyperkalemia; E86.9 Volume depletion, unspecified; T38.0X5A Adverse effect of glucocorticoids and synthetic analogues, initial encounter; U09.9 Post COVID-19 condition, unspecified; Y71.1 Therapeutic (nonsurgical) and rehabilitative cardiovascular devices associated with adverse incidents; Z79.890 Hormone replacement therapy; Z79.624 Long term (current) use of inhibitors of nucleotide synthesis; Z79.52 Long term (current) use of systemic steroids; Z79.899 Other long term (current) drug therapy; Z79.85 Long-term (current) use of injectable non-insulin antidiabetic drugs; Z91.018 Allergy to other foods; Z91.013 Allergy to seafood; Z87.891 Personal history of nicotine dependence
CPT/HCPCS: 36556; 36581; 71045; 74176; 80048; 80053; 80197; 82533; 83605; 83735; 84100; 84132; 84145; 84443; 85025; 85610; 85730; 86704; 86706; 87040; 87340; 90935; 93005; 96361; 96365; 96366; 96375; 99285

== ENCOUNTER 2024-05-10 06:49 | Day surgery (SDC) | payer BC, MEDICARE ==
[2024-05-07 09:15] VITALS: BMI 32.3
[~2024-05-10 06:49] MED LIST: SODIUM CHLORIDE 0.9% 1,000 ML IV SCH
[2024-05-10 07:46] LABS: Glucose,Whole Blood 124 mg/dL (70-110)
[2024-05-10] MEDS: SODIUM CHLORIDE 0.9% 1,000 ML IV ONE (08:09)
== END 2024-05-10 09:22 | disposition home or self-care (01) ==
LOC: CATHEP 06:49
PROVIDERS: ATTEND Internal Medicine Clinical Cardiac Electrophysiology
DX: R42 Dizziness and giddiness (principal); I10 Essential (primary) hypertension; E78.5 Hyperlipidemia, unspecified; E05.90 Thyrotoxicosis, unspecified without thyrotoxic crisis or storm; E83.42 Hypomagnesemia; D64.9 Anemia, unspecified; J84.10 Pulmonary fibrosis, unspecified; Z94.0 Kidney transplant status; Z87.891 Personal history of nicotine dependence; Z86.711 Personal history of pulmonary embolism; Z79.01 Long term (current) use of anticoagulants; Z79.84 Long term (current) use of oral hypoglycemic drugs; Z79.899 Other long term (current) drug therapy; Z79.4 Long term (current) use of insulin; Z79.890 Hormone replacement therapy; Z79.52 Long term (current) use of systemic steroids; Z98.84 Bariatric surgery status; Z91.018 Allergy to other foods; Z91.013 Allergy to seafood; Z82.49 Family history of ischemic heart disease and other diseases of the circulatory system; Z83.3 Family history of diabetes mellitus
CPT/HCPCS: 93660

== ENCOUNTER → 2024-08-02 | Outpatient (CLI) | payer MEDICARE, BC ==
--- NOTE | 2024-08-02 11:36 | US ---
EXAMINATION TYPE: US kidneys/renal and bladder DATE OF EXAM: 08/02/2024 COMPARISON: NONE CLINICAL INDICATION: Male, 54 years old with history of Z94.0 RENAL TRANS N32.0 BLADD OBSTR D84.821 Z 79.89; Renal transplant TECHNIQUE: Grayscale and color Doppler imaging of the bilateral kidneys and urinary bladder: FINDINGS: EXAM MEASUREMENTS: Right Kidney: 8.1x3.4x4.8 cm Left Kidney: 8.8x4.1x4.4 cm Transplant Kidney: 9.8x4.0x5.8cm Right Kidney: atrophic Left Kidney: atrophic Transplant Kidney: high resistive flow. RI = 1.07 Bladder: wnl There is no evidence for hydronephrosis at this point in time. No nephrolithiasis is seen. No jamal s are identified. The urinary bladder is anechoic. IMPRESSION: Transplant kidney without evidence for hydronephrosis. There is elevated resistive indices. Atrophic [place] kidneys without evidence for obstructive uropathy. [facility], , 08/02/2024 11:34 AM
== END | disposition home or self-care (01) ==
LOC: RADUSWWP 10:07
PROVIDERS: ATTEND Internal Medicine Nephrology
CPT/HCPCS: 76770

== ENCOUNTER 2024-08-07 06:50 | Inpatient (IN) | payer MEDICARE, BC ==
[2024-08-07] MEDS ORDERED: VANCOMYCIN IV PER PHARMACY 1 EACH MISC MISCELLANE PRN (07:36)
[2024-08-07 07:41] LABS: Basophils % (A) 0 %; Eosinophils # (A) 0.1 k/uL (0-0.7); Eosinophils % (A) 1 %; HCT 38.1 % (39.0-53.0); HGB 12.4 gm/dL (13.0-17.5); Lymphocytes # (A) 0.6 k/uL (1.0-4.8); Lymphocytes % (A) 3 %; MCH 29.8 pg (25.0-35.0); MCHC 32.6 g/dL (31.0-37.0); MCV 91.1 fL (80.0-100.0); Monocytes # (A) 1.5 k/uL (0-1.0); Monocytes % (A) 7 %; Neutrophils # (A) 20.1 k/uL (1.3-7.7); Neutrophils % (A) 89 %; Platelet Count 129 k/uL (150-450); RBC 4.18 m/uL (4.30-5.90); RDW 15.5 % (11.5-15.5); WBC 22.6 k/uL (3.8-10.6)
[2024-08-07 07:42] LABS: Ionized Calcium 4.7 mg/dL (4.5-5.3)
--- NOTE | 2024-08-07 07:42 | ED ---
General Adult HPI - General Chief complaint: Weakness Stated complaint: Light Headed, Blurry Vision, Chills Time Seen by Provider: 08/07/24 06:54 Source: patient Mode of arrival: wheelchair - History of Present Illness Initial comments: Dictation was produced using [employer] dictation software. please excuse any grammatical, word or spelling errors. Chief Complaint: 54-year-old male presents to the emergency department for malaise lethargy weakness. History of Present Illness: Patient is 54-year-old male entirety of history present illness obtained from patient's at the bedside. Patient has multiple comorbidities including kidney transplant, renal failure, ESRD, [place] n[place] artery disease thyroid disease. States that for the last couple days he has been having shortness of breath weakness dizziness and malaise. Patient gets dialysis 2 days a week. His hadoop engineer is Dr. Peace. Patient [place] any cough. Denies any runny nose sore throat. Denies any abdominal pain or diarrhea. No obvious sick contacts. Patient gets dialysis through a femoral percutaneous catheter. Patient has multiple comorbidities and takes immunosuppressive medications including tacrolimus and mycophenolate. He has been on a course of steroid therapy. The ROS documented in this emergency department record has been reviewed and confirmed by me. Those systems with pertinent positive or negative responses have been documented in the HPI. All other systems are other negative and/or noncontributory. - Related Data Home Medications Medication Instructions Recorded Confirmed Levothyroxine Sodium [Synthroid] 100 mcg PO DAILY 09/20/16 08/07/24 Acetaminophen [Tylenol] 1,000 mg PO Q6H PRN 10/30/17 08/07/24 mycophenolate mofetiL [Cellcept] 250 mg PO BID 10/30/17 08/07/24 predniSONE 5 mg PO DIRECTED 10/30/17 08/07/24 Insulin Glargine,Hum.rec.anlog 20 units SQ HS 12/14/23 08/07/24 [Lantus Solostar Pen] Montelukast [Singulair] 10 mg PO HS 12/14/23 08/07/24 Rosuvastatin Calcium [Crestor] 40 mg PO HS 12/14/23 08/07/24 Semaglutide [Rybelsus] 7 mg PO DAILY 12/14/23 08/07/24 Sertraline [Zoloft] 25 mg PO HS 12/14/23 08/07/24 Tacrolimus [Prograf] 1 mg PO DAILY 12/14/23 08/07/24 Nitroglycerin Sl Tabs [Nitrostat] 0.4 mg SL Q5M PRN 12/16/23 08/07/24 Sildenafil Citrate [Viagra] 100 mg PO DAILY PRN 03/31/24 08/07/24 Sodium Bicarbonate Tab 650 mg PO TID 03/31/24 08/07/24 Tacrolimus [Prograf] 0.5 mg PO HS 03/31/24 08/07/24 Midodrine [ProAmatine] 10 mg PO TID PRN 05/07/24 08/07/24 Sevelamer [Renvela] 800 mg PO W/SUPPER 05/07/24 08/07/24 Albuterol Nebulized [Ventolin 2.5 mg INHALATION RT-QID PRN 08/07/24 08/07/24 Nebulized] Albuterol Sulfate [Ventolin HFA] 2 puff INHALATION RT-Q4H PRN 08/07/24 08/07/24 Cetirizine HCl [Zyrtec] 10 mg PO DAILY 08/07/24 08/07/24 Insulin Lispro [Insulin Lispro See Protocol SQ AC-TID 08/07/24 08/07/24 Kwikpen U-100] Torsemide [Demadex] 40 mg PO DAILY 08/07/24 08/07/24 amLODIPine [Norvasc] 5 mg PO DAILY 08/07/24 08/07/24 predniSONE See Taper PO DIRECTED 08/07/24 08/07/24 Allergies Allergy/AdvReac Type Severity Reaction Status Date / Time grapefruit Allergy Rash/Hives Verified 08/07/24 07:01 shellfish derived [Shellfish] Allergy Swelling Verified 08/07/24 07:01 Review of Systems ROS Statement: Those systems with pertinent positive or pertinent negative responses have been documented in the HPI. ROS Other: All systems not noted in ROS Statement are negative. Past Medical History Past Medical History: Coronary Artery Disease (CAD), Renal Disease, Thyroid Disorder Additional Past Medical History / Comment(s): Renal failure post-kidney transplantation, previous history of dialysis for a total of 12 years followed by kidney transplantation, hypothyroidism, chronic stage III kidney failure post transplantation, nonocclusive coronary artery disease and the patient a cardiac catheterization on 09/24/2016 that showed 40-50% lesion in the distal circumfle x otherwise the rest of the coronary arteries were all within normal limits. History of Any Multi-Drug Resistant Organisms: None Reported Past Surgical History: Heart Catheterization, Orthopedic Surgery Additional Past Surgical History / Comment(s): FISTULA/GRAFT RT ARM, kidney transplant in July of 2017, Left hip Past Anesthesia/Blood Transfusion Reactions: No Reported Reaction Past Psychological History: No Psychological Hx Reported Smoking Status: Former smoker Past Alcohol Use History: None Reported Past Drug Use History: None Reported - Past Family History Mother Family Medical History: Cancer Father Family Medical History: Myocardial Infarction ([place]) Additional Family Medical History / Comment(s): AT AGE 46. General Exam - General Exam Comments Initial Comments: PHYSICAL EXAM: General Impression: Alert and oriented x3, malaised HEENT: Normocephalic atraumatic, extra-ocular movements intact, pupils equal and reactive to light bilaterally, dry mucous membranes Cardiovascular: Heart regular rate and rhythm Chest: Able to complete full sentences, no retractions, no tachypnea Abdomen: abdomen soft, non-tender, non-distended, no organomegaly Musculoskeletal: Pulses present and equal in all extremities, no peripheral edema Motor: no focal deficits noted Neurological: CN II-XII grossly intact, no focal motor or sensory deficits noted Skin: Intact with no visualized rashes Psych: Normal affect and mood Course Vital Signs 08/07/24 08/07/24 08/07/24 06:58 07:17 08:01 Temperature 98.1 F Pulse Rate 72 64 144 H Respiratory 20 18 20 Rate Blood Pressure 62/33 64/36 55/39 O2 Sat by Pulse 94 L 89 L 93 L Oximetry 08/07/24 08:26 Temperature Pulse Rate 118 H Respiratory 22 Rate Blood Pressure 113/69 O2 Sat by Pulse 94 L Oximetry - Reevaluation(s) Reevaluation #1: 08/07/24 08:22 EKG was obtained after patient began to be tachycardic with worsening depressions.. His heart rate is 127 looks like new onset atrial flutter. Does have significant depressions in multiple leads that seems to be increased from previous EKGs. Troponin resulted with a result of 9.160. Patient does not usually have a troponin this elevated. Echocardiogram reviewed from March of this year showing patient has 60 to 65% ejection fraction at that time left ventricular hypertrophy. There was severe RV dilatation. Case was immediately discussed with on-call skin therapist, Dr. Whitfield who will come down immediately to evaluate the patient. Reevaluation #2: 08/07/24 08:39 I was notified by cardiology that they will take him for cardiac catheterization EKG Findings - EKG Comments: EKG Findings:: My EKG interpretation: Ventricular rate 73, sinus rhythm,. 143, QRS 170, QTc 4 9. No NE prolongation, no QTC prolongation, no ST or T-wave changes noted. EKG compared to May 10, 2024 showing no changes. Overall, this EKG is unremarkable Procedures - Central Line Placement Right Femoral Consent Obtained: verbal consent, emergent situation Patient Placed on Monitor/Pulse Ox: Yes MD Prep: mask, gown Central Line Prep: Chlorhexidine scrub Local Anesthesia Used: Lidocaine 1%, Lidocaine 2%, with Epi Ultrasound Used for Placement: Yes Central Line Lumen Inserted: triple Bloods Obtained for Lab: Yes Central Line Position: good blood return, all ports aspirated, flushed, capped, sutured in place with 3-0 nylon Dressing Applied: Tegaderm Post Procedure X-Ray: tip of catheter in good position Patient Tolerated Procedure: well Complications: none Medical Decision Making - Medical Decision Making Was pt. sent in by a medical professional or institution (, PA, RESTAURANT TEAM MEMBER, urgent care, hospital, or [facility]...) When possible be specific @ -No Did you speak to anyone other than the patient for history (EMS, parent, family, police, friend...)? What history was obtained from this source @ -History obtained from at the bedside as described above Did you review nursing and triage notes (agree or disagree)? Why? @ -I reviewed and agree with nursing and triage notes Were old charts reviewed (outside hosp., previous admission, EMS record, old EKG, old radiological studies, urgent care reports/EKG's, [facility] records)? Report findings @ -See above Differential Diagnosis (chest pain, altered mental status, abdominal pain women, abdominal pain men, vaginal bleeding, musculoskeletal, weakness, fever, dyspnea, syncope, headache, dizziness, GI bleed, back pain, seizure, CVA, palpatations, mental health)? @ -Differential Weakness: Hypoglycemia, shock, sepsis, hyponatremia, anemia, infection, [place], ETOH, adverse medicine reaction, overdose, stroke, this is not meant to be an all-inclusive list. EKG interpreted by me (3pts min.). @ -See above X-rays interpreted by me (1pt min.). @ -Chest x-ray shows left pleural effusion CT interpreted by me (1pt min.). @ -None done U/S interpreted by me (1pt. min.). @ -None done What testing was considered but not performed or refused? (CT, X-rays, U/S, l abs)? Why? @ -None What meds were considered but not given or refused? Why? @ -None Was smoking cessation discussed for >3mins.? @ -No Were there social determinants of health that impacted care today? How? (Homelessness, low income, unemployed, alcoholism, drug addiction, transportation, low edu. Level, literacy, decrease access to med. care, alf, rehab)? @ -No Was there de-escalation of care discussed even if they declined (Discuss DNR or withdrawal of care, Hospice)? DNR status @ -No What co-morbidities impacted this encounter? (DM, HTN, Smoking, COPD, CAD, Cancer, CVA, ARF, Chemo, Hep., AIDS, mental health diagnosis, sleep apnea, morbid obesity)? @ -ESRD, cardiomyopathy, right RV dilatation, renal transplant on immunosuppressants Was patient admitted / discharged? Hospital course, mention meds given and route, prescriptions, significant lab abnormalities, going to OR and other pertinent info. @ -54-year-old male presents emergency department for couple days of malaise according to . Patient has no chest pain. Denies any shortness of breath states he is feeling significantly weak. reports that patient has been on steroid therapy recently does take immunosuppressive medications. Vital signs upon arrival shows 62/33. Patient appears to be malaised at the bedside slightly lethargic. Pressures are significantly low still. Central venous catheter line was placed in the right femoral groin under ultrasound guidance. Patient pressure improved however after starting Levophed he had gone into A- fib. Patient started amiodarone for rate control laboratory evaluation obtained. Leukocytosis of 22.6. Unclear if this is a leukocytosis secondary to steroid use or if there is acute distress from infectious process. Hemoglobin stable 12.4. Laboratory evaluation obtained. Elevated renal function which is expected for ESRD patient. Glucose of 50. Patient ordered for dextrose. Lactic acid ptosis not apparent with a level 1.3. Troponin 9.160. Case was discussed with cardiology and pulmonology. Patient will be dispositioned to ICU. Patient given stress dose steroids along with broad-spectrum antibiotics. Did you discuss the management of the patient with other professionals (professionals i.e. , PA, RESTAURANT TEAM MEMBER, lab, RT, psych nurse, older adult social work specialist, medical insurance biller, teacher, industrial relations officer, casework specialist)? Give summary @ -See above Was critical care preformed (if so, how long)? @ -Yes, 77 minutes Undiagnosed new problem with uncertain prognosis? @ -No Drug Therapy requiring intensive monitoring for toxicity (Heparin, Nitro, Insulin, Cardizem)? @ -Yes Were any procedures done? @ -See above Diagnosis/symptom? Acute, or Chronic, or Acute on Chronic? Uncomplicated (without systemic symptoms) or Complicated (systemic symptoms)? @ -Hypotensive shock, multifactorial Side effects of treatment? @ -No Exacerbation, Progression, or Severe Exacerbation? @ -No Poses a threat to life or bodily function? How? (Chest pain, [place], [place], pneumonia, PE, COPD, DKA, ARF, appy, cholecystitis, CVA, Diverticulitis, Homicidal, Suicidal, threat to staff... and all critical care pts) @ -yes - Lab Data Result diagrams: 08/07/24 07:00 08/07/24 07:34 Lab Results 08/07/24 08/07/24 08/07/24 Range/Units 07:00 07:00 07:00 WBC 22.6 H (3.8-10.6) k/uL RBC 4.18 L (4.30-5.90) m/uL Hgb 12.4 L (13.0-17.5) gm/dL Hct 38.1 L (39.0-53.0) % MCV 91.1 (80.0-100.0) fL MCH 29.8 (25.0-35.0) pg MCHC 32.6 (31.0-37.0) g/dL RDW 15.5 (11.5-15.5) % Plt Count 129 L (150-450) k/uL MPV 9.0 Neutrophils % 89 % Lymphocytes % 3 % Monocytes % 7 % Eosinophils % 1 % Basophils % 0 % Neutrophils # 20.1 H (1.3-7.7) k/uL Lymphocytes # 0.6 L (1.0-4.8) k/uL Monocytes # 1.5 H (0-1.0) k/uL Eosinophils # 0.1 (0-0.7) k/uL Basophils # 0.0 (0-0.2) k/uL PT 13.8 H (10.0-12.5) sec INR 1.3 H (<1.2) APTT 25.6 (22.0-30.0) sec Sodium (137-145) mmol/L Potassium (3.5-5.1) mmol/L Chloride (98-107) mmol/L Carbon Dioxide (22-30) mmol/L Anion Gap mmol/L BUN (9-20) mg/dL Creatinine (0.66-1.25) mg/dL Est GFR (CKD-EPI)AfAm (>60 ml/min/1.73 sqM) Est GFR (CKD-EPI)NonAf (>60 ml/min/1.73 sqM) Glucose (74-99) mg/dL Plasma Lactic Acid Lakhwinder (0.7-2.0) mmol/L Calcium (8.4-10.2) mg/dL Ionized Calcium Epi (4.5-5.3) mg/dL Magnesium (1.6-2.3) mg/dL Total Bilirubin (0.2-1.3) mg/dL AST (17-59) U/L ALT (4-49) U/L Alkaline Phosphatase (38-126) U/L Troponin I 9.160 H* (0.000-0.034) ng/mL Total Protein (6.3-8.2) g/dL Albumin (3.5-5.0) g/dL TSH (0.465-4.680) mIU/L 08/07/24 08/07/24 Range/Units 07:34 07:50 WBC (3.8-10.6) k/uL RBC (4.30-5.90) m/uL Hgb (13.0-17.5) gm/dL Hct (39.0-53.0) % MCV (80.0-100.0) fL MCH (25.0-35.0) pg MCHC (31.0-37.0) g/dL RDW (11.5-15.5) % Plt Count (150-450) k/uL MPV Neutrophils % % Lymphocytes % % Monocytes % % Eosinophils % % Basophils % % Neutrophils # (1.3-7.7) k/uL Lymphocytes # (1.0-4.8) k/uL Monocytes # (0-1.0) k/uL Eosinophils # (0-0.7) k/uL Basophils # (0-0.2) k/uL PT (10.0-12.5) sec INR (<1.2) APTT (22.0-30.0) sec Sodium 136 L (137-145) mmol/L Potassium 3.2 L (3.5-5.1) mmol/L Chloride 102 (98-107) mmol/L Carbon Dioxide 19 L (22-30) mmol/L Anion Gap 15 mmol/L BUN 109 H* (9-20) mg/dL Creatinine 5.97 H (0.66-1.25) mg/dL Est GFR (CKD-EPI)AfAm 11 (>60 ml/min/1.73 sqM) Est GFR (CKD-EPI)NonAf 10 (>60 ml/min/1.73 sqM) Glucose 50 L (74-99) mg/dL Plasma Lactic Acid Lakhwinder 1.3 (0.7-2.0) mmol/L Calcium 9.2 (8.4-10.2) mg/dL Ionized Calcium Epi 4.7 (4.5-5.3) mg/dL Magnesium 1.7 (1.6-2.3) mg/dL Total Bilirubin 1.3 (0.2-1.3) mg/dL AST 51 (17-59) U/L ALT 24 (4-49) U/L Alkaline Phosphatase 76 (38-126) U/L Troponin I (0.000-0.034) ng/mL Total Protein 5.9 L (6.3-8.2) g/dL Albumin 3.3 L (3.5-5.0) g/dL TSH 2.930 (0.465-4.680) mIU/L Disposition Clinical Impression: Hypotension Disposition: ADMITTED IP TO THIS HOSP Condition: Critical Decision Time: 08:37
[2024-08-07] MEDS: HYDROCORTISONE SUCCINATE 100 MG/2 ML VIAL IV STA (07:43)
[2024-08-07 07:50] LABS: INR 1.3 (<1.2); Partial Thromboplastin Time 25.6 sec (22.0-30.0); Prothrombin Time 13.8 sec (10.0-12.5)
[2024-08-07] MEDS: NOREPINEPHRINE 32 MG in SODIUM CHLORIDE 0.9% 218 ML IV ONE (07:50)
[2024-08-07 07:58] LABS: ALT 24 U/L (4-49); African American GFR (CKD) 11 (>60 ml/min/1.73 sqM); Albumin 3.3 g/dL (3.5-5.0); Anion Gap 15 mmol/L; Calcium 9.2 mg/dL (8.4-10.2); Carbon Dioxide 19 mmol/L (22-30); Chloride 102 mmol/L (98-107); Glucose 50 mg/dL (74-99); Non-African American GFR(CKD) 10 (>60 ml/min/1.73 sqM); Sodium 136 mmol/L (137-145); Total Bilirubin 1.3 mg/dL (0.2-1.3); Total Protein 5.9 g/dL (6.3-8.2)
[2024-08-07] MEDS: CEFEPIME 2 GM in SODIUM CHLORIDE 0.9% 100 ML IVPB STA (08:02)
[2024-08-07 08:07] LABS: AST 51 U/L (17-59); Blood Urea Nitrogen 109 mg/dL (9-20); Potassium 3.2 mmol/L (3.5-5.1)
[2024-08-07] MEDS: MIDODRINE 5 MG TAB PO STA (08:07)
[2024-08-07 08:08] LABS: Alkaline Phosphatase 76 U/L (38-126); Magnesium 1.7 mg/dL (1.6-2.3)
[2024-08-07] MEDS: VANCOMYCIN 1,500 MG in SODIUM CHLORIDE 0.9% 500 ML 500 ML IVPB STA (08:14)
[2024-08-07] MEDS: DEXTROSE 5% IN WATER 100 ML with AMIODARONE 150 MG IV ONE (08:19)
[2024-08-07] MEDS ORDERED: NALOXONE 0.4 MG/ML 1 ML VIAL IV PRN (08:31)
[2024-08-07] MEDS ORDERED: ACETAMINOPHEN TAB 325 MG TAB PO PRN (08:31)
[2024-08-07] MEDS: AMIODARONE 360 MG in DEXTROSE 5% IN WATER 200 ML IV ONE (08:35)
[2024-08-07 08:39] LABS: Glucose,Whole Blood 45 mg/dL (70-110)
[2024-08-07] MEDS: DEXTROSE 50% SYRINGE 50 ML IVP STA (08:39)
--- NOTE | 2024-08-07 08:39 | XR ---
EXAMINATION TYPE: XR chest 1V portable DATE OF EXAM: 08/07/2024 8:25 AM COMPARISON: 04/04/2024 CLINICAL INDICATION: Male, 54 years old with history of hypotension; [facility] TECHNIQUE: XR chest 1V portable Frontal view of the chest. FINDINGS: Lungs/Pleura: There is no evidence of pleural effusion, focal consolidation, or pneumothorax. Pulmonary vascularity: Unremarkable. Heart/mediastinum: Cardiomediastinal silhouette is enlarged. Musculoskeletal: No acute osseous pathology. Other findings: None Lines/Tubes: Right internal jugular central venous catheter with distal tip at the cavoatrial junction. IMPRESSION: Stable exam, right central venous catheter appropriate position. Mild pulmonary edema. Mild thyromega ly. [facility], , 08/07/2024 8:37 AM
[2024-08-07] MEDS: HEPARIN SODIUM 1,000 UN/ML (10ML VL) IV ONE (08:45)
[2024-08-07] MEDS: HEPARIN SOD,PORK IN 0.45% NACL 25,000 UNIT in 0.45% NACL 1 250ML.BAG IV SCH (08:46)
[2024-08-07] MEDS: ASPIRIN 81 MG PO STA (08:49)
[2024-08-07] MEDS: SODIUM CHLORIDE 0.9% 1,000 ML IV SCH ×2 (08:56→12:50)
[2024-08-07 09:03] LABS: Glucose,Whole Blood 116 mg/dL (70-110)
[2024-08-07] MEDS: DEXTROSE 10% IN WATER 1,000 ML with SODIUM CHLORIDE 4MEQ/ML VIAL 153.8 MEQ IV SCH (09:05)
[2024-08-07] MEDS: LIDOCAINE 1% INJ 10MG/ML (20 ML MDV) SQ ONE (09:51)
[2024-08-07] MEDS: MIDAZOLAM 2 MG/2 ML VIAL IVP ONE (09:52)
[2024-08-07] MEDS: SODIUM CHLORIDE 0.9% 500 ML 500 ML IV ONE (09:56)
[2024-08-07] MEDS: IOPAMIDOL-370 100ML BTL INJ ONE (09:57)
[2024-08-07] MEDS ORDERED: RX INFO: IV CONTRAST WAS GIVEN 1 EACH MISC MISCELLANE PRN (09:59)
--- NOTE | 2024-08-07 10:02 | P.PCN ---
Date of Procedure: 08/07/24 Operative Findings: CARDIAC CATHETERIZATION PERFORMING PHYSICIAN: Aldo Raya MD, RPVI PROCEDURE PERFORMED: 1. Selective right and left coronary angiogram 2. Left heart catheterization 3. Ultrasound-guided access of the right common femoral artery selective right common femoral artery angiogram INDICATION: Acute coronary event COMPLICATION: None APPROACH: Right common femoral artery LEVEL OF SEDATION: Moderate with sedation in length of 11 minutes PROCEDURE DESCRIPTION: After obtaining an informed consent, the patient was brought to cardiac kiln labourer. Local anesthesia was performed using lidocaine subcutaneously. The right common femoral artery was cannulated using Seldinger technique, the guidewire passed easily, following that we advanced a 6 [place] sheath dilator assembly, the wire and dilator were removed and sheath was flushed. Selective right and left coronary angiogram using a 6[place] JR4 and JL catheters. Following that we did left heart catheterization using 6[place] pigtail catheter. The procedure was completed there was no complication. SELECTIVE CORONARY ANGIOGRAM: The right coronary artery: Large-caliber vessel and a dominant vessel with evidence of myocardial bridging involving the PLV branch of the RCA Left main: Is angiographically The left circumflex: Large caliber vessel with no evidence of high-grade stenosis identified The left anterior descending artery: Large-caliber vessel with mild nonobstructive coronary artery disease HEMODYNAMICS: LVEDP was 17 mmHg with no significant gradient across aortic valve CONCLUSION: 1. Mild CAD 2. 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 Mildly elevated left-sided filling pressure POSTPROCEDURE MANAGEMENT: Medical treatment
[2024-08-07 10:44] LABS: Glucose,Whole Blood 174 mg/dL (70-110)
[2024-08-07] MEDS ORDERED: ALBUTEROL NEBULIZED 2.5 MG/3 ML INHALATION PRN (11:50)
[2024-08-07] MEDS ORDERED: ACETAMINOPHEN TAB 500 MG TAB PO PRN (11:50)
[2024-08-07] MEDS ORDERED: ALBUTEROL HFA INHALER INHALATION PRN (11:50)
--- NOTE | 2024-08-07 11:54 | P.CNPUL ---
History of Present Illness Consult date: 08/07/24 Requesting physician: Tad Jama Reason for consult: other Chief complaint: Hypotension, weakness. History of present illness: Pulmonary consult dated August 07, 2024. 54-year-old male with history of multiple medical problems including end-stage renal disease, status post kidney transplant, back in 2016. The patient was brought into the hospital, for weakness, and low blood pressure. The patient's kidney transplant, has not been going well, and he still requires hemodialysis twice a week. The patient was seen in the emergency department, trauma room 1. I was notified by the ER physician. The patient is currently on 4 L of oxygen. The patient is receiving amiodarone, and also norepinephrine at 0.08 mcg/kg/min. The patient was seen by cardiology, and IV heparin was started. The patient had a cardiac catheterization, back in December 2023, and apparently at that time, the catheterization showed only mild coronary disease. The patient was prescribed vancomycin and cefepime. Will check an N-terminal proBNP and procalcitonin level. The patient will get an echocardiogram, and according to the learning officer, may benefit from cardiac catheterization as well. Current labs include a white count 22.6, hemoglobin 12.4, macro 38.1, and a platelet count of 129,000. PT 13.8, INR 1.3. Sodium 136, potassium 3.2, chlorides 102, CO2 19, anion gap 15, BUN 109, creatinine 5.97. Glucose is 174. Troponin was 9.160. N-terminal proBNP was quite elevated at 76,600. Albumin was 3.3. TSH was normal. Procalcitonin level is currently pending. Chest x-ray shows mild pulmonary edema. The patient went to the catheterization laboratory, today, and had only mild CAD, and mild elevated left-sided filling pressures. Medical treatment was recommended. Review of Systems REVIEW OF SYSTEMS: CONSTITUTIONAL: Weakness. NEUROLOGIC: [ Negative.] HEENT: [ Negative.] CARDIAC: Low blood pressure. PULMONARY: Mild shortness of breath. GI: [Negative.] : [Negative.] RHEUMATOLOGIC: [ Negative.] IMMUNOLOGIC: [ Negative.] ENDOCRINE: [Negative. ] DERMATOLOGIC: [Negative.] Past Medical History Past Medical History: Coronary Artery Disease (CAD), Renal Disease, Thyroid Disorder Additional Past Medical History / Comment(s): Renal failure post-kidney transplantation, previous history of dialysis for a total of 12 years followed by kidney transplantation, hypothyroidism, chronic stage III kidney failure post transplantation, nonocclusive coronary artery disease and the patient a cardiac catheterization on 09/24/2016 that showed 40-50% lesion in the distal circumflex otherwise the rest of the coronary arteries were all within normal limits. History of Any Multi-Drug Resistant Organisms: None Reported Past Surgical History: Heart Catheterization, Orthopedic Surgery Additional Past Surgical History / Comment(s): FISTULA/GRAFT RT ARM, kidney transplant in July of 2017, Left hip Past Anesthesia/Blood Transfusion Reactions: No Reported Reaction Past Psychological History: No Psychological Hx Reported Additional Psychological History / Comment(s): Short term memory issues. Smoking Status: Former smoker Past Alcohol Use History: None Reported Additional Past Alcohol Use History / Comment(s): QUIT SMOKING 1998, SMOKED 1/2 PPD FROM AGE 17 Past Drug Use History: None Reported - Past Family History Mother Family Medical History: Cancer Father Family Medical History: Myocardial Infarction ([place]) Additional Family Medical History / Comment(s): AT AGE 46. Medications and Allergies Home Medications Medication Instructions Recorded Confirmed Type Levothyroxine Sodium [Synthroid] 100 mcg PO DAILY 09/20/16 08/07/24 History Acetaminophen [Tylenol] 1,000 mg PO Q6H PRN 10/30/17 08/07/24 History mycophenolate mofetiL [Cellcept] 250 mg PO BID 10/30/17 08/07/24 History predniSONE 5 mg PO DIRECTED 10/30/17 08/07/24 History Insulin Glargine,Hum.rec.anlog 20 units SQ HS 12/14/23 08/07/24 History [Lantus Solostar Pen] Montelukast [Singulair] 10 mg PO HS 12/14/23 08/07/24 History Rosuvastatin Calcium [Crestor] 40 mg PO HS 12/14/23 08/07/24 History Semaglutide [Rybelsus] 7 mg PO DAILY 12/14/23 08/07/24 History Sertraline [Zoloft] 25 mg PO HS 12/14/23 08/07/24 History Tacrolimus [Prograf] 1 mg PO DAILY 12/14/23 08/07/24 History Nitroglycerin Sl Tabs [Nitrostat] 0.4 mg SL Q5M PRN 12/16/23 08/07/24 History Sildenafil Citrate [Viagra] 100 mg PO DAILY PRN 03/31/24 08/07/24 History Sodium Bicarbonate Tab 650 mg PO TID 03/31/24 08/07/24 History Tacrolimus [Prograf] 0.5 mg PO HS 03/31/24 08/07/24 History Midodrine [ProAmatine] 10 mg PO TID PRN 05/07/24 08/07/24 History Sevelamer [Renvela] 800 mg PO W/SUPPER 05/07/24 08/07/24 History Albuterol Nebulized [Ventolin 2.5 mg INHALATION RT-QID PRN 08/07/24 08/07/24 History Nebulized] Albuterol Sulfate [Ventolin HFA] 2 puff INHALATION RT-Q4H PRN 08/07/24 08/07/24 History Cetirizine HCl [Zyrtec] 10 mg PO DAILY 08/07/24 08/07/24 History Insulin Lispro [Insulin Lispro See Protocol SQ AC-TID 08/07/24 08/07/24 History Kwikpen U-100] Torsemide [Demadex] 40 mg PO DAILY 08/07/24 08/07/24 History amLODIPine [Norvasc] 5 mg PO DAILY 08/07/24 08/07/24 History predniSONE See Taper PO DIRECTED 08/07/24 08/07/24 History Allergies Allergy/AdvReac Type Severity Reaction Status Date / Time grapefruit Allergy Rash/Hives Verified 08/07/24 09:31 shellfish derived [Shellfish] Allergy Swelling Verified 08/07/24 09:31 Physical Exam Osteopathic Statement: *. No significant issues noted on an osteopathic structural exam other than those noted in the History and Physical/Consult. Vitals: Vital Signs Temp Pulse Resp BP Pulse Ox 08/07/24 09:17 97.7 F 08/07/24 09:06 76 18 114/69 90 L 08/07/24 08:26 118 H 22 113/69 94 L 08/07/24 08:01 144 H 20 55/39 93 L 08/07/24 07:17 64 18 64/36 89 L 08/07/24 06:58 98.1 F 72 20 62/33 94 L Intake and Output 08/06/24 08/07/24 08/07/24 22:59 06:59 14:59 Intake Total 57.113 Balance 57.113 Intake: IV 50 Intake, IV Titration 7.113 Amount Norepinephrine 32 mg In 7.113 Sodium Chloride 0.9% 218 ml @ 0.03 MCG/KG/MIN 1. 148 mls/hr IV .Q24H ONE Rx#:[id number] Other: Weight 81.647 kg 81.647 kg No acute distress, oriented 3. The patient is currently on 4 L of oxygen. HEENT examination is grossly unremarkable. Mucous membranes are moist. No oral lesions. Neck supple. Full range of motion. No adenopathy thyromegaly or neck vein dist ention. Cardiovascular examination reveals regular rhythm rate. S1-S2 normal. No S3 or S4. No discernible murmur noted. Heart sounds are distant. Lungs reveal scattered crackles. No wheezes or rhonchi. Breath sounds equal. Abdomen soft bowel sounds are heard. No masses or tenderness. Extremities are intact. No cyanosis clubbing or edema. Skin is without rash or lesion. Neurologic examination is brief but nonfocal. Results - Laboratory Findings CBC and BMP: 08/07/24 07:00 08/07/24 07:34 PT/INR, D-dimer PT 13.8 sec (10.0-12.5) H 08/07/24 07:00 INR 1.3 (<1.2) H 08/07/24 07:00 Abnormal lab findings: Abnormal Labs 08/07/24 08/07/24 08/07/24 07:00 07:00 07:00 WBC 22.6 H RBC 4.18 L Hgb 12.4 L Hct 38.1 L Plt Count 129 L Neutrophils # 20.1 H Lymphocytes # 0.6 L Monocytes # 1.5 H PT 13.8 H INR 1.3 H Sodium Potassium Carbon Dioxide BUN Creatinine Glucose POC Glucose (mg/dL) Troponin I 9.160 H* Total Protein Albumin 08/07/24 08/07/24 08/07/24 07:34 08:37 09:01 WBC RBC Hgb Hct Plt Count Neutrophils # Lymphocytes # Monocytes # PT INR Sodium 136 L Potassium 3.2 L Carbon Dioxide 19 L BUN 109 H* Creatinine 5.97 H Glucose 50 L POC Glucose (mg/dL) 45 L* 116 H Troponin I Total Protein 5.9 L Albumin 3.3 L 08/07/24 10:42 WBC RBC Hgb Hct Plt Count Neutrophils # Lymphocytes # Monocytes # PT INR Sodium Potassium Carbon Dioxide BUN Creatinine Glucose POC Glucose (mg/dL) 174 H Troponin I Total Protein Albumin - Diagnostic Findings Chest x-ray: image reviewed Assessment and Plan Assessment: Weakness, and hypotension, of unclear etiology, related to underlying infection. Cardiac catheterization, August 07, showing only mild CAD. History of renal transplant, 2016, patient still requiring twice a week hemodialysis. New onset atrial fibrillation with RVR. Rule out sepsis. History of hypothyroidism. Previous history of tobacco use. History of hyperlipidemia. History of diabetes mellitus. History of hypertension. Prior history of coronavirus infection, with postinflammatory pulmonary fibrosis. History of pulmonary embolism. Plan: Plan dated August 07, 2024. The patient is seen in the emergency department. The patient is in trauma bay #1. The patient came in with weakness, and hypotension. The patient is curre ntly on 4 L. The patient is receiving amiodarone, for his atrial fibrillation/RVR. He is also on norepinephrine at 0.08 mcg/kg/min. IV heparin was being started by cardiology. The patient did go for cardiac catheterization, which revealed only mild CAD. An N-terminal proBNP was quite elevated. A procalcitonin level is pending. Echocardiogram is pending. The patient was placed on vancomycin and cefepime. Labs, x-rays, medications are reviewed. Additional recommendations and suggestions are forthcoming. His last cardiac catheterization was in December 2023, which again showed only mild CAD. Time with Patient: Greater than 30
--- NOTE | 2024-08-07 11:58 | P.NPCON ---
History of Present Illness - Reason for Consult Consult date: 08/07/24 - Chief Complaint Weakness - History of Present Illness History of Present Illness: Patient is 54-year-old male entirety of history present illness obtained from patient's at the bedside. Patient has multiple comorbidities including kidney transplant, renal failure, ESRD, coronary artery disease thyroid disease. States that for the last couple days he has been having shortness of breath weakness dizziness and malaise. Previous kidney transplant at [facility] and had biopsy done recently showing decent kidney pathology per . He has right femoral catheter for dialysis and was recently decreased from 3 days a to Friday and Friday treatments. He started feeling weak at home and admits to some fevers. He has continue on his immunosuppressive medications at home. BP noted to be low in ED that did respond to IVF and low-dose pressors. He currently feels OK seen in ICU. Vital reviewed General: No acute distress. HEENT: Head exam is unremarkable. LUNGS: No audible rhonchi or wheezes. HEART: Rate and Rhythm are regular. ABDOMEN: Obese, nontender. EXTREMITITES: No edema. Review of Systems Constitutional: Reports as per HPI Past Medical History Past Medical History: Coronary Artery Disease (CAD), Renal Disease, Thyroid Disorder Additional Past Medical History / Comment(s): Renal failure post-kidney transplantation, previous history of dialysis for a total of 12 years followed by kidney transplantation, hypothyroidism, chronic stage III kidney failure post transplantation, nonocclusive coronary artery disease and the patient a cardiac catheterization on 09/24/2016 that showed 40-50% lesion in the distal circumflex otherwise the rest of the coronary arteries were all within normal limits. History of Any Multi-Drug Resistant Organisms: None Reported Past Surgical History: Heart Catheterization, Orthopedic Surgery Additional Past Surgical History / Comment(s): FISTULA/GRAFT RT ARM, kidney transplant in July of 2017, Left hip Past Anesthesia/Blood Transfusion Reactions: No Reported Reaction Past Psychological History: No Psychological Hx Reported Smoking Status: Former smoker Past Alcohol Use History: None Reported Past Drug Use History: None Reported - Past Family History Mother Family Medical History: Cancer Father Family Medical History: Myocardial Infarction ([place]) Additional Family Medical History / Comment(s): AT AGE 46. Medications and Allergies Home Medications Medication Instructions Recorded Confirmed Type Levothyroxine Sodium [Synthroid] 100 mcg PO DAILY 09/20/16 08/07/24 History Acetaminophen [Tylenol] 1,000 mg PO Q6H PRN 10/30/17 08/07/24 History mycophenolate mofetiL [Cellcept] 250 mg PO BID 10/30/17 08/07/24 History predniSONE 5 mg PO DIRECTED 10/30/17 08/07/24 History Insulin Glargine,Hum.rec.anlog 20 units SQ HS 12/14/23 08/07/24 History [Lantus Solostar Pen] Montelukast [Singulair] 10 mg PO HS 12/14/23 08/07/24 History Rosuvastatin Calcium [Crestor] 40 mg PO HS 12/14/23 08/07/24 History Semaglutide [Rybelsus] 7 mg PO DAILY 12/14/23 08/07/24 History Sertraline [Zoloft] 25 mg PO HS 12/14/23 08/07/24 History Tacrolimus [Prograf] 1 mg PO DAILY 12/14/23 08/07/24 History Nitroglycerin Sl Tabs [Nitrostat] 0.4 mg SL Q5M PRN 12/16/23 08/07/24 History Sildenafil Citrate [Viagra] 100 mg PO DAILY PRN 03/31/24 08/07/24 History Sodium Bicarbonate Tab 650 mg PO TID 03/31/24 08/07/24 History Tacrolimus [Prograf] 0.5 mg PO HS 03/31/24 08/07/24 History Midodrine [ProAmatine] 10 mg PO TID PRN 05/07/24 08/07/24 History Sevelamer [Renvela] 800 mg PO W/SUPPER 05/07/24 08/07/24 History Albuterol Nebulized [Ventolin 2.5 mg INHALATION RT-QID PRN 08/07/24 08/07/24 History Nebulized] Albuterol Sulfate [Ventolin HFA] 2 puff INHALATION RT-Q4H PRN 08/07/24 08/07/24 History Cetirizine HCl [Zyrtec] 10 mg PO DAILY 08/07/24 08/07/24 History Insulin Lispro [Insulin Lispro See Protocol SQ AC-TID 08/07/24 08/07/24 History Kwikpen U-100] Torsemide [Demadex] 40 mg PO DAILY 08/07/24 08/07/24 History amLODIPine [Norvasc] 5 mg PO DAILY 08/07/24 08/07/24 History predniSONE See Taper PO DIRECTED 08/07/24 08/07/24 History Allergies Allergy/AdvReac Type Severity Reaction Status Date / Time grapefruit Allergy Rash/Hives Verified 08/07/24 09:31 shellfish derived [Shellfish] Allergy Swelling Verified 08/07/24 09:31 Physical Exam Vitals: Vital Signs Temp Pulse Resp BP Pulse Ox 08/07/24 08:26 118 H 22 113/69 94 L 08/07/24 08:01 144 H 20 55/39 93 L 08/07/24 07:17 64 18 64/36 89 L 08/07/24 06:58 98.1 F 72 20 62/33 94 L Intake and Output 08/06/24 08/07/24 08/07/24 22:59 06:59 14:59 Intake Total 7.113 Balance 7.113 Intake: Intake, IV Titration 7.113 Amount Norepinephrine 32 mg In 7.113 Sodium Chloride 0.9% 218 ml @ 0.03 MCG/KG/MIN 1. 148 mls/hr IV .Q24H ONE Rx#:[id number] Other: Weight 81.647 kg Results - Lab Results Most recent lab results Calcium 9.2 mg/dL (8.4-10.2) 08/07/24 07:34 Magnesium 1.7 mg/dL (1.6-2.3) 08/07/24 07:34 08/07/24 07:00 08/07/24 07:34 Assessment and Plan Assessment: 1. ESRD on HD twice weekly Fri/Fri. 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 2. Failed donor transplant at [facility] in July 2017 maintained on Prograf, CellCept 3. Hypokalemia 4. Hypotension 5. Anemia with ESRD goal Hb 10-11.5 6. 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 Sepsis- possible source femoral Permcath Plan: Will plan for HD today, pressor support to maintain HD treatment. Replace potassium Levophed as needed for BP support Cultures pending, if +bacteremia may need Permcath removed for line holiday. If infection confirmed continue tacrolimus and hold cellcept with increased prednisone 10mg daily
[2024-08-07] MEDS: TORSEMIDE 20 MG TAB PO SCH (12:46)
[2024-08-07] MEDS: TACROLIMUS 1 MG CAP PO SCH (12:47)
--- NOTE | 2024-08-07 13:16 | P.CRDCN ---
History of Present Illness Consult date: 08/07/24 History of present illness: This is a 54-year-old gentleman who is known to our service from before who follows with Dr. Cabrera on a regular basis with a past medical history significant for diabetes and hypertension and dyslipidemia and history of renal transplant but currently the patient is on dialysis as well as hypoxic respiratory failure after COVID-19 infection was brought to the hospital by his because he was not feeling well. The patient somewhat is poor historian and the history was taken from him as well as from his who was at bedside. The patient has been feeling weak and tired and fatigue for the last several days but beside that he has been experiencing also increasing in the shortness of breath with no associated symptoms of any chest pain or chest discomfort or dizziness or lightheadedness or any feeling of heart racing fluttering or presyncope or syncope. Upon arrival to the emergency department he was hypotensive requiring norepinephrine to support the blood pressure and also he was in atrial fibrillation with rapid ventricular response but an EKG showed ST segment elevation in aVR and diffuse ST segment depression concerning for severe underlying coronary artery disease. Also his troponin came in to be elevated at 9.1. Giving all of that I advised the patient to undergo a heart catheterization. The heart catheterization revealed mild nonobstructive coronary artery disease. The patient subsequently was admitted to the intensive care unit. An echocardiogram is in process to be done to rule out stress- induced cardiomyopathy. Please note that the LV end-diastolic pressure/left ventricular filling pressure was elevated around 17 mmHg. Also subsequently the patient was noted to be febrile and WBC came in to be elevated. He might have a component of infection/sepsis as well. The atrial fibrillation is new and the patient never been diagnosed with atrial fibrillation before. An echo from December 2023 showed normal biventricular systolic function with no significant valvular abnormalities. His recent hemoglobin was 12.4 and creatinine was 5.97. NT proBNP came in to be elevated at 76,000. The physical examination is remarkable for irregular rhythm with a systolic murmur at the right upper sternal border with clear breathing sounds bilaterally and no edema was noted in the lower extremities Assessment Shock likely to be a combination of multiple etiology including sepsis Atrial fibrillation with RVR which is new Evidence of myocardial injury History of renal transplant Multiple comorbid conditions including diabetes and hypertension and dyslipidemia Chronic hypoxic respiratory failure after COVID-19 infection History of smoking Plan Continue amiodarone IV Start the patient on heparin IV as well The heart catheterization was performed and showed only mild CAD Follow-up on the echocardiogram Follow-up on the patient Past Medical History Past Medical History: Coronary Artery Disease (CAD), Renal Disease, Thyroid Disorder Additional Past Medical History / Comment(s): Renal failure post-kidney transplantation, previous history of dialysis for a total of 12 years followed by kidney transplantation, hypothyroidism, chronic stage III kidney failure post transplantation, nonocclusive coronary artery disease and the patient a cardiac catheterization on 09/24/2016 that showed 40-50% lesion in the distal circumflex otherwise the rest of the coronary arteries were all within normal limits. History of Any Multi-Drug Resistant Organisms: None Reported Past Surgical History: Heart Catheterization, Orthopedic Surgery Additional Past Surgical History / Comment(s): FISTULA/GRAFT RT ARM, kidney transplant in July of 2017, Left hip Past Anesthesia/Blood Transfusion Reactions: No Reported Reaction Past Psychological History: No Psychological Hx Reported Smoking Status: Former smoker Past Alcohol Use History: None Reported Past Drug Use History: None Reported - Past Family History Mother Family Medical History: Cancer Father Family Medical History: Myocardial Infarction ([place]) Additional Family Medical History / Comment(s): AT AGE 46. Medications and Allergies Home Medications Medication Instructions Recorded Confirmed Type Levothyroxine Sodium [Synthroid] 100 mcg PO DAILY 09/20/16 08/07/24 History Acetaminophen [Tylenol] 1,000 mg PO Q6H PRN 10/30/17 08/07/24 History mycophenolate mofetiL [Cellcept] 250 mg PO BID 10/30/17 08/07/24 History predniSONE 5 mg PO DIRECTED 10/30/17 08/07/24 History Insulin Glargine,Hum.rec.anlog 20 units SQ HS 12/14/23 08/07/24 History [Lantus Solostar Pen] Montelukast [Singulair] 10 mg PO HS 12/14/23 08/07/24 History Rosuvastatin Calcium [Crestor] 40 mg PO HS 12/14/23 08/07/24 History Semaglutide [Rybelsus] 7 mg PO DAILY 12/14/23 08/07/24 History Sertraline [Zoloft] 25 mg PO HS 12/14/23 08/07/24 History Tacrolimus [Prograf] 1 mg PO DAILY 12/14/23 08/07/24 History Nitroglycerin Sl Tabs [Nitrostat] 0.4 mg SL Q5M PRN 12/16/23 08/07/24 History Sildenafil Citrate [Viagra] 100 mg PO DAILY PRN 03/31/24 08/07/24 History Sodium Bicarbonate Tab 650 mg PO TID 03/31/24 08/07/24 History Tacrolimus [Prograf] 0.5 mg PO HS 03/31/24 08/07/24 History Midodrine [ProAmatine] 10 mg PO TID PRN 05/07/24 08/07/24 History Sevelamer [Renvela] 800 mg PO W/SUPPER 05/07/24 08/07/24 History Albuterol Nebulized [Ventolin 2.5 mg INHALATION RT-QID PRN 08/07/24 08/07/24 History Nebulized] Albuterol Sulfate [Ventolin HFA] 2 puff INHALATION RT-Q4H PRN 08/07/24 08/07/24 History Cetirizine HCl [Zyrtec] 10 mg PO DAILY 08/07/24 08/07/24 History Insulin Lispro [Insulin Lispro See Protocol SQ AC-TID 08/07/24 08/07/24 History Kwikpen U-100] Torsemide [Demadex] 40 mg PO DAILY 08/07/24 08/07/24 History amLODIPine [Norvasc] 5 mg PO DAILY 08/07/24 08/07/24 History predniSONE See Taper PO DIRECTED 08/07/24 08/07/24 History Allergies Allergy/AdvReac Type Severity Reaction Status Date / Time grapefruit Allergy Rash/Hives Verified 08/07/24 09:31 shellfish derived [Shellfish] Allergy Swelling Verified 08/07/24 09:31 Physical Exam Vitals: Vital Signs Temp Pulse Resp BP Pulse Ox 08/07/24 09:17 97.7 F 08/07/24 09:06 76 18 114/69 90 L 08/07/24 08:26 118 H 22 113/69 94 L 08/07/24 08:01 144 H 20 55/39 93 L 08/07/24 07:17 64 18 64/36 89 L 08/07/24 06:58 98.1 F 72 20 62/33 94 L Intake and Output 08/06/24 08/07/24 08/07/24 22:59 06:59 14:59 Intake Total 57.113 Balance 57.113 Intake: IV 50 Intake, IV Titration 7.113 Amount Norepinephrine 32 mg In 7.113 Sodium Chloride 0.9% 218 ml @ 0.03 MCG/KG/MIN 1. 148 mls/hr IV .Q24H ONE Rx#:[id number] Other: Weight 81.647 kg 81.647 kg Results 08/07/24 07:00 08/07/24 07:34 Cardiac Enzymes 08/07/24 08/07/24 Range/Units 07:00 07:34 AST 51 (17-59) U/L Troponin I 9.160 H* (0.000-0.034) ng/mL Coagulation 08/07/24 Range/Units 07:00 PT 13.8 H (10.0-12.5) sec APTT 25.6 (22.0-30.0) sec CBC 08/07/24 Range/Units 07:00 WBC 22.6 H (3.8-10.6) k/uL RBC 4.18 L (4.30-5.90) m/uL Hgb 12.4 L (13.0-17.5) gm/dL Hct 38.1 L (39.0-53.0) % Plt Count 129 L (150-450) k/uL Comprehensive Metabolic Panel 08/07/24 Range/Units 07:34 Sodium 136 L (137-145) mmol/L Potassium 3.2 L (3.5-5.1) mmol/L Chloride 102 (98-107) mmol/L Carbon Dioxide 19 L (22-30) mmol/L BUN 109 H* (9-20) mg/dL Creatinine 5.97 H (0.66-1.25) mg/dL Glucose 50 L (74-99) mg/dL Calcium 9.2 (8.4-10.2) mg/dL AST 51 (17-59) U/L ALT 24 (4-49) U/L Alkaline Phosphatase 76 (38-126) U/L Total Protein 5.9 L (6.3-8.2) g/dL Albumin 3.3 L (3.5-5.0) g/dL Current Medications Generic Name Dose Route Start Last Admin Trade Name Freq PRN Reason Stop Dose Admin Acetaminophen 650 mg 08/07/24 08:31 Acetaminophen Tab 325 Mg Tab PO Q4HR PRN Fever and/or Mild Pain Acetaminophen 1,000 mg 08/07/24 11:50 Acetaminophen Tab 500 Mg Tab PO Q6H PRN Fever and/ or Pain Albuterol Sulfate 2.5 mg 08/07/24 11:50 Albuterol Nebulized 2.5 Mg/3 Ml INHALATION RT-QID PRN Shortness Of Breath Albuterol Sulfate 2 puff 08/07/24 11:50 Albuterol Hfa Inhaler INHALATION RT-Q4H PRN Shortness Of Breath Heparin Sodium (Porcine) 0 unit 08/07/24 08:30 Heparin Sodium 1,000 Un/Ml (10ml Vl) IV PER PROTOCOL PRN Low PTT Protocol Norepinephrine Bitartrate 32 250 mls @ 1.148 mls/hr 08/07/24 07:37 08/07/24 08:15 mg/ Sodium Chloride IV 08/08/24 07:36 0.8 mcg/kg/min .Q24H ONE 30.618 mls/hr Titration Protocol 0.03 MCG/KG/MIN Amiodarone HCl 360 mg/ 200 mls @ 33.333 mls/hr 08/07/24 08:10 08/07/24 08:35 Dextrose/Water IV 08/07/24 14:09 1 mg/min .Q6H ONE 33.333 mls/hr Administration Protocol 1 MG/MIN Amiodarone HCl 450 mg/ 250 mls @ 16.667 mls/hr 08/07/24 14:00 Dextrose/Water IV 08/08/24 07:59 .Q15H JENNY Protocol 0.5 MG/MIN Heparin Sodium/Sodium Chloride 250 mls @ 9.798 mls/hr 08/07/24 08:30 08/07/24 08:46 25,000 unit/ Sodium Chloride IV 12 units/kg/hr .Q24H JENNY 9.798 mls/hr Administration Protocol 12 UNITS/KG/HR Sodium Chloride 1,000 mls @ 130 mls/hr 08/07/24 08:45 08/07/24 08:56 Saline 0.9% IV 130 mls/hr .[id number] JENNY Administration Sodium Chloride 153.8 meq/ 1,038.45 mls @ 120 mls/hr 08/07/24 09:00 08/07/24 09:05 Dextrose/Water IV 120 mls/hr .[id number] JENNY Administration Sodium Chloride 1,000 mls @ 75 mls/hr 08/07/24 10:00 08/07/24 12:50 Saline 0.9% IV 08/07/24 14:59 75 mls/hr .[id number] JENNY Administration Daptomycin 500 mg/ Sodium 50 mls @ 100 mls/hr 08/08/24 09:00 Chloride IVPB Q48H [facility] Protocol Levothyroxine Sodium 100 mcg 08/08/24 06:30 Levothyroxine 100 Mcg Tab PO DAILY@0630 JENNY Loratadine 10 mg 08/08/24 09:00 Loratadine 10 Mg Tab PO DAILY JENNY Midodrine 10 mg 08/07/24 11:50 Midodrine 5 Mg Tab PO TID PRN Blood Pressure - Low Miscellaneous Information 1 each 08/07/24 09:59 Rx Info: Iv Contrast Was Given 1 Each Misc MISCELLANE 08/09/24 09:59 DAILY PRN Per Protocol Montelukast Sodium 10 mg 08/07/24 21:00 Montelukast 10 Mg Tab PO HS JENNY Mycophenolate Mofetil 250 mg 08/07/24 12:00 08/07/24 12:46 Mycophenolate Mofetil 250 Mg Cap PO 250 mg BID JENNY Administration Naloxone HCl 0.2 mg 08/07/24 08:31 Naloxone 0.4 Mg/Ml 1 Ml Vial IV Q2M PRN Opioid Reversal Prednisone 20 mg 08/08/24 09:00 Prednisone 10 Mg Tab PO 08/10/24 08:59 DAILY JENNY Taper Prednisone 5 mg 08/10/24 09:00 Prednisone 5 Mg Tab PO DAILY JENNY Sertraline HCl 25 mg 08/07/24 21:00 Sertraline 25 Mg Tab PO HS JENNY Sevelamer Carbonate 800 mg 08/07/24 17:30 Sevelamer 800 Mg Tab PO W/SUPPER JENNY Sodium Bicarbonate 650 mg 08/07/24 16:00 Sodium Bicarbonate Tab 650 Mg Tab PO TID JENNY Tacrolimus 1 mg 08/07/24 11:51 08/07/24 12:47 Tacrolimus 1 Mg Cap PO 1 mg DAILY JENNY Administration Tacrolimus 0.5 mg 08/07/24 21:00 Tacrolimus 0.5 Mg Cap PO HS JENNY Torsemide 40 mg 08/07/24 12:00 08/07/24 12:46 Torsemide 20 Mg Tab PO 40 mg DAILY JENNY Administration Intake and Output 08/06/24 08/07/24 08/07/24 22:59 06:59 14:59 Intake Total 57.113 Balance 57.113 Intake: IV 50 Intake, IV Titration 7.113 Amount Norepinephrine 32 mg In 7.113 Sodium Chloride 0.9% 218 ml @ 0.03 MCG/KG/MIN 1. 148 mls/hr IV .Q24H ONE Rx#:[id number] Other: Weight 81.647 kg 81.647 kg Patient Weight 08/08/24 05:59 Weight 81.647 kg 08/07/24 07:00 08/07/24 07:34
[2024-08-07] MEDS ORDERED: HEPARIN SODIUM 1,000 UN/ML (10ML VL) IV PRN (13:28)
[2024-08-07 13:45] LABS: INR 1.4 (<1.2); Partial Thromboplastin Time 27.6 sec (22.0-30.0); Prothrombin Time 14.2 sec (10.0-12.5)
--- NOTE | 2024-08-07 13:47 | P.HPIM ---
History of Present Illness H&P Date: 08/07/24 Chief Complaint: Not feeling well Pleasant 54-year-old patient who follows with Dr. Ballard. Accompanied by in the ICU. In 2017 patient underwent renal transplant at [facility]. Follows up with the transplant physician there. Patient previously had cardiac catheterization, in 2016 was told has had about 40 to 50% lesion in distal circumflex. Patient had Prevena lethargic for last 2 days. Patient heart rate went up blood pressure dropped. EMS was called out. Brought into the ER. At home normally patient uses 3 L of oxygen. Has a left groin hemodialysis catheter. Patient had elevated troponin of 9. Taken to cardiac Measuring Clerk. Unremarkable. Moved to the ICU. On a Levophed 0.08 mics. 4 L of oxygen. Elevated white count. Patient has intermittent chronic cough since his COVID. Denies any urinary symptoms. Does make urine. Denies any obvious fever but has had some chills. Review of systems: GEN.: Tired, chills EYES: None HEENT: None NECK: None RESPIRATORY: None CARDIOVASCULAR: None GASTROINTESTINAL: None GENITOURINARY: Does make urine MUSCULOSKELETAL: None LYMPHATICS: None HEMATOLOGICAL: None PSYCHIATRY: None NEUROLOGICAL: None Social history: Lives with . Smoked half a pack a day from age 17 and stopped in 1998. No alcohol. Physical examination: VITAL SIGNS: 97.8, 73, 15, 120 193, 92% on 4 L GENERAL: BMI 29.1, reclining bed awake tired. Left groin hemodialysis catheter EYES: Pupils equal. Conjunctiva nicole l. HEENT: External appearance of nose and ears normal, oral cavity grossly normal. NECK: JVD not raised; masses not palpable. HEART: First and second heart sounds are normal; no edema. LUNGS: Respiratory rate normal; decreased breath sounds n. ABDOMEN: Soft, nontender, liver spleen not palpable, no masses palpable. PSYCH: Alert and oriented x3; mood and affect nicole l. MUSCULOSKELETAL:No Clubbing/cyanosis;muscles-grossly intact NEUROLOGICAL: Cranial nerves grossly intact; no facial asymmetry, power and sensation grossly intact. LYMPHATICS: No lymph nodes palpable in the axilla and neck INVESTIGATIONS, reviewed in the clinical context: August 07, 2024: Sodium 136 potassium 3.2 BUN 109 creatinine 5.97 glucose 50 TSH 2.9 white count 22.6 hemoglobin 12.4 platelets 129 Troponin I 9.16 EKG tracing personally reviewed by me-sinus rhythm. ST segment depression anterolateral leads. And some inferior leads Chest x-ray film personally reviewed by me-cardiomegaly Assessment plan: -Hypotensive shock. Exact cause unknown. Patient not been feeling well for last couple of days. Some chills. Elevated white count. At this point sepsis is a consideration. Levophed 0.8 mcg -Empiric antibiotics on board. ID consulted. -Cardiac catheterization did not show any significant disease. Mild LAD -End-stage kidney disease and a renal transplant patient. Left groin hemodialysis catheter -Renal transplant in 2017 at [facility]. Prednisone 5 mg a day. CellCept to 50 mg twice daily. Prograf 1 mg p.o. twice daily. -Metabolic acidosis from chronic kidney disease Add sodium bicarbonate -Chronic hypoxic respiratory failure, from previous COVID infection 3 L of oxygen at home -Hypothyroid Synthroid 100 mcg a day -Diabetes mellitus type 2, chronically on insulin. Hypoglycemic in the ER. Insulin Lantus 15 subcu nightly. Follow sliding scale with sliding scale insulin. Semaglutide -Hyperlipidemia Crestor -Depression otherwise specified Zoloft 25 mg nightly -Full code Care discussed with the patient and at the bedside. Follow-up with industrial coffee grinder, nephrology. Past Medical History Past Medical History: Coronary Artery Disease (CAD), Renal Disease, Thyroid Disorder Additional Past Medical History / Comment(s): Renal failure post-kidney transplantation, previous history of dialysis for a total of 12 years followed by kidney transplantation, hypothyroidism, chronic stage III kidney failure post transplantation, nonocclusive coronary artery disease and the patient a cardiac catheterization on 09/24/2016 that showed 40-50% lesion in the distal circumflex otherwise the rest of the coronary arteries were all within normal limits. History of Any Multi-Drug Resistant Organisms: None Reported Past Surgical History: Heart Catheterization, Orthopedic Surgery Additional Past Surgical History / Comment(s): FISTULA/GRAFT RT ARM, kidney transplant in July of 2017, Left hip Past Anesthesia/Blood Transfusion Reactions: No Reported Reaction Past Psychological History: No Psychological Hx Reported Additional Psychological History / Comment(s): Short term memory issues. Smoking Status: Former smoker Past Alcohol Use History: None Reported Additional Past Alcohol Use History / Comment(s): QUIT SMOKING 1998, SMOKED 1/2 PPD FROM AGE 17 Past Drug Use History: None Reported - Past Family History Mother Family Medical History: Cancer Father Family Medical History: Myocardial Infarction ([place]) Additional Family Medical History / Comment(s): AT AGE 46. Medications and Allergies Home Medications Medication Instructions Recorded Confirmed Type Levothyroxine Sodium [Synthroid] 100 mcg PO DAILY 09/20/16 08/07/24 History Acetaminophen [Tylenol] 1,000 mg PO Q6H PRN 10/30/17 08/07/24 History mycophenolate mofetiL [Cellcept] 250 mg PO BID 10/30/17 08/07/24 History predniSONE 5 mg PO DIRECTED 10/30/17 08/07/24 History Insulin Glargine,Hum.rec.anlog 20 units SQ HS 12/14/23 08/07/24 History [Lantus Solostar Pen] Montelukast [Singulair] 10 mg PO HS 12/14/23 08/07/24 History Rosuvastatin Calcium [Crestor] 40 mg PO HS 12/14/23 08/07/24 History Semaglutide [Rybelsus] 7 mg PO DAILY 12/14/23 08/07/24 History Sertraline [Zoloft] 25 mg PO HS 12/14/23 08/07/24 History Tacrolimus [Prograf] 1 mg PO DAILY 12/14/23 08/07/24 History Nitroglycerin Sl Tabs [Nitrostat] 0.4 mg SL Q5M PRN 12/16/23 08/07/24 History Sildenafil Citrate [Viagra] 100 mg PO DAILY PRN 03/31/24 08/07/24 History Sodium Bicarbonate Tab 650 mg PO TID 03/31/24 08/07/24 History Tacrolimus [Prograf] 0.5 mg PO HS 03/31/24 08/07/24 History Midodrine [ProAmatine] 10 mg PO TID PRN 05/07/24 08/07/24 History Sevelamer [Renvela] 800 mg PO W/SUPPER 05/07/24 08/07/24 History Albuterol Nebulized [Ventolin 2.5 mg INHALATION RT-QID PRN 08/07/24 08/07/24 History Nebulized] Albuterol Sulfate [Ventolin HFA] 2 puff INHALATION RT-Q4H PRN 08/07/24 08/07/24 History Cetirizine HCl [Zyrtec] 10 mg PO DAILY 08/07/24 08/07/24 History Insulin Lispro [Insulin Lispro See Protocol SQ AC-TID 08/07/24 08/07/24 History Kwikpen U-100] Torsemide [Demadex] 40 mg PO DAILY 08/07/24 08/07/24 History amLODIPine [Norvasc] 5 mg PO DAILY 08/07/24 08/07/24 History predniSONE See Taper PO DIRECTED 08/07/24 08/07/24 History Allergies Allergy/AdvReac Type Severity Reaction Status Date / Time grapefruit Allergy Rash/Hives Verified 08/07/24 09:31 shellfish derived [Shellfish] Allergy Swelling Verified 08/07/24 09:31 Physical Exam Vitals: Vital Signs Temp Pulse Resp BP Pulse Ox 08/07/24 09:17 97.7 F 08/07/24 09:06 76 18 114/69 90 L 08/07/24 08:26 118 H 22 113/69 94 L 08/07/24 08:01 144 H 20 55/39 93 L 08/07/24 07:17 64 18 64/36 89 L 08/07/24 06:58 98.1 F 72 20 62/33 94 L Intake and Output 08/06/24 08/07/24 08/07/24 22:59 06:59 14:59 Intake Total 57.113 Balance 57.113 Intake: IV 50 Intake, IV Titration 7.113 Amount Norepinephrine 32 mg In 7.113 Sodium Chloride 0.9% 218 ml @ 0.03 MCG/KG/MIN 1. 148 mls/hr IV .Q24H ONE Rx#:[id number] Other: Weight 81.647 kg 81.647 kg Results CBC & Chem 7: 08/07/24 07:00 08/07/24 07:34 Labs: Abnormal Lab Results - Last 24 Hours (Table) 08/07/24 08/07/24 08/07/24 Range/Units 07:00 07:00 07:00 WBC 22.6 H (3.8-10.6) k/uL RBC 4.18 L (4.30-5.90) m/uL Hgb 12.4 L (13.0-17.5) gm/dL Hct 38.1 L (39.0-53.0) % Plt Count 129 L (150-450) k/uL Neutrophils # 20.1 H (1.3-7.7) k/uL Lymphocytes # 0.6 L (1.0-4.8) k/uL Monocytes # 1.5 H (0-1.0) k/uL PT 13.8 H (10.0-12.5) sec INR 1.3 H (<1.2) Sodium (137-145) mmol/L Potassium (3.5-5.1) mmol/L Carbon Dioxide (22-30) mmol/L BUN (9-20) mg/dL Creatinine (0.66-1.25) mg/dL Glucose (74-99) mg/dL POC Glucose (mg/dL) (70-110) mg/dL Troponin I 9.160 H* (0.000-0.034) ng/mL Total Protein (6.3-8.2) g/dL Albumin (3.5-5.0) g/dL 08/07/24 08/07/24 08/07/24 Range/Units 07:34 08:37 09:01 WBC (3.8-10.6) k/uL RBC (4.30-5.90) m/uL Hgb (13.0-17.5) gm/dL Hct (39.0-53.0) % Plt Count (150-450) k/uL Neutrophils # (1.3-7.7) k/uL Lymphocytes # (1.0-4.8) k/uL Monocytes # (0-1.0) k/uL PT (10.0-12.5) sec INR (<1.2) Sodium 136 L (137-145) mmol/L Potassium 3.2 L (3.5-5.1) mmol/L Carbon Dioxide 19 L (22-30) mmol/L BUN 109 H* (9-20) mg/dL Creatinine 5.97 H (0.66-1.25) mg/dL Glucose 50 L (74-99) mg/dL POC Glucose (mg/dL) 45 L* 116 H (70-110) mg/dL Troponin I (0.000-0.034) ng/mL Total Protein 5.9 L (6.3-8.2) g/dL Albumin 3.3 L (3.5-5.0) g/dL 08/07/24 Range/Units 10:42 WBC (3.8-10.6) k/uL RBC (4.30-5.90) m/uL Hgb (13.0-17.5) gm/dL Hct (39.0-53.0) % Plt Count (150-450) k/uL Neutrophils # (1.3-7.7) k/uL Lymphocytes # (1.0-4.8) k/uL Monocytes # (0-1.0) k/uL PT (10.0-12.5) sec INR (<1.2) Sodium (137-145) mmol/L Potassium (3.5-5.1) mmol/L Carbon Dioxide (22-30) mmol/L BUN (9-20) mg/dL Creatinine (0.66-1.25) mg/dL Glucose (74-99) mg/dL POC Glucose (mg/dL) 174 H (70-110) mg/dL Troponin I (0.000-0.034) ng/mL Total Protein (6.3-8.2) g/dL Albumin (3.5-5.0) g/dL Thrombosis Risk Factor Assmnt - Choose All That Apply Each Factor Represents 1 point: Age 41-60 years Other Risk Factors: Yes Each Risk Factor Represents 2 Points: Central venous access Other congenital or acquired thrombophilia - If yes, enter type in comment: No Thrombosis Risk Factor Assessment Total Risk Factor Score: 3 Thrombosis Risk Factor Assessment Level: Moderate Risk
[2024-08-07 13:56] LABS: African American GFR (CKD) 11 (>60 ml/min/1.73 sqM); Anion Gap 15 mmol/L; Blood Urea Nitrogen 99 mg/dL (9-20); Calcium 8.3 mg/dL (8.4-10.2); Carbon Dioxide 18 mmol/L (22-30); Chloride 100 mmol/L (98-107); Glucose 364 mg/dL (74-99); Magnesium 1.6 mg/dL (1.6-2.3); Non-African American GFR(CKD) 10 (>60 ml/min/1.73 sqM); Potassium 3.8 mmol/L (3.5-5.1); Sodium 133 mmol/L (137-145)
[2024-08-07] MEDS: predniSONE 10 MG TAB PO STA (14:36)
[2024-08-07] MEDS: AMIODARONE 450 MG in DEXTROSE 5% IN WATER 250 ML IV SCH (15:56)
[2024-08-07] MEDS: SODIUM BICARBONATE TAB 650 MG TAB PO SCH (17:13)
[2024-08-07] MEDS: SEVELAMER 800 MG TAB PO SCH (17:13)
[2024-08-07] MEDS: ALTEPLASE 2 MG VIAL (CATHFLO) MISCELLANE ONE ×3 (18:01→20:03)
[2024-08-07] MEDS ORDERED: Magnesium Replacement Protocol 1 EACH MISC MISCELLANE PRN (19:07)
[2024-08-07 20:08] LABS: Glucose,Whole Blood 456 mg/dL (70-110)
[2024-08-07] MEDS ORDERED: DEXTROSE 50% SYRINGE 50 ML IVP PRN ×2 (20:31)
[2024-08-07] MEDS: MAGNESIUM SULFATE-D5W PMX 1 GM in DEXTROSE/WATER 1 100ML.BAG IVPB SCH (20:43)
[2024-08-07] MEDS: MONTELUKAST 10 MG TAB PO SCH (20:43)
[2024-08-07] MEDS: TACROLIMUS 0.5 MG CAP PO SCH (20:43)
[2024-08-07] MEDS: SERTRALINE 25 MG TAB PO SCH (20:44)
[2024-08-07] MEDS ORDERED: ATORVASTATIN 80 MG TAB PO SCH (21:00)
[2024-08-07] MEDS: INSULIN ASPART (NovoLOG) 100 UNIT/ML VIAL SQ SCH (21:09)
[2024-08-07] MEDS: HEPARIN SODIUM 1,000 UN/ML (10ML VL) IV PRN (21:47)
--- NOTE | 2024-08-07 22:44 | P.CONS ---
History of Present Illness - Reason for Consult Consult date: 08/07/24 Infection Requesting physician: Darnell Gilliam - Chief Complaint Weakness shortness of breath x few days - History of Present Illness Patient is a 54-year-old male with a past medical history significant for coronary artery disease thyroid disorder diverticulitis also with a history of end-stage renal disease status post kidney transplant and remains to be on immunosuppressive per the daughter who provided most of the history in to follow at [facility] and his transplant is not considered total failure and still some chance of recovery is currently getting dialysis through the left femoral permacatheter Tuesdays and Friday patient presented to the hospital concerning for weakness dizziness generalized malaise and shortness of breath patient symptom has been getting worse for the last few days has felt feverish but denies high-grade fever no headache or URI symptoms has been complaining of shortness of breath but no chest pain or cough no abdominal pain diarrhea or any constipation patient on presentation to the hospital was afebrile he was not tachycardic mildly hypertensive responded to the fluids and Lopressor support patient was mildly hypoxic and is currently on 4 L nasal cannula oxygen patient did have elevated white count of 22.6 BUN of 99 creatinine is 5.99 liver enzymes are normal troponin is mildly elevated patient did have chest x-ray right central venous catheter improved position mild pulmonary edema mild thyromegaly patient has been started on amiodarone heparin as well as vancomycin as was concern for possible dialysis catheter infection and has received a dose of cefepime infectious disease was consulted for further management of antibiotic therapy Review of Systems Positive point and negatives has been mentioned in the HPI, complete review of systems was performed and all other systems are negative Past Medical History Past Medical History: Coronary Artery Disease (CAD), Renal Disease, Thyroid Disorder Additional Past Medical History / Comment(s): Renal failure post-kidney transplantation, previous history of dialysis for a total of 12 years followed by kidney transplantation, hypothyroidism, chronic stage III kidney failure post transplantation, nonocclusive coronary artery disease and the patient a cardiac catheterization on 09/24/2016 that showed 40-50% lesion in the distal circumflex otherwise the rest of the coronary arteries were all within normal limits. History of Any Multi-Drug Resistant Organisms: None Reported Past Surgical History: Heart Catheterization, Orthopedic Surgery Additional Past Surgical History / Comment(s): FISTULA/GRAFT RT ARM, kidney transplant in July of 2017, Left hip Past Anesthesia/Blood Transfusion Reactions: No Reported Reaction Past Psychological History: No Psychological Hx Reported Additional Psychological History / Comment(s): Short term memory issues. Smoking Status: Former smoker Past Alcohol Use History: None Reported Additional Past Alcohol Use History / Comment(s): QUIT SMOKING 1998, SMOKED 1/2 PPD FROM AGE 17 Past Drug Use History: None Reported - Past Family History Mother Family Medical History: Cancer Father Family Medical History: Myocardial Infarction (NH) Additional Family Medical History / Comment(s): AT AGE 46. Medications and Allergies Home Medications Medication Instructions Recorded Confirmed Type Levothyroxine Sodium [Synthroid] 100 mcg PO DAILY 09/20/16 08/07/24 History Acetaminophen [Tylenol] 1,000 mg PO Q6H PRN 10/30/17 08/07/24 History mycophenolate mofetiL [Cellcept] 250 mg PO BID 10/30/17 08/07/24 History predniSONE 5 mg PO DIRECTED 10/30/17 08/07/24 History Insulin Glargine,Hum.rec.anlog 20 units SQ HS 12/14/23 08/07/24 History [Lantus Solostar Pen] Montelukast [Singulair] 10 mg PO HS 12/14/23 08/07/24 History Rosuvastatin Calcium [Crestor] 40 mg PO HS 12/14/23 08/07/24 History Semaglutide [Rybelsus] 7 mg PO DAILY 12/14/23 08/07/24 History Sertraline [Zoloft] 25 mg PO HS 12/14/23 08/07/24 History Tacrolimus [Prograf] 1 mg PO DAILY 12/14/23 08/07/24 History Nitroglycerin Sl Tabs [Nitrostat] 0.4 mg SL Q5M PRN 12/16/23 08/07/24 History Sildenafil Citrate [Viagra] 100 mg PO DAILY PRN 03/31/24 08/07/24 History Sodium Bicarbonate Tab 650 mg PO TID 03/31/24 08/07/24 History Tacrolimus [Prograf] 0.5 mg PO HS 03/31/24 08/07/24 History Midodrine [ProAmatine] 10 mg PO TID PRN 05/07/24 08/07/24 History Sevelamer [Renvela] 800 mg PO W/SUPPER 05/07/24 08/07/24 History Albuterol Nebulized [Ventolin 2.5 mg INHALATION RT-QID PRN 08/07/24 08/07/24 History Nebulized] Albuterol Sulfate [Ventolin HFA] 2 puff INHALATION RT-Q4H PRN 08/07/24 08/07/24 History Cetirizine HCl [Zyrtec] 10 mg PO DAILY 08/07/24 08/07/24 History Insulin Lispro [Insulin Lispro See Protocol SQ AC-TID 08/07/24 08/07/24 History Kwikpen U-100] Torsemide [Demadex] 40 mg PO DAILY 08/07/24 08/07/24 History amLODIPine [Norvasc] 5 mg PO DAILY 08/07/24 08/07/24 History predniSONE See Taper PO DIRECTED 08/07/24 08/07/24 History Allergies Allergy/AdvReac Type Severity Reaction Status Date / Time grapefruit Allergy Rash/Hives Verified 08/07/24 09:31 shellfish derived [Shellfish] Allergy Swelling Verified 08/07/24 09:31 Physical Exam Vitals: Vital Signs Temp Pulse Resp BP Pulse Ox 08/07/24 09:17 97.7 F 08/07/24 09:06 76 18 114/69 90 L 08/07/24 08:26 118 H 22 113/69 94 L 08/07/24 08:01 144 H 20 55/39 93 L 08/07/24 07:17 64 18 64/36 89 L 08/07/24 06:58 98.1 F 72 20 62/33 94 L Intake and Output 08/06/24 08/07/24 08/07/24 22:59 06:59 14:59 Intake Total 57.113 Balance 57.113 Intake: IV 50 Intake, IV Titration 7.113 Amount Norepinephrine 32 mg In 7.113 Sodium Chloride 0.9% 218 ml @ 0.03 MCG/KG/MIN 1. 148 mls/hr IV .Q24H [facility] Rx#:[id number] Other: Weight 81.647 kg 81.647 kg GENERAL DESCRIPTION: Middle-aged male lying in bed, no distress. No tachypnea or accessory muscle of respiration use. HEENT: Shows Pallor , no scleral icterus. Oral mucous membrane is dry. No pharyngeal erythema or thrush NECK: Trachea central, no thyromegaly. LUNGS: Unlabored breathing. Decreased breath sound at the base HEART: S1, S2, regular rate and rhythm. No loud murmur ABDOMEN: Soft, no tenderness , guarding or rigidity, no organomegaly EXTREMITIES: No edema of feet. SKIN: No rash, no masses palpable. NEUROLOGICAL: The patient is awake, alert, oriented x3, mood and affect normal. Results CBC & Chem 7: 08/07/24 07:00 08/07/24 13:07 Labs: Abnormal Lab Results - Last 24 Hours (Table) 08/07/24 08/07/24 08/07/24 Range/Units 07:00 07:00 07:00 WBC 22.6 H (3.8-10.6) k/uL RBC 4.18 L (4.30-5.90) m/uL Hgb 12.4 L (13.0-17.5) gm/dL Hct 38.1 L (39.0-53.0) % Plt Count 129 L (150-450) k/uL Neutrophils # 20.1 H (1.3-7.7) k/uL Lymphocytes # 0.6 L (1.0-4.8) k/uL Monocytes # 1.5 H (0-1.0) k/uL PT 13.8 H (10.0-12.5) sec INR 1.3 H (<1.2) Sodium (137-145) mmol/L Potassium (3.5-5.1) mmol/L Carbon Dioxide (22-30) mmol/L BUN (9-20) mg/dL Creatinine (0.66-1.25) mg/dL Glucose (74-99) mg/dL POC Glucose (mg/dL) (70-110) mg/dL Troponin I 9.160 H* (0.000-0.034) ng/mL Total Protein (6.3-8.2) g/dL Albumin (3.5-5.0) g/dL 08/07/24 08/07/24 08/07/24 Range/Units 07:34 08:37 09:01 WBC (3.8-10.6) k/uL RBC (4.30-5.90) m/uL Hgb (13.0-17.5) gm/dL Hct (39.0-53.0) % Plt Count (150-450) k/uL Neutrophils # (1.3-7.7) k/uL Lymphocytes # (1.0-4.8) k/uL Monocytes # (0-1.0) k/uL PT (10.0-12.5) sec INR (<1.2) Sodium 136 L (137-145) mmol/L Potassium 3.2 L (3.5-5.1) mmol/L Carbon Dioxide 19 L (22-30) mmol/L BUN 109 H* (9-20) mg/dL Creatinine 5.97 H (0.66-1.25) mg/dL Glucose 50 L (74-99) mg/dL POC Glucose (mg/dL) 45 L* 116 H (70-110) mg/dL Troponin I (0.000-0.034) ng/mL Total Protein 5.9 L (6.3-8.2) g/dL Albumin 3.3 L (3.5-5.0) g/dL 08/07/24 Range/Units 10:42 WBC (3.8-10.6) k/uL RBC (4.30-5.90) m/uL Hgb (13.0-17.5) gm/dL Hct (39.0-53.0) % Plt Count (150-450) k/uL Neutrophils # (1.3-7.7) k/uL Lymphocytes # (1.0-4.8) k/uL Monocytes # (0-1.0) k/uL PT (10.0-12.5) sec INR (<1.2) Sodium (137-145) mmol/L Potassium (3.5-5.1) mmol/L Carbon Dioxide (22-30) mmol/L BUN (9-20) mg/dL Creatinine (0.66-1.25) mg/dL Glucose (74-99) mg/dL POC Glucose (mg/dL) 174 H (70-110) mg/dL Troponin I (0.000-0.034) ng/mL Total Protein (6.3-8.2) g/dL Albumin (3.5-5.0) g/dL Assessment and Plan (1) Sepsis Current Visit: Yes Status: Acute Code(s): A41.9 - SEPSIS, UNSPECIFIED ORG YOLY SNOMED Code(s): 73385843 Plan: 1patient presented to hospital with sepsis in this patient who did have elevated white count of 22,000 patient was hypotensive requiring pressor support meeting criteria for SIRS with the source possibly dialysis catheter infection as currently no other obvious focus do not have significant cough or sputum production chest x-ray was mostly fluid overload abdominal soft and no evidence of any cellulitis 2-patient with a transplant kidney which has not been completely and still chance of recovery as reported by the family will be more risk of nephrotoxicity with vancomycin which will be discontinued 3-we will start the patient on daptomycin and restart cefepime while waiting for the culture to finalize Family at the bedside question concern answered We will follow on clinical condition and cultures to further adjust medication if needed Thank you for this consultation we will follow the patient along with you Dictation was produced using [employer] dictation software. please excuse any grammatical, word or spelling errors. Time with Patient: Greater than 30
[2024-08-07] MEDS: CEFEPIME 1 GM in SODIUM CHLORIDE 0.9% 50 ML IVPB SCH (23:03)
[2024-08-08 04:42] LABS: Basophils % (A) 0 %; Eosinophils % (A) 0 %; HCT 35.2 % (39.0-53.0); HGB 11.1 gm/dL (13.0-17.5); Lymphocytes # (A) 0.4 k/uL (1.0-4.8); Lymphocytes % (A) 2 %; MCH 29.2 pg (25.0-35.0); MCHC 31.4 g/dL (31.0-37.0); MCV 93.3 fL (80.0-100.0); Mean Platelet Volume 10.3; Monocytes # (A) 0.8 k/uL (0-1.0); Monocytes % (A) 5 %; Neutrophils # (A) 16.6 k/uL (1.3-7.7); Neutrophils % (A) 92 %; Platelet Count 109 k/uL (150-450); RBC 3.78 m/uL (4.30-5.90)
[2024-08-08 04:59] LABS: ALT 21 U/L (4-49); AST 30 U/L (17-59); African American GFR (CKD) 18 (>60 ml/min/1.73 sqM); Albumin 2.4 g/dL (3.5-5.0); Alkaline Phosphatase 102 U/L (38-126); Anion Gap 7 mmol/L; Blood Urea Nitrogen 64 mg/dL (9-20); Calcium 7.5 mg/dL (8.4-10.2); Carbon Dioxide 18 mmol/L (22-30); Chloride 107 mmol/L (98-107); Glucose 351 mg/dL (74-99); Non-African American GFR(CKD) 16 (>60 ml/min/1.73 sqM); Potassium 3.4 mmol/L (3.5-5.1); Sodium 132 mmol/L (137-145); Total Bilirubin 0.9 mg/dL (0.2-1.3); Total Protein 4.7 g/dL (6.3-8.2)
[2024-08-08] MEDS: LEVOTHYROXINE 100 MCG TAB PO SCH (06:29)
[2024-08-08] MEDS: POTASSIUM CHLORIDE ER 20 MEQ TAB.ER PO STA (06:29)
[2024-08-08 06:33] LABS: Glucose,Whole Blood 410 mg/dL (70-110)
[2024-08-08] MEDS ORDERED: INSULIN ASPART (NovoLOG) 100 UNIT/ML VIAL SQ SCH (07:30)
[2024-08-08 08:00] LABS: Hepatitis B Surface Antigen Nonreactive (Nonreactive)
[2024-08-08 08:33] LABS: Hepatitis B Surface AB- Quant 54.8 mIU/mL
[2024-08-08] MEDS: LORATADINE 10 MG TAB PO SCH (08:33)
[2024-08-08] MEDS: predniSONE 10 MG TAB PO SCH (08:33)
[2024-08-08] MEDS: DAPTOmycin 500 MG in SODIUM CHLORIDE 0.9% 50 ML IVPB SCH (08:41)
[2024-08-08] MEDS ORDERED: VANCOMYCIN 1,500 MG in SODIUM CHLORIDE 0.9% 500 ML 500 ML IVPB ONE (09:00)
--- NOTE | 2024-08-08 10:52 | P.PN ---
Subjective Progress Note Date: 08/08/24 Patient seen in follow-up for ESRD. Tolerated HD yesterday. Off levophed this morning. Feeling better overall. Gen: NAD, non-toxic CVS: RRR, no edema Respiratory: CTAB GI: soft, non-tender MSK/Derm: no rashes, cyanosis Neuro: CN II-XII intact, no motor weakness Objective - Vital Signs Vital signs: Vital Signs Temp 97.9 F 08/08/24 00:00 Pulse 57 L 08/08/24 07:00 Resp 18 08/08/24 07:00 BP 93/63 08/08/24 07:00 Pulse Ox 96 08/08/24 07:00 FiO2 Intake & Output 08/07/24 08/08/24 08/08/24 19:59 06:59 18:59 Intake Total Output Total 0 Balance 0 Weight Intake: IV Dextrose 10% in Water 1, 000 ml @ 120 mls/hr IV . Q8H40M [facility] with Sodium Chloride 4Meq/ml Vial 153 .8 meq Rx#:[id number] Sodium Chloride 0.9% 1, 000 ml @ 75 mls/hr IV . [id number] [facility] Rx#:[id number] Intake, IV Titration Amount Amiodarone 450 mg In Dextrose 5% in Water 250 ml @ 0.5 MG/MIN 16.667 mls/hr IV .Q15H [facility] Rx#: [id number] Heparin Sod,Pork in 0.45% NaCl 25,000 unit In 0.45 % NaCl 1 250ml.bag @ 12 UNITS/KG/HR 9.798 mls/hr IV .Q24H [facility] Rx#: [id number] Magnesium Sulfate-D5w Pmx 1 gm In Dextrose/Water 1 100ml.bag @ 100 mls/hr IVPB Q1H [facility] Rx#: [id number] Norepinephrine 32 mg In Sodium Chloride 0.9% 218 ml @ 0.03 MCG/KG/MIN 1. 148 mls/hr IV .Q24H [facility] Rx#:[id number] Oral Hemodialysis Output: Urine 0 Hemodialysis Hemodialysis Net Amount - Labs CBC & Chem 7: 08/08/24 04:25 08/08/24 04:25 Labs: Abnormal Lab Results - Last 24 Hours (Table) 08/07/24 08/07/24 08/07/24 Range/Units 07:34 10:42 13:07 WBC (3.8-10.6) k/uL RBC (4.30-5.90) m/uL Hgb (13.0-17.5) gm/dL Hct (39.0-53.0) % RDW (11.5-15.5) % Plt Count (150-450) k/uL Neutrophils # (1.3-7.7) k/uL Lymphocytes # (1.0-4.8) k/uL PT (10.0-12.5) sec INR (<1.2) APTT (22.0-30.0) sec Sodium 133 L (137-145) mmol/L Potassium (3.5-5.1) mmol/L Carbon Dioxide 18 L (22-30) mmol/L BUN 99 H (9-20) mg/dL Creatinine 5.99 H (0.66-1.25) mg/dL Glucose 364 H (74-99) mg/dL POC Glucose (mg/dL) 174 H (70-110) mg/dL Calcium 8.3 L (8.4-10.2) mg/dL Magnesium (1.6-2.3) mg/dL Total Protein (6.3-8.2) g/dL Albumin (3.5-5.0) g/dL Procalcitonin 72.70 H (0.02-0.50) ng/mL Hep Bs Antibody (Negative) 08/07/24 08/07/24 08/07/24 Range/Units 13:07 13:27 20:07 WBC (3.8-10.6) k/uL RBC (4.30-5.90) m/uL Hgb (13.0-17.5) gm/dL Hct (39.0-53.0) % RDW (11.5-15.5) % Plt Count (150-450) k/uL Neutrophils # (1.3-7.7) k/uL Lymphocytes # (1.0-4.8) k/uL PT 14.2 H (10.0-12.5) sec INR 1.4 H (<1.2) APTT (22.0-30.0) sec Sodium (137-145) mmol/L Potassium (3.5-5.1) mmol/L Carbon Dioxide (22-30) mmol/L BUN (9-20) mg/dL Creatinine (0.66-1.25) mg/dL Glucose (74-99) mg/dL POC Glucose (mg/dL) 456 H (70-110) mg/dL Calcium (8.4-10.2) mg/dL Magnesium (1.6-2.3) mg/dL Total Protein (6.3-8.2) g/dL Albumin (3.5-5.0) g/dL Procalcitonin (0.02-0.50) ng/mL Hep Bs Antibody A (Negative) 08/07/24 08/08/24 08/08/24 Range/Units 20:47 04:25 04:25 WBC 18.0 H (3.8-10.6) k/uL RBC 3.78 L (4.30-5.90) m/uL Hgb 11.1 L (13.0-17.5) gm/dL Hct 35.2 L (39.0-53.0) % RDW 16.0 H (11.5-15.5) % Plt Count 109 L (150-450) k/uL Neutrophils # 16.6 H (1.3-7.7) k/uL Lymphocytes # 0.4 L (1.0-4.8) k/uL PT (10.0-12.5) sec INR (<1.2) APTT 39.4 H 59.9 H (22.0-30.0) sec Sodium (137-145) mmol/L Potassium (3.5-5.1) mmol/L Carbon Dioxide (22-30) mmol/L BUN (9-20) mg/dL Creatinine (0.66-1.25) mg/dL Glucose (74-99) mg/dL POC Glucose (mg/dL) (70-110) mg/dL Calcium (8.4-10.2) mg/dL Magnesium (1.6-2.3) mg/dL Total Protein (6.3-8.2) g/dL Albumin (3.5-5.0) g/dL Procalcitonin (0.02-0.50) ng/mL Hep Bs Antibody (Negative) 08/08/24 08/08/24 08/08/24 Range/Units 04:25 04:31 06:30 WBC (3.8-10.6) k/uL RBC (4.30-5.90) m/uL Hgb (13.0-17.5) gm/dL Hct (39.0-53.0) % RDW (11.5-15.5) % Plt Count (150-450) k/uL Neutrophils # (1.3-7.7) k/uL Lymphocytes # (1.0-4.8) k/uL PT (10.0-12.5) sec INR (<1.2) APTT (22.0-30.0) sec Sodium 132 L (137-145) mmol/L Potassium 3.4 L (3.5-5.1) mmol/L Carbon Dioxide 18 L (22-30) mmol/L BUN 64 H (9-20) mg/dL Creatinine 4.05 H (0.66-1.25) mg/dL Glucose 351 H (74-99) mg/dL POC Glucose (mg/dL) 410 H (70-110) mg/dL Calcium 7.5 L (8.4-10.2) mg/dL Magnesium 2.5 H (1.6-2.3) mg/dL Total Protein 4.7 L (6.3-8.2) g/dL Albumin 2.4 L (3.5-5.0) g/dL Procalcitonin (0.02-0.50) ng/mL Hep Bs Antibody (Negative) Assessment and Plan Assessment: 1. ESRD on HD twice weekly Fri/Fri. 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 2. Failed donor transplant at [facility] in July 2017 maintained on Prograf, CellCept 3. Hypokalemia 4. Shock likely Septic 5. Anemia with ESRD goal Hb 10-11.5 6. MBD with ESRD goal phosphorus <5.5 Plan: HD yesterday, next treatment likely Friday Replace potassium Levophed as needed for BP support LHC yesterday mild CAD Recommend checking blood cultures If infection confirmed continue tacrolimus and hold cellcept with increased prednisone 10mg daily
--- NOTE | 2024-08-08 11:20 | P.PN ---
Subjective Progress Note Date: 08/08/24 Principal diagnosis: Chest pain and shortness of breath. Pulmonary consult dated August 07, 2024. 54-year-old male with history of multiple medical problems including end-stage renal disease, status post kidney transplant, back in 2016. The patient was brought into the hospital, for weakness, and low blood pressure. The patient's kidney transplant, has not been going well, and he still requires hemodialysis twice a week. The patient was seen in the emergency department, trauma room 1. I was notified by the ER physician. The patient is currently on 4 L of oxygen. The patient is receiving amiodarone, and also norepinephrine at 0.08 mcg/kg/min. The patient was seen by cardiology, and IV heparin was started. The patient had a cardiac catheterization, back in December 2023, and apparently at that time, the catheterization showed only mild coronary disease. The patient was prescribed vancomycin and cefepime. Will check an N-terminal proBNP and procalcitonin level. The patient will get an echocardiogram, and according to the casing cleaner, may benefit from cardiac catheterization as well. Current labs include a white count 22.6, hemoglobin 12.4, macro 38.1, and a platelet count of 129,000. PT 13.8, INR 1.3. Sodium 136, potassium 3.2, chlorides 102, CO2 19, anion gap 15, BUN 109, creatinine 5.97. Glucose is 174. Troponin was 9.160. N-terminal proBNP was quite elevated at 76,600. Albumin was 3.3. TSH was normal. Procalcitonin level is currently pending. Chest x-ray shows mild pulmonary edema. The patient went to the catheterization laboratory, today, and had only mild CAD, and mild elevated left-sided filling pressures. Medical treatment was recommended. Progress note dated August 08, 2024. 54-year-old male seen today in room 263. He was initially seen in the emergency department. The patient had a cardiac catheterization yesterday, which showed mild CAD. He is currently on 4 L nasal cannula. IV heparin will be discontinued by cardiology. He continues on amiodarone, at 0.5 mg/min, for new onset atrial fibrillation. He is also getting saline at 10 cc an hour. Norepinephrine has also been weaned off. His procalcitonin level was quite elevated at 72.7. He continues on cefepime and daptomycin as per infectious diseases. White count is 18, hemoglobin 9.1, hematocrit 35.2, platelet count 109,000. PTT is 59.9. Sodium 132, potassium 3.4, chlorides 107, CO2 18, BUN 64, creatinine 4.05. Glucose is 410. Magnesium 2.5. Calcium 7.5. Objective - Vital Signs Vital signs: Vital Signs Temp 97.5 F L 08/08/24 08:00 Pulse 58 L 08/08/24 08:30 Resp 16 08/08/24 08:30 BP 102/82 08/08/24 09:00 Pulse Ox 96 08/08/24 08:30 FiO2 Intake & Output 08/07/24 08/08/24 08/08/24 19:59 06:59 18:59 Intake Total 50 Output Total 0 Balance 50 Weight Intake: IV 50 DAPTOmycin 500 mg In 50 Sodium Chloride 0.9% 50 ml @ 100 mls/hr IVPB Q48H [facility] Rx#:[id number] Dextrose 10% in Water 1, 000 ml @ 120 mls/hr IV . Q8H40M [facility] with Sodium Chloride 4Meq/ml Vial 153 .8 meq Rx#:[id number] Sodium Chloride 0.9% 1, 000 ml @ 75 mls/hr IV . [id number] [facility] Rx#:[id number] Intake, IV Titration Amount Amiodarone 450 mg In Dextrose 5% in Water 250 ml @ 0.5 MG/MIN 16.667 mls/hr IV .Q15H [facility] Rx#: [id number] Heparin Sod,Pork in 0.45% NaCl 25,000 unit In 0.45 % NaCl 1 250ml.bag @ 12 UNITS/KG/HR 9.798 mls/hr IV .Q24H [facility] Rx#: [id number] Magnesium Sulfate-D5w Pmx 1 gm In Dextrose/Water 1 100ml.bag @ 100 mls/hr IVPB Q1H [facility] Rx#: [id number] Norepinephrine 32 mg In Sodium Chloride 0.9% 218 ml @ 0.03 MCG/KG/MIN 1. 148 mls/hr IV .Q24H [facility] Rx#:[id number] Oral Hemodialysis Output: Urine 0 Hemodialysis Hemodialysis Net Amount Other: # Voids 300 # Bowel Movements 1 - Exam No acute distress, oriented 3. The patient is currently on 4 L of oxygen. HEENT examination is grossly unremarkable. Mucous membranes are moist. No oral lesions. Neck supple. Full range of motion. No adenopathy thyromegaly or neck vein distention. Cardiovascular examination reveals regular rhythm rate. S1-S2 normal. No S3 or S4. No discernible murmur noted. Heart sounds are distant. Lungs reveal scattered crackles. No wheezes or rhonchi. Breath sounds equal. Abdomen soft bowel sounds are heard. No masses or tenderness. Extremities are intact. No cyanosis clubbing or edema. Skin is without rash or lesion. Neurologic examination is brief but nonfocal. - Labs CBC & Chem 7: 08/08/24 04:25 08/08/24 04:25 Labs: Abnormal Lab Results - Last 24 Hours (Table) 08/07/24 08/07/24 08/07/24 Range/Units 07:34 13:07 13:07 WBC (3.8-10.6) k/uL RBC (4.30-5.90) m/uL Hgb (13.0-17.5) gm/dL Hct (39.0-53.0) % RDW (11.5-15.5) % Plt Count (150-450) k/uL Neutrophils # (1.3-7.7) k/uL Lymphocytes # (1.0-4.8) k/uL PT (10.0-12.5) sec INR (<1.2) APTT (22.0-30.0) sec Sodium 133 L (137-145) mmol/L Potassium (3.5-5.1) mmol/L Carbon Dioxide 18 L (22-30) mmol/L BUN 99 H (9-20) mg/dL Creatinine 5.99 H (0.66-1.25) mg/dL Glucose 364 H (74-99) mg/dL POC Glucose (mg/dL) (70-110) mg/dL Calcium 8.3 L (8.4-10.2) mg/dL Magnesium (1.6-2.3) mg/dL Total Protein (6.3-8.2) g/dL Albumin (3.5-5.0) g/dL Procalcitonin 72.70 H (0.02-0.50) ng/mL Hep Bs Antibody A (Negative) 08/07/24 08/07/24 08/07/24 Range/Units 13:27 20:07 20:47 WBC (3.8-10.6) k/uL RBC (4.30-5.90) m/uL Hgb (13.0-17.5) gm/dL Hct (39.0-53.0) % RDW (11.5-15.5) % Plt Count (150-450) k/uL Neutrophils # (1.3-7.7) k/uL Lymphocytes # (1.0-4.8) k/uL PT 14.2 H (10.0-12.5) sec INR 1.4 H (<1.2) APTT 39.4 H (22.0-30.0) sec Sodium (137-145) mmol/L Potassium (3.5-5.1) mmol/L Carbon Dioxide (22-30) mmol/L BUN (9-20) mg/dL Creatinine (0.66-1.25) mg/dL Glucose (74-99) mg/dL POC Glucose (mg/dL) 456 H (70-110) mg/dL Calcium (8.4-10.2) mg/dL Magnesium (1.6-2.3) mg/dL Total Protein (6.3-8.2) g/dL Albumin (3.5-5.0) g/dL Procalcitonin (0.02-0.50) ng/mL Hep Bs Antibody (Negative) 08/08/24 08/08/24 08/08/24 Range/Units 04:25 04:25 04:25 WBC 18.0 H (3.8-10.6) k/uL RBC 3.78 L (4.30-5.90) m/uL Hgb 11.1 L (13.0-17.5) gm/dL Hct 35.2 L (39.0-53.0) % RDW 16.0 H (11.5-15.5) % Plt Count 109 L (150-450) k/uL Neutrophils # 16.6 H (1.3-7.7) k/uL Lymphocytes # 0.4 L (1.0-4.8) k/uL PT (10.0-12.5) sec INR (<1.2) APTT 59.9 H (22.0-30.0) sec Sodium 132 L (137-145) mmol/L Potassium 3.4 L (3.5-5.1) mmol/L Carbon Dioxide 18 L (22-30) mmol/L BUN 64 H (9-20) mg/dL Creatinine 4.05 H (0.66-1.25) mg/dL Glucose 351 H (74-99) mg/dL POC Glucose (mg/dL) (70-110) mg/dL Calcium 7.5 L (8.4-10.2) mg/dL Magnesium (1.6-2.3) mg/dL Total Protein 4.7 L (6.3-8.2) g/dL Albumin 2.4 L (3.5-5.0) g/dL Procalcitonin (0.02-0.50) ng/mL Hep Bs Antibody (Negative) 08/08/24 08/08/24 Range/Units 04:31 06:30 WBC (3.8-10.6) k/uL RBC (4.30-5.90) m/uL Hgb (13.0-17.5) gm/dL Hct (39.0-53.0) % RDW (11.5-15.5) % Plt Count (150-450) k/uL Neutrophils # (1.3-7.7) k/uL Lymphocytes # (1.0-4.8) k/uL PT (10.0-12.5) sec INR (<1.2) APTT (22.0-30.0) sec Sodium (137-145) mmol/L Potassium (3.5-5.1) mmol/L Carbon Dioxide (22-30) mmol/L BUN (9-20) mg/dL Creatinine (0.66-1.25) mg/dL Glucose (74-99) mg/dL POC Glucose (mg/dL) 410 H (70-110) mg/dL Calcium (8.4-10.2) mg/dL Magnesium 2.5 H (1.6-2.3) mg/dL Total Protein (6.3-8.2) g/dL Albumin (3.5-5.0) g/dL Procalcitonin (0.02-0.50) ng/mL Hep Bs Antibody (Negative) Assessment and Plan Assessment: Weakness, and hypotension, of unclear etiology, related to underlying infection. Cardiac catheterization, August 07, showing only mild CAD. History of renal transplant, 2017, patient still requiring twice a week hemodialysis. New onset atrial fibrillation with RVR. Rule out sepsis. History of hypothyroidism. Previous history of tobacco use. History of hyperlipidemia. History of diabetes mellitus. History of hypertension. Prior history of coronavirus infection, with postinflammatory pulmonary fibrosis. History of pulmonary embolism. Plan: Plan dated August 07, 2024. The patient is seen in the emergency department. The patient is in trauma bay #1. The patient came in with weakness, and hypotension. The patient is currently on 4 L. The patient is receiving amiodarone, for his atrial fibrillation/RVR. He is also on norepinephrine at 0.08 mcg/kg/min. IV heparin was being started by cardiology. The patient did go for cardiac catheterization, which revealed only mild CAD. An N-terminal proBNP was quite elevated. A procalcitonin level is pending. Echocardiogram is pending. The patient was placed on vancomycin and cefepime. Labs, x-rays, medications are reviewed. Additional recommendations and suggestions are forthcoming. His last cardiac catheterization was in December 2023, which again showed only mild CAD. Plan dated August 08, 2024. The patient is seen today in room 263. He continues on cefepime and daptomycin as per infectious diseases. His procalcitonin level was quite elevated at 72.7. Cardiac catheterization done August 07, showed only mild CAD. He continues on 4 L nasal cannula. He also continues on amiodarone 0.5 mg/min for new onset atrial fibrillation. Cardiology is discontinuing the heparin. Norepinephrine has been weaned off. The patient could be transferred to 3 S. floor. Labs, x- rays, and all medications are reviewed. We will continue to follow make recommendations along the way. Prognosis is certainly guarded. Time with Patient: Greater than 30
[2024-08-08 11:28] LABS: Glucose,Whole Blood 193 mg/dL (70-110)
--- NOTE | 2024-08-08 13:03 | P.PN ---
Progress Note - Text Progress Note Date: 08/08/24 Chief Complaint: Not feeling well Pleasant 54-year-old patient who follows with Dr. Ballard. Accompanied by in the ICU. In 2017 patient underwent renal transplant at [facility]. Follows up with the transplant physician there. Patient previously had cardiac catheterization, in 2016 was told has had about 40 to 50% lesion in distal circumflex. Patient had Prevena lethargic for last 2 days. Patient heart rate went up blood pressure dropped. EMS was called out. Brought into the ER. At home normally patient uses 3 L of oxygen. Has a left groin hemodialysis catheter. Patient had elevated troponin of 9. Taken to cardiac [employer]. Unremarkable. Moved to the ICU. On a Levophed 0.08 mics. 4 L of oxygen. Elevated white count. Patient has intermittent chronic cough since his COVID. Denies any urinary symptoms. Does make urine. Denies any obvious fever but has had some chills. August 08: ICU. Sitting up in bed. Nasal cannula. Was hemodialyzed yesterday. Patient is off amiodarone and Levophed drip. Apparently patient was in A-fib with rapid ventricular rate in the ER. Was also put on IV heparin that has been discontinued. Remains on IV cefepime and IV daptomycin.No cultures reported currently. Eating well. at the bedside. Was up to the bathroom. Active Medications Acetaminophen (Acetaminophen Tab 325 Mg Tab) 650 mg PO Q4HR PRN PRN Reason: Fever and/or Mild Pain Acetaminophen (Acetaminophen Tab 500 Mg Tab) 1,000 mg PO Q6H PRN PRN Reason: Fever and/ or Pain Albuterol Sulfate (Albuterol Nebulized 2.5 Mg/3 Ml) 2.5 mg INHALATION RT-QID PRN PRN Reason: Shortness Of Breath Albuterol Sulfate (Albuterol Hfa Inhaler) 2 puff INHALATION RT-Q4H PRN PRN Reason: Shortness Of Breath Amiodarone HCl (Amiodarone 200 Mg Tab) 400 mg PO BID JENNY Apixaban (Apixaban 2.5 Mg Tablet) 2.5 mg PO BID JENNY; Protocol Dextrose/Water (Dextrose 50% Syringe 50 Ml) 25 ml IVP PER PROTOCOL PRN; Protocol PRN Reason: Hypoglycemia Dextrose/Water (Dextrose 50% Syringe 50 Ml) 50 ml IVP PER PROTOCOL PRN; Protocol PRN Reason: Hypoglycemia Daptomycin 500 mg/ Sodium (Chloride) 50 mls @ 100 mls/hr IVPB Q48H [facility]; Protocol Last Admin: 08/08/24 08:41 Dose: 100 mls/hr Cefepime HCl 1 gm/ Sodium (Chloride) 50 mls @ 12.5 mls/hr IVPB Q12HR [facility]; Protocol Last Admin: 08/08/24 10:43 Dose: 12.5 mls/hr Insulin Aspart (Insulin Aspart (Novolog) 100 Unit/Ml Vial) 0 unit SQ ACHS [facility]; Protocol Last Admin: 08/08/24 11:42 Dose: 2 unit Levothyroxine Sodium (Levothyroxine 100 Mcg Tab) 100 mcg PO DAILY@0630 [facility] Last Admin: 08/08/24 06:29 Dose: 100 mcg Loratadine (Loratadine 10 Mg Tab) 10 mg PO DAILY [facility] Last Admin: 08/08/24 08:33 Dose: 10 mg Midodrine (Midodrine 5 Mg Tab) 10 mg PO TID PRN PRN Reason: Blood Pressure - Low Miscellaneous Information (Rx Info: Iv Contrast Was Given 1 Each Misc) 1 each MISCELLANE DAILY PRN PRN Reason: Per Protocol Stop: 08/09/24 09:59 Miscellaneous Information (Magnesium Replacement Protocol 1 Each Misc) 1 each MISCELLANE DAILY PRN; Protocol PRN Reason: Per Protocol Montelukast Sodium (Montelukast 10 Mg Tab) 10 mg PO HS [facility] Last Admin: 08/07/24 20:43 Dose: 10 mg Mycophenolate Mofetil (Mycophenolate Mofetil 250 Mg Cap) 250 mg PO BID [facility] Last Admin: 08/08/24 08:34 Dose: 250 mg Naloxone HCl (Naloxone 0.4 Mg/Ml 1 Ml Vial) 0.2 mg IV Q2M PRN PRN Reason: Opioid Reversal Prednisone (Prednisone 10 Mg Tab) 20 mg PO DAILY [facility]; Taper Stop: 08/10/24 08:59 Last Admin: 08/08/24 08:33 Dose: 20 mg Prednisone (Prednisone 5 Mg Tab) 5 mg PO DAILY [facility] Sertraline HCl (Sertraline 25 Mg Tab) 25 mg PO HS [facility] Last Admin: 08/07/24 20:44 Dose: 25 mg Sevelamer Carbonate (Sevelamer 800 Mg Tab) 800 mg PO W/SUPPER [facility] Last Admin: 08/07/24 17:13 Dose: 800 mg Sodium Bicarbonate (Sodium Bicarbonate Tab 650 Mg Tab) 650 mg PO TID [facility] Last Admin: 08/08/24 08:33 Dose: 650 mg Tacrolimus (Tacrolimus 1 Mg Cap) 1 mg PO DAILY [facility] Last Admin: 08/08/24 08:34 Dose: 1 mg Tacrolimus (Tacrolimus 0.5 Mg Cap) 0.5 mg PO HS [facility] Last Admin: 08/07/24 20:43 Dose: 0.5 mg Torsemide (Torsemide 20 Mg Tab) 40 mg PO DAILY [facility] Last Admin: 08/08/24 08:34 Dose: 40 mg Social history: Lives with . Smoked half a pack a day from age 17 and stopped in 1998. No alcohol. Physical examination: VITAL SIGNS: 97.7, 57, 17, 98 x 68, 96% on 4 L GENERAL: BMI 29.1, sitting up in bed. Left groin hemodialysis catheter EYES: Pupils equal. Conjunctiva nicole l. HEENT: External appearance of nose and ears normal, oral cavity grossly normal. NECK: JVD not raised; masses not palpable. HEART: First and second heart sounds are normal; mild edema. LUNGS: Respiratory rate normal; decreased breath sounds n. ABDOMEN: Soft, nontender, liver spleen not palpable, no masses palpable. PSYCH: Alert and oriented x3; mood and affect nicole l. MUSCULOSKELETAL:No Clubbing/cyanosis;muscles-grossly intact INVESTIGATIONS, reviewed in the clinical context: August 08: White count 18 hemoglobin 11.1 platelets 109 sodium 132 potassium 3.4 BUN 64 creatinine 4.05 August 07, 2024: Sodium 136 potassium 3.2 BUN 109 creatinine 5.97 glucose 50 TSH 2.9 white count 22.6 hemoglobin 12.4 platelets 129 Troponin I 9.16 EKG tracing personally reviewed by me-sinus rhythm. ST segment depression anterolateral leads. And some inferior leads Chest x-ray film personally reviewed by me-cardiomegaly Assessment plan: -Hypotensive shock. Exact cause unknown. Patient not been feeling well for last couple of days. Some chills. Elevated white count. At this point sepsis is a consideration.: Better Levophed -discontinued -Sepsis consideration on presentation. Cultures pending. Need to rule out dialysis access the catheter site as a source -Empiric antibiotics on board. ID consulted. -Cardiac catheterization did not show any significant disease. Mild LAD -End-stage kidney disease and a renal transplant patient. Left groin hemodialysis catheter -Renal transplant in 2017 at [facility]. Prednisone 5 mg a day. CellCept to 50 mg twice daily. Prograf 1 mg p.o. twice daily. -Chronic hypoxic respiratory failure, from previous COVID infection 3 L of oxygen at home -Hypothyroid Synthroid 100 mcg a day -Diabetes mellitus type 2, chronically on insulin. Hypoglycemic in the ER. Insulin Lantus . Follow sliding scale with sliding scale insulin. Semaglutide -Hyperlipidemia Crestor -Depression otherwise specified Zoloft 25 mg nightly -Full code Cussed with patient . Continue antibiotics. Decrease FiO2. Past Medical History Past Medical History: Coronary Artery Disease (CAD), Renal Disease, Thyroid Disorder Additional Past Medical History / Comment(s): Renal failure post-kidney transplantation, previous history of dialysis for a total of 12 years followed by kidney transplantation, hypothyroidism, chronic stage III kidney failure post transplantation, nonocclusive coronary artery disease and the patient a cardiac catheterization on 09/24/2016 that showed 40-50% lesion in the distal circumflex otherwise the rest of the coronary arteries were all within normal limits. History of Any Multi-Drug Resistant Organisms: None Reported Past Surgical History: Heart Catheterization, Orthopedic Surgery Additional Past Surgical History / Comment(s): FISTULA/GRAFT RT ARM, kidney transplant in July of 2017, Left hip Past Anesthesia/Blood Transfusion Reactions: No Reported Reaction Past Psychological History: No Psychological Hx Reported Additional Psychological History / Comment(s): Short term memory issues. Smoking Status: Former smoker Past Alcohol Use History: None Reported Additional Past Alcohol Use History / Comment(s): QUIT SMOKING 1998, SMOKED 1/2 PPD FROM AGE 17 Past Drug Use History: None Reported
--- NOTE | 2024-08-08 14:19 | P.PN ---
Subjective Progress Note Date: 08/08/24 Principal diagnosis: Reason for follow-up is sepsis question of line infection/pneumonia Patient is a 54-year-old male with a past medical history significant for coronary artery disease thyroid disorder diverticulitis also with a history of end-stage renal disease status post kidney transplant and remains to be on immunosuppressive presented to the hospital for evaluation of weakness malaise shortness of breath he did have elevated white count and there was concern for possible dialysis catheter infection or question of as he did have elevated procalcitonin of 72.70. On today's evaluation that is 08/08/2024, patient has been afebrile, patient is breathing comfortably and is currently on 4 L nasal cannula oxygen denies having any chest pain or cough no nausea vomiting no abdominal pain or diarrhea. Patient white count is down to 18,000, creatinine 4.05 cultures currently pending Objective - Vital Signs Vital signs: Vital Signs Temp 97.7 F 08/08/24 11:45 Pulse 57 L 08/08/24 11:45 Resp 17 08/08/24 11:45 BP 98/68 08/08/24 11:45 Pulse Ox 96 08/08/24 11:45 FiO2 Intake & Output 08/07/24 08/08/24 08/08/24 19:59 06:59 18:59 Intake Total 50 Output Total 77 Balance -27 Weight Intake: IV 50 DAPTOmycin 500 mg In 50 Sodium Chloride 0.9% 50 ml @ 100 mls/hr IVPB Q48H JENNY Rx#:[id number] Dextrose 10% in Water 1, 000 ml @ 120 mls/hr IV . Q8H40M JENNY with Sodium Chloride 4Meq/ml Vial 153 .8 meq Rx#:[id number] Sodium Chloride 0.9% 1, 000 ml @ 75 mls/hr IV . [id number] JENNY Rx#:[id number] Intake, IV Titration Amount Amiodarone 450 mg In Dextrose 5% in Water 250 ml @ 0.5 MG/MIN 16.667 mls/hr IV .Q15H JENNY Rx#: [id number] Heparin Sod,Pork in 0.45% NaCl 25,000 unit In 0.45 % NaCl 1 250ml.bag @ 12 UNITS/KG/HR 9.798 mls/hr IV .Q24H JENNY Rx#: [id number] Magnesium Sulfate-D5w Pmx 1 gm In Dextrose/Water 1 100ml.bag @ 100 mls/hr IVPB Q1H JENNY Rx#: [id number] Norepinephrine 32 mg In Sodium Chloride 0.9% 218 ml @ 0.03 MCG/KG/MIN 1. 148 mls/hr IV .Q24H ONE Rx#:[id number] Oral Hemodialysis Output: Urine 0 Post Void Residual 77 Hemodialysis Hemodialysis Net Amount Other: # Voids 300 # Bowel Movements 1 - Exam GENERAL DESCRIPTION: Middle-age male lying in bed in no distress RESPIRATORY SYSTEM: Unlabored breathing , decreased breath sounds at bases HEART: S1 S2 regular rate and rhythm , ABDOMEN: Soft , no tenderness EXTREMITIES: No edema feet - Labs CBC & Chem 7: 08/08/24 04:25 08/08/24 04:25 Labs: Abnormal Lab Results - Last 24 Hours (Table) 08/07/24 08/07/24 08/07/24 Range/Units 13:07 20:07 20:47 WBC (3.8-10.6) k/uL RBC (4.30-5.90) m/uL Hgb (13.0-17.5) gm/dL Hct (39.0-53.0) % RDW (11.5-15.5) % Plt Count (150-450) k/uL Neutrophils # (1.3-7.7) k/uL Lymphocytes # (1.0-4.8) k/uL APTT 39.4 H (22.0-30.0) sec Sodium (137-145) mmol/L Potassium (3.5-5.1) mmol/L Carbon Dioxide (22-30) mmol/L BUN (9-20) mg/dL Creatinine (0.66-1.25) mg/dL Glucose (74-99) mg/dL POC Glucose (mg/dL) 456 H (70-110) mg/dL Calcium (8.4-10.2) mg/dL Magnesium (1.6-2.3) mg/dL Total Protein (6.3-8.2) g/dL Albumin (3.5-5.0) g/dL Hep Bs Antibody A (Negative) 08/08/24 08/08/24 08/08/24 Range/Units 04:25 04:25 04:25 WBC 18.0 H (3.8-10.6) k/uL RBC 3.78 L (4.30-5.90) m/uL Hgb 11.1 L (13.0-17.5) gm/dL Hct 35.2 L (39.0-53.0) % RDW 16.0 H (11.5-15.5) % Plt Count 109 L (150-450) k/uL Neutrophils # 16.6 H (1.3-7.7) k/uL Lymphocytes # 0.4 L (1.0-4.8) k/uL APTT 59.9 H (22.0-30.0) sec Sodium 132 L (137-145) mmol/L Potassium 3.4 L (3.5-5.1) mmol/L Carbon Dioxide 18 L (22-30) mmol/L BUN 64 H (9-20) mg/dL Creatinine 4.05 H (0.66-1.25) mg/dL Glucose 351 H (74-99) mg/dL POC Glucose (mg/dL) (70-110) mg/dL Calcium 7.5 L (8.4-10.2) mg/dL Magnesium (1.6-2.3) mg/dL Total Protein 4.7 L (6.3-8.2) g/dL Albumin 2.4 L (3.5-5.0) g/dL Hep Bs Antibody (Negative) 08/08/24 08/08/24 08/08/24 Range/Units 04:31 06:30 11:27 WBC (3.8-10.6) k/uL RBC (4.30-5.90) m/uL Hgb (13.0-17.5) gm/dL Hct (39.0-53.0) % RDW (11.5-15.5) % Plt Count (150-450) k/uL Neutrophils # (1.3-7.7) k/uL Lymphocytes # (1.0-4.8) k/uL APTT (22.0-30.0) sec Sodium (137-145) mmol/L Potassium (3.5-5.1) mmol/L Carbon Dioxide (22-30) mmol/L BUN (9-20) mg/dL Creatinine (0.66-1.25) mg/dL Glucose (74-99) mg/dL POC Glucose (mg/dL) 410 H 193 H (70-110) mg/dL Calcium (8.4-10.2) mg/dL Magnesium 2.5 H (1.6-2.3) mg/dL Total Protein (6.3-8.2) g/dL Albumin (3.5-5.0) g/dL Hep Bs Antibody (Negative) Assessment and Plan (1) Sepsis Current Visit: Yes Status: Acute Code(s): A41.9 - SEPSIS, UNSPECIFIED ORGANISM SNOMED Code(s): 39959914 Plan: 1patient presented to hospital with sepsis in this patient who did have elevated white count of 22,000 patient was hypotensive requiring pressor support meeting criteria for SIRS with the source possibly dialysis catheter infection as currently no other obvious focus do not have significant cough or sputum production chest x-ray was mostly fluid overload abdominal soft and no evidence of any cellulitis 2-patient with a transplant kidney which has not been completely and still chance of recovery as reported by the family will be more risk of nephrotoxicity with vancomycin which was discontinued 3-patient white count is trending down cultures are currently pending we will continue the daptomycin and cefepime while waiting for the culture to finalize Dictation was produced using [employer] dictation software. please excuse any grammatical, word or spelling errors. Time with Patient: Less than 30
--- NOTE | 2024-08-08 14:54 | P.PN ---
Subjective Progress Note Date: 08/08/24 This is a 54-year-old gentleman who is known to our service from before who follows with Dr. Cabrera on a regular basis with a past medical history significant for diabetes and hypertension and dyslipidemia and history of renal transplant but currently the patient is on dialysis as well as hypoxic respiratory failure after COVID-19 infection was brought to the hospital by his because he was not feeling well. The patient somewhat is poor historian and the history was taken from him as well as from his who was at bedside. The patient has been feeling weak and tired and fatigue for the last several days but beside that he has been experiencing also increasing in the shortness of breath with no associated symptoms of any chest pain or chest discomfort or dizziness or lightheadedness or any feeling of heart racing fluttering or presyncope or syncope. Upon arrival to the emergency department he was hypotensive requiring norepinephrine to support the blood pressure and also he was in atrial fibrillation with rapid ventricular response but an EKG showed ST segment elevation in aVR and diffuse ST segment depression concerning for severe underlying coronary artery disease. Also his troponin came in to be elevated at 9.1. Giving all of that I advised the patient to undergo a heart cat heterization. The heart catheterization revealed mild nonobstructive coronary artery disease. The patient subsequently was admitted to the intensive care unit. An echocardiogram is in process to be done to rule out stress-induced cardiomyopathy. Please note that the LV end-diastolic pressure/left ventricular filling pressure was elevated around 17 mmHg. Also subsequently the patient was noted to be febrile and WBC came in to be elevated. He might have a component of infection/sepsis as well. The atrial fibrillation is new and the patient never been diagnosed with atrial fibrillation before. An echo from December 2023 showed normal biventricular systolic function with no significant valvular abnormalities. His recent hemoglobin was 12.4 and creatinine was 5.97. NT proBNP came in to be elevated at 76,000. The physical examination is remarkable for irregular rhythm with a systolic murmur at the right upper sternal border with clear breathing sounds bilaterally and no edema was noted in the lower extremities August 08, 2024 The patient was seen and evaluated this morning. He is feeling much better. He is asymptomatic and hemodynamically stable besides soft blood pressure. He is converted to normal sinus mechanism. Am going to DC amiodarone IV and start the patient on amiodarone orally and also DC heparin IV and restart the patient on anticoagulation for the atrial fibrillation. Follow-up on the echocardiogram which is still pending. Physical examination is remarkable for regular rhythm with a distant heart sounds and soft systolic murmur and clear breathing sounds bilaterally and no edema was noted in the lower extremities. Please note that the heart catheterization from yesterday showed mild nonobstructive coronary artery disease Assessment Shock likely to be a combination of multiple etiology including sepsis Atrial fibrillation with RVR which is new currently the patient is in sinus mechanism Evidence of myocardial injury History of renal transplant Multiple comorbid conditions including diabetes and hypertension and dyslipidemia Chronic hypoxic respiratory failure after COVID-19 infection History of smoking Plan Continue current medical regimen Hold the amlodipine as a home medication at this point in the light of soft blood pressure DC heparin and start the patient on anticoagulation for the atrial fibrillation DC amiodarone and start the patient on oral amiodarone Consider tapering down the dose of amiodarone The patient can be transferred out of the ICU Objective - Vital Signs Vital signs: Vital Signs Temp 97.7 F 08/08/24 11:45 Pulse 57 L 08/08/24 11:45 Resp 17 08/08/24 11:45 BP 98/68 08/08/24 11:45 Pulse Ox 96 08/08/24 11:45 FiO2 Intake & Output 08/07/24 08/08/24 08/08/24 19:59 06:59 18:59 Intake Total 50 Output Total 77 Balance -27 Weight Intake: IV 50 DAPTOmycin 500 mg In 50 Sodium Chloride 0.9% 50 ml @ 100 mls/hr IVPB Q48H JENNY Rx#:[id number] Dextrose 10% in Water 1, 000 ml @ 120 mls/hr IV . Q8H40M JENNY with Sodium Chloride 4Meq/ml Vial 153 .8 meq Rx#:[id number] Sodium Chloride 0.9% 1, 000 ml @ 75 mls/hr IV . [id number] JENNY Rx#:[id number] Intake, IV Titration Amount Amiodarone 450 mg In Dextrose 5% in Water 250 ml @ 0.5 MG/MIN 16.667 mls/hr IV .Q15H JENNY Rx#: [id number] Heparin Sod,Pork in 0.45% NaCl 25,000 unit In 0.45 % NaCl 1 250ml.bag @ 12 UNITS/KG/HR 9.798 mls/hr IV .Q24H JENNY Rx#: [id number] Magnesium Sulfate-D5w Pmx 1 gm In Dextrose/Water 1 100ml.bag @ 100 mls/hr IVPB Q1H JENNY Rx#: [id number] Norepinephrine 32 mg In Sodium Chloride 0.9% 218 ml @ 0.03 MCG/KG/MIN 1. 148 mls/hr IV .Q24H ONE Rx#:[id number] Oral Hemodialysis Output: Urine 0 Post Void Residual 77 Hemodialysis Hemodialysis Net Amount Other: # Voids 300 # Bowel Movements 1 - Labs CBC & Chem 7: 08/08/24 04:25 08/08/24 04:25 Labs: Abnormal Lab Results - Last 24 Hours (Table) 08/07/24 08/07/24 08/07/24 Range/Units 13:07 20:07 20:47 WBC (3.8-10.6) k/uL RBC (4.30-5.90) m/uL Hgb (13.0-17.5) gm/dL Hct (39.0-53.0) % RDW (11.5-15.5) % Plt Count (150-450) k/uL Neutrophils # (1.3-7.7) k/uL Lymphocytes # (1.0-4.8) k/uL APTT 39.4 H (22.0-30.0) sec Sodium (137-145) mmol/L Potassium (3.5-5.1) mmol/L Carbon Dioxide (22-30) mmol/L BUN (9-20) mg/dL Creatinine (0.66-1.25) mg/dL Glucose (74-99) mg/dL POC Glucose (mg/dL) 456 H (70-110) mg/dL Calcium (8.4-10.2) mg/dL Magnesium (1.6-2.3) mg/dL Total Protein (6.3-8.2) g/dL Albumin (3.5-5.0) g/dL Hep Bs Antibody A (Negative) 08/08/24 08/08/24 08/08/24 Range/Units 04:25 04:25 04:25 WBC 18.0 H (3.8-10.6) k/uL RBC 3.78 L (4.30-5.90) m/uL Hgb 11.1 L (13.0-17.5) gm/dL Hct 35.2 L (39.0-53.0) % RDW 16.0 H (11.5-15.5) % Plt Count 109 L (150-450) k/uL Neutrophils # 16.6 H (1.3-7.7) k/uL Lymphocytes # 0.4 L (1.0-4.8) k/uL APTT 59.9 H (22.0-30.0) sec Sodium 132 L (137-145) mmol/L Potassium 3.4 L (3.5-5.1) mmol/L Carbon Dioxide 18 L (22-30) mmol/L BUN 64 H (9-20) mg/dL Creatinine 4.05 H (0.66-1.25) mg/dL Glucose 351 H (74-99) mg/dL POC Glucose (mg/dL) (70-110) mg/dL Calcium 7.5 L (8.4-10.2) mg/dL Magnesium (1.6-2.3) mg/dL Total Protein 4.7 L (6.3-8.2) g/dL Albumin 2.4 L (3.5-5.0) g/dL Hep Bs Antibody (Negative) 08/08/24 08/08/24 08/08/24 Range/Units 04:31 06:30 11:27 WBC (3.8-10.6) k/uL RBC (4.30-5.90) m/uL Hgb (13.0-17.5) gm/dL Hct (39.0-53.0) % RDW (11.5-15.5) % Plt Count (150-450) k/uL Neutrophils # (1.3-7.7) k/uL Lymphocytes # (1.0-4.8) k/uL APTT (22.0-30.0) sec Sodium (137-145) mmol/L Potassium (3.5-5.1) mmol/L Carbon Dioxide (22-30) mmol/L BUN (9-20) mg/dL Creatinine (0.66-1.25) mg/dL Glucose (74-99) mg/dL POC Glucose (mg/dL) 410 H 193 H (70-110) mg/dL Calcium (8.4-10.2) mg/dL Magnesium 2.5 H (1.6-2.3) mg/dL Total Protein (6.3-8.2) g/dL Albumin (3.5-5.0) g/dL Hep Bs Antibody (Negative)
--- NOTE | 2024-08-08 15:15 | CA ---
Transthoracic Echo Report Name: Abdoul Soliz Age: 54 Gender: M : 1970 Exam Date: 08/07/2024 12:58 Exam Location: [facility] Ht (in): 66 Wt (lb): 180 Ordering Physician: Darnell Gilliam DO Attending/Referring Phys: [id number], Tawana Paper Pattern Folder Gita Andino, RDESVIN Procedure CPT: Indications: nstemi Cardiac Hx: Technical Quality: Fair Contrast 1: Total Dose (mL): Contrast 2: Total Dose (mL): MEASUREMENTS (Male / Female) Normal Values 2D ECHO LV Diastolic Diameter PLAX 2.7 cm 4.2 - 5.9 / 3.9 - 5.3 cm LV Systolic Diameter PLAX 1.0 cm IVS Diastolic Thickness 1.9 cm 0.6 - 1.0 / 0.6 - 0.9 cm LVPW Diastolic Thickness 2.1 cm 0.6 - 1.0 / 0.6 - 0.9 cm LV Relative Wall Thickness 1.5 RV Internal Dim ED PLAX 2.4 cm LVOT Diameter 2.0 cm LA Systolic Diameter LX 3.4 cm 3.0 - 4.0 / 2.7 - 3.8 cm LV Diastolic Volume MOD 4C 37.0 cm??? LV Systolic Volume MOD 4C 5.8 cm??? LV Ejection Fraction MOD 4C 84.4 % LV Cardiac Index MOD 4C 1297.2 cm???/min???m??? LV Diastolic Length 4C 7.7 cm LV Systolic Length 4C 7.0 cm M-MODE Aortic Root Diameter MM 3.1 cm LA Systolic Diameter MM 3.7 cm LA Ao Ratio MM 1.2 AV Cusp Separation MM 1.4 cm DOPPLER AV Peak Velocity 149.6 cm/s AV Peak Gradient 8.9 mmHg MV Area PHT 3.2 cm??? Mitral E Point Velocity 76.4 cm/s Mitral A Point Velocity 71.0 cm/s Mitral E to A Ratio 1.1 MV Deceleration Time 239.0 ms TR Peak Velocity 386.5 cm/s TR Peak Gradient 59.8 mmHg Right Ventricular Systolic Press 74.7 mmHg FINDINGS Left Ventricle Left ventricular ejection fraction is estimated at 70-75 %. Severely increased septal wall thickness. Severely increased left ventricular wall thickness. Small left ventricular cavity. No obvious regional wall motion abnormalities. Right Ventricle Severe right ventricular dilatation. Severely reduced right ventricular global systolic function. Severe pulmonary hypertension. Right ventricular systolic pressure estimated at 74 mm hg. Right Atrium Moderate right atrial dilatation. Left Atrium Normal left atrial size. Mitral Valve Mitral valve thickened. Mitral annular calcification. Trace mitral regurgitation. Aortic Valve Diffuse thickening (sclerosis) of the aortic valve cusps without reduced excursion. No aortic stenosis. No aortic regurgitation. Tricuspid Valve Moderate tricuspid regurgitation. No tricuspid stenosis. Pulmonic Valve Structurally normal pulmonic valve. Trace pulmonic regurgitation. No pulmonic stenosis. Pericardium No pericardial or pleural effusion. Aorta No evidence of an aortic dissection. CONCLUSIONS Technically difficult study for interpretation Hyperdynamic LV with EF between 70 to 75% Severe pulmonary hypertension Severely dilated right ventricle with impaired function Moderate tricuspid regurgitation Aortic sclerosis Previewed by: Dr. Aldo Raya MD (Electronically Signed) Final Date: 08 August 2024 15:14
[2024-08-08 16:38] LABS: Glucose,Whole Blood 264 mg/dL (70-110)
[2024-08-08 20:12] LABS: Glucose,Whole Blood 412 mg/dL (70-110)
[2024-08-08] MEDS: INSULIN DETEMIR (LEVEMIR) 100 UNIT/ML SYR SQ SCH (20:22)
[2024-08-08] MEDS: INSULIN ASPART (NovoLOG) 100 UNIT/ML VIAL SQ ONE (20:34)
[2024-08-08] MEDS: APIXABAN 2.5 MG TABLET PO SCH (20:47)
[2024-08-08] MEDS: AMIODARONE 200 MG TAB PO SCH (20:47)
[2024-08-08 23:17] LABS: Glucose,Whole Blood 238 mg/dL (70-110)
[2024-08-09 06:12] LABS: HCT 36.2 % (39.0-53.0); MCH 30.5 pg (25.0-35.0); MCV 92.5 fL (80.0-100.0); Mean Platelet Volume 9.9; Platelet Count 112 k/uL (150-450); RBC 3.92 m/uL (4.30-5.90); RDW 15.7 % (11.5-15.5); WBC 16.8 k/uL (3.8-10.6)
[2024-08-09 06:32] LABS: African American GFR (CKD) 10 (>60 ml/min/1.73 sqM); Anion Gap 17 mmol/L; Blood Urea Nitrogen 97 mg/dL (9-20); Calcium 9.4 mg/dL (8.4-10.2); Carbon Dioxide 16 mmol/L (22-30); Chloride 102 mmol/L (98-107); Glucose 158 mg/dL (74-99); Non-African American GFR(CKD) 9 (>60 ml/min/1.73 sqM); Potassium 4.1 mmol/L (3.5-5.1); Sodium 135 mmol/L (137-145)
[2024-08-09 06:33] LABS: Glucose,Whole Blood 177 mg/dL (70-110)
[2024-08-09] MEDS: SODIUM BICARB 8.4% 50 ML SYR (1 MEQ/ML) IV STA (09:24)
--- NOTE | 2024-08-09 09:56 | P.PN ---
Subjective Patient is seen in follow-up for acute allograft dysfunction. He is maintained on hemodialysis on Friday schedule. Oliguric. Off vasopressors. present at bedside. Vital signs are stable. General: No acute distress. HEENT: Head exam is unremarkable. On nasal cannula. LUNGS: No audible rhonchi or wheezes. HEART: Rate and Rhythm are regular. ABDOMEN: Nontender. EXTREMITITES: No edema. Objective - Vital Signs Vital signs: Vital Signs Temp 97.8 F 08/09/24 04:00 Pulse 55 L 08/09/24 04:00 Resp 14 08/09/24 04:00 BP 90/61 08/09/24 04:00 Pulse Ox 93 L 08/09/24 08:49 FiO2 Intake & Output 08/08/24 08/09/24 08/09/24 18:59 06:59 18:59 Intake Total 550 Output Total 77 Balance 473 Weight 92.6 kg Intake: IV 50 DAPTOmycin 500 mg In 50 Sodium Chloride 0.9% 50 ml @ 100 mls/hr IVPB Q48H [facility] Rx#:[id number] Oral 500 Output: Urine 0 Post Void Residual 77 Other: Voiding Method Toilet Toilet # Voids 300 1 # Bowel Movements 1 - Labs CBC & Chem 7: 08/09/24 05:32 08/09/24 05:32 Labs: Abnormal Lab Results - Last 24 Hours (Table) 08/08/24 08/08/24 08/08/24 Range/Units 11:27 16:36 20:11 WBC (3.8-10.6) k/uL RBC (4.30-5.90) m/uL Hgb (13.0-17.5) gm/dL Hct (39.0-53.0) % RDW (11.5-15.5) % Plt Count (150-450) k/uL Sodium (137-145) mmol/L Carbon Dioxide (22-30) mmol/L BUN (9-20) mg/dL Creatinine (0.66-1.25) mg/dL Glucose (74-99) mg/dL POC Glucose (mg/dL) 193 H 264 H 412 H (70-110) mg/dL 08/08/24 08/09/24 08/09/24 Range/Units 23:15 05:32 05:32 WBC 16.8 H (3.8-10.6) k/uL RBC 3.92 L (4.30-5.90) m/uL Hgb 12.0 L (13.0-17.5) gm/dL Hct 36.2 L (39.0-53.0) % RDW 15.7 H (11.5-15.5) % Plt Count 112 L (150-450) k/uL Sodium 135 L (137-145) mmol/L Carbon Dioxide 16 L (22-30) mmol/L BUN 97 H (9-20) mg/dL Creatinine 6.69 H (0.66-1.25) mg/dL Glucose 158 H (74-99) mg/dL POC Glucose (mg/dL) 238 H (70-110) mg/dL 08/09/24 Range/Units 06:32 WBC (3.8-10.6) k/uL RBC (4.30-5.90) m/uL Hgb (13.0-17.5) gm/dL Hct (39.0-53.0) % RDW (11.5-15.5) % Plt Count (150-450) k/uL Sodium (137-145) mmol/L Carbon Dioxide (22-30) mmol/L BUN (9-20) mg/dL Creatinine (0.66-1.25) mg/dL Glucose (74-99) mg/dL POC Glucose (mg/dL) 177 H (70-110) mg/dL Microbiology - Last 24 Hours (Table) 08/07/24 07:49 Blood Culture - Preliminary Blood Assessment and Plan Plan: Assessment: 1. Acute allograft dysfunction. Currently maintained on hemodialysis on Friday schedule via permacath. Patient recently underwent kidney biopsy at [facility] which showed inflammation. Patient completed course of IV steroids and now is on oral steroids. Recent renal ultrasound showed no evidence of hydronephrosis. Patient has follow-up with urology outpatient for uroflow studies. Currently oliguric. 2. Metabolic acidosis secondary to acute kidney injury. On oral bicarb. 3. Septic shock. White count trending down. ID following. Blood cultures negative so far. 4. Diabetes mellitus. 5. Chronic kidney disease mineral bone disease maintained on Renvela. Plan: Hemodialysis tomorrow. 2 amp sodium bicarb IV push today. Check a.m. Prograf level. Follow-up cultures. Status post cardiac cath August 07, 2024 which showed mild CAD. Patient to follow-up with [facility] postdischarge.
[2024-08-09 11:12] LABS: Glucose,Whole Blood 158 mg/dL (70-110)
--- NOTE | 2024-08-09 12:28 | P.PN ---
Subjective Progress Note Date: 08/09/24 Principal diagnosis: Reason for follow-up is sepsis question of line infection/pneumonia Patient is a 54-year-old male with a past medical history significant for coronary artery disease thyroid disorder diverticulitis also with a history of end-stage renal disease status post kidney transplant and remains to be on immunosuppressive presented to the hospital for evaluation of weakness malaise shortness of breath he did have elevated white count and there was concern for possible dialysis catheter infection or question of as he did have elevated procalcitonin of 72.70. On today's evaluation that is 08/09/2024, Patient is afebrile this morning patient denies having any chest pain shortness of breath or cough, the patient is currently on 4 L nasal cannula oxygen , patient denies any abdominal pain no diarrhea no nausea no vomiting. Patient white count is down to 16.8, creatinine 6.69 initial blood culture were pending Objective - Vital Signs Vital signs: Vital Signs Temp 97.8 F 08/09/24 04:00 Pulse 55 L 08/09/24 04:00 Resp 14 08/09/24 04:00 BP 90/61 08/09/24 04:00 Pulse Ox 93 L 08/09/24 08:49 FiO2 Intake & Output 08/08/24 08/09/24 08/09/24 18:59 06:59 18:59 Intake Total 550 Output Total 77 Balance 473 Weight 92.6 kg Intake: IV 50 DAPTOmycin 500 mg In 50 Sodium Chloride 0.9% 50 ml @ 100 mls/hr IVPB Q48H [facility] Rx#:[id number] Oral 500 Output: Urine 0 Post Void Residual 77 Other: Voiding Method Toilet Toilet # Voids 300 1 # Bowel Movements 1 - Exam GENERAL DESCRIPTION: Middle-age male lying in bed in no distress RESPIRATORY SYSTEM: Unlabored breathing , decreased breath sounds at bases HEART: S1 S2 regular rate and rhythm , ABDOMEN: Soft , no tenderness EXTREMITIES: No edema feet - Labs CBC & Chem 7: 08/09/24 05:32 08/09/24 05:32 Labs: Abnormal Lab Results - Last 24 Hours (Table) 08/08/24 08/08/24 08/08/24 Range/Units 11:27 16:36 20:11 WBC (3.8-10.6) k/uL RBC (4.30-5.90) m/uL Hgb (13.0-17.5) gm/dL Hct (39.0-53.0) % RDW (11.5-15.5) % Plt Count (150-450) k/uL Sodium (137-145) mmol/L Carbon Dioxide (22-30) mmol/L BUN (9-20) mg/dL Creatinine (0.66-1.25) mg/dL Glucose (74-99) mg/dL POC Glucose (mg/dL) 193 H 264 H 412 H (70-110) mg/dL 08/08/24 08/09/24 08/09/24 Range/Units 23:15 05:32 05:32 WBC 16.8 H (3.8-10.6) k/uL RBC 3.92 L (4.30-5.90) m/uL Hgb 12.0 L (13.0-17.5) gm/dL Hct 36.2 L (39.0-53.0) % RDW 15.7 H (11.5-15.5) % Plt Count 112 L (150-450) k/uL Sodium 135 L (137-145) mmol/L Carbon Dioxide 16 L (22-30) mmol/L BUN 97 H (9-20) mg/dL Creatinine 6.69 H (0.66-1.25) mg/dL Glucose 158 H (74-99) mg/dL POC Glucose (mg/dL) 238 H (70-110) mg/dL 08/09/24 Range/Units 06:32 WBC (3.8-10.6) k/uL RBC (4.30-5.90) m/uL Hgb (13.0-17.5) gm/dL Hct (39.0-53.0) % RDW (11.5-15.5) % Plt Count (150-450) k/uL Sodium (137-145) mmol/L Carbon Dioxide (22-30) mmol/L BUN (9-20) mg/dL Creatinine (0.66-1.25) mg/dL Glucose (74-99) mg/dL POC Glucose (mg/dL) 177 H (70-110) mg/dL Microbiology - Last 24 Hours (Table) 08/07/24 07:49 Blood Culture - Preliminary Blood Assessment and Plan (1) Sepsis Current Visit: Yes Status: Acute Code(s): A41.9 - SEPSIS, UNSPECIFIED ORGANISM SNOMED Code(s): 42981865 Plan: 1patient presented to hospital with sepsis in this patient who did have elevated white count of 22,000 patient was hypotensive requiring pressor support meeting criteria for SIRS with the source possibly dialysis catheter infection as currently no other obvious focus do not have significant cough or sputum production chest x-ray was mostly fluid overload abdominal soft and no evidence of any cellulitis 2-patient with a transplant kidney which has not been completely and still chance of recovery as reported by the family will be more risk of nephrotoxicity with vancomycin which was discontinued 3-patient white count is trending down cultures are currently pending will jarek mmend obtaining a set of blood culture from the dialysis catheter at the time of dialysis tomorrow for now continue with daptomycin and cefepime in view of clinical improvement Dictation was produced using [employer] dictation software. please excuse any grammatical, word or spelling errors. Time with Patient: Less than 30
--- NOTE | 2024-08-09 13:15 | CDI ---
Documentation Clarification Form Date: 08/09/2024 12:32:34 PM From: Riri Richards RN CCDS Phone: [phone] Admit Date: 08/07/2024 08:31:00 AM Patient Name: Abdoul Solzi Visit Number: [id number] Discharge Date: ATTENTION: The Clinical Documentation Specialists (CDI) and [facility] Coding Staff appreciate your assistance in clarifying documentation. Please respond to the clarification below the line at the bottom and electronically sign. The CDI & [facility] Coding staff will review the response and follow-up if needed. Please note: Queries are made part of the Legal Health Record. If you have any questions, please contact the author of this message via ITS. Doctor: Aldo Raya Evidence of myocardial injury is documented 08/07, Cardiology consult. Additional clarification regarding the type of myocardial injury is requested. History/Risk Factors: 54 year old male presents to the ED for not feeling well. The patient has been feeling weak, tired, increasing shortness of breath and fatigue for the last several days. Admitted with hypotension requiring pressure support and sepsis - possible source dialysis catheter infection. Medical history: ESRD with renal transplant is on dialysis, hypoxic respiratory failure after COVID 19 infection, HTN, DM2 and Clinical Indicators: Troponin, 08/07: 9.160 EKG Results, 08/07: Sinus rhythm with occasional supraventricular premature complexes. Incomplete Right Bundle Branch Block. Right Ventricular Hypertrophy and ST-T change. ST depression. Left Heart Catheterization, 08/07: Mild CAD, Myocardial bridging involving the PLV branch of the RCA. Mildly elevated left sided filling pressure. Cardiology note, 08/08: Heart catheterization from yesterday showed mild nonobstructive coronary artery disease. Treatment: 08/07 08/08 Norepinephrine Bitartrate IV; 08/07 Heparin IV, Alteplase Recombinant x I Fluids : 08/07 0.9NS 1L IV Bolus; Antibiotics: 08/07 Cefepime IVPB x 1; 08/07 Vancomycin IVPB x 1; 08/07 Cefepime 1gm IV Q12H; 08/08 Daptomycin 500mg IV Q48H Further clarification is needed for the type of Myocardial Injury: [ ] ST Elevated NH [ ] Type II NH due to Sepsis [ ] Unable to determine [ ] Other Condition, please specify (Template Last Revised: December 2020) MTDD
--- NOTE | 2024-08-09 14:14 | P.PN ---
Subjective Progress Note Date: 08/09/24 54-year-old male with history of multiple medical problems including end-stage renal disease, status post kidney transplant, back in 2016. The patient was brought into the hospital, for weakness, and low blood pressure. The patient's kidney transplant, has not been going well, and he still requires hemodialysis twice a week. The patient was seen in the emergency department, trauma room 1. I was notified by the ER physician. The patient is currently on 4 L of oxygen. The patient is receiving amiodarone, and also norepinephrine at 0.08 mcg/kg/min. The patient was seen by cardiology, and IV heparin was started. The patient had a cardiac catheterization, back in December 2023, and apparently at that time, the catheterization showed only mild coronary disease. The patient was prescribed vancomycin and cefepime. Will check an N-terminal proBNP and procalcitonin level. The patient will get an echocardiogram, and according to the wet silk hanger, may benefit from cardiac catheterization as well. Current labs include a white count 22.6, hemoglobin 12.4, macro 38.1, and a platelet count of 129,000. PT 13.8, INR 1.3. Sodium 136, potassium 3.2, chlorides 102, CO2 19, anion gap 15, BUN 109, creatinine 5.97. Glucose is 174. Troponin was 9.160. N-terminal proBNP was quite elevated at 76,600. Albumin was 3.3. TSH was normal. Procalcitonin level is currently pending. Chest x-ray shows mild pulmonary edema. The patient went to the catheterization laboratory, today, and had only mild CAD, and mild elevated left-sided filling pressures. Medical treatment was recommended. On 08/09/2024, the patient is doing well. He is awake and alert and communicating. No significant respiratory distress. The white cell count is improved and is currently down to 16.8 with hemoglobin 12 and a platelet count of 112. BUN is 97 with a creatinine of 6.6. Sodium levels at 135. Producing adequate amount of urine output. In terms of infection, the patient does not have any clear source of infection. Blood cultures are still negative and the patient is covered with broad-spectrum antibiotics and the patient remains on a combination of cefepime and daptomycin. Noted the patient has been chronic immunosuppressed with a combination of Prograf, CellCept and prednisone. This combination of immunosuppression was given to him regarding his transplant kidney for chronic immunosuppression. Meanwhile, the patient was also seen by cardiology. Echocardiogram was done 08/07/2024 and the patient was found to have a hyperdynamic LV with an ejection fraction of 70 to 75%, and he does have sev ere pulmonary hypertension. His current cardiac rhythm is sinus. The patient remains on anticoagulation. He was placed on anticoagulation with Eliquis 2.5 mg twice a day. He remains on amiodarone 4 mg p.o. twice a day regarding his new onset atrial fibrillation and he is on no pressors. Remains on midodrine. Nephrology remains on the case. He is chronically oxygen dependent and he remains also on oxygen which is currently running at 4 L/min nasal cannula with a pulse ox of 94%. Chest x-ray shows cardiomegaly with mild pulm vessel congestion. Objective - Vital Signs Vital signs: Vital Signs Temp 97.8 F 08/09/24 04:00 Pulse 55 L 08/09/24 04:00 Resp 14 08/09/24 04:00 BP 90/61 08/09/24 04:00 Pulse Ox 93 L 08/09/24 08:49 FiO2 Intake & Output 08/08/24 08/09/24 08/09/24 18:59 06:59 18:59 Intake Total 550 Output Total 77 Balance 473 Weight 92.6 kg Intake: IV 50 DAPTOmycin 500 mg In 50 Sodium Chloride 0.9% 50 ml @ 100 mls/hr IVPB Q48H [facility] Rx#:[id number] Oral 500 Output: Urine 0 Post Void Residual 77 Other: Voiding Method Toilet Toilet # Voids 300 1 # Bowel Movements 1 - Exam No acute distress, oriented 3. The patient is currently on 4 L of oxygen. Head exam was generally normal. There was no scleral icterus or corneal arcus. Mucous membranes were moist. Neck was supple and without jugular venous distension, thyromegaly, or carotid bruits. Carotids were easily palpable bilaterally. There was no adenopathy. Cardiovascular examination reveals regular rhythm rate. S1-S2 normal. No S3 or S4. No discernible murmur noted. There is obvious accentuation of the second heart sound. Cardiac rhythm remains sinus. Lungs reveal scattered crackles. No wheezes or rhonchi. Breath sounds equal. Abdomen soft bowel sounds are heard. No masses or tenderness. The patient has abdominal surgeries with a transplanted kidney over the right lower abdominal wall. No directedness. No rebound tenderness. No guarding. Extremities are intact. No cyanosis clubbing or edema. Skin is without rash or lesion. Neurologic examination is brief but nonfocal. - Labs CBC & Chem 7: 08/09/24 05:32 08/09/24 05:32 Labs: Abnormal Lab Results - Last 24 Hours (Table) 08/08/24 08/08/24 08/08/24 Range/Units 11:27 16:36 20:11 WBC (3.8-10.6) k/uL RBC (4.30-5.90) m/uL Hgb (13.0-17.5) gm/dL Hct (39.0-53.0) % RDW (11.5-15.5) % Plt Count (150-450) k/uL Sodium (137-145) mmol/L Carbon Dioxide (22-30) mmol/L BUN (9-20) mg/dL Creatinine (0.66-1.25) mg/dL Glucose (74-99) mg/dL POC Glucose (mg/dL) 193 H 264 H 412 H (70-110) mg/dL 08/08/24 08/09/24 08/09/24 Range/Units 23:15 05:32 05:32 WBC 16.8 H (3.8-10.6) k/uL RBC 3.92 L (4.30-5.90) m/uL Hgb 12.0 L (13.0-17.5) gm/dL Hct 36.2 L (39.0-53.0) % RDW 15.7 H (11.5-15.5) % Plt Count 112 L (150-450) k/uL Sodium 135 L (137-145) mmol/L Carbon Dioxide 16 L (22-30) mmol/L BUN 97 H (9-20) mg/dL Creatinine 6.69 H (0.66-1.25) mg/dL Glucose 158 H (74-99) mg/dL POC Glucose (mg/dL) 238 H (70-110) mg/dL 08/09/24 Range/Units 06:32 WBC (3.8-10.6) k/uL RBC (4.30-5.90) m/uL Hgb (13.0-17.5) gm/dL Hct (39.0-53.0) % RDW (11.5-15.5) % Plt Count (150-450) k/uL Sodium (137-145) mmol/L Carbon Dioxide (22-30) mmol/L BUN (9-20) mg/dL Creatinine (0.66-1.25) mg/dL Glucose (74-99) mg/dL POC Glucose (mg/dL) 177 H (70-110) mg/dL Microbiology - Last 24 Hours (Table) 08/07/24 07:49 Blood Culture - Preliminary Blood Assessment and Plan Plan: Weakness, and hypotension, of unclear etiology, related to underlying infection. The patient is currently normotensive, off pressors, comfortable broad-spectrum antibiotics and the culture still pending for now. Leukocytosis gradually improving. Noted the patient has been chronically immunosuppressed with a combination of prednisone, CellCept and Prograf. Cardiac catheterization, August 07, showing only mild CAD. End-stage renal disease, previously on hemodialysis and a previous history of renal transplant, 2016, patient still requiring twice a week hemodialysis. The patient has a permacath in his right femoral vein. New onset atrial fibrillation with RVR, cardiac rhythm is back to sinus. The patient is LV function is preserved and the patient has severe pulm hypertension. History of hypothyroidism. Previous history of tobacco use. History of hyperlipidemia. History of diabetes mellitus. History of hypertension. Prior history of coronavirus infection, with postinflammatory pulmonary fibrosis. History of pulmonary embolism Chronic hypoxic respiratory failure and the patient is maintained on O2 on an outpatient basis Plan: Patient is currently off pressors Continue daptomycin and continue cefepime for now pending further cultures Continue with suppression and the patient remains on a combination of CellCept and Prograf and prednisone Cardiac catheterization from December 2023 showed nonocclusive CAD Echocardiogram showed a hyperdynamic LV with an ejection fraction of 7075% and severe pulm hypertension Current cardiac rhythm is sinus Patient is currently on amiodarone and Eliquis Oxygen at 4 L/min nasal cannula Hemodialysis per nephrology Continue midodrine Will continue to follow Critical care evaluation that was done more than 30 minutes Time with Patient: Greater than 30 Time with Patient: Greater than 30
--- NOTE | 2024-08-09 15:18 | P.PN ---
Subjective Progress Note Date: 08/09/24 This is a 54-year-old gentleman who is known to our service from before who follows with Dr. Cabrera on a regular basis with a past medical history significant for diabetes and hypertension and dyslipidemia and history of renal transplant but currently the patient is on dialysis as well as hypoxic respiratory failure after COVID-19 infection was brought to the hospital by his because he was not feeling well. The patient somewhat is poor historian and the history was taken from him as well as from his who was at bedside. The patient has been feeling weak and tired and fatigue for the last several days but beside that he has been experiencing also increasing in the shortness of breath with no associated symptoms of any chest pain or chest discomfort or dizziness or lightheadedness or any feeling of heart racing fluttering or presyncope or syncope. Upon arrival to the emergency department he was hypotensive requiring norepinephrine to support the blood pressure and also he was in atrial fibrillation with rapid ventricular response but an EKG showed ST segment elevation in aVR and diffuse ST segment depression concerning for severe underlying coronary artery disease. Also his troponin came in to be elevated at 9.1. Giving all of that I advised the patient to undergo a heart cat heterization. The heart catheterization revealed mild nonobstructive coronary artery disease. The patient subsequently was admitted to the intensive care unit. An echocardiogram is in process to be done to rule out stress-induced cardiomyopathy. Please note that the LV end-diastolic pressure/left ventricular filling pressure was elevated around 17 mmHg. Also subsequently the patient was noted to be febrile and WBC came in to be elevated. He might have a component of infection/sepsis as well. The atrial fibrillation is new and the patient never been diagnosed with atrial fibrillation before. An echo from December 2023 showed normal biventricular systolic function with no significant valvular abnormalities. His recent hemoglobin was 12.4 and creatinine was 5.97. NT proBNP came in to be elevated at 76,000. The physical examination is remarkable for irregular rhythm with a systolic murmur at the right upper sternal border with clear breathing sounds bilaterally and no edema was noted in the lower extremities August 08, 2024 The patient was seen and evaluated this morning. He is feeling much better. He is asymptomatic and hemodynamically stable besides soft blood pressure. He is converted to normal sinus mechanism. Am going to DC amiodarone IV and start the patient on amiodarone orally and also DC heparin IV and restart the patient on anticoagulation for the atrial fibrillation. Follow-up on the echocardiogram which is still pending. Physical examination is remarkable for regular rhythm with a distant heart sounds and soft systolic murmur and clear breathing sounds bilaterally and no edema was noted in the lower extremities. Please note that the heart catheterization from yesterday showed mild nonobstructive coronary artery disease August 09, 2024 Patient is seen and examined at bedside this a.m. Patient is hemodynamic stable. BP 110/66, heart rate 73 bpm, currently in sinus rhythm. On exam S1-S2 is audible, no significant murmurs appreciated, regular pulses JVD is not elevated No significant swelling in bilateral extremity AV fistula femoral artery Lungs are clear to auscultate Alert oriented, no focal neurological deficits, detail neuroexam was not performed Assessment Shock likely to be a combination of multiple etiology including sepsis, resolved Atrial fibrillation with RVR, first diagnosed August 2024, currently sinus rhythm. Severe concentric LVH Severe pulmonary hypertension Elevated troponin, likely because of underlying A-fib and poor renal clearance. History of renal transplant, ESRD on hemodialysis. Multiple comorbid conditions including diabetes and hypertension and dyslipidemia Chronic hypoxic respiratory failure after COVID-19 infection History of smoking Plan Start metoprolol succinate 25 mg daily from tomorrow a.m. Reduce amiodarone to 200 mg twice daily. After 1 week reduce amiodarone to 200 mg daily. Eliquis 2.5 mg twice daily Monitor telemetry, electrolytes and renal function. The patient can be transferred out of the ICU Objective - Vital Signs Vital signs: Vital Signs Temp 97.5 F L 08/09/24 12:00 Pulse 73 08/09/24 12:00 Resp 16 08/09/24 12:00 BP 111/66 08/09/24 12:00 Pulse Ox 94 L 08/09/24 12:00 FiO2 Intake & Output 08/08/24 08/09/24 08/09/24 18:59 06:59 18:59 Intake Total 550 Output Total 77 Balance 473 Weight 92.6 kg Intake: IV 50 DAPTOmycin 500 mg In 50 Sodium Chloride 0.9% 50 ml @ 100 mls/hr IVPB Q48H [facility] Rx#:[id number] Oral 500 Output: Urine 0 Post Void Residual 77 Other: Voiding Method Toilet Toilet Toilet Urinal # Voids 300 1 # Bowel Movements 1 - Labs CBC & Chem 7: 08/09/24 05:32 08/09/24 05:32 Labs: Abnormal Lab Results - Last 24 Hours (Table) 08/08/24 08/08/24 08/08/24 Range/Units 16:36 20:11 23:15 WBC (3.8-10.6) k/uL RBC (4.30-5.90) m/uL Hgb (13.0-17.5) gm/dL Hct (39.0-53.0) % RDW (11.5-15.5) % Plt Count (150-450) k/uL Sodium (137-145) mmol/L Carbon Dioxide (22-30) mmol/L BUN (9-20) mg/dL Creatinine (0.66-1.25) mg/dL Glucose (74-99) mg/dL POC Glucose (mg/dL) 264 H 412 H 238 H (70-110) mg/dL 08/09/24 08/09/24 08/09/24 Range/Units 05:32 05:32 06:32 WBC 16.8 H (3.8-10.6) k/uL RBC 3.92 L (4.30-5.90) m/uL Hgb 12.0 L (13.0-17.5) gm/dL Hct 36.2 L (39.0-53.0) % RDW 15.7 H (11.5-15.5) % Plt Count 112 L (150-450) k/uL Sodium 135 L (137-145) mmol/L Carbon Dioxide 16 L (22-30) mmol/L BUN 97 H (9-20) mg/dL Creatinine 6.69 H (0.66-1.25) mg/dL Glucose 158 H (74-99) mg/dL POC Glucose (mg/dL) 177 H (70-110) mg/dL 08/09/24 Range/Units 11:10 WBC (3.8-10.6) k/uL RBC (4.30-5.90) m/uL Hgb (13.0-17.5) gm/dL Hct (39.0-53.0) % RDW (11.5-15.5) % Plt Count (150-450) k/uL Sodium (137-145) mmol/L Carbon Dioxide (22-30) mmol/L BUN (9-20) mg/dL Creatinine (0.66-1.25) mg/dL Glucose (74-99) mg/dL POC Glucose (mg/dL) 158 H (70-110) mg/dL Microbiology - Last 24 Hours (Table) 08/07/24 07:49 Blood Culture - Preliminary Blood
--- NOTE | 2024-08-09 15:59 | P.PN ---
Progress Note - Text Progress Note Date: 08/09/24 Chief Complaint: Not feeling well Pleasant 54-year-old patient who follows with Dr. Ballard. Accompanied by in the ICU. In 2017 patient underwent renal transplant at [facility]. Follows up with the transplant physician there. Patient previously had cardiac catheterization, in 2016 was told has had about 40 to 50% lesion in distal circumflex. Patient had Prevena lethargic for last 2 days. Patient heart rate went up blood pressure dropped. EMS was called out. Brought into the ER. At home normally patient uses 3 L of oxygen. Has a left groin hemodialysis catheter. Patient had elevated troponin of 9. Taken to cardiac [employer]. Unremarkable. Moved to the ICU. On a Levophed 0.08 mics. 4 L of oxygen. Elevated white count. Patient has intermittent chronic cough since his COVID. Denies any urinary symptoms. Does make urine. Denies any obvious fever but has had some chills. August 08: ICU. Sitting up in bed. Nasal cannula. Was hemodialyzed yesterday. Patient is off amiodarone and Levophed drip. Apparently patient was in A-fib with rapid ventricular rate in the ER. Was also put on IV heparin that has been discontinued. Remains on IV cefepime and IV daptomycin.No cultures reported currently. Eating well. at the bedside. Was up to the bathroom. August 09: Comfortable. Eating well. Blood cultures pending. Remains on IV cefepime. Patient has been now in sinus rhythm. Metoprolol being added tomorrow. Amiodarone being cut back. Spoke to the patient and the . Active Medications Acetaminophen (Acetaminophen Tab 325 Mg Tab) 650 mg PO Q4HR PRN PRN Reason: Fever and/or Mild Pain Acetaminophen (Acetaminophen Tab 500 Mg Tab) 1,000 mg PO Q6H PRN PRN Reason: Fever and/ or Pain Albuterol Sulfate (Albuterol Nebulized 2.5 Mg/3 Ml) 2.5 mg INHALATION RT-QID PRN PRN Reason: Shortness Of Breath Albuterol Sulfate (Albuterol Hfa Inhaler) 2 puff INHALATION RT-Q4H PRN PRN Reason: Shortness Of Breath Amiodarone HCl (Amiodarone 200 Mg Tab) 200 mg PO BID JENNY Apixaban (Apixaban 2.5 Mg Tablet) 2.5 mg PO BID [facility]; Protocol Last Admin: 08/09/24 08:30 Dose: 2.5 mg Dextrose/Water (Dextrose 50% Syringe 50 Ml) 25 ml IVP PER PROTOCOL PRN; Protocol PRN Reason: Hypoglycemia Dextrose/Water (Dextrose 50% Syringe 50 Ml) 50 ml IVP PER PROTOCOL PRN; Protocol PRN Reason: Hypoglycemia Daptomycin 500 mg/ Sodium (Chloride) 50 mls @ 100 mls/hr IVPB Q48H [facility]; Protocol Last Admin: 08/08/24 08:41 Dose: 100 mls/hr Cefepime HCl 1 gm/ Sodium (Chloride) 50 mls @ 12.5 mls/hr IVPB DAILY [facility]; Protocol Insulin Aspart (Insulin Aspart (Novolog) 100 Unit/Ml Vial) 0 unit SQ ACHS [facility]; Protocol Last Admin: 08/09/24 11:53 Dose: 2 unit Insulin Detemir (Insulin Detemir (Levemir) 100 Unit/Ml Syr) 20 unit SQ HS [facility] Last Admin: 08/08/24 20:22 Dose: 20 unit Levothyroxine Sodium (Levothyroxine 100 Mcg Tab) 100 mcg PO DAILY@0630 [facility] Last Admin: 08/09/24 06:34 Dose: 100 mcg Loratadine (Loratadine 10 Mg Tab) 10 mg PO DAILY [facility] Last Admin: 08/09/24 08:30 Dose: 10 mg Metoprolol Succinate (Metoprolol Succinate (Er) 25 Mg Tab.Er.24h) 25 mg PO DAILY [facility] Midodrine (Midodrine 5 Mg Tab) 10 mg PO TID PRN PRN Reason: Blood Pressure - Low Miscellaneous Information (Magnesium Replacement Protocol 1 Each Misc) 1 each MISCELLANE DAILY PRN; Protocol PRN Reason: Per Protocol Montelukast Sodium (Montelukast 10 Mg Tab) 10 mg PO HS [facility] Last Admin: 08/08/24 20:47 Dose: 10 mg Mycophenolate Mofetil (Mycophenolate Mofetil 250 Mg Cap) 250 mg PO BID [facility] Last Admin: 08/09/24 08:31 Dose: 250 mg Naloxone HCl (Naloxone 0.4 Mg/Ml 1 Ml Vial) 0.2 mg IV Q2M PRN PRN Reason: Opioid Reversal Prednisone (Prednisone 10 Mg Tab) 10 mg PO DAILY [facility]; Taper Stop: 08/10/24 08:59 Last Admin: 08/09/24 08:29 Dose: 10 mg Prednisone (Prednisone 5 Mg Tab) 5 mg PO DAILY [facility] Sertraline HCl (Sertraline 25 Mg Tab) 25 mg PO HS [facility] Last Admin: 08/08/24 20:47 Dose: 25 mg Sevelamer Carbonate (Sevelamer 800 Mg Tab) 800 mg PO W/SUPPER [facility] Last Admin: 08/08/24 16:42 Dose: 800 mg Sodium Bicarbonate (Sodium Bicarbonate Tab 650 Mg Tab) 650 mg PO TID [facility] Last Admin: 08/09/24 08:29 Dose: 650 mg Tacrolimus (Tacrolimus 1 Mg Cap) 1 mg PO DAILY [facility] Last Admin: 08/09/24 08:31 Dose: 1 mg Tacrolimus (Tacrolimus 0.5 Mg Cap) 0.5 mg PO [facility] Last Admin: 08/08/24 20:47 Dose: 0.5 mg Torsemide (Torsemide 20 Mg Tab) 40 mg PO DAILY [facility] Last Admin: 08/09/24 08:30 Dose: 40 mg Social history: Lives with . Smoked half a pack a day from age 17 and stopped in 1998. No alcohol. Physical examination: VITAL SIGNS: 97.5, 73, 18, 111 x 66, 94% on 4 L GENERAL: BMI 29.1, sitting up in bed, eating left groin hemodialysis catheter EYES: Pupils equal. Conjunctiva nicole l. HEENT: External appearance of nose and ears normal, oral cavity grossly normal. NECK: JVD not raised; masses not palpable. HEART: First and second heart sounds are normal; mild edema. LUNGS: Respiratory rate normal; decreased breath sounds n. ABDOMEN: Soft, nontender, liver spleen not palpable, no masses palpable. PSYCH: Alert and oriented x3; mood and affect nicole l. MUSCULOSKELETAL:No Clubbing/cyanosis;muscles-grossly intact INVESTIGATIONS, reviewed in the clinical context: August 09: White count 16.8 hemoglobin 12 platelets 112 potassium 4.1 creatinine 6.69 August 08: White count 18 hemoglobin 11.1 platelets 109 sodium 132 potassium 3.4 BUN 64 creatinine 4.05 August 07, 2024: Sodium 136 potassium 3.2 BUN 109 creatinine 5.97 glucose 50 TSH 2.9 white count 22.6 hemoglobin 12.4 platelets 129 Troponin I 9.16 EKG tracing personally reviewed by me-sinus rhythm. ST segment depression anterolateral leads. And some inferior leads Chest x-ray film personally reviewed by me-cardiomegaly Assessment plan: -Hypotensive shock. Exact cause unknown. Patient not been feeling well for last couple of days. Some chills. Elevated white count. At this point sepsis is a consideration.: Better Levophed -given initially. -Sepsis consideration on presentation. Cultures pending. Need to rule out dialysis access the catheter site as a source -Empiric antibiotics on board. ID following -Cardiac catheterization did not show any significant disease. Mild LAD -End-stage kidney disease and a renal transplant patient. Left groin hemodialysis catheter -Renal transplant in 2017 at [facility]. Prednisone 5 mg a day. CellCept to 50 mg twice daily. Prograf 1 mg p.o. twice daily. -Paroxysmal atrial fibrillation now in sinus rhythm On oral amiodarone. Lopressor being added. Eliquis -Chronic hypoxic respiratory failure, from previous COVID infection 3 L of oxygen at home -Hypothyroid Synthroid 100 mcg a day -Diabetes mellitus type 2, chronically on insulin. Hypoglycemic in the ER. Insulin Lantus . Follow sliding scale with sliding scale insulin. Semaglutide -Hyperlipidemia Crestor -Depression otherwise specified Zoloft 25 mg nightly -Full code Pending cultures. Lopressor being added. Amiodarone per cardio. Past Medical History Past Medical History: Coronary Artery Disease (CAD), Renal Disease, Thyroid Disorder Additional Past Medical History / Comment(s): Renal failure post-kidney transplantation, previous history of dialysis for a total of 12 years followed by kidney transplantation, hypothyroidism, chronic stage III kidney failure post transplantation, nonocclusive coronary artery disease and the patient a cardiac catheterization on 09/24/2016 that showed 40-50% lesion in the distal circumflex otherwise the rest of the coronary arteries were all within normal limits. History of Any Multi-Drug Resistant Organisms: None Reported Past Surgical History: Heart Catheterization, Orthopedic Surgery Additional Past Surgical History / Comment(s): FISTULA/GRAFT RT ARM, kidney transplant in July of 2017, Left hip Past Anesthesia/Blood Transfusion Reactions: No Reported Reaction Past Psychological History: No Psychological Hx Reported Additional Psychological History / Comment(s): Short term memory issues. Smoking Status: Former smoker Past Alcohol Use History: None Reported Additional Past Alcohol Use History / Comment(s): QUIT SMOKING 1998, SMOKED 1/2 PPD FROM AGE 17 Past Drug Use History: None Reported
[2024-08-09 16:36] LABS: Glucose,Whole Blood 317 mg/dL (70-110)
[2024-08-09 20:14] LABS: Glucose,Whole Blood 262 mg/dL (70-110)
[2024-08-09 20:51] LABS: Amorphous Sediment,Urine Rare /hpf; Appearance,Urine Clear (Clear); Bacteria,Urine Rare /hpf; Bilirubin,Urine Negative (Negative); Blood,Urine Small (Negative); Color,Urine Colorless; Glucose,Urine (UA) Negative (Negative); Ketones,Urine Negative (Negative); Leukocyte Esterase,Urine Negative (Negative); Mucus,Urine Rare /hpf; Nitrite,Urine Negative (Negative); PH, Urine 5.5 (5.0-8.0); Protein,Urine 1+ (Negative); RBC,Urine 4 /hpf (0-5); Specific Gravity,Urine 1.011 (1.001-1.035); Urobilinogen,Urine <2.0 mg/dL (<2.0); WBC,Urine <1 /hpf (0-5)
[2024-08-10 05:53] LABS: Glucose,Whole Blood 89 mg/dL (70-110)
[2024-08-10] MEDS: predniSONE 5 MG TAB PO SCH (09:04)
[2024-08-10] MEDS: MIDODRINE 5 MG TAB PO PRN (09:04)
[2024-08-10] MEDS: METOPROLOL SUCCINATE (ER) 25 MG TAB.ER.24H PO SCH (09:08)
--- NOTE | 2024-08-10 10:18 | P.PN ---
Subjective Patient is seen in follow-up for acute allograft dysfunction. He is maintained on hemodialysis on Friday schedule. Tolerating dialysis well. present at bedside. Vital signs are stable. General: No acute distress. HEENT: Head exam is unremarkable. On nasal cannula. LUNGS: No audible rhonchi or wheezes. HEART: Rate and Rhythm are regular. ABDOMEN: Nontender. EXTREMITITES: No edema. Objective - Vital Signs Vital signs: Vital Signs Temp 98.1 F 08/10/24 07:29 Pulse 63 08/10/24 09:05 Resp 16 08/10/24 07:29 BP 90/69 08/10/24 09:05 Pulse Ox 96 08/10/24 07:29 FiO2 Intake & Output 08/09/24 08/10/24 08/10/24 18:59 06:59 18:59 Intake Total 50 500 118 Output Total 400 Balance -350 500 118 Weight 71 kg Intake: Intake, IV Titration 50 Amount Cefepime 1 gm In Sodium 50 Chloride 0.9% 50 ml @ 12. 5 mls/hr IVPB DAILY [facility] Rx#:[id number] Oral 500 118 Output: Urine 400 Other: Voiding Method Urinal Urinal # Voids 2 # Bowel Movements 2 - Labs CBC & Chem 7: 08/09/24 05:32 08/09/24 05:32 Labs: Abnormal Lab Results - Last 24 Hours (Table) 08/09/24 08/09/24 08/09/24 Range/Units 11:10 16:35 17:55 POC Glucose (mg/dL) 158 H 317 H (70-110) mg/dL Urine Protein 1+ H (Negative) Urine Blood Small H (Negative) Amorphous Sediment Rare H (None) /hpf Urine Bacteria Rare H (None) /hpf Urine Mucus Rare H (None) /hpf 08/09/24 Range/Units 20:13 POC Glucose (mg/dL) 262 H (70-110) mg/dL Urine Protein (Negative) Urine Blood (Negative) Amorphous Sediment (None) /hpf Urine Bacteria (None) /hpf Urine Mucus (None) /hpf Microbiology - Last 24 Hours (Table) 08/07/24 07:49 Blood Culture - Preliminary Blood Assessment and Plan Plan: Assessment: 1. Acute allograft dysfunction. Currently maintained on hemodialysis on Friday schedule via permacath. Patient recently underwent kidney biopsy at [facility] which showed inflammation. Patient completed course of IV steroids and now is on oral steroids. Recent renal ultrasound showed no evidence of hydronephrosis. Patient has follow-up with urology outpatient for uroflow studies. 2. Metabolic acidosis secondary to acute kidney injury. On oral bicarb. Expect further improvement postdialysis. 3. Septic shock. White count trending down. ID following. Blood cultures negative so far. 4. Diabetes mellitus. 5. Chronic kidney disease mineral bone disease maintained on Renvela. Plan: Currently seen while undergoing hemodialysis. Follow-up a.m. Prograf level. Follow-up cultures. Status post cardiac cath August 07, 2024 which showed mild CAD. Patient to follow-up with [facility] postdischarge.
[2024-08-10 11:49] LABS: Glucose,Whole Blood 85 mg/dL (70-110)
[2024-08-10] MEDS: CEFEPIME 1 GM in SODIUM CHLORIDE 0.9% 50 ML IVPB SCH (12:57)
--- NOTE | 2024-08-10 13:18 | P.PN ---
Subjective Progress Note Date: 08/10/24 54-year-old male with history of multiple medical problems including end-stage renal disease, status post kidney transplant, back in 2016. The patient was brought into the hospital, for weakness, and low blood pressure. The patient's kidney transplant, has not been going well, and he still requires hemodialysis twice a week. The patient was seen in the emergency department, trauma room 1. I was notified by the ER physician. The patient is currently on 4 L of oxygen. The patient is receiving amiodarone, and also norepinephrine at 0.08 mcg/kg/min. The patient was seen by cardiology, and IV heparin was started. The patient had a cardiac catheterization, back in December 2023, and apparently at that time, the catheterization showed only mild coronary disease. The patient was prescribed vancomycin and cefepime. Will check an N-terminal proBNP and procalcitonin level. The patient will get an echocardiogram, and according to the box truck driver, may benefit from cardiac catheterization as well. Current labs include a white count 22.6, hemoglobin 12.4, macro 38.1, and a platelet count of 129,000. PT 13.8, INR 1.3. Sodium 136, potassium 3.2, chlorides 102, CO2 19, anion gap 15, BUN 109, creatinine 5.97. Glucose is 174. Troponin was 9.160. N-terminal proBNP was quite elevated at 76,600. Albumin was 3.3. TSH was normal. Procalcitonin level is currently pending. Chest x-ray shows mild pulmonary edema. The patient went to the catheterization laboratory, today, and had only mild CAD, and mild elevated left-sided filling pressures. Medical treatment was recommended. On 08/09/2024, the patient is doing well. He is awake and alert and communicating. No significant respiratory distress. The white cell count is improved and is currently down to 16.8 with hemoglobin 12 and a platelet count of 112. BUN is 97 with a creatinine of 6.6. Sodium levels at 135. Producing adequate amount of urine output. In terms of infection, the patient does not have any clear source of infection. Blood cultures are still negative and the patient is covered with broad-spectrum antibiotics and the patient remains on a combination of cefepime and daptomycin. Noted the patient has been chronic immunosuppressed with a combination of Prograf, CellCept and prednisone. This combination of immunosuppression was given to him regarding his transplant kidney for chronic immunosuppression. Meanwhile, the patient was also seen by cardiology. Echocardiogram was done 08/07/2024 and the patient was found to have a hyperdynamic LV with an ejection fraction of 70 to 75%, and he does have sev ere pulmonary hypertension. His current cardiac rhythm is sinus. The patient remains on anticoagulation. He was placed on anticoagulation with Eliquis 2.5 mg twice a day. He remains on amiodarone 4 mg p.o. twice a day regarding his new onset atrial fibrillation and he is on no pressors. Remains on midodrine. Nephrology remains on the case. He is chronically oxygen dependent and he remains also on oxygen which is currently running at 4 L/min nasal cannula with a pulse ox of 94%. Chest x-ray shows cardiomegaly with mild pulm vessel congestion. 08/10/2024, the patient is being seen for a follow-up.The patient is doing well as the patient is completing his hemodialysis this morning. No respiratory difficulties. The patient remains on 3 L of oxygen by nasal cannula with a pulse ox of 95%. Labs from today are still pending. White cell count was down to 16.8. The patient remains on broad-spectrum antibiotics suspecting a underlying sepsis and the patient is currently on a combination of cefepime and daptomycin. Nephrology on the case. The patient remains on immunosuppression and the patient remains on a combination of Prograf, CellCept and the patient is also on prednisone 5 mg p.o. daily. Remains on Demadex 40 mg p.o. daily. UA was completed and does not seem to be infected at this point in time. Objective - Vital Signs Vital signs: Vital Signs Temp 97.6 F 08/10/24 10:37 Pulse 60 08/10/24 10:37 Resp 16 08/10/24 10:37 BP 109/64 08/10/24 10:37 Pulse Ox 95 08/10/24 10:37 FiO2 Intake & Output 08/09/24 08/10/24 08/10/24 18:59 06:59 18:59 Intake Total 50 500 118 Output Total 400 Balance -350 500 118 Weight 71 kg Intake: Intake, IV Titration 50 Amount Cefepime 1 gm In Sodium 50 Chloride 0.9% 50 ml @ 12. 5 mls/hr IVPB DAILY [facility] Rx#:[id number] Oral 500 118 Output: Urine 400 Other: Voiding Method Urinal Urinal Urinal # Voids 2 # Bowel Movements 2 - Exam No acute distress, oriented 3. The patient is currently on 4 L of oxygen. Head exam was generally normal. There was no scleral icterus or corneal arcus. Mucous membranes were moist. Neck was supple and without jugular venous distension, thyromegaly, or carotid bruits. Carotids were easily palpable bilaterally. There was no adenopathy. Cardiovascular examination reveals regular rhythm rate. S1-S2 normal. No S3 or S4. No discernible murmur noted. There is obvious accentuation of the second heart sound. Cardiac rhythm remains sinus. Lungs reveal scattered crackles. No wheezes or rhonchi. Breath sounds equal. Abdomen soft bowel sounds are heard. No masses or tenderness. The patient has abdominal surgeries with a transplanted kidney over the right lower abdominal wall. No directedness. No rebound tenderness. No guarding. Extremities are intact. No cyanosis clubbing or edema. Skin is without rash or lesion. Neurologic examination is brief but nonfocal. - Labs CBC & Chem 7: 08/09/24 05:32 08/09/24 05:32 Labs: Abnormal Lab Results - Last 24 Hours (Table) 08/09/24 08/09/24 08/09/24 Range/Units 11:10 16:35 17:55 POC Glucose (mg/dL) 158 H 317 H (70-110) mg/dL Urine Protein 1+ H (Negative) Urine Blood Small H (Negative) Amorphous Sediment Rare H (None) /hpf Urine Bacteria Rare H (None) /hpf Urine Mucus Rare H (None) /hpf 08/09/24 Range/Units 20:13 POC Glucose (mg/dL) 262 H (70-110) mg/dL Urine Protein (Negative) Urine Blood (Negative) Amorphous Sediment (None) /hpf Urine Bacteria (None) /hpf Urine Mucus (None) /hpf Microbiology - Last 24 Hours (Table) 08/07/24 07:49 Blood Culture - Preliminary Blood Assessment and Plan Plan: Weakness, and hypotension, of unclear etiology, related to underlying infection. The patient is currently normotensive, off pressors, comfortable broad-spectrum antibiotics and the culture still pending for now. Leukocytosis gradually improving. Noted the patient has been chronically immunosuppressed with a combination of prednisone, CellCept and Prograf. The patient got transferred out of the intensive care unit the patient remains hemodynamically stable undergoing hemodialysis this morning. Cardiac catheterization, August 07, showing only mild CAD. End-stage renal disease, previously on hemodialysis and a previous history of renal transplant, 2016, patient still requiring twice a week hemodialysis. The patient has a permacath in his right femoral vein. New onset atrial fibrillation with RVR, cardiac rhythm is back to sinus. The patient is LV function is preserved and the patient has severe pulm hypertension. History of hypothyroidism. Previous history of tobacco use. History of hyperlipidemia. History of diabetes mellitus. History of hypertension. Prior history of coronavirus infection, with postinflammatory pulmonary fibrosis. History of pulmonary embolism Chronic hypoxic respiratory failure and the patient is maintained on O2 on an outpatient basis Plan: Patient is currently off pressors, remains hemodynamically stable Continue daptomycin and continue cefepime for now pending further cultures, cultures are negative thus far and the patient has a UA that has not shown any infection. Continue with suppression and the patient remains on a combination of CellCept and Prograf and prednisone Cardiac catheterization from December 2023 showed nonocclusive CAD Echocardiogram showed a hyperdynamic LV with an ejection fraction of 7075% and severe pulm hypertension Current cardiac rhythm is sinus Patient is currently on amiodarone and Eliquis Oxygen at 3 L/min nasal cannula Hemodialysis per nephrology Continue midodrine Will continue to follow
--- NOTE | 2024-08-10 13:39 | P.PN ---
Progress Note - Text Progress Note Date: 08/10/24 Chief Complaint: Not feeling well Pleasant 54-year-old patient who follows with Dr. Ballard. Accompanied by in the ICU. In 2017 patient underwent renal transplant at [facility]. Follows up with the transplant physician there. Patient previously had cardiac catheterization, in 2016 was told has had about 40 to 50% lesion in distal circumflex. Patient had Prevena lethargic for last 2 days. Patient heart rate went up blood pressure dropped. EMS was called out. Brought into the ER. At home normally patient uses 3 L of oxygen. Has a left groin hemodialysis catheter. Patient had elevated troponin of 9. Taken to cardiac [employer] [employer] [facility]. Unremarkable. Moved to the ICU. On a Levophed 0.08 mics. 4 L of oxygen. Elevated white count. Patient has intermittent chronic cough since his COVID. Denies any urinary symptoms. Does make urine. Denies any obvious fever but has had some chills. August 08: ICU. Sitting up in bed. Nasal cannula. Was hemodialyzed yesterday. Patient is off amiodarone and Levophed drip. Apparently patient was in A-fib with rapid ventricular rate in the ER. Was also put on IV heparin that has been discontinued. Remains on IV cefepime and IV daptomycin.No cultures reported currently. Eating well. at the bedside. Was up to the bathroom. August 09: Comfortable. Eating well. Blood cultures pending. Remains on IV cefepime. Patient has been now in sinus rhythm. Metoprolol being added tomorrow. Amiodarone being cut back. Spoke to the patient and the . August 10: In bed. Getting dialysis. 1.5 L being removed. Blood culture still pending. Otherwise stable. Tolerating a diet. After discussed with Dr. Mathews amiodarone was discontinued yesterday. Active Medications Acetaminophen (Acetaminophen Tab 325 Mg Tab) 650 mg PO Q4HR PRN PRN Reason: Fever and/or Mild Pain Acetaminophen (Acetaminophen Tab 500 Mg Tab) 1,000 mg PO Q6H PRN PRN Reason: Fever and/ or Pain Albuterol Sulfate (Albuterol Nebulized 2.5 Mg/3 Ml) 2.5 mg INHALATION RT-QID PRN PRN Reason: Shortness Of Breath Albuterol Sulfate (Albuterol Hfa Inhaler) 2 puff INHALATION RT-Q4H PRN PRN Reason: Shortness Of Breath Apixaban (Apixaban 2.5 Mg Tablet) 2.5 mg PO BID [facility]; Protocol Last Admin: 08/10/24 09:03 Dose: 2.5 mg Dextrose/Water (Dextrose 50% Syringe 50 Ml) 25 ml IVP PER PROTOCOL PRN; Protocol PRN Reason: Hypoglycemia Dextrose/Water (Dextrose 50% Syringe 50 Ml) 50 ml IVP PER PROTOCOL PRN; Protocol PRN Reason: Hypoglycemia Daptomycin 500 mg/ Sodium (Chloride) 50 mls @ 100 mls/hr IVPB Q48H [facility]; Protocol Last Admin: 08/10/24 12:56 Dose: 100 mls/hr Cefepime HCl 1 gm/ Sodium (Chloride) 50 mls @ 12.5 mls/hr IVPB DAILY [facility]; Protocol Last Admin: 08/10/24 12:57 Dose: 12.5 mls/hr Insulin Aspart (Insulin Aspart (Novolog) 100 Unit/Ml Vial) 0 unit SQ ACHS [facility]; Protocol Last Admin: 08/10/24 12:32 Dose: Not Given Insulin Detemir (Insulin Detemir (Levemir) 100 Unit/Ml Syr) 20 unit SQ [facility] Last Admin: 08/09/24 21:16 Dose: 20 unit Levothyroxine Sodium (Levothyroxine 100 Mcg Tab) 100 mcg PO DAILY@0630 [facility] Last Admin: 08/10/24 06:34 Dose: 100 mcg Loratadine (Loratadine 10 Mg Tab) 10 mg PO DAILY [facility] Last Admin: 08/10/24 09:03 Dose: 10 mg Metoprolol Succinate (Metoprolol Succinate (Er) 25 Mg Tab.Er.24h) 25 mg PO DAILY [facility] Last Admin: 08/10/24 09:08 Dose: Not Given Midodrine (Midodrine 5 Mg Tab) 10 mg PO TID PRN PRN Reason: Blood Pressure - Low Last Admin: 08/10/24 09:04 Dose: 10 mg Miscellaneous Information (Magnesium Replacement Protocol 1 Each Misc) 1 each MISCELLANE DAILY PRN; Protocol PRN Reason: Per Protocol Montelukast Sodium (Montelukast 10 Mg Tab) 10 mg PO HS [facility] Last Admin: 08/09/24 21:16 Dose: 10 mg Mycophenolate Mofetil (Mycophenolate Mofetil 250 Mg Cap) 250 mg PO BID [facility] Last Admin: 08/10/24 09:04 Dose: 250 mg Naloxone HCl (Naloxone 0.4 Mg/Ml 1 Ml Vial) 0.2 mg IV Q2M PRN PRN Reason: Opioid Reversal Prednisone (Prednisone 5 Mg Tab) 5 mg PO DAILY [facility] Last Admin: 08/10/24 09:04 Dose: 5 mg Sertraline HCl (Sertraline 25 Mg Tab) 25 mg PO HS [facility] Last Admin: 08/09/24 21:16 Dose: 25 mg Sevelamer Carbonate (Sevelamer 800 Mg Tab) 800 mg PO W/SUPPER [facility] Last Admin: 08/09/24 16:59 Dose: 800 mg Sodium Bicarbonate (Sodium Bicarbonate Tab 650 Mg Tab) 650 mg PO TID [facility] Last Admin: 08/10/24 09:04 Dose: 650 mg Tacrolimus (Tacrolimus 1 Mg Cap) 1 mg PO DAILY [facility] Last Admin: 08/10/24 09:03 Dose: 1 mg Tacrolimus (Tacrolimus 0.5 Mg Cap) 0.5 mg PO HS [facility] Last Admin: 08/09/24 21:16 Dose: 0.5 mg Torsemide (Torsemide 20 Mg Tab) 40 mg PO DAILY [facility] Last Admin: 08/10/24 09:08 Dose: Not Given Social history: Lives with . Smoked half a pack a day from age 17 and stopped in 1998. No alcohol. Physical examination: VITAL SIGNS: 97.6, 60, 16, 109 x 64, 95% on 3 L GENERAL: BMI 29.1, getting hemodialysis, left femoral hemodialysis catheter EYES: Pupils equal. Conjunctiva nicole l. HEENT: External appearance of nose and ears normal, oral cavity grossly normal. NECK: JVD not raised; masses not palpable. HEART: First and second heart sounds are normal; mild edema. LUNGS: Respiratory rate normal; decreased breath sounds n. ABDOMEN: Soft, nontender, liver spleen not palpable, no masses palpable. PSYCH: Alert and oriented x3; mood and affect nicole l. MUSCULOSKELETAL:No Clubbing/cyanosis;muscles-grossly intact INVESTIGATIONS, reviewed in the clinical context: August 09: White count 16.8 hemoglobin 12 platelets 112 potassium 4.1 creatinine 6.69 August 08: White count 18 hemoglobin 11.1 platelets 109 sodium 132 potassium 3.4 BUN 64 creatinine 4.05 August 07, 2024: Sodium 136 potassium 3.2 BUN 109 creatinine 5.97 glucose 50 TSH 2.9 white count 22.6 hemoglobin 12.4 platelets 129 Troponin I 9.16 EKG tracing personally reviewed by me-sinus rhythm. ST segment depression anterolateral leads. And some inferior leads Chest x-ray film personally reviewed by me-cardiomegaly Assessment plan: -Hypotensive shock. Exact cause unknown. Patient not been feeling well for last couple of days. Some chills. Elevated white count. At this point sepsis is a consideration.: Better Levophed -given initially. -Sepsis consideration on presentation. Cultures pending. Need to rule out dialysis access the catheter site as a source -Empiric antibiotics on board. ID following -Cardiac catheterization did not show any significant disease. Mild LAD -End-stage kidney disease and a renal transplant patient. Left groin hemodialysis catheter -Renal transplant in 2017 at [facility]. Prednisone 5 mg a day. CellCept to 50 mg twice daily. Prograf 1 mg p.o. twice daily. -Paroxysmal atrial fibrillation now in sinus rhythm On oral amiodarone. Lopressor being added. Eliquis -Chronic hypoxic respiratory failure, from previous COVID infection 3 L of oxygen at home -Severe secondary pulmonary hypertension, with tricuspid regurgitation -Hypothyroid Synthroid 100 mcg a day -Diabetes mellitus type 2, chronically on insulin. Hypoglycemic in the ER. Insulin Lantus . Follow sliding scale with sliding scale insulin. Semaglutide -Hyperlipidemia Crestor -Depression otherwise specified Zoloft 25 mg nightly -Full code Culture results still pending. Amiodarone discontinued yesterday. Discussed with patient . Past Medical History Past Medical History: Coronary Artery Disease (CAD), Renal Disease, Thyroid Disorder Additional Past Medical History / Comment(s): Renal failure post-kidney transplantation, previous history of dialysis for a total of 12 years followed by kidney transplantation, hypothyroidism, chronic stage III kidney failure post transplantation, nonocclusive coronary artery disease and the patient a cardiac catheterization on 09/24/2016 that showed 40-50% lesion in the distal circumflex otherwise the rest of the coronary arteries were all within normal limits. History of Any Multi-Drug Resistant Organisms: None Reported Past Surgical History: Heart Catheterization, Orthopedic Surgery Additional Past Surgical History / Comment(s): FISTULA/GRAFT RT ARM, kidney transplant in July of 2017, Left hip Past Anesthesia/Blood Transfusion Reactions: No Reported Reaction Past Psychological History: No Psychological Hx Reported Additional Psychological History / Comment(s): Short term memory issues. Smoking Status: Former smoker Past Alcohol Use History: None Reported Additional Past Alcohol Use History / Comment(s): QUIT SMOKING 1998, SMOKED 1/2 PPD FROM AGE 17 Past Drug Use History: None Reported
[2024-08-10 16:46] LABS: Glucose,Whole Blood 273 mg/dL (70-110)
[2024-08-10 20:09] LABS: Glucose,Whole Blood 136 mg/dL (70-110)
--- NOTE | 2024-08-10 20:18 | P.PN ---
Subjective Progress Note Date: 08/10/24 This is a 54-year-old gentleman who is known to our service from before who follows with Dr. Cabrera on a regular basis with a past medical history significant for diabetes and hypertension and dyslipidemia and history of renal transplant but currently the patient is on dialysis as well as hypoxic respiratory failure after COVID-19 infection was brought to the hospital by his because he was not feeling well. The patient somewhat is poor historian and the history was taken from him as well as from his who was at bedside. The patient has been feeling weak and tired and fatigue for the last several days but beside that he has been experiencing also increasing in the shortness of breath with no associated symptoms of any chest pain or chest discomfort or dizziness or lightheadedness or any feeling of heart racing fluttering or presyncope or syncope. Upon arrival to the emergency department he was hypotensive requiring norepinephrine to support the blood pressure and also he was in atrial fibrillation with rapid ventricular response but an EKG showed ST segment elevation in aVR and diffuse ST segment depression concerning for severe underlying coronary artery disease. Also his troponin came in to be elevated at 9.1. Giving all of that I advised the patient to undergo a heart cat heterization. The heart catheterization revealed mild nonobstructive coronary artery disease. The patient subsequently was admitted to the intensive care unit. An echocardiogram is in process to be done to rule out stress-induced cardiomyopathy. Please note that the LV end-diastolic pressure/left ventricular filling pressure was elevated around 17 mmHg. Also subsequently the patient was noted to be febrile and WBC came in to be elevated. He might have a component of infection/sepsis as well. The atrial fibrillation is new and the patient never been diagnosed with atrial fibrillation before. An echo from December 2023 showed normal biventricular systolic function with no significant valvular abnormalities. His recent hemoglobin was 12.4 and creatinine was 5.97. NT proBNP came in to be elevated at 76,000. The physical examination is remarkable for irregular rhythm with a systolic murmur at the right upper sternal border with clear breathing sounds bilaterally and no edema was noted in the lower extremities August 08, 2024 The patient was seen and evaluated this morning. He is feeling much better. He is asymptomatic and hemodynamically stable besides soft blood pressure. He is converted to normal sinus mechanism. Am going to DC amiodarone IV and start the patient on amiodarone orally and also DC heparin IV and restart the patient on anticoagulation for the atrial fibrillation. Follow-up on the echocardiogram which is still pending. Physical examination is remarkable for regular rhythm with a distant heart sounds and soft systolic murmur and clear breathing sounds bilaterally and no edema was noted in the lower extremities. Please note that the heart catheterization from yesterday showed mild nonobstructive coronary artery disease August 09, 2024 Patient is seen and examined at bedside this a.m. Patient is hemodynamic stable. BP 110/66, heart rate 73 bpm, currently in sinus rhythm. Number 02/23/2024 Patient is seen and examined at bedside this a.m. Patient is hemodynamically stable. Continues to be in sinus rhythm. No evidence of atrial fibrillation last 48 hours. On exam S1-S2 is audible, no significant murmurs appreciated, regular pulses JVD is not elevated No significant swelling in bilateral extremity AV fistula femoral artery Lungs are clear to auscultate Alert oriented, no focal neurological deficits, detail neuroexam was not perfo rmed Assessment Shock likely to be a combination of multiple etiology including sepsis, resolved Atrial fibrillation with RVR, first diagnosed August 2024, currently sinus rhythm. Severe concentric LVH Severe pulmonary hypertension Elevated troponin, likely because of underlying A-fib and poor renal clearance. History of renal transplant, ESRD on hemodialysis. Multiple comorbid conditions including diabetes and hypertension and dyslipidemia Chronic hypoxic respiratory failure after COVID-19 infection History of smoking Plan Continue metoprolol succinate 25 mg daily from tomorrow a.m. Stop amiodarone. Eliquis 2.5 mg twice daily Monitor telemetry, electrolytes and renal function. Would recommend outpatient follow-up with cardiology and further workup for severe concentric LVH and severe pulmonary hypertension. At this time cardiology team will sign off. Please reconsult us in case of any question. Objective - Vital Signs Vital signs: Vital Signs Temp 98.6 F 08/10/24 19:19 Pulse 84 08/10/24 19:19 Resp 17 08/10/24 19:19 BP 95/54 08/10/24 19:19 Pulse Ox 96 08/10/24 19:19 FiO2 Intake & Output 08/10/24 08/10/24 08/11/24 06:59 18:59 06:59 Intake Total 500 858 Output Total 3500 Balance 500 -2642 Weight 71 kg Intake: Oral 500 358 Hemodialysis 500 Output: Hemodialysis 2000 Hemodialysis Net Amount 1500 Other: Voiding Method Urinal Urinal Urinal # Voids 2 1 # Bowel Movements 2 - Labs CBC & Chem 7: 08/09/24 05:32 08/09/24 05:32 Labs: Abnormal Lab Results - Last 24 Hours (Table) 08/09/24 08/10/24 08/10/24 Range/Units 17:55 16:44 20:09 POC Glucose (mg/dL) 273 H 136 H (70-110) mg/dL Urine Protein 1+ H (Negative) Urine Blood Small H (Negative) Amorphous Sediment Rare H (None) /hpf Urine Bacteria Rare H (None) /hpf Urine Mucus Rare H (None) /hpf Microbiology - Last 24 Hours (Table) 08/07/24 07:49 Blood Culture - Preliminary Blood
[2024-08-10] MEDS: AMIODARONE 200 MG TAB PO SCH (20:30)
[2024-08-10] MEDS: HEPARIN SOD,PORK IN 0.45% NACL 25,000 UNIT in 0.45% NACL 1 250ML.BAG IV SCH (20:30)
--- NOTE | 2024-08-10 21:27 | P.PN ---
Subjective Progress Note Date: 08/10/24 Principal diagnosis: Reason for follow-up is sepsis question of line infection/pneumonia Patient is a 54-year-old male with a past medical history significant for coronary artery disease thyroid disorder diverticulitis also with a history of end-stage renal disease status post kidney transplant and remains to be on immunosuppressive presented to the hospital for evaluation of weakness malaise shortness of breath he did have elevated white count and there was concern for possible dialysis catheter infection or question of as he did have elevated procalcitonin of 72.70. On today's evaluation that is 08/10/2024,the patient denies any fever or any chills, patient is breathing comfortably on room air, the patient denies chest pain shortness of breath and no significant cough, patient denies abdominal pain, no nausea vomiting or diarrhea. No new lab has been obtained today, blood culture has been negative Objective - Vital Signs Vital signs: Vital Signs Temp 98.6 F 08/10/24 19:19 Pulse 84 08/10/24 19:19 Resp 17 08/10/24 19:19 BP 95/54 08/10/24 19:19 Pulse Ox 96 08/10/24 19:19 FiO2 Intake & Output 08/10/24 08/10/24 08/11/24 06:59 18:59 06:59 Intake Total 500 858 669.944 Output Total 3500 Balance 500 -2642 669.944 Weight 71 kg Intake: Intake, IV Titration 429.944 Amount Amiodarone 450 mg In 250 Dextrose 5% in Water 250 ml @ 0.5 MG/MIN 16.667 mls/hr IV .Q15H JENNY Rx#: [id number] Heparin Sod,Pork in 0.45% 179.944 NaCl 25,000 unit In 0.45 % NaCl 1 250ml.bag @ 12 UNITS/KG/HR 9.798 mls/hr IV .Q24H JENNY Rx#: [id number] Oral 500 358 240 Hemodialysis 500 Output: Hemodialysis 2000 Hemodialysis Net Amount 1500 Other: Voiding Method Urinal Urinal Urinal # Voids 2 1 # Bowel Movements 2 - Exam GENERAL DESCRIPTION: Middle-age male lying in bed in no distress RESPIRATORY SYSTEM: Unlabored breathing , decreased breath sounds at bases HEART: S1 S2 regular rate and rhythm , ABDOMEN: Soft , no tenderness EXTREMITIES: No edema feet - Labs CBC & Chem 7: 08/09/24 05:32 08/09/24 05:32 Labs: Abnormal Lab Results - Last 24 Hours (Table) 08/10/24 08/10/24 Range/Units 16:44 20:09 POC Glucose (mg/dL) 273 H 136 H (70-110) mg/dL Microbiology - Last 24 Hours (Table) 08/07/24 07:49 Blood Culture - Preliminary Blood Assessment and Plan (1) Sepsis Current Visit: Yes Status: Acute Code(s): A41.9 - SEPSIS, UNSPECIFIED ORGANISM SNOMED Code(s): 81399197 Plan: 1patient presented to hospital with sepsis in this patient who did have elevated white count of 22,000 patient was hypotensive requiring pressor support meeting criteria for SIRS with the source possibly dialysis catheter infection as currently no other obvious focus do not have significant cough or sputum production chest x-ray was mostly fluid overload abdominal soft and no evidence of any cellulitis 2-patient with a transplant kidney which has not been completely and still chance of recovery as reported by the family will be more risk of nephrotoxicity with vancomycin which was discontinued 3-patient white count is trending down as of yesterday no CBC was done today, blood culture has been negative so far blood culture has been requested from the dialysis catheter today continue with daptomycin and cefepime however the blood cultures remained negative plan to discontinue daptomycin Dictation was produced using [employer] dictation software. please excuse any grammatical, word or spelling errors. Time with Patient: Less than 30
[2024-08-11 04:12] VITALS: RESP 18
[2024-08-11 06:25] LABS: Glucose,Whole Blood 74 mg/dL (70-110)
--- NOTE | 2024-08-11 07:34 | XR ---
EXAMINATION TYPE: XR chest 2V DATE OF EXAM: 08/11/2024 6:19 AM COMPARISON: 224 CLINICAL INDICATION: Male, 54 years old with history of Pneumonia, TECHNIQUE: XR chest 2V view(s) obtained. FINDINGS: The heart size is normal. The pulmonary vasculature is normal. The lungs are clear. Catheters on the right with the tip in the right atrium IMPRESSION: 1. Cardiomegaly and vascular prominence has diminished over the interval. [facility], , 08/11/2024 7:32 AM
[2024-08-11 08:16] LABS: Anisocytosis Slight; Basophils % (A) 0 %; Eosinophils # (A) 0.3 k/uL (0-0.7); Eosinophils % (A) 2 %; HCT 36.3 % (39.0-53.0); HGB 11.7 gm/dL (13.0-17.5); Lymphocytes % (A) 7 %; MCH 29.3 pg (25.0-35.0); MCHC 32.1 g/dL (31.0-37.0); MCV 91.2 fL (80.0-100.0); Mean Platelet Volume 9.9; Monocytes # (A) 1.1 k/uL (0-1.0); Monocytes % (A) 7 %; Neutrophils # (A) 11.9 k/uL (1.3-7.7); Neutrophils % (A) 82 %; Platelet Count 118 k/uL (150-450); RBC 3.98 m/uL (4.30-5.90); RDW 16.1 % (11.5-15.5); WBC 14.5 k/uL (3.8-10.6)
[2024-08-11 08:26] LABS: ALT 28 U/L (4-49); AST 28 U/L (17-59); African American GFR (CKD) 14 (>60 ml/min/1.73 sqM); Albumin 3.3 g/dL (3.5-5.0); Alkaline Phosphatase 114 U/L (38-126); Anion Gap 13 mmol/L; Blood Urea Nitrogen 70 mg/dL (9-20); Calcium 8.9 mg/dL (8.4-10.2); Carbon Dioxide 22 mmol/L (22-30); Chloride 99 mmol/L (98-107); Glucose 148 mg/dL (74-99); Non-African American GFR(CKD) 12 (>60 ml/min/1.73 sqM); Potassium 3.6 mmol/L (3.5-5.1); Sodium 134 mmol/L (137-145); Total Bilirubin 1.3 mg/dL (0.2-1.3); Total Protein 5.8 g/dL (6.3-8.2)
[2024-08-11] MEDS ORDERED: BENZOCAINE/MENTHOL LOZENG 1 EACH LOZENGE MUCOUS MEM PRN (09:20)
--- NOTE | 2024-08-11 10:47 | P.PN ---
Subjective Patient is seen in follow-up for acute allograft dysfunction. He is maintained on hemodialysis on Friday schedule. Tolerated 1.5 L ultrafiltration yesterday. No active complaints. present at bedside. Vital signs are stable. General: No acute distress. HEENT: Head exam is unremarkable. On nasal cannula. LUNGS: No audible rhonchi or wheezes. HEART: Rate and Rhythm are regular. ABDOMEN: Nontender. EXTREMITITES: 1+ edema. Objective - Vital Signs Vital signs: Vital Signs Temp 98.5 F 08/11/24 07:20 Pulse 76 08/11/24 07:20 Resp 18 08/11/24 09:35 BP 106/51 08/11/24 07:20 Pulse Ox 95 08/11/24 07:20 FiO2 Intake & Output 08/10/24 08/11/24 08/11/24 18:59 06:59 18:59 Intake Total 858 1149.944 250 Output Total 3500 600 Balance -2642 549.944 250 Weight 89.1 kg Intake: IV 10 Invasive Line 3 10 Intake, IV Titration 429.944 Amount Amiodarone 450 mg In 250 Dextrose 5% in Water 250 ml @ 0.5 MG/MIN 16.667 mls/hr IV .Q15H [facility] Rx#: [id number] Heparin Sod,Pork in 0.45% 179.944 NaCl 25,000 unit In 0.45 % NaCl 1 250ml.bag @ 12 UNITS/KG/HR 9.798 mls/hr IV .Q24H JENNY Rx#: [id number] Oral 358 720 240 Hemodialysis 500 Output: Urine 600 Hemodialysis 2000 Hemodialysis Net Amount 1500 Other: Voiding Method Urinal Urinal Urinal # Voids 1 3 - Labs CBC & Chem 7: 08/11/24 07:40 08/11/24 07:40 Labs: Abnormal Lab Results - Last 24 Hours (Table) 08/10/24 08/10/24 08/11/24 Range/Units 16:44 20:09 07:40 WBC (3.8-10.6) k/uL RBC (4.30-5.90) m/uL Hgb (13.0-17.5) gm/dL Hct (39.0-53.0) % RDW (11.5-15.5) % Plt Count (150-450) k/uL Neutrophils # (1.3-7.7) k/uL Monocytes # (0-1.0) k/uL Sodium (137-145) mmol/L BUN (9-20) mg/dL Creatinine (0.66-1.25) mg/dL Glucose (74-99) mg/dL POC Glucose (mg/dL) 273 H 136 H (70-110) mg/dL Total Protein (6.3-8.2) g/dL Albumin (3.5-5.0) g/dL Procalcitonin 20.10 H (0.02-0.50) ng/mL 08/11/24 08/11/24 Range/Units 07:40 07:40 WBC 14.5 H (3.8-10.6) k/uL RBC 3.98 L (4.30-5.90) m/uL Hgb 11.7 L (13.0-17.5) gm/dL Hct 36.3 L (39.0-53.0) % RDW 16.1 H (11.5-15.5) % Plt Count 118 L (150-450) k/uL Neutrophils # 11.9 H (1.3-7.7) k/uL Monocytes # 1.1 H (0-1.0) k/uL Sodium 134 L (137-145) mmol/L BUN 70 H (9-20) mg/dL Creatinine 5.15 H (0.66-1.25) mg/dL Glucose 148 H (74-99) mg/dL POC Glucose (mg/dL) (70-110) mg/dL Total Protein 5.8 L (6.3-8.2) g/dL Albumin 3.3 L (3.5-5.0) g/dL Procalcitonin (0.02-0.50) ng/mL Microbiology - Last 24 Hours (Table) 08/07/24 07:49 Blood Culture - Preliminary Blood Assessment and Plan Plan: Assessment: 1. Acute allograft dysfunction. Currently maintained on hemodialysis on Friday schedule via permacath. Patient recently underwent kidney biopsy at [facility] which showed inflammation. Patient completed course of IV steroids and now is on oral steroids. Recent renal ultrasound showed no evidence of hydronephrosis. Patient has follow-up with urology outpatient for uroflow studies. 2. Metabolic acidosis secondary to acute kidney injury. On oral bicarb. Improved postdialysis. 3. Septic shock. White count trending down. ID following. Blood cultures negative so far. 4. Diabetes mellitus. 5. Chronic kidney disease mineral bone disease maintained on Renvela. Plan: Hemodialysis tomorrow. Follow-up Prograf level. Follow-up cultures. Maintain torsemide. Status post cardiac cath August 07, 2024 which showed mild CAD. Patient to follow-up with [facility] postdischarge.
[2024-08-11 11:09] VITALS: BP 94/50; PULSE 78; TEMP 96.3
[2024-08-11 11:34] LABS: Glucose,Whole Blood 208 mg/dL (70-110)
--- NOTE | 2024-08-11 12:07 | P.PN ---
Subjective Progress Note Date: 08/11/24 Principal diagnosis: Reason for follow-up is sepsis question of line infection/pneumonia Patient is a 54-year-old male with a past medical history significant for coronary artery disease thyroid disorder diverticulitis also with a history of end-stage renal disease status post kidney transplant and remains to be on immunosuppressive presented to the hospital for evaluation of weakness malaise shortness of breath he did have elevated white count and there was concern for possible dialysis catheter infection or question of as he did have elevated procalcitonin of 72.70. On today's evaluation that is 08/11/2024,the patient remains to be afebrile, patient is on 2 L nasal cannula supplemental oxygen which apparently is his baseline and denies any shortness of breath no chest pain or any cough.Patient denies having any nausea or vomiting, no abdominal pain and no diarrhea, patient mention feeling better wants to go home. Patient white count is down to 14.5 creatinine is 5.15 procalcitonin is down to 20.10 Objective - Vital Signs Vital signs: Vital Signs Temp 98.5 F 08/11/24 07:20 Pulse 76 08/11/24 07:20 Resp 18 08/11/24 09:35 BP 106/51 08/11/24 07:20 Pulse Ox 95 08/11/24 07:20 FiO2 Intake & Output 08/10/24 08/11/24 08/11/24 18:59 06:59 18:59 Intake Total 858 1149.944 250 Output Total 3500 600 Balance -2642 549.944 250 Weight 89.1 kg Intake: IV 10 Invasive Line 3 10 Intake, IV Titration 429.944 Amount Amiodarone 450 mg In 250 Dextrose 5% in Water 250 ml @ 0.5 MG/MIN 16.667 mls/hr IV .Q15H JENNY Rx#: [id number] Heparin Sod,Pork in 0.45% 179.944 NaCl 25,000 unit In 0.45 % NaCl 1 250ml.bag @ 12 UNITS/KG/HR 9.798 mls/hr IV .Q24H JENNY Rx#: [id number] Oral 358 720 240 Hemodialysis 500 Output: Urine 600 Hemodialysis 2000 Hemodialysis Net Amount 1500 Other: Voiding Method Urinal Urinal Urinal # Voids 1 3 - Exam GENERAL DESCRIPTION: Middle-age male lying in bed in no distress RESPIRATORY SYSTEM: Unlabored breathing , decreased breath sounds at bases HEART: S1 S2 regular rate and rhythm , ABDOMEN: Soft , no tenderness EXTREMITIES: No edema feet - Labs CBC & Chem 7: 08/11/24 07:40 08/11/24 07:40 Labs: Abnormal Lab Results - Last 24 Hours (Table) 08/10/24 08/10/24 08/11/24 Range/Units 16:44 20:09 07:40 WBC 14.5 H (3.8-10.6) k/uL RBC 3.98 L (4.30-5.90) m/uL Hgb 11.7 L (13.0-17.5) gm/dL Hct 36.3 L (39.0-53.0) % RDW 16.1 H (11.5-15.5) % Plt Count 118 L (150-450) k/uL Neutrophils # 11.9 H (1.3-7.7) k/uL Monocytes # 1.1 H (0-1.0) k/uL Sodium (137-145) mmol/L BUN (9-20) mg/dL Creatinine (0.66-1.25) mg/dL Glucose (74-99) mg/dL POC Glucose (mg/dL) 273 H 136 H (70-110) mg/dL Total Protein (6.3-8.2) g/dL Albumin (3.5-5.0) g/dL 08/11/24 Range/Units 07:40 WBC (3.8-10.6) k/uL RBC (4.30-5.90) m/uL Hgb (13.0-17.5) gm/dL Hct (39.0-53.0) % RDW (11.5-15.5) % Plt Count (150-450) k/uL Neutrophils # (1.3-7.7) k/uL Monocytes # (0-1.0) k/uL Sodium 134 L (137-145) mmol/L BUN 70 H (9-20) mg/dL Creatinine 5.15 H (0.66-1.25) mg/dL Glucose 148 H (74-99) mg/dL POC Glucose (mg/dL) (70-110) mg/dL Total Protein 5.8 L (6.3-8.2) g/dL Albumin 3.3 L (3.5-5.0) g/dL Microbiology - Last 24 Hours (Table) 08/07/24 07:49 Blood Culture - Preliminary Blood Assessment and Plan (1) Sepsis Current Visit: Yes Status: Acute Code(s): A41.9 - SEPSIS, UNSPECIFIED ORGANISM SNOMED Code(s): 39234072 Plan: 1patient presented to hospital with sepsis in this patient who did have elevated white count of 22,000 patient was hypotensive requiring pressor support meeting criteria for SIRS with the source possibly dialysis catheter infection as currently no other obvious focus do not have significant cough or sputum production chest x-ray was mostly fluid overload abdominal soft and no evidence of any cellulitis 2-patient with a transplant kidney which has not been completely and still chanc e of recovery as reported by the family will be more risk of nephrotoxicity with vancomycin which was discontinued 3-patient white count is trending down and did have improvement his procalcitonin level as well we will discontinue daptomycin with a negative blood culture continue with the cefepime plan is to finish therapy with oral Ceftin x 7 days on discharge Daughter at the bedside questions answered Dictation was produced using [employer] dictation software. please excuse any grammatical, word or spelling errors. Time with Patient: Less than 30
--- NOTE | 2024-08-11 12:22 | P.PN ---
Subjective Progress Note Date: 08/11/24 54-year-old male with history of multiple medical problems including end-stage renal disease, status post kidney transplant, back in 2016. The patient was brought into the hospital, for weakness, and low blood pressure. The patient's kidney transplant, has not been going well, and he still requires hemodialysis twice a week. The patient was seen in the emergency department, trauma room 1. I was notified by the ER physician. The patient is currently on 4 L of oxygen. The patient is receiving amiodarone, and also norepinephrine at 0.08 mcg/kg/min. The patient was seen by cardiology, and IV heparin was started. The patient had a cardiac catheterization, back in December 2023, and apparently at that time, the catheterization showed only mild coronary disease. The patient was prescribed vancomycin and cefepime. Will check an N-terminal proBNP and procalcitonin level. The patient will get an echocardiogram, and according to the creative manager, may benefit from cardiac catheterization as well. Current labs include a white count 22.6, hemoglobin 12.4, macro 38.1, and a platelet count of 129,000. PT 13.8, INR 1.3. Sodium 136, potassium 3.2, chlorides 102, CO2 19, anion gap 15, BUN 109, creatinine 5.97. Glucose is 174. Troponin was 9.160. N-terminal proBNP was quite elevated at 76,600. Albumin was 3.3. TSH was normal. Procalcitonin level is currently pending. Chest x-ray shows mild pulmonary edema. The patient went to the catheterization laboratory, today, and had only mild CAD, and mild elevated left-sided filling pressures. Medical treatment was recommended. On 08/09/2024, the patient is doing well. He is awake and alert and communicating. No significant respiratory distress. The white cell count is improved and is currently down to 16.8 with hemoglobin 12 and a platelet count of 112. BUN is 97 with a creatinine of 6.6. Sodium levels at 135. Producing adequate amount of urine output. In terms of infection, the patient does not have any clear source of infection. Blood cultures are still negative and the patient is covered with broad-spectrum antibiotics and the patient remains on a combination of cefepime and daptomycin. Noted the patient has been chronic immunosuppressed with a combination of Prograf, CellCept and prednisone. This combination of immunosuppression was given to him regarding his transplant kidney for chronic immunosuppression. Meanwhile, the patient was also seen by cardiology. Echocardiogram was done 08/07/2024 and the patient was found to have a hyperdynamic LV with an ejection fraction of 70 to 75%, and he does have sev ere pulmonary hypertension. His current cardiac rhythm is sinus. The patient remains on anticoagulation. He was placed on anticoagulation with Eliquis 2.5 mg twice a day. He remains on amiodarone 4 mg p.o. twice a day regarding his new onset atrial fibrillation and he is on no pressors. Remains on midodrine. Nephrology remains on the case. He is chronically oxygen dependent and he remains also on oxygen which is currently running at 4 L/min nasal cannula with a pulse ox of 94%. Chest x-ray shows cardiomegaly with mild pulm vessel congestion. 08/10/2024, the patient is being seen for a follow-up.The patient is doing well as the patient is completing his hemodialysis this morning. No respiratory difficulties. The patient remains on 3 L of oxygen by nasal cannula with a pulse ox of 95%. Labs from today are still pending. White cell count was down to 16.8. The patient remains on broad-spectrum antibiotics suspecting a underlying sepsis and the patient is currently on a combination of cefepime and daptomycin. Nephrology on the case. The patient remains on immunosuppression and the patient remains on a combination of Prograf, CellCept and the patient is also on prednisone 5 mg p.o. daily. Remains on Demadex 40 mg p.o. daily. UA was completed and does not seem to be infected at this point in time. 08/11/2024, the patient is being seen for a follow-up. The patient is doing well. Afebrile. Hemodynamically stable. Underwent hemodialysis yesterday. Remains on cefepime and this is essentially an empiric antibiotic coverage. Cultures have been negative. The patient's white cell count is down to 14.5 with a hemoglobin 11.7. BUN is at 70 with a creatinine of 5.15 and a sodium is at 134. The patient remains on oxygen at 3 L. No respiratory distress. No other new complaints otherwise for now. The plan is to discontinue the daptomycin and keep the patient on cefepime and this will be switched to Ceftin at time of discharge. Objective - Vital Signs Vital signs: Vital Signs Temp 98.5 F 08/11/24 07:20 Pulse 76 08/11/24 07:20 Resp 18 08/11/24 09:35 BP 106/51 08/11/24 07:20 Pulse Ox 95 08/11/24 07:20 FiO2 Intake & Output 08/10/24 08/11/24 08/11/24 18:59 06:59 18:59 Intake Total 858 1149.944 250 Output Total 3500 600 Balance -2642 549.944 250 Weight 89.1 kg Intake: IV 10 Invasive Line 3 10 Intake, IV Titration 429.944 Amount Amiodarone 450 mg In 250 Dextrose 5% in Water 250 ml @ 0.5 MG/MIN 16.667 mls/hr IV .Q15H JENNY Rx#: [id number] Heparin Sod,Pork in 0.45% 179.944 NaCl 25,000 unit In 0.45 % NaCl 1 250ml.bag @ 12 UNITS/KG/HR 9.798 mls/hr IV .Q24H JENNY Rx#: [id number] Oral 358 720 240 Hemodialysis 500 Output: Urine 600 Hemodialysis 2000 Hemodialysis Net Amount 1500 Other: Voiding Method Urinal Urinal Urinal # Voids 1 3 - Exam No acute distress, oriented 3. The patient is currently on 4 L of oxygen. Head exam was generally normal. There was no scleral icterus or corneal arcus. Mucous membranes were moist. Neck was supple and without jugular venous distension, thyromegaly, or carotid bruits. Carotids were easily palpable bilaterally. There was no adenopathy. Cardiovascular examination reveals regular rhythm rate. S1-S2 normal. No S3 or S4. No discernible murmur noted. There is obvious accentuation of the second heart sound. Cardiac rhythm remains sinus. Lungs reveal scattered crackles. No wheezes or rhonchi. Breath sounds equal. Abdomen soft bowel sounds are heard. No masses or tenderness. The patient has abdominal surgeries with a transplanted kidney over the right lower abdominal wall. No directedness. No rebound tenderness. No guarding. Extremities are intact. No cyanosis clubbing or edema. Skin is without rash or lesion. Neurologic examination is brief but nonfocal. - Labs CBC & Chem 7: 08/11/24 07:40 08/11/24 07:40 Labs: Abnormal Lab Results - Last 24 Hours (Table) 08/10/24 08/10/24 08/11/24 Range/Units 16:44 20:09 07:40 WBC 14.5 H (3.8-10.6) k/uL RBC 3.98 L (4.30-5.90) m/uL Hgb 11.7 L (13.0-17.5) gm/dL Hct 36.3 L (39.0-53.0) % RDW 16.1 H (11.5-15.5) % Plt Count 118 L (150-450) k/uL Neutrophils # 11.9 H (1.3-7.7) k/uL Monocytes # 1.1 H (0-1.0) k/uL Sodium (137-145) mmol/L BUN (9-20) mg/dL Creatinine (0.66-1.25) mg/dL Glucose (74-99) mg/dL POC Glucose (mg/dL) 273 H 136 H (70-110) mg/dL Total Protein (6.3-8.2) g/dL Albumin (3.5-5.0) g/dL 08/11/24 Range/Units 07:40 WBC (3.8-10.6) k/uL RBC (4.30-5.90) m/uL Hgb (13.0-17.5) gm/dL Hct (39.0-53.0) % RDW (11.5-15.5) % Plt Count (150-450) k/uL Neutrophils # (1.3-7.7) k/uL Monocytes # (0-1.0) k/uL Sodium 134 L (137-145) mmol/L BUN 70 H (9-20) mg/dL Creatinine 5.15 H (0.66-1.25) mg/dL Glucose 148 H (74-99) mg/dL POC Glucose (mg/dL) (70-110) mg/dL Total Protein 5.8 L (6.3-8.2) g/dL Albumin 3.3 L (3.5-5.0) g/dL Microbiology - Last 24 Hours (Table) 08/07/24 07:49 Blood Culture - Preliminary Blood Assessment and Plan Plan: Weakness, and hypotension, of unclear etiology, related to underlying infection/sepsis. Cultures were all negative. The white cell count improved and the patient was treated with a combination of daptomycin and cefepime.. The patient is currently normotensive, off pressors, comfortable broad-spectrum antibiotics and the culture still pending for now. Leukocytosis gradually improving. Noted the patient has been chronically immunosuppressed with a combination of prednisone, CellCept and Prograf. The patient remains hemodynamically stable. Cardiac catheterization, August 07, showing only mild CAD. End-stage renal disease, previously on hemodialysis and a previous history of renal transplant, 2016, patient still requiring twice a week hemodialysis. The patient has a permacath in his right femoral vein. New onset atrial fibrillation with RVR, cardiac rhythm is back to sinus. The patient is LV function is preserved and the patient has severe pulm hypertension. History of hypothyroidism. Previous history of tobacco use. History of hyperlipidemia. History of diabetes mellitus. History of hypertension. Prior history of coronavirus infection, with postinflammatory pulmonary fibrosis. History of pulmonary embolism Chronic hypoxic respiratory failure and the patient is maintained on O2 on an outpatient basis Plan: Patient is currently off pressors, remains hemodynamically stable Continue cefepime and discontinue daptomycin Ceftin at the time of discharge Continue with suppression and the patient remains on a combination of CellCept and Prograf and prednisone Cardiac catheterization from December 2023 showed nonocclusive CAD Echocardiogram showed a hyperdynamic LV with an ejection fraction of 7075% and severe pulm hypertension Current cardiac rhythm is sinus Patient is currently on amiodarone and Eliquis Oxygen at 3 L/min nasal cannula Hemodialysis per nephrology Continue midodrine Will continue to follow
--- NOTE | 2024-08-11 18:14 | P.DS ---
Providers Date of admission: 08/07/24 08:31 Expected date of discharge: 08/11/24 Attending physician: Tad Jama Consults: 08/07/24 07:38 Consult Physician Routine Consulting Provider: Warren Chavez Consult Reason/Comments: esrd Do you want consulting provider notified?: Yes 08/07/24 07:39 Consult Physician Routine Consulting Provider: Chavo Caldwell Consult Reason/Comments: icu patient Do you want consulting provider notified?: Yes Consult Physician Routine Consulting Provider: Jf Rich Consult Reason/Comments: infection Do you want consulting provider notified?: Yes 08/07/24 08:31 Consult Physician Stat Consulting Provider: Aldo Raya Consult Reason/Comments: nstemi Do you want consulting provider notified?: Already Contacted Primary care physician: Og Ballard [facility] Course: Chief Complaint: Not feeling well Pleasant 54-year-old patient who follows with Dr. Ballard. Accompanied by in the ICU. In 2016 patient underwent renal transplant at [facility]. Follows up with the transplant physician there. Patient previously had cardiac catheterization, in 2015 was told has had about 40 to 50% lesion in distal circumflex. Patient had Prevena lethargic for last 2 days. Patient heart rate went up blood pressure dropped. EMS was called out. Brought into the ER. At home normally patient uses 3 L of oxygen. Has a left groin hemodialysis catheter. Patient had elevated troponin of 9. Taken to cardiac Nanoelectron[employer] Engineer. Unremarkable. Moved to the ICU. On a Levophed 0.08 mics. 4 L of oxygen. Elevated white count. Patient has intermittent chronic cough since his COVID. Denies any urinary symptoms. Does make urine. Denies any obvious fever but has had some chills. August 08: ICU. Sitting up in bed. Nasal cannula. Was hemodialyzed yesterday. Patient is off amiodarone and Levophed drip. Apparently patient was in A-fib with rapid ventricular rate in the ER. Was also put on IV heparin that has been discontinued. Remains on IV cefepime and IV daptomycin.No cultures reported currently. Eating well. at the bedside. Was up to the bathroom. August 09: Comfortable. Eating well. Blood cultures pending. Remains on IV cefepime. Patient has been now in sinus rhythm. Metoprolol being added tomorrow. Amiodarone being cut back. Spoke to the patient and the . August 10: In bed. Getting dialysis. 1.5 L being removed. Blood culture still pending. Otherwise stable. Tolerating a diet. After discussed with Dr. Mathews amiodarone was discontinued yesterday. August 11: Comfortable in bed. at the bedside. Patient and both upset as cultures are still not finalized. I spoke to Dr. Lee from [place]. He was okay with patient getting discharged on Ceftin to 250 mg twice daily-7 days. I did apologize to the patient the delay in cultures but I said this is out of my control. Otherwise patient feeling well. Discussion and discharge planning more than 35 minutes Social history: Lives with . Smoked half a pack a day from age 17 and stopped in 1998. No alcohol. Physical examination: VITAL SIGNS: 96.3, 78, 18, 94/50, 95% on 3 L l GENERAL: BMI 29.1, comfortable resting in bed left femoral hemodialysis catheter EYES: Pupils equal. Conjunctiva nicole l. HEENT: External appearance of nose and ears normal, oral cavity grossly normal. NECK: JVD not raised; masses not palpable. HEART: First and second heart sounds are normal; mild edema. LUNGS: Respiratory rate normal; decreased breath sounds n. ABDOMEN: Soft, nontender, liver spleen not palpable, no masses palpable. PSYCH: Alert and oriented x3; mood and affect nicole l. MUSCULOSKELETAL:No Clubbing/cyanosis;muscles-grossly intact INVESTIGATIONS, reviewed in the clinical context: August 11: White count 14.5 hemoglobin 11.7 platelets 118 potassium 3.6 creatinine 5.15 August 09: White count 16.8 hemoglobin 12 platelets 112 potassium 4.1 creatinine 6.69 August 08: White count 18 hemoglobin 11.1 platelets 109 sodium 132 potassium 3.4 BUN 64 creatinine 4.05 August 07, 2024: Sodium 136 potassium 3.2 BUN 109 creatinine 5.97 glucose 50 TSH 2.9 white count 22.6 hemoglobin 12.4 platelets 129 Troponin I 9.16 EKG tracing personally reviewed by me-sinus rhythm. ST segment depression anterolateral leads. And some inferior leads Chest x-ray film personally reviewed by me-cardiomegaly Assessment plan: -Hypotensive shock. Exact cause unknown. Patient not been feeling well for last couple of days. Some chills. Elevated white count. At this point sepsis is a consideration.: Better Levophed -given initially. -Sepsis consideration on presentation. Cultures pending. Clinically better -Empiric antibiotics on board. ID following -Cardiac catheterization did not show any significant disease. Mild LAD -End-stage kidney disease and a renal transplant patient. Left groin hemodialysis catheter -Renal transplant in 2017 at [facility]. Prednisone 5 mg a day. CellCept to 50 mg twice daily. Prograf 1 mg p.o. twice daily. -Paroxysmal atrial fibrillation now in sinus rhythm On oral amiodarone. Lopressor being added. Eliquis -Chronic hypoxic respiratory failure, from previous COVID infection 3 L of oxygen at home -Severe secondary pulmonary hypertension, with tricuspid regurgitation -Hypothyroid Synthroid 100 mcg a day -Diabetes mellitus type 2, chronically on insulin. Hypoglycemic in the ER. Insulin Lantus . Follow sliding scale with sliding scale insulin. Semaglutide -Hyperlipidemia Crestor -Depression otherwise specified Zoloft 25 mg nightly -Full code Disposition: Home Past Medical History Past Medical History: Coronary Artery Disease (CAD), Renal Disease, Thyroid Disorder Additional Past Medical History / Comment(s): Renal failure post-kidney transplantation, previous history of dialysis for a total of 12 years followed by kidney transplantation, hypothyroidism, chronic stage III kidney failure post transplantation, nonocclusive coronary artery disease and the patient a cardiac catheterization on 09/24/2016 that showed 40-50% lesion in the distal circumflex otherwise the rest of the coronary arteries were all within normal limits. History of Any Multi-Drug Resistant Organisms: None Reported Past Surgical History: Heart Catheterization, Orthopedic Surgery Additional Past Surgical History / Comment(s): FISTULA/GRAFT RT ARM, kidney transplant in July of 2017, Left hip Past Anesthesia/Blood Transfusion Reactions: No Reported Reaction Past Psychological History: No Psychological Hx Reported Additional Psychological History / Comment(s): Short term memory issues. Smoking Status: Former smoker Past Alcohol Use History: None Reported Additional Past Alcohol Use History / Comment(s): QUIT SMOKING 1998, SMOKED 1/2 PPD FROM AGE 17 Past Drug Use History: None Reported Patient Condition at Discharge: Critical Plan - Discharge Summary Discharge Rx Participant: No New Discharge Prescriptions: New Metoprolol Succinate (ER) [Toprol XL] 25 mg PO DAILY #30 tab Cefuroxime [Ceftin] 250 mg PO BID #14 tab Apixaban [Eliquis] 2.5 mg PO BID #60 tab Continue Levothyroxine Sodium [Synthroid] 100 mcg PO DAILY Acetaminophen [Tylenol] 1,000 mg PO Q6H PRN PRN Reason: Fever And/ Or Pain mycophenolate mofetiL [Cellcept] 250 mg PO BID Montelukast [Singulair] 10 mg PO HS Rosuvastatin Calcium [Crestor] 40 mg PO HS Nitroglycerin Sl Tabs [Nitrostat] 0.4 mg SL Q5M PRN PRN Reason: Chest Pain Sildenafil Citrate [Viagra] 100 mg PO DAILY PRN PRN Reason: erectile dysfunction Sodium Bicarbonate Tab 650 mg PO TID Midodrine [ProAmatine] 10 mg PO TID PRN PRN Reason: Blood Pressure - Low Torsemide [Demadex] 40 mg PO DAILY Insulin Lispro [Insulin Lispro Kwikpen U-100] See Protocol SQ AC-TID Albuterol Sulfate [Ventolin HFA] 2 puff INHALATION RT-Q4H PRN PRN Reason: Shortness Of Breath Albuterol Nebulized [Ventolin Nebulized] 2.5 mg INHALATION RT-QID PRN PRN Reason: Shortness Of Breath Sertraline [Zoloft] 25 mg PO HS Semaglutide [Rybelsus] 7 mg PO DAILY Insulin Glargine,Hum.rec.anlog [Lantus Solostar Pen] 20 units SQ HS Tacrolimus [Prograf] 1 mg PO DAILY Tacrolimus [Prograf] 0.5 mg PO HS Sevelamer [Renvela] 800 mg PO W/SUPPER Cetirizine HCl [Zyrtec] 10 mg PO DAILY Changed predniSONE 5 mg PO DAILY #0 Discontinued amLODIPine [Norvasc] 5 mg PO DAILY predniSONE See Taper PO DIRECTED Discharge Medication List Levothyroxine Sodium [Synthroid] 100 mcg PO DAILY 09/20/16 [History] Acetaminophen [Tylenol] 1,000 mg PO Q6H PRN 10/30/17 [History] mycophenolate mofetiL [Cellcept] 250 mg PO BID 10/30/17 [History] Insulin Glargine,Hum.rec.anlog [Lantus Solostar Pen] 20 units SQ HS 12/14/23 [History] Montelukast [Singulair] 10 mg PO HS 12/14/23 [History] Rosuvastatin Calcium [Crestor] 40 mg PO HS 12/14/23 [History] Semaglutide [Rybelsus] 7 mg PO DAILY 12/14/23 [History] Sertraline [Zoloft] 25 mg PO HS 12/14/23 [History] Tacrolimus [Prograf] 1 mg PO DAILY 12/14/23 [History] Nitroglycerin Sl Tabs [Nitrostat] 0.4 mg SL Q5M PRN 12/16/23 [History] Sildenafil Citrate [Viagra] 100 mg PO DAILY PRN 03/31/24 [History] Sodium Bicarbonate Tab 650 mg PO TID 03/31/24 [History] Tacrolimus [Prograf] 0.5 mg PO HS 03/31/24 [History] Midodrine [ProAmatine] 10 mg PO TID PRN 05/07/24 [History] Sevelamer [Renvela] 800 mg PO W/SUPPER 05/07/24 [History] Albuterol Nebulized [Ventolin Nebulized] 2.5 mg INHALATION RT-QID PRN 08/07/24 [History] Albuterol Sulfate [Ventolin HFA] 2 puff INHALATION RT-Q4H PRN 08/07/24 [History] Cetirizine HCl [Zyrtec] 10 mg PO DAILY 08/07/24 [History] Insulin Lispro [Insulin Lispro Kwikpen U-100] See Protocol SQ AC-TID 08/07/24 [History] Torsemide [Demadex] 40 mg PO DAILY 08/07/24 [History] Apixaban [Eliquis] 2.5 mg PO BID #60 tab 08/11/24 [Rx] Cefuroxime [Ceftin] 250 mg PO BID #14 tab 08/11/24 [Rx] Metoprolol Succinate (ER) [Toprol XL] 25 mg PO DAILY #30 tab 08/11/24 [Rx] predniSONE 5 mg PO DAILY #0 08/11/24 [Rx] Follow up Appointment(s)/Referral(s): Og Ballard MD [Primary Care Provider] - 1-2 days (Please call for follow up appoitment) Jose M Cheng MD [STAFF PHYSICIAN] - 08/18/24 3:15 pm Patient Instructions/Handouts: Hypotension (IP) Discharge Disposition: HOME SELF-CARE
[2024-08-11] MEDS ORDERED: LORATADINE 10 MG TAB PO SCH (21:00)
== END 2024-08-11 14:19 | disposition home or self-care (01) | DRG 871 ==
LOC: EC 06:50 → 2SICU 08:31 → 3SCARD 08-09 22:57
PROVIDERS: ADMIT Hospitalist; ATTEND Hospitalist
PROC: 02HV33Z Insertion of Infusion Device into Superior Vena Cava, Percutaneous Approach (ICD-10-PCS; 2024-08-07)
PROC: 4A023N7 Measurement of Cardiac Sampling and Pressure, Left Heart, Percutaneous Approach (ICD-10-PCS; 2024-08-07)
PROC: B2111ZZ Fluoroscopy of Multiple Coronary Arteries using Low Osmolar Contrast (ICD-10-PCS; 2024-08-07)
PROC: 5A1D70Z Performance of Urinary Filtration, Intermittent, Less than 6 Hours Per Day (ICD-10-PCS; principal; 2024-08-07 09:10)
DX: A41.89 Other specified sepsis (principal); I21.A1 Myocardial infarction type 2; R65.21 Severe sepsis with septic shock; N18.6 End stage renal disease; I12.0 Hypertensive chronic kidney disease with stage 5 chronic kidney disease or end stage renal disease; T86.12 Kidney transplant failure; E87.20 Acidosis, unspecified; J96.11 Chronic respiratory failure with hypoxia; N17.9 Acute kidney failure, unspecified; E11.22 Type 2 diabetes mellitus with diabetic chronic kidney disease; M89.8X9 Other specified disorders of bone, unspecified site; E03.9 Hypothyroidism, unspecified; I25.10 Atherosclerotic heart disease of native coronary artery without angina pectoris; E78.5 Hyperlipidemia, unspecified; I48.0 Paroxysmal atrial fibrillation; D63.1 Anemia in chronic kidney disease; E87.6 Hypokalemia; J84.10 Pulmonary fibrosis, unspecified; Y83.0 Surgical operation with transplant of whole organ as the cause of abnormal reaction of the patient, or of later complication, without mention of misadventure at the time of the procedure; Z87.891 Personal history of nicotine dependence; Z86.16 Personal history of COVID-19; Z79.624 Long term (current) use of inhibitors of nucleotide synthesis; Z79.4 Long term (current) use of insulin; Z79.01 Long term (current) use of anticoagulants; Z79.890 Hormone replacement therapy; Z79.899 Other long term (current) drug therapy; Z86.711 Personal history of pulmonary embolism; Z99.2 Dependence on renal dialysis; Z99.81 Dependence on supplemental oxygen
CPT/HCPCS: 36415; 71045; 71046; 80048; 80053; 80197; 80202; 81001; 82330; 83605; 83735; 83880; 84145; 84443; 84484; 85025; 85027; 85610; 85730; 86706; 87040; 87340; 90935; 93005; 93306; 93458; 94760; 96361; 96365; 96367; 96368; 96375; 99291